=== PATIENT | male | born 1950 | race Caucasian/White ===

== ENCOUNTER → 2022-03-30 14:23 | Outpatient (CLI) | payer MEDICARE, SELFPAY ==
--- NOTE | ~2022-03-30 | US_ITS ---
EXAMINATION: US venous doppler LE RT DATE: 03/30/2022 14:47 INDICATION: Lower limb swelling TECHNIQUE: Grayscale ultrasound images without and with compression and Doppler ultrasound images of the right lower extremity veins were obtained. COMPARISON: None. FINDINGS: The visualized portions of right common femoral vein, profunda (deep) femoral vein, femoral vein, pop liteal vein, peroneal trunk, posterior tibial veins, peroneal veins, gastrocnemius vein and greater s aphenous vein outflow are patent. 2.9 x 0.8 x 2.5 cm Avery's cyst at the right popliteal fossa. IMPRESSION: 1. No deep venous thrombosis in the right lower limb. 2. Small right Avery's cyst. Reviewed, dictated and finalized at location A. [employer]
== END ==
PROVIDERS: PCP Internal Medicine; Visit Provider Podiatrist Foot & Ankle Surgery
DX: R60.0 Localized edema (principal); M79.671 Pain in right foot; M71.21 Synovial cyst of popliteal space [Baker], right knee
CPT/HCPCS: 93971

== ENCOUNTER 2023-01-05 09:32 | Outpatient (CLI) | payer MEDICARE, SELFPAY ==
[2023-01-05 11:38] LABS: Kit Draw Collected
== END 2023-01-05 09:33 | disposition home or self-care (01) ==
LOC: ANHGOSHLAB 09:35
PROVIDERS: PCP Nurse Practitioner Family; Visit Provider Podiatrist Foot & Ankle Surgery
DX: M10.071 Idiopathic gout, right ankle and foot (principal)
CPT/HCPCS: 36415

== ENCOUNTER 2024-01-09 14:21 | Outpatient (CLI) | payer MEDICARE, SELFPAY ==
[2024-01-09 14:53] LABS: Basophils Absolute Auto 0.2 K/mm3 (0.0-0.1); Basophils Percent Auto 1.2 % (0.2-1.2); Eosinophils Absolute Auto 0.3 K/mm3 (0-0.3); Eosinophils Percent Auto 2.1 % (0-4.4); Hematocrit 46.2 % (42.0-52.0); Hemoglobin 15.1 g/dL (14.0-18.0); Lymphocytes Absolute Auto 1.88 K/mm3 (0.9-3.2); Lymphocytes Percent Auto 12.8 % (18.3-44.2); Mean Corpuscular HGB Conc 32.7 g/dl (32-36); Mean Corpuscular Hemoglobin 29.4 pg (26-34); Mean Corpuscular Volume 90.1 fl (80-100); Monocytes Absolute Auto 1.4 K/mm3 (0.1-0.6); Monocytes Percent Auto 9.6 % (2.6-8.5); Neutrophils Absolute Auto 10.6 K/mm3 (1.3-6.7); Neutrophils Percent Auto 72.3 % (45.5-73.1); Red Blood Count 5.13 M/mm3 (4.6-6.20); Red Cell Distribution Width 16.8 % (11.5-14.5); White Blood Count 14.6 K/mm3 (4.5-10.0)
[2024-01-09 15:00] LABS: Platelet Count Result 1009 k/mm3 (150-375)
[2024-01-09 17:40] LABS: Alanine Aminotransferase 30 U/L (6-50); Albumin Level 4.1 g/dL (3.5-5.1); Alkaline Phosphatase 79 U/L (38-126); Anion Gap 6 mmol/L (4-12); Aspartate Amino Transferase 38 U/L (17-59); Blood Urea Nitrogen 17 mg/dL (9-20); CRP < 0.5 mg/dL (<1.0); Calcium 9.1 mg/dL (8.4-10.2); Carbon Dioxide 31 mmol/L (22-30); Chloride 102 mmol/L (98-107); Estimated Glomerular Filt Rate > 60; Glucose 108 mg/dL (65-110); Potassium 3.9 mmol/L (3.4-5.0); Sodium 139 mmol/L (137-145)
[2024-01-15 08:08] LABS: BCR/abl P190 NOT DETECTED; BCR/abl P210 NOT DETECTED; BCR/abl Source PERIPHERAL
[2024-01-15 11:39] LABS: Erythropoietin (EPO) 9.3 mIU/mL (2.6-18.5)
== END 2024-01-09 14:22 | disposition home or self-care (01) ==
LOC: ANHLAB 14:22
PROVIDERS: PCP Nurse Practitioner Family; Visit Provider Internal Medicine Hematology & Oncology
DX: D72.829 Elevated white blood cell count, unspecified (principal); D47.3 Essential (hemorrhagic) thrombocythemia; D64.9 Anemia, unspecified
CPT/HCPCS: 36415; 80053; 81270; 82668; 82728; 85025; 86140; 88184

== ENCOUNTER 2024-02-11 09:01 | Outpatient (CLI) | payer MEDICARE, SELFPAY ==
[2024-02-11 09:14] LABS: Basophils Absolute Auto 0.2 K/mm3 (0.0-0.1); Basophils Percent Auto 1.8 % (0.2-1.2); Eosinophils Absolute Auto 0.3 K/mm3 (0-0.3); Eosinophils Percent Auto 2.8 % (0-4.4); Hematocrit 46.4 % (42.0-52.0); Hemoglobin 15.3 g/dL (14.0-18.0); Immature Granulocyte Absolute 0.15 K/mm3 (0.00-0.031); Immature Granulocyte Percent A 1.5 % (0-0.5); Lymphocytes Absolute Auto 1.54 K/mm3 (0.9-3.2); Lymphocytes Percent Auto 15.2 % (18.3-44.2); Mean Corpuscular Hemoglobin 29.8 pg (26-34); Mean Corpuscular Volume 90.3 fl (80-100); Mean Platelet Volume 8.5 fl (7.4-10.4); Monocytes Absolute Auto 0.9 K/mm3 (0.1-0.6); Neutrophils Absolute Auto 7.1 K/mm3 (1.3-6.7); Neutrophils Percent Auto 69.7 % (45.5-73.1); Platelet Count Result 825 k/mm3 (150-375); Red Blood Count 5.14 M/mm3 (4.6-6.20); Red Cell Distribution Width 17.6 % (11.5-14.5); White Blood Count 10.1 K/mm3 (4.5-10.0)
[2024-02-11 09:17] LABS: Blood Urea Nitrogen 16 mg/dL (8-26); Carbon Dioxide 27 mmol/L (22-30); Chloride 102 mmol/L (98-109); Estimated Glomerular Filt Rate 35; Glucose 116 mg/dL (70-105); Ionized Calcium (POC) 1.15 mmol/L (1.11-1.31); Potassium 4.5 mmol/L (3.5-4.9); Sodium 140 mmol/L (138-146)
--- OUTSIDE RECORDS SUMMARY | 2024-02-17 23:03 | XMS_ITS | Clinical Summary ---
Author Organization [facility] [employer] Address [address] [place] [address] Care Team Providers Care Automation Application Engineer Name Role Phone Levi Yu DO Unavailable Christian Allan MD Primary Care Provider [phone] Markell Dominguez MD Unavailable Unavailable Source Comments [facility] [employer],non-owned Affiliates and Associated Physician Practices is amultiple site organization consisting of ambulatory clinics and hospital sitesin [place], [place], [place] and [place]. This disclosure is being madepursuant to the Care Everywhere program and may not contain all information available regarding this patient. Last updated 17.[facility] [employer] Allergies No known active allergies Medications * Be aware that medications may not be up to date on this document. Alwaysverify current medications with the patient. Medication Sig Dispensed Refills Start Date End Date Status enalapril (VASOTEC) 20 MG tablet Take 20 mg by mouth 2 times daily. Active amLODIPine (NORVASC) 5 MG tablet Take 5 mg by mouth once daily after dinner. Active niacin, Immediate Release, 250 MG tablet Take 250 mg by mouth at bedtime Active Multiple Vitamins-Minerals (OCUVITE PO) Take by mouth once daily Active Misc. Devices (ROLLATOR ULTRA-LIGHT) MISCIndications:Left hip pain,Primary osteoarthritis of left hip Use 1 Units continuous 1 Each 10/14/2018 Active Additional Information Patient not taking.Reported on 06/04/2020 HYDROcodone-acetamino phen (NORCO) 10-325 MG tablet Take 0.5-1 tablets by mouth every 6 hours as needed for Pain 28 tablet 12/23/2018 Active Additional Information Patient not taking.Reported on 06/04/2020 ASPIRIN LOW DOSE 81 MG tablet Take 81 mg by mouth once daily 03/26/2020 Active hydrOXYzine hcl (ATARAX) 25 MG tablet TAKE 1 TABLET BY MOUTH EVERY NIGHT AT BEDTIME NEEDED FOR ITCHING 04/30/2020 Active rosuvastatin (CRESTOR) 20 MG tablet 04/02/2020 Active Multiple Vitamins-Minerals (RA VISION-DYLAN PRESERVE PO) Active TURMERIC CURCUMIN PO Acti ve omega 3 (FISH OIL) 1200 MG capsule Take 1,200 mg by mouth once daily Active hydroCHLOROthiazide (HYDRODIURIL) 25 MG tablet Take 25 mg by mouth once daily Active metFORMIN ER 24hr (Glucophage XR) 500 MG tablet 11/01/2022 Active naproxen (Naprosyn) 500 MG tablet 11/01/2022 Active Active Problems Problem Noted Date Diagnosed Date Abnormal ECG 06/04/2020 HTN (hypertension), benign 06/04/2020 Left hip pain 11/12/2018 Spinal stenosis of lumbar region 06/07/2018 Tear of biceps tendon 10/05/2017 History of arthroscopy of right knee on 08-21-12 08/28/2012 Preoperative examination 08/20/2012 Knee pain 08/13/2012 Social History Tobacco Use Types Packs/Day Years Used Date Smoking Tobacco: Former Cigarettes Q uit: 02/26/1987 Smokeless Tobacco: Never Alcohol Use Standard Drinks/Week Comments Yes 2.5 (1 standard drink = 0.6 oz p ure alcohol) Sex and Gender Information Value Date Recorded Sex Assigned at Not on file Gender Identity Not on file Sexual Orientation Not on file Last Filed Vital Signs Vital Sign Reading Time Taken Comments Blood Pressure 156/75 06/04/2020 8:08 AM CDT Pulse 56 06/04/2020 8:08 AM CDT Temperature 36.9 ??C (98.5 ??F) 03/21/2020 3:25 PM CS T Respiratory Rate 18 03/21/2020 6:31 PM CONTRACT RUNNER Oxygen Saturation 95% 03/21/2020 8:01 PM CONTRACT RUNNER Inhaled Oxygen Concentration - - Weight 151.4 kg (333 lb 12.5 oz) 06/04/2020 8:08 AM CDT Height 188 cm (6' 2 ) 06/04/2020 8:08 AM CDT Body Mass Index 42.85 06/04/2020 8:08 AM CDT Plan of Treatment Health Maintenance Due Date Last Done Comments COLOGUARD (AGES 45-75) - COLON CA SCREENING 1952 COLON MONITORING 1952 COLONOSCOPY - COLON CA SCREENING 1952 CT COLONOGRAPHY - COLON CA SCREENING 1952 Colorectal Cancer Screening 1952 FIT - COLON CA SCREENING 1952 FLEX SIG - COLON CA SCREENING 1950 MEDICARE AWV ? 12 MONTHS 1952 HEPATITIS C SCREENING 07/28/1970 DTAP/TDAP/TD VACCINES (1 - Tdap) 08/02/1971 ZOSTER VACCINE (1 of 2) 2002 Respiratory Syncytial Virus (RSV) Vaccine Pt: or over 60 yrs (1 - Risk 60-74 years 1-dose series) 2012 AAA SCREENING 2017 PNEUMOCOCCAL VACCINE 65+ (1 of 1 - PCV) 2017 DEPRESSION SCREENING 02/26/2023 COVID-19 VACCINE ( season) 2023 12/29/2021, 10/10/2021, 12/14/2020, Additional history exists INFLUENZA VACCINE (#1) 2023 12/29/2021 HEPATITIS B VACCINE Aged Out No longe r eligible based on patient's age to complete this topic HIB VACCINE Aged Out No longer eligi ble based on patient's age to complete this topic HPV VACCINE Aged Out No longer eligi ble based on patient's age to complete this topic MENINGOCOCCAL VACCINE Aged Out No meir lilia eligible based on patient's age to complete this topic Medical Devices Implanted Type Area Para Operator Device Identifier Shelf Expiration Date Model / Serial / Lot Acetabular Liner +3 Max-Rom 40mm Head Size 25 Liner Size Implanted:Qty: 1 on 11/12/2018 by Frederick Solis IV, MD at [facility] Left: Hip [employer] 10/25/2020 [id number] / / [id number] Shell Actb 58mm Hip Lmt Hl Rnglc+ Implanted:Qty: 1 on 11/12/2018 by Frederick Solis IV, MD at [facility] Left: Hip [employer] 07/30/2028 [id number] / / [id number] Alloclassic Sl Stem Offset 5, Taper 12/14 Implanted:Qty: 1 on 11/12/2018 by Frederick Solis IV, MD at [facility] Left: Hip 06/26/2023 [id number] 0 / / [id number] Ceramic Femoral Head 40/+7 Xl Implanted:Qty: 1 on 11/12/2018 by Frederick Solis IV, MD at [facility] Left: Hip [employer] 03/28/2024 [id number] 0 -04 / / [id number] Explanted Type Area Para Operator Device Identifier Shelf Expiration Date Model / Serial / Lot Pin Fx 22.9cm 4mm Stnm Thrd Ss 1 End Explanted:Qty: 2 on 11/12/[address] [facility] Left: Hip [employer] [id number] / / Advance Directives * Full Code (Latest Code Status on File) Date Activated Date Inactivated Comments 11/12/2018 10:25 AM 11/16/2018 3:52 PM Care Teams Automation Application Engineer Relationship Specialty Start Date End Date Christian Allan MD [address] [place] [id number] PCP - General Internal Medicine 03/21/20 Levi Yu DO Orthopedic Surgery 08/13/12 Markell Dominguez MD [address] [place] [address] Compressor Operator Portable Cardiovascular Disease 06/04/20
--- OUTSIDE RECORDS SUMMARY | 2024-02-17 23:04 | XMS_ITS | Referral Summary ---
Author Organization [facility] [employer] Address [address] [place] [address] Care Team Providers Care Case Assistant Name Role Phone Levi Yu DO Unavailable Christian Allan MD Primary Care Provider [phone] Markell Dominguez MD Unavailable Unavailable Source Comments [facility] [employer],non-owned Affiliates and Associated Physician Practices is amultiple site organization consisting of ambulatory clinics and hospital sitesin [place], [place], [place] and [place]. This disclosure is being madepursuant to the Care Everywhere program and may not contain all information available regarding this patient. Last updated 17.[facility] [employer] Allergies No known active allergies Medications * [...] T Respiratory Rate 18 03/21/2020 6:31 PM FOOD AIDE Oxygen Saturation 95% 03/21/2020 8:01 PM FOOD AIDE Inhaled Oxygen Concentration - - Weight 151.4 kg (333 lb 12.5 oz) 06/04/2020 8:08 AM CDT Height 188 cm (6' 2 ) 06/04/2020 8:08 AM CDT Body Mass Index 42.85 06/04/2020 8:08 AM CDT Functional Status Functional Status Response Date of Assess ment Is person deaf or have serious hearing difficult y? No 11/16/2018 Is person blind or have serious difficulty seein g? No 11/16/2018 Does person have serious dif ficulty walking/climbing stairs? Yes 11/16/2018 Does person have difficulty dressing/bathing? Ye s 11/16/2018 Does person have difficulty doing errands alone? Yes 11/16/2018 Cognitive Status Response Date of Assessm ent Does person have difficulty concentrating/remembering/making decisions? No 11/16/2018 Plan of Treatment Not on file Medical Devices Implanted Type Area Training And Development Director Device Identifier Shelf Expiration Date Model / Serial / Lot Acetabular Liner +3 Max-Rom 40mm Head Size 25 Liner Size Implanted:Qty: 1 on 11/12/2018 by Frederick Solis IV, MD at [facility] Left: Hip [employer] 10/25/2020 [id number] / / [id number] Shell Actb 58mm Hip Lmt Hl Rnglc+ Implanted:Qty: 1 on 11/12/2018 by Frederick Solis IV, MD at [facility] Left: Hip [employer] 07/30/2028 [id number] / / [id number] Alloclassic Sl Stem Offset 5, Taper 12/14 Implanted:Qty: 1 on 11/12/2018 by Frederick Solis IV, MD at [facility] Left: Hip 06/26/2023 [id number] 0 / / [id number] Ceramic Femoral Head 40/+7 Xl Implanted:Qty: 1 on 11/12/2018 by Frederick Solis IV, MD at [facility] Left: Hip [employer] 03/28/2024 [id number] 0 -04 / / [id number] Explanted Type Area Training And Development Director Device Identifier Shelf Expiration Date Model / Serial / Lot Pin Fx 22.9cm 4mm Stnm Thrd Ss 1 End Explanted:Qty: 2 on 11/12/2018 at [facility] Left: Hip [employer] [id number] / / Advance Directives * Full Code (Latest Code Status on File) Date Activated Date Inactivated Comments 11/12/2018 10:25 AM 11/16/2018 3:52 PM Care Teams Case Assistant Relationship Specialty Start Date End Date Christian Allan MD [address] [place] [address] PCP - General Internal Medicine 03/21/20 Levi Yu DO Orthopedic Surgery 08/13/12 Markell Dominguez MD [address] [place] [address] Design Lead Cardiovascular Disease 06/04/20
--- OUTSIDE RECORDS SUMMARY | 2024-02-17 23:04 | XMS_ITS | Encounter Summary ---
Author Organization [facility] Address [address] [place] [address] Care Team Providers Care Carrier Washer Name Role Phone Levi Yu DO Unavailable Christian Allan MD Primary Care Provider [phone] Markell Dominguez MD Unavailable Unavailable Reason for Visit * Reason Comments Abnormal Ekg Dizziness Establish Care Encounter Details Date Type Department Care Team (Late st Contact Info) Description 06/04/2020 8:00 AM CDT Office Visit [facility] [address] [place] [address], [address] [address] Markell Dominguez MD Abnormal ECG (Primary Dx); HTN (hypertension), benign Social History Tobacco Use Types Packs/Day Years Used Date Smoking Tobacco: Former Cigarettes Q uit: 02/26/1987 Smokeless Tobacco: Never Alcohol Use Standard Drinks/Week Comments Yes 2.5 (1 standard drink = 0.6 oz p ure alcohol) Sex and Gender Information Value Date Recorded Sex Assigned at Not on file Gender Identity Not on file Sexual Orientation Not on file COVID-19 Exposure Response Date Recorded In the last month, have you been in contact with someone who was confirmed or suspected to have Coronavirus / COVID-19? No / Unsure 05/24/2020 10:56 AM CDT documented as of this encounter Last Filed Vital Signs Vital Sign Reading Time Taken Comments Blood Pressure 156/75 06/04/2020 8:08 AM CDT Pulse 56 06/04/2020 8:08 AM CDT Temperature - - Respiratory Rate - - Oxygen Saturation - - Inhaled Oxygen Concentration - - Weight 151.4 kg (333 lb 12.5 oz) 06/04/2020 8:08 AM CDT Height 188 cm (6' 2 ) 06/04/2020 8:08 AM CDT Body Mass Index 42.85 06/04/2020 8:08 AM CDT documented in this encounter Functional Status Functional Status Response Date of [...] person have difficulty concentrating/remembering/making decisions? No 11/16/2018 documented as of this encounter Patient Instructions * Patient Instructions* Soledad Glez MA - 06/04/2020 8:12 AM CDT Dear Dillon Mejia, So we can provide you an even better experience we are collecting feedback on how we performed at your visit today. In a couple of weeks you will receive a survey via e-mail or mail. We would greatlyappreciate insight as we continue to improve our patient experience. Thank you for you time! documented in this encounter Progress Notes * Markell Dominguez MD - 06/04/2020 8:26 AM CDT Cardiology Consultation Note Chief Complaint Patient presents with ??? Abnormal Ekg ??? Dizziness ??? Establish Care History of Present Illness: The patient is a very pleasant 69 year old male with a history including HTN, spinal stenosis, obesity. Came for evaluation of dizziness and HTN. In late February had two episodes of lightheadedness which lasted a second. No associated chest pain, dyspnea, palpitations, edema, syncope, dyspnea. Went to ER. No problems since. BPs 130's/80s at home Saw Dr. Browning in March, following tests done: Event recorder for 3 weeks: Ave HR 62, 1.86% PACs, 1.23% VPCs, 21 ventricular couplets. Patient was not called test results. Echocardiogram: Normal LV function, mild LAE Carotid Duplex <50% bilterally. Renal Duplex: negtive Nuclear regadenoson stress test: negative CXR negative ECG: SR 54, slow R wave progression Past Medical History: Past Medical History: Diagnosis Date ??? HTN (hypertension) ??? Macular degeneration (senile) of retina, unspecified Macular Degeneration Past Surgical History: Past Surgical History: Procedure Laterality Date ??? HC ARTHROSCOPY KNEE 08/21/12 RIGHT ??? HIP ARTHROPLASTY, TOTAL Left 11/12/2018 ANTERIOR APPROACH; DR. HELMS ??? HIP ARTHROPLASTY, TOTAL Left 11/12/2018 Left; LEFT TOTAL ANTERIOR HIP ARTHROPLASTY ??? KNEE ARTHROPLASTY 2005 ??? Knee Arthroscopy X2 ??? LUMBAR SPINE FUSION ??? Meniscectomy 08/21/2012 Right; ARTHROSCOPY KNEE MENISCECTOMY MEDIAL Current Medications: Current Outpatient Medications: ??? amLODIPine (NORVASC) 5 MG tablet, Take 5 mg by mouth once daily after dinner., Disp: , Rfl: ??? ASPIRIN LOW DOSE 81 MG tablet, Take 81 mg by mouth once daily, Disp: , Rfl: ??? enalapril (VASOTEC) 20 MG tablet, Take 20 mg by mouth 2 times daily., Disp: , Rfl: ??? hydroCHLOROthiazide (HYDRODIURIL) 25 MG tablet, Take 25 mg by mouth once daily, Disp: , Rfl: ??? HYDROcodone-acetaminophen (NORCO) 10-325 MG tablet, Take 0.5-1 tablets by mouth every 6 hours as needed for Pain (Patient not taking: Reported on 06/04/2020), Disp: 28 tablet, Rfl: 0 ??? hydrOXYzine hcl (ATARAX) 25 MG tablet, TAKE 1 TABLET BY MOUTH EVERY NIGHT AT BEDTIME NEEDED FOR ITCHING, Disp: , Rfl: ??? Misc. Devices (ROLLATOR ULTRA-LIGHT) MISC, Use 1 Units continuous (Patient not taking: Reportedon 06/04/2020), Disp: 1 Each, Rfl: 0 ??? Multiple Vitamins-Minerals (OCUVITE PO), Take by mouth once daily , Disp: , Rfl: ??? Multiple Vitamins-Minerals (RA VISION-DYLAN PRESERVE PO), , Disp: , Rfl: ??? niacin, Immediate Release, 250 MG tablet, Take 250 mg by mouth at bedtime, Disp: , Rfl: ??? omega 3 (FISH OIL) 1200 MG capsule, Take 1,200 mg by mouth once daily, Disp: , Rfl: ??? rosuvastatin (CRESTOR) 20 MG tablet, , Disp: , Rfl: ??? TURMERIC CURCUMIN PO, , Disp: , Rfl: Allergies: No Known Allergies Family History: Mother with PR at 64, PCI Social History: Social History Tobacco Use ??? Smoking status: Former Smoker Types: Cigarettes Quit date: 02/26/1987 Years since quittin.2 ??? Smokeless tobacco: Never Used Substance Use Topics ??? Alcohol use: Yes Alcohol/week: 2.5 standard drinks Types: 3 Alcoholic drink(s) per week ??? Drug use: No Review of Symptoms: Constitutional: Negative for fever, chills, malaise/fatigue, diaphoresis. Psychiatric: Negative for depression, anxiety. Skin: Negative for rash, itching. HENT: Negative for headaches, congestion. Negative for vertigo. Eyes: Negative for blurred vision, itching. Cardiovascular: As above. Respiratory: Negative for cough, sputum production. Negative for shortness of breath. Gastrointestinal: Negative for nausea, vomiting, abdominal pain, diarrhea. Genitourinary: No urgency, frequency, dysuria, hematuria. No incontinence. Musculoskeletal: Negative for muscle weakness, extremity redness, swelling. Neurological: Negative for dizziness, focal weakness, tremors, loss of consciousness. Physical Exam: BP 156/75 Pulse 56 Ht 1.88 m (6' 2 ) Wt 151.4 kg (333 lb 12.5 oz) BMI 42.85 kg/m2 General: Well developed, well nourished, in no acute distress. Skin: Warm and dry. No jaundice. Head: Normocephalic, oral mucosa normal Eyes: No xanthelasma. Pupils equal. Conjunctivae normal. Neck: No thyromegaly or bruits. Carotid pulses 2+ Lungs: Clear to auscultation and percussion. Respirations unlabored Cardiac: PMI and JVP normal, S1 and S2 normal, no murmur, no gallop, no rub Abd: Soft, nontender, obese, BS active, no hepatosplenomegaly or masses, no abdominal bruit or enlarged aortic pulsation Extremities: No clubbing, cyanosis. No edema. Femoral pulses 2+. Pedal pulses 2+ Musculoskeletal: Muscle strength normal. No scoliosis. Neurologic: Motor and sensory exam grossly normal. Extraocular muscles intact. Mood not depressed. Oriented to person, place, and time. My review of labs, imaging, notes and other tests is significant for Recent Labs Component Name 03/21/20 1409 11/14/18 0259 11/13/18 0332 WBC 11.5* - - HGB 16.0 11.5* 13.1 HCT 47.6 35.2 39.4 PLTCOUNT 281 - - Recent Labs Component Name 03/21/20 1409 08/21/12 0743 SODIUM 139 140 POTASSIUM 4.2 4.6 CHLORIDE 103 102 CO2 25 30 BUN 12 17 CREATININE 0.79 0.79 GLUCOSE 99 110* CALCIUM 9.3 9.1 Recent Labs Component Name 03/21/20 1409 BNP 15 Recent Labs Component Name 03/21/20 1409 TSH 1.920 Recent Labs Component Name 03/21/20 1409 ALBUMIN 4.2 ALKPHOS 94 ALT 31 AST 24 TBIL 0.8 TPROT 7.7 Diagnosis: Fleeting lightheadedness. No clear cause. VPCs and ventricular couplets. HTN Spinal stenosis Left hip replacement Obesity Plan: No further testing Discontinue aspirin Patient reassured. Return PRN Markell Dominguez MD, [facility], 06/04/2020 8:26 AM documented in this encounter Plan of Treatment Not on file documented as of this encounter Visit Diagnoses Diagnosis Abnormal ECG- Primary Nonspecific abnormal electrocardiogram (ECG) (EKG) HTN (hypertension), benign Essential hypertension, benign documented in this encounter Care Teams Carrier Washer Relationship Specialty Start Date End Date Christian Allan MD [address] [place] [address] PCP - General Internal Medicine 03/21/20 Levi Yu DO Orthopedic Surgery 08/13/12 Markell Dominguez MD [address] [place] [address] Promotions Intern Cardiovascular Disease 06/04/20 documented as of this encounter
--- OUTSIDE RECORDS SUMMARY | 2024-02-17 23:04 | XMS_ITS | Encounter Summary ---
Author Organization [facility] Address [address] [place] [address] Care Team Providers Care Metal Molder Name Role Phone Levi Yu DO Unavailable Reason for Visit * Reason Comments Follow-up left hip Encounter Details Date Type Department Care Team (Late st Contact Info) Description 12/15/2019 8:40 AM CDT Office Visit [facility] Orth[facility] [id number] [place] [phone] [place] [id number] [address] History of arthroplasty of left hip (Primary Dx); Left hip pain; Status post total hip replacement, left Social History Tobacco Use Types Packs/Day Years [...] have Coronavirus / COVID-19? No / Unsure 12/15/2019 9:26 AM CDT documented as of this encounter Functional Status Functional Status Response [...] No 11/16/2018 documented as of this encounter Progress Notes * Anila Noriega MA - 12/15/2019 8:46 AM CDT Patient is here for his left hip s/p rhianna 1 yr f/u documented in this encounter H&P Notes * Frederick Solis IV, MD - 12/16/2019 9:55 AM CDT DATE OF SERVICE: 12/15/2019 SUBJECTIVE: Dillon came in today for followup on his left hip. He is doing overall well, but having some lateral-sided hip pain with activity. OBJECTIVE: On examination today, marked trochanteric tenderness and low back tenderness. Range of motion of the hip is nontender. Minimal limp. Negative Trendelenburg. RADIOGRAPHS: X-rays show stable left total hip arthroplasty. IMPRESSION: Well-functioning stable left total hip arthroplasty with some persistent difficulty likely due to abductor dysfunction in the setting of lumbar spondylosis. PLAN: I have enrolled him in physical therapy. I would like to see him back in the office in 6 to 8 weeks to assess his progress with therapy. If he is not improved then he would probably benefit from more careful evaluation of the hip, possibly a MARS MRI and infection workup. Frederick Solis M.D. FT/Giancarlo #: [id number] documented in this encounter Procedure Notes * Christen Rock, RT(R) - 12/15/2019 8:52 AM CDTAssociated Order(s): XR HIP LEFT 2VW OR MORE See progress notes for results documented in this encounter Plan of Treatment Not on file documented as of this encounter Procedures Procedure Name Priority Date/Time Associated Diagnosis Comments XR HIP LEFT 2VW OR MORE Routine 12/15/2019 8:51 AM CDT Left hip pain documented in this encounter Results * XR HIP LEFT 2VW OR MORE (12/15/2019 8:51 AM CDT) Anatomical Region Laterality Modality Pelvis, Lower Extremity Computed Radiography Narrative 12/15/2019 8:52 AM CDT Christen Rock RT(R) ? 12/16/2019 ??8:39 AM See progress notes for results Frederick Solis IV, MD DIAGNOSTIC IMAGING O RDERABLES documented in this encounter Visit Diagnoses Diagnosis History of arthroplasty of left hip- Primary Left hip pain Pain in joint, pelvic region and thigh Status post total hip replacement, left Left hip pain Pain in joint, pelvic region and thigh documented in this encounter Care Teams Metal Molder Relationship Specialty Start Date End Date Levi Yu DO Orthopedic Surgery 08/13/12 documented as of this encounter
--- OUTSIDE RECORDS SUMMARY | 2024-02-17 23:04 | XMS_ITS | Encounter Summary ---
Author Organization [facility] Address [address] [place] [address] Care Team Providers Care Top Bottom Attaching Machine Operator Name Role Phone Levi Yu DO Unavailable Encounter Details Date Type Department Care Team (Late st Contact Info) Description 12/15/2019 8:50 AM CDT Ancillary Procedure [facility] Orthopedics - Radiology [address] [place] [phone] [place] [id number] [facility] [address] [place] [address] Left hip pain Social History Tobacco Use Types Packs/Day Years [...] No 11/16/2018 documented as of this encounter Plan of Treatment Not on [...] Radiography Narrative 12/15/2019 8:52 AM CDT Christen Rock, RT(R) ? 12/16/2019 ??8:39 AM See progress notes for results Frederick Solis IV, MD DIAGNOSTIC IMAGING O RDERABLES documented in this encounter Visit Diagnoses Diagnosis Left hip pain Pain in joint, pelvic region and thigh documented in this encounter Care Teams Top Bottom Attaching Machine Operator Relationship Specialty Start Date End Date Levi Yu DO Orthopedic Surgery 08/13/12 documented as of this encounter
--- OUTSIDE RECORDS SUMMARY | 2024-02-17 23:04 | XMS_ITS | Encounter Summary ---
Author Organization [facility] Address [address] [facility] [place] [address] Care Team Providers Care Industrial Education Teacher Name Role Phone Levi Yu DO Unavailable Reason for Visit * Reason Onset Date Comments MEDICATION REFILL 02/03/2019 Encounter Details Date Type Department Care Team (Late st Contact Info) Description 02/03/2019 Refill [facility] Orthopedics [address] [address] [place] [address] [address] MEDICATION REFILL Social History Tobacco Use Types Packs/Day Years Used Date Smoking Tobacco: Former Cigarettes Q uit: 02/26/1987 Smokeless Tobacco: Never Alcohol Use Standard Drinks/Week Comments Yes 2.5 (1 standard drink = 0.6 oz p ure alcohol) Sex and Gender Information Value Date Recorded Sex Assigned at Not on file Gender Identity Not on file Sexual Orientation Not on file documented as of this encounter Functional Status [...] documented as of this encounter Visit Diagnoses Not on filedocumented in this encounter Care Teams Industrial Education Teacher Relationship Specialty Start Date End Date Levi Yu DO Orthopedic Surgery 08/13/12 documented as of this encounter
--- OUTSIDE RECORDS SUMMARY | 2024-02-17 23:04 | XMS_ITS | Encounter Summary ---
Author Organization [facility] Address [address] [facility] [place] [address] Care Team Providers Care Triage Register Nurse Name Role Phone Levi Yu DO Unavailable Encounter Details Date Type Department Care Team (Latest Contact Info) Description 08/31/2019 Travel Social History Tobacco Use Types Packs/Day Years [...] have Coronavirus / COVID-19? No / Unsure 08/31/2019 1:46 PM CDT documented as of this encounter Functional [...] on filedocumented in this encounter Care Teams Triage Register Nurse Relationship Specialty Start Date End Date Levi Yu DO Orthopedic Surgery 08/13/12 documented as of this encounter
--- OUTSIDE RECORDS SUMMARY | 2024-02-17 23:04 | XMS_ITS | Encounter Summary ---
Author Organization [facility] Address [address] [facility] [place] [address] Care Team Providers Care Irrigation Flume Layer Name Role Phone Levi Yu DO Unavailable Christian Allan MD Primary Care Provider [phone] Markell Dominguez MD Unavailable Unavailable Reason for Referral * Radiology Services (Routine) - Closed Specialty Diagnoses / Procedures Referred By Contac t Referred To Contact MRI Diagnoses History of total left hip arthroplasty Procedures [place] [address] [address] [place] [id number] Referral ID Status Reason Start Date Expiration Date Visits Re quested Visits Authorized [id number] Closed 09/18/2022 09/18/2023 1 1 Reason for Visit * Radiology Services (Routine) - Closed Specialty Diagnoses / Procedures Referred By Contac t Referred To Contact MRI Diagnoses History of total left hip arthroplasty Procedures [place] [address] [address] [place] [address] Referral ID Status Reason Start Date Expiration Date Visits Re quested Visits Authorized [id number] Closed 09/18/2022 09/18/2023 1 1 Encounter Details Date Type Department Care Team (Latest Contact Info) Description 10/09/2022 9:07 AM CDT - 10/09/2022 11:59 PM CDT Hospital Encounter [facility] Health Imaging Services - [place] [address] [place] [address] [place] [address] [address] [place] [address] Discharge Disposition: Home or Self Care Social History Tobacco Use Types Packs/Day Years [...] No 11/16/2018 documented as of this encounter Medications at Time of Discharge Medication Sig Dispensed Refills Start Date End Date amLODIPine (NORVASC) 5 MG tablet Take 5 mg by mouth once daily after dinner. ASPIRIN LOW DOSE 81 MG tablet Take 81 mg by mouth once daily 03/26/2020 enalapril (VASOTEC) 20 MG tablet Take 20 mg by mouth 2 times daily. hydroCHLOROthiazide (HYDRODIURIL) 25 MG tablet Take 25 mg by mouth once daily HYDROcodone-acetaminophen (NORCO) 10-325 MG tablet Take 0.5-1 tablets by mouth every 6 hours as needed for Pain 28 tablet 12/23/2018 hydrOXYzine hcl (ATARAX) 25 MG tablet TAKE 1 TABLET BY MOUTH EVERY NIGHT AT BEDTIME NEEDED FOR ITCHING 04/30/2020 Misc. Devices (ROLLATOR ULTRA-LIGHT) MISCIndications:Left hip pain,Primary osteoarthritis of left hip Use 1 Units continuous 1 Each 10/14/2018 Multiple Vitamins-Minerals (OCUVITE PO) Take by mouth once daily Multiple Vitamins-Minerals (RA VISION-DYLAN PRESERVE PO) niacin, Immediate Release, 250 MG tablet Take 250 mg by mouth at bedtime omega 3 (FISH OIL) 1200 MG capsule Take 1,200 mg by mouth once daily rosuvastatin (CRESTOR) 20 MG tablet 04/02/2020 TURMERIC CURCUMIN PO documented as of this encounter Plan of Treatment Not on file documented as of this encounter Procedures Procedure Name Priority Date/Time Associated Diagnosis Comments MRI HIP LEFT WO CONTRAST Routine 10/09/2022 10:54 AM CDT History of total left hip arthroplasty documented in this encounter Results * MRI HIP LEFT WO CONTRAST (10/09/2022 10:54 AM CDT) Anatomical Region Laterality Modality Lower Extremity Magnetic Resonan ce 10/09/2022 12:5 0 PM CDT Narrative 10/09/2022 1:02 PM CDT PROCEDURE: ??MRI HIP LEFT WO CONTRAST DATE/TIME OF EXAM: ??10/09/2022 10:54 AM CLINICAL INFORMATION: None relevant/not provided if blank. Indication: Z96.642: Presence of left artificial hip joint Additional History: Left hip pain and reduced range of motion. COMPARISON: MRI examination October 08, 2018, plain film examination March 20, 2022. TECHNIQUE: MRI of the left hip was performed without contrast. Metal suppression technique was employed. FINDINGS: Left hip arthroplasty components are in grossly anatomic alignment. No bone marrow edema or bone marrow replacement process is identified to specifically suggest the presence of osteomyelitis. There is no pathologic joint effusion. No soft tissue abscess or fluid collection is appreciated. There is small-volume right hip joint effusion. There is left gluteal muscle atrophy. No free intrapelvic fluid. Margins of the sacroiliac joints are maintained. CONCLUSION: Left hip arthroplasty in place. No bone marrow edema or bone marrow replacement process identified to suggest the presence of osteomyelitis. No left hip joint effusion identified. No soft tissue fluid collection identified. > Interpreting Provider: Brennon Tafoya MD on 10/09/2022 1:02 PM Procedure Note Brennon Tafoya MD - 10/09/2022 PROCEDURE: MRI HIP LEFT WO CONTRAST DATE/TIME OF EXAM: 10/09/2022 10:54 AM CLINICAL INFORMATION: None relevant/not provided if blank. Indication: Z96.642: Presence of left artificial hip joint Additional History: Left hip pain and reduced range of motion. COMPARISON: MRI examination October 08, 2018, plain film examination February. TECHNIQUE: MRI of the left hip was performed without contrast. Metal suppression technique was employed. FINDINGS: Left hip arthroplasty components are in grossly anatomic alignment. Nobone marrow edema or bone marrow replacement process is identified to specifically suggest the presence of osteomyelitis. There is nopathologic joint effusion. No soft tissue abscess or fluid collection isappreciated. There is small-volume right hip joint effusion. There is left gluteal muscle atrophy. No free intrapelvic fluid. Margins of the sacroiliacjoints are maintained. CONCLUSION: Left hip arthroplasty in place. No bone marrow edema or bone marrow replacement process identified to suggest the presence of osteomyelitis. No left hip joint effusion identified. No soft tissue fluid collection identified. > Interpreting Provider: Brennon Tafoya MD on 10/09/2022 1:02 PM Frederick Solis IV, MD MR ORDERABLES documented in this encounter Visit Diagnoses Diagnosis History of total left hip arthroplasty documented in this encounter Care Teams Irrigation Flume Layer Relationship Specialty Start Date End Date Christian Allan MD [address] [place] [phone] PCP - General Internal Medicine 03/21/20 Levi Yu DO Orthopedic Surgery 08/13/12 Markell Dominguez MD [address] [place] [address] Nuclear Engineer Cardiovascular Disease 06/04/20 documented as of this encounter
--- OUTSIDE RECORDS SUMMARY | 2024-02-17 23:04 | XMS_ITS | Encounter Summary ---
Author Organization [facility] Address [address] [facility] [place] [address] Care Team Providers Care Electrical System Specialist Name Role Phone Levi Yu DO Unavailable Reason for Visit * Reason Onset Date Comments MEDICATION REFILL 04/03/2019 Encounter Details Date Type Department Care Team (Late st Contact Info) Description 02/03/2019 Refill [facility] Orthopedics [address] [address] [place] [address] [address] MEDICATION REFILL Social History Tobacco [...] on filedocumented in this encounter Care Teams Electrical System Specialist Relationship Specialty Start Date End Date Levi Yu DO Orthopedic Surgery 08/13/12 documented as of this encounter
--- OUTSIDE RECORDS SUMMARY | 2024-02-17 23:04 | XMS_ITS | Encounter Summary ---
Author Organization [facility] Address [address] [place] [address] Care Team Providers Care Biometrics Analyst Name Role Phone Levi Yu DO Unavailable Christian Allan MD Primary Care Provider [phone] Markell Dominguez MD Unavailable Unavailable Reason for Visit * Reason Onset Date Comments Results 10/12/2022 Encounter Details Date Type Department Care Team (Late st Contact Info) Description 10/12/2022 Telephone [facility] Orthopedics [address] [facility], [address] [address] Leanne Cervantes, PABrantC [address] [address] Results Social History Tobacco Use Types Packs/Day Years [...] No 11/16/2018 documented as of this encounter Miscellaneous Notes * Telephone Encounter - Leanne Cervantes PA-C - 10/12/2022 4:51 PM CDT Spoke with patient regarding his mars MRI results of his left hip and his lab work. Lab work was within normal limits for sed rate and CRP. [place] MRI of his left hip did not show any marrow edema or component complication. Patient does complain of thigh pain. Images 31-36 on the STIR, axial images demonstrate some soft tissue fluid uptake will see if Dr. Solis thinks that there is any clinical significance. documented in this encounter Plan of Treatment Not on file documented as of this encounter Visit Diagnoses Not on filedocumented in this encounter Care Teams Biometrics Analyst Relationship Specialty Start Date End Date Christian Allan MD [address] [place] [phone] PCP - General Internal Medicine 03/21/20 Levi Yu DO Orthopedic Surgery 08/13/12 Markell Dominguez MD [address] [place] [address] Container Coordinator Cardiovascular Disease 06/04/20 documented as of this encounter
--- OUTSIDE RECORDS SUMMARY | 2024-02-17 23:04 | XMS_ITS | Encounter Summary ---
Author Organization [facility] Address [address] [facility] [place] [address] Care Team Providers Care Deputy Sheriff Civil Division Name Role Phone Levi Yu DO Unavailable Christian Allan MD Primary Care Provider [phone] Encounter Details Date Type Department Care Team (Latest Contact Info) Description 05/24/2020 Travel Social History Tobacco Use Types Packs/Day [...] on filedocumented in this encounter Care Teams Deputy Sheriff Civil Division Relationship Specialty Start Date End Date Christian Allan MD [address] [place] [address] PCP - General Internal Medicine 03/21/20 Levi Yu DO Orthopedic Surgery 08/13/12 documented as of this encounter
--- OUTSIDE RECORDS SUMMARY | 2024-02-17 23:04 | XMS_ITS | Encounter Summary ---
Author Organization [facility] Address [address] [facility] [place] [address] Care Team Providers Care Dehydrogenation Operator Name Role Phone Levi Yu DO Unavailable Christian Allan MD Primary Care Provider [phone] Encounter Details Date Type Department Care Team (Late st Contact Info) Description 05/24/2020 Orders Only [facility] - COVID Vax [address] [place] [address] Jose Lovell MD [address] [address] Need for vaccination Social History Tobacco Use Types Packs/Day Years [...] as of this encounter Visit Diagnoses Diagnosis Need for vaccination Need for prophylactic vaccination and inoculation against unspecified single disease documented in this encounter Care Teams Dehydrogenation Operator Relationship Specialty Start Date End Date Christian Allan MD [address] [place] [phone] PCP - General Internal Medicine 03/21/20 Levi Yu DO Orthopedic Surgery 08/13/12 documented as of this encounter
--- OUTSIDE RECORDS SUMMARY | 2024-02-17 23:04 | XMS_ITS | Encounter Summary ---
Author Organization [facility] Address [address] [place] [address] Care Team Providers Care Continuous Miner Operator Helper Name Role Phone Levi Yu DO Unavailable Christian Allan MD Primary Care Provider [phone] Markell Dominguez MD Unavailable Unavailable Reason for Visit * Reason Comments Follow-up Left hip F/U Encounter Details Date Type Department Care Team (Late st Contact Info) Description 06/12/2022 10:10 AM CDT Office Visit [facility] Orthopedics [address] [place] [address] [place] [address] [address] History of total left hip arthroplasty (Primary Dx) Social History Tobacco Use Types Packs/Day Years [...] as of this encounter Progress Notes * Saumya Rosales - 06/12/2022 9:56 AM CDT Chief Complaint Patient presents with ??? Follow-up Left hip F/U documented in this encounter H&P Notes * Frederick Solis IV, MD - 06/13/2022 7:09 AM CDT DATE OF SERVICE: 06/12/2022 SUBJECTIVE: Dillon came in today for followup on his left hip. He thinks therapy is helping him quite a bit. OBJECTIVE: On examination today, he has a mildly positive Trendelenburg, mild abductor weakness, tenderness over the left trochanter. Previous radiographs show a stable total hip. IMPRESSION: Improving symptoms associated with some lateral hip pain status post left total hip arthroplasty. PLANS: Continue physical therapy. I encouraged him to do some water exercise. I would like to see him back in 2 months. If he is still having issues at that point, then had an MRI and possibly sed rate, CRP, would be indicated. Frederick Solis M.D. FT/MedQ #: [id number] documented in this encounter Plan of Treatment Not on file documented as of this encounter Visit Diagnoses Diagnosis History of total left hip arthroplasty- Primary documented in this encounter Care Teams Continuous Miner Operator Helper Relationship Specialty Start Date End Date Christian Allan MD [address] [place] [address] PCP - General Internal Medicine 03/21/20 Levi Yu DO Orthopedic Surgery 08/13/12 Markell Dominguez MD [address] [place] [address] Insurance Claims Assistant Cardiovascular Disease 06/04/20 documented as of this encounter
--- OUTSIDE RECORDS SUMMARY | 2024-02-17 23:04 | XMS_ITS | Encounter Summary ---
Author Organization [facility] Address [address] [facility] [place] [address] Care Team Providers Care Assembling Inspector Name Role Phone Levi Yu DO Unavailable Christian Allan MD Primary Care Provider [phone] Markell Dominguez MD Unavailable Unavailable Reason for Visit * Reason Onset Date Comments Question 03/31/2022 Physical Therapy 03/31/2022 Encounter Details Date Type Department Care Team (Late st Contact Info) Description 03/31/2022 Telephone [facility] Orthopedics [address] [place] [address] [place] [address] [address] Question; Physical Therapy Social History Tobacco Use Types Packs/Day Years [...] Telephone Encounter - Leanne Cervantes PA-C - 04/04/2022 9:30 AM GRAVITY PROSPECTING OPERATOR HELPER LMOR regarding referral for therapy for right leg. Would like to discuss with patient prior. Patient had history right knee arthroscopy back July,. Patient had moderate to advanced degenerative changes, at that time. I do not want to exacerbate his knee arthritis, while he is concurrently doing therapy for his left total hip arthroplasty Director Regulatory Affairs had recent Doppler of his lower extremity which revealed a Avery cyst. Patient is requesting a referral for physical therapy for his right lower extremity ITY PROSPECTING OPERATOR HELPER * Telephone Encounter - Harriett Plaza LPN - 03/31/2022 10:25 AM CST Pt called asking for a return call,he starts PT 04/04/22, he was seen by his gatekeeper and had a R leg doppler, it showed a Bakers cyst, he is asking if an order can be added for PT of the R leg? ITY PROSPECTING OPERATOR HELPER documented in this encounter Plan of Treatment Not on file documented as of this encounter Visit Diagnoses Not on filedocumented in this encounter Care Teams Assembling Inspector Relationship Specialty Start Date End Date Christian Allan MD [address] [place] [address] PCP - General Internal Medicine 03/21/20 Levi Yu DO Orthopedic Surgery 08/13/12 Markell Dominguez MD [address] [place] [address] Guest Relations Manager Cardiovascular Disease 06/04/20 documented as of this encounter
--- OUTSIDE RECORDS SUMMARY | 2024-02-17 23:04 | XMS_ITS | Encounter Summary ---
Author Organization [facility] Address [address] [place] [address] Care Team Providers Care Softball Player Name Role Phone Levi Yu DO Unavailable Reason for Visit * Reason Onset Date Comments MEDICATION REFILL 12/23/2018 Encounter Details Date Type Department Care Team (Late st Contact Info) Description 12/23/2018 Refill [facility] Orthopedics [address] [address] [place] [address] [address] MEDICATION REFILL Social History Tobacco [...] on filedocumented in this encounter Care Teams Softball Player Relationship Specialty Start Date End Date Levi Yu DO Orthopedic Surgery 08/13/12 documented as of this encounter
--- OUTSIDE RECORDS SUMMARY | 2024-02-17 23:04 | XMS_ITS | Encounter Summary ---
Author Organization [facility] Address [address] [facility] [place] [address] Care Team Providers Care Academic Tutor Name Role Phone Levi Yu DO Unavailable Christian Allan MD Primary Care Provider [phone] Markell Dominguez MD Unavailable Unavailable Reason for Visit * Reason Comments Follow-up Left hip pain left t baumann 11-12-18 Encounter Details Date Type Department Care Team (Late st Contact Info) Description 03/20/2022 1:00 PM COMMUNITY SUPPORT SPECIALIST Office Visit [facility] Orthopedics [address] [place] [address] [place] [address] [address] History of total left hip arthroplasty (Primary Dx); Hip pain Social History Tobacco Use Types Packs/Day [...] as of this encounter Progress Notes * Frederick Solis IV, MD - 03/20/2022 2:50 PM CST DATE OF SERVICE: 03/20/2022 SUBJECTIVE: The patient came in today for follow-up on his left hip. He has been having intermittent lateral sided hip discomfort over the last several months. Some days, he is pain free, and other days, he has episodes of severe pain. OBJECTIVE: On examination today, he has a level pelvis and a negative Trendelenburg. There is painless, passive range of motion of his hip. He walks without a limp. He has tenderness in his low back and over his left trochanter. Radiographs of the left hip show a stable total hip arthroplasty with evidence of osseointegration.The Zweym??ller stem does have some proximal bone implant lucency, but it does appear stable without a pedestal and with some reactive hypertrophy of the proximal femoral diaphysis. 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 PLAN: 1. I have enrolled him in physical therapy for his hip and his back. I would like to see him back in 2 months. If he is not improved at that point, I would check a sed rate, CRP, and a metal artifactreduction sequence MRI. ATTESTATION Directed by Frederick Solis IV, MD and produced by [employer]. Powered by [employer]. UNITY SUPPORT SPECIALIST * Kinjal Nicholson MA - 03/20/2022 1:15 PM CST Left hip pain left rhianna 11-12-18 UNITY SUPPORT SPECIALIST documented in this encounter Procedure Notes * Christen Rock, RT(R) - 03/20/2022 1:20 PM CSTAssociated Order(s): XR HIP LEFT 2VW OR MORE See progress notes for results UNITY SUPPORT SPECIALIST documented in this encounter Miscellaneous Notes * Addendum Note - Yadi Castro CPC - 04/04/2022 9:31 AM CSTAddended by: YADI CASTRO on: 04/04/2022 09:31 AM Modules accepted: Level of Service UNITY SUPPORT SPECIALIST documented in this encounter Plan of Treatment Not on file documented as of this encounter Procedures Procedure Name Priority Date/Time Associated Diagnosis Comments XR HIP LEFT 2VW OR MORE Routine 03/20/2022 1:20 PM COMMUNITY SUPPORT SPECIALIST Hip pain documented in this encounter Results * XR HIP LEFT 2VW OR MORE (03/20/2022 1:20 PM COMMUNITY SUPPORT SPECIALIST) Anatomical Region Laterality Modality Pelvis, Lower Extremity Computed Radiography Narrative 03/20/2022 1:20 PM COMMUNITY SUPPORT SPECIALIST Christen Rock RT(R) ? 04/03/2022 ??9:36 AM See progress notes for results Frederick Solis IV, MD DIAGNOSTIC IMAGING O RDERABLES documented in this encounter Visit Diagnoses Diagnosis History of total left hip arthroplasty- Primary Hip pain Pain in joint, pelvic region and thigh Hip pain Pain in joint, pelvic region and thigh documented in this encounter Care Teams Academic Tutor Relationship Specialty Start Date End Date Christian Allan MD [address] [place] [address] PCP - General Internal Medicine 03/21/20 Levi Yu DO Orthopedic Surgery 08/13/12 Markell Dominguez MD [address] [place] [address] Title Manager Cardiovascular Disease 06/04/20 documented as of this encounter
--- OUTSIDE RECORDS SUMMARY | 2024-02-17 23:04 | XMS_ITS | Encounter Summary ---
Author Organization [facility] Address [address] [facility] [place] [address] Care Team Providers Care Starch Treating Assistant Name Role Phone Levi Yu DO Unavailable Christian Allan MD Primary Care Provider [phone] Markell Dominguez MD Unavailable Unavailable Reason for Referral * Radiology Services (Routine) - Closed Specialty Diagnoses / Procedures Referred By Contac t Referred To Contact MRI Diagnoses History of total left hip arthroplasty Procedures [place] [address] [address] [address] Referral ID Status Reason Start Date Expiration Date Visits Re quested Visits Authorized [id number] Closed 09/18/2022 09/18/2023 1 1 Encounter Details Date Type Department Care Team (Late st Contact Info) Description 09/18/2022 Orders Only [facility] Orthopedics [id number] [place] [address], [address] [phone] [place] [address] [address] [address] History of total left hip arthroplasty Social History Tobacco Use Types Packs/Day Years [...] Procedure Name Priority Date/Time Associated Diagnosis Comments C-REACTIVE PROTEIN Routine 10/09/2022 11 :15 AM CDT History of total left hip arthroplasty ERYTHROCYTE SEDIMENTATION RATE Routine 10/09/2022 11:15 AM CDT History of total left hip arthroplasty documented in this encounter Results * ERYTHROCYTE SEDIMENTATION RATE (10/09/2022 11:15 AM CDT) Erythrocyte Sedimentation Rate Westergren 7 0 - 30 mm/hr [facility] [employer] INSURANCE BILL Blood BLOOD SPECIMEN / Unknown 10/09/2022 11:15 AM CDT 10/09/2022 Narrative Resulting Agency Comment [facility] at: [facility] [address] [facility] ??[facility] [id number] Frederick Solis IV, MD LAB - HEMATOLOGY ORD ERABLES [facility] [employer] INSURANCE BILL [address] [place] [address] * C-REACTIVE PROTEIN (10/09/2022 11:15 AM CDT) C-Reactive Protein 8 0 - 10 mg/L [facility] [employer] INSURANCE BILL Blood BLOOD SPECIMEN / Unknown 10/09/2022 11:15 AM CDT 10/09/2022 Narrative Resulting Agency Comment Lab Testing performed at: [facility] [address] ??[facility] [phone] Frederick Solis IV, MD LAB - CHEMISTRY [facility] [place] INSURANCE BILL [address] [place] [address] * MRI HIP LEFT WO CONTRAST (10/09/2022 [...] History of total left hip arthroplasty- Primary History of total left hip arthroplasty documented in this encounter Care Teams Starch Treating Assistant Relationship Specialty Start Date End Date Christian Allan MD [address] [place] [phone] PCP - General Internal Medicine 03/21/20 Levi Yu DO Orthopedic Surgery 08/13/12 Markell Dominguez MD [address] [place] [address] Aviation Project Engineer Cardiovascular Disease 06/04/20 documented as of this encounter
--- OUTSIDE RECORDS SUMMARY | 2024-02-17 23:04 | XMS_ITS | Encounter Summary ---
Author Organization [facility] Address [address] [facility] [place] [address] Care Team Providers Care Camp Maintenance Supervisor Name Role Phone Levi Yu DO Unavailable Encounter Details Date Type Department Care Team (Latest Contact Info) Description 02/03/2019 9:30 AM JUDO TEACHER Ancillary Procedure [facility] Orthopedics - Radiology [id number] [place] [id number] [place] [address] [facility] [address] [place] [address] Status post total hip replacement, left Social [...] XR HIP LEFT 2VW OR MORE Routine 02/03/2019 9:40 AM JUDO TEACHER Status post total hip replacement, left documented in this encounter Results * XR HIP LEFT 2VW OR MORE (02/03/2019 9:40 AM JUDO TEACHER) Anatomical Region Laterality Modality Pelvis, Lower Extremity Computed Radiography Narrative 02/03/2019 10:34 AM JUDO TEACHER Christen Rock, RT(R) ? 02/04/2019 ??8:08 AM See progress notes for results Frederick Solis IV, MD DIAGNOSTIC IMAGING O RDERABLES documented in this encounter Visit Diagnoses Diagnosis Status post total hip replacement, left documented in this encounter Care Teams Camp Maintenance Supervisor Relationship Specialty Start Date End Date Levi Yu DO Orthopedic Surgery 08/13/12 documented as of this encounter
--- OUTSIDE RECORDS SUMMARY | 2024-02-17 23:04 | XMS_ITS | Encounter Summary ---
Author Organization [facility] Address [address] [facility] [place] [address] Care Team Providers Care Automobile Insurance Claim Examiner Name Role Phone Levi Yu DO Unavailable Encounter Details Date Type Department Care Team (Latest Contact Info) Description 11/20/2019 Travel Social History Tobacco Use Types Packs/Day [...] have Coronavirus / COVID-19? No / Unsure 11/20/2019 8:21 AM CDT documented as of this encounter [...] on filedocumented in this encounter Care Teams Automobile Insurance Claim Examiner Relationship Specialty Start Date End Date Levi Yu DO Orthopedic Surgery 08/13/12 documented as of this encounter
--- OUTSIDE RECORDS SUMMARY | 2024-02-17 23:04 | XMS_ITS | Encounter Summary ---
Author Organization [facility] Address [address] [facility] [place] [address] Care Team Providers Care Blocker And Polisher Name Role Phone Levi Yu DO Unavailable Christian Allan MD Primary Care Provider [phone] Markell Dominguez MD Unavailable Unavailable Reason for Visit * Reason Onset Date Comments Returned Call 06/15/2022 Encounter Details Date Type Department Care Team (Late st Contact Info) Description 06/15/2022 Telephone [facility] Orthopedics [id number] [place] [phone] [place] [address] [address] Returned Call Social History Tobacco Use Types Packs/Day Years [...] encounter Miscellaneous Notes * Telephone Encounter - Jessie Valenzuela - 06/15/2022 3:11 PM CDT PT orders are in epic * Telephone Encounter - Josselin To LPN - 06/15/2022 2:33 PM CDT Pt called office stating Leanne HI called him either yesterday or today to call her back and that is what he is doing. Something about PT. documented in this encounter Plan of Treatment Not on file documented as of this encounter Visit Diagnoses Not on filedocumented in this encounter Care Teams Blocker And Polisher Relationship Specialty Start Date End Date Christian Allan MD [address] [place] [address] PCP - General Internal Medicine 03/21/20 Levi Yu DO Orthopedic Surgery 08/13/12 Markell Dominguez MD [address] [place] [address] [employer] Cardiovascular Disease 06/04/20 documented as of this encounter
--- OUTSIDE RECORDS SUMMARY | 2024-02-17 23:04 | XMS_ITS | Encounter Summary ---
Author Organization [facility] Address [address] [facility] [place] [address] Care Team Providers Care House Detective Name Role Phone Levi Yu DO Unavailable Christian Allan MD Primary Care Provider [phone] Reason for Visit * Reason Comments Dizziness Episodes of lighthea deness x 6 days with elevated blood pressure readings Pain Head Headache x six days Encounter Details Date Type Department Care Team (Late st Contact Info) Description 03/21/2020 12:58 PM CASH POSTING CLERK - 03/21/2020 9:27 PM CASH POSTING CLERK Emergency ER at [address] [address] Muriel Mehta MD [address] [place] [address] CARE [facility] [place] [id number] Dizziness (Primary Dx) Discharge Disposition: Home or Self Care Social [...] on file documented as of this encounter Last Filed Vital Signs Vital Sign Reading Time Taken Comments Blood Pressure 136/61 03/21/2020 8:01 PM CASH POSTING CLERK Pulse 54 03/21/2020 8:01 PM CASH POSTING CLERK Temperature 36.9 ??C (98.5 ??F) 03/21/2020 3:25 PM CS T Respiratory Rate 18 03/21/2020 6:31 PM CASH POSTING CLERK Oxygen Saturation 95% 03/21/2020 8:01 PM CASH POSTING CLERK Inhaled Oxygen Concentration - - Weight 151.5 kg (334 lb) 03/21/2020 12:54 PM CASH POSTING CLERK Height 188 cm (6' 2 ) 03/21/2020 12:54 PM CASH POSTING CLERK Body Mass Index 42.88 03/21/2020 12:54 PM CASH POSTING CLERK documented in this encounter Functional Status Functional [...] No 11/16/2018 documented as of this encounter Discharge Instructions * Discharge Instructions* Muriel Mehta MD - 03/21/2020 8:48 PM CASH POSTING CLERK Wear the shelter monitor as directed. Follow up with Dr. Browning for interpretation and return to the ER with any concerning symptoms. POSTING CLERK * Attachments The following attachments cannot be sent through Care Everywhere. * Dizziness (AfterCare(R) Instructions(ER/ED)) (Faroese) documented in this encounter Medications at Time of Discharge Medication Sig Dispensed Refills Start Date End Date amLODIPine (NORVASC) 5 MG tablet Take 5 mg by mouth once daily after dinner. enalapril (VASOTEC) 20 MG tablet Take 20 mg by mouth 2 times daily. HYDROcodone-acetaminoph en (NORCO) 10-325 MG tablet Take 0.5-1 tablets by mouth every 6 hours as needed for Pain 28 tablet 12/23/2018 Misc. Devices (ROLLATOR ULTRA-LIGHT) MISCIndications:Left hip pain,Primary osteoarthritis of left hip Use 1 Units continuous 1 Each 10/14/2018 Multiple Vitamins-Minerals (OCUVITE PO) Take by mouth once daily niacin, Immediate Release, 250 MG tablet Take 250 mg by mouth at bedtime amoxicillin (AMOXIL) 500 MG capsule Take 4 capsules by mouth 1 Hour prior to Dental Appointment 12 capsule 1 02/03/2019 06/04/2020 cyclobenzaprine (FLEXERIL) 10 MG tablet Take 1 tablet by mouth every 8 hours as needed 1 03/28/2018 06/04/2020 documented as of this encounter ED Notes * Donna Skelton RN - 03/21/2020 9:26 PM CST Pt left with steady ambulatory gait. POSTING CLERK * Donna Skelton RN - 03/21/2020 9:09 PM CST MD and CSN made aware that department is out of [facility]. MD went over discharge instructions with patient. This RN discussed D/C with patient and pt verbalizes understanding. POSTING CLERK * Donna Skelton RN - 03/21/2020 8:53 PM CST Patient updated on plan of care. Pt to receive D/C instructions on monitoring device. POSTING CLERK * Tamera Panchal RN - 03/21/2020 8:36 PM CST Spoke with patient about care. Apologized for wait times. Dr. Mehta notified patient requesting results and discharge. POSTING CLERK * Donna Skelton RN - 03/21/2020 7:33 PM CST Patient returned from ct, resting calmly. Denies needs at this time POSTING CLERK * Donna Skelton RN - 03/21/2020 7:25 PM CST Pt taken to CT by this RN POSTING CLERK * Leslie Grissom - 03/21/2020 6:41 PM CST No noted drop in blood pressure from sitting to standing position at this time. Pt denies dizzinesswhen standing as well. POSTING CLERK * Leslie Grissom - 03/21/2020 6:[address] states not available for scan at this time. POSTING CLERK * Muriel Mehta MD - 03/21/2020 4:20 PM CST ED Events Date/Time Event User Comments 03/21/20 1258 First Provider Evaluation MANUEL STOLL [id number] DEPCOUNTS INCLUDE 234 BEDS AT THE [facility] EM[facility]GENCY [facility]PART[facility] Chief Complaint Chief Complaint Patient presents with ??? Dizziness Episodes of lightheadeness x 6 days with elevated blood pressure readings ??? Pain Head Headache x six days History of Present Illness Patient is a 69 year old who identifies as male presenting with complaints of intermittent dizziness over the past 4 days. The 1st episode began when he was sitting at his kitchen table 1 morning. Henoted sudden onset of dizziness which lasted approximately 30 sec. He denied any concomitant palpitations, nausea, vomiting, weakness, numbness, chest pain, or shortness of breath. The symptoms resolved spontaneously and did not seem to be worsened during the episode by movements, he denies any symptoms of spinning and has no history of vertigo. The patient is felt well until earlier today when he had another episode while working in his yd [employer]. The symptoms today lasted several minutes before resolving spontaneously. He did not feel he needed to stop what he was doing, sit or lay downduring the episode and he did not fall or lose consciousness. The patient denies any additional symptoms during today's episode either. He had another episode here in the emergency department while often to the bathroom which began spontaneously resolved. The patient today checked his blood pressure after the onset of dizziness and noted to be elevated. He took an additional blood pressure medication. Thereafter, he began to notice a bifrontal headache which is mild in intensity. Patient has a history of HTN and doesn't check his BP regularly. He had been prescribed a diuretic in the past which he's not taking due to leg cramps - he does note a little edema in the legs which is unchanged. Medical History ALLERGIES: No Known Allergies MEDICATIONS: Current Outpatient Medications Medication Instructions ??? amLODIPine (NORVASC) 5 mg, DAILY AFTER DINNER ??? amoxicillin (AMOXIL) 2,000 mg, Oral, 1 HOUR PRIOR TO DENTAL APPOINTMENT ??? cyclobenzaprine (FLEXERIL) 10 MG tablet 1 tablet, Oral, EVERY 8 HOURS PRN ??? enalapril (VASOTEC) 20 mg, 2 TIMES DAILY ??? HYDROcodone-acetaminophen (NORCO) 10-325 MG tablet 0.5-1 tablets, Oral, EVERY 6 HOURS PRN ??? Misc. Devices (ROLLATOR ULTRA-LIGHT) MISC 1 Units, Does not apply, CONTINUOUS ??? Multiple Vitamins-Minerals (OCUVITE PO) Oral, DAILY ??? niacin (Immediate Release) 250 mg, Oral, AT BEDTIME PAST MEDICAL HISTORY: Past Medical History: Diagnosis Date ??? HTN (hypertension) ??? Macular degeneration (senile) of retina, unspecified Macular Degeneration PAST SURGICAL HISTORY: Past Surgical History: Procedure Laterality Date ??? HC ARTHROSCOPY KNEE 08/21/12 RIGHT ??? HIP ARTHROPLASTY, TOTAL Left 11/12/2018 ANTERIOR APPROACH; DR. HELMS ??? HIP ARTHROPLASTY, TOTAL Left 11/12/2018 Left; LEFT TOTAL ANTERIOR HIP ARTHROPLASTY ??? KNEE ARTHROPLASTY 2005 ??? Knee Arthroscopy X2 ??? LUMBAR SPINE FUSION ??? Meniscectomy 08/21/2012 Right; ARTHROSCOPY KNEE MENISCECTOMY MEDIAL FAMILY HISTORY: No family history on file. SOCIAL HISTORY: Social History Tobacco Use ??? Smoking status: Former Smoker Types: Cigarettes Quit date: 02/26/1987 Years since quittin.0 ??? Smokeless tobacco: Never Used Substance Use Topics ??? Alcohol use: Yes Alcohol/week: 2.5 standard drinks Types: 3 Alcoholic drink(s) per week ??? Drug use: No Review of Systems Review of Systems Constitutional: Negative for chills and fever. HENT: Negative for congestion. Eyes: Negative for double vision and discharge. Respiratory: Negative for shortness of breath. Cardiovascular: Positive for chest pain. Gastrointestinal: Negative for abdominal pain, nausea and vomiting. Genitourinary: Negative for dysuria. Musculoskeletal: Negative for neck pain. Skin: Negative for rash. Neurological: Positive for dizziness and headaches. Endo/Heme/Allergies: Does not bruise/bleed easily. All other systems reviewed and are negative. Physical Exam BP 136/61 Pulse 54 Temp 98.5 ??F (36.9 ??C) (Oral) Resp 18 Ht 1.88 m (6' 2 ) Wt 151.5 kg (334 lb) SpO2 95% BMI 42.88 kg/m2 Physical Exam Vitals signs and nursing note reviewed. Constitutional: General: He is not in acute distress. Appearance: He is obese. HENT: Head: Normocephalic. Eyes: Conjunctiva/sclera: Conjunctivae normal. Neck: Musculoskeletal: Normal range of motion. Cardiovascular: Rate and Rhythm: Normal rate and regular rhythm. Heart sounds: No murmur. Pulmonary: Effort: Pulmonary effort is normal. No respiratory distress. Breath sounds: Normal breath sounds. No decreased breath sounds. Chest: Chest wall: No tenderness. Abdominal: General: There is no distension. Palpations: Abdomen is soft. Abdomen is not rigid. Tenderness: There is no abdominal tenderness. There is no guarding or rebound. Musculoskeletal: Right lower leg: Edema (2+) present. Left lower leg: Edema (2+) present. Skin: General: Skin is warm and dry. Neurological: Mental Status: He is alert and oriented to person, place, and time. Psychiatric: Thought Content: Thought content does not include homicidal or suicidal ideation. Diagnostic Studies / Procedures RHYTHM STRIP INTERPRETATION: Pulse: 62 Rhythm: Normal sinus rhythm, No ventricular ectopy. PULSE OX INTERPRETATION: SpO2: 100 % Oxygen delivery: Room air Interpretation: No hypoxia EKG interpretation: Sinus bradycardia Rate 54. Normal axis. Normal intervals. Normal ST segments. Normal T-waves. No previous EKG available. Dr. Mehta has personally visualized and interpreted the EKG. LABORATORY STUDIES: Hospital Encounter on 03/21/20 CBC W AUTO DIFFERENTIAL Result Value Ref Range WBC 11.5 (H) 4.4 - 10.7 x10E9/L WBC Corrected RBC 4.99 3.80 - 5.40 x10E12/L Hemoglobin 16.0 12.0 - 17.6 gm/dL Hematocrit 47.6 35.2 - 51.7 % MCV 95.4 80.7 - 98.3 fl MCH 32.1 26.7 - 34.0 pg MCHC 33.6 30.8 - 35.9 gm/dL Platelet Count 281 153 - 416 x10E9/L RDW-CV 13.6 12.1 - 14.9 % MPV 9.4 9.4 - 12.9 fl Neutrophils % 70.9 44.0 - 73.0 % Lymphocytes % 15.1 (L) 20.0 - 43.0 % Monocytes % 11.2 5.0 - 13.0 % Eosinophils % 1.2 0.0 - 6.0 % Basophils % 0.5 0.0 - 2.0 % Immature Granulocytes 1.1 (H) 0 - 1 % Neutrophil Absolute 8.14 (H) 2.01 - 7.14 x10E9/L Lymphocytes Absolute 1.73 1.07 - 3.94 x10E9/L Monocytes Absolute 1.29 (H) 0.26 - 1.07 x10E9/L Eosinophils Absolute 0.14 0 - 0.47 x10E9/L Basophils Absolute 0.06 0 - 0.08 x10E9/L Immature Granulocytes Absolute 0.13 (H) 0.00 - 0.06 x10E9/L nRBC Auto 0 /100 WBC COMPREHENSIVE METABOLIC PANEL Result Value Ref Range Glucose 99 70 - 105 mg/dL Sodium 139 136 - 145 mmol/L Potassium 4.2 3.5 - 5.1 mmol/L Chloride 103 98 - 107 mmol/L CO2 25 23 - 31 mmol/L Calcium 9.3 8.4 - 10.4 mg/dL Anion Gap 11 8 - 18 mmol/L BUN 12 8.4 - 25.7 mg/dL Creatinine 0.79 0.72 - 1.25 mg/dL Alkaline Phosphatase 94 40 - 150 U/L ALT 31 0 - 61 U/L AST 24 5 - 34 U/L Protein Total 7.7 6.4 - 8.3 gm/dL Albumin 4.2 3.2 - 4.6 gm/dL Bilirubin Total 0.8 0.2 - 1.2 mg/dL eGFR by MDRD >60 >60 mL/min/1.73m2 eGFR by MDRD >60 >60 mL/min/1.73m2 TROPONIN I Result Value Ref Range Troponin I <0.010 <0.038 ng/mL TROPONIN I Result Value Ref Range Troponin I 0.011 <0.038 ng/mL TSH REFLEX FREE T4 Result Value Ref Range TSH 1.920 0.350 - 4.940 uIU/mL B-TYPE NATRIURETIC PEPTIDE Result Value Ref Range BNP 15 <=100 pg/mL IMAGING STUDIES CT HEAD WO CONTRAST Final Result CT Head Noncontrast Indication: Dizziness, TIA Technique: CT images of the brain were obtained at 5 mm intervals without contrast. Findings: There is no radiographic evidence of intracranial hemorrhage. There is no mass-effect or midline shift. Ventricles and sulci are of normal size. The visualized paranasal sinuses are clear. IMPRESSION Unremarkable unenhanced CT scan of the brain. *Reading Radiologist: Antionette Tolliver on 03/21/2020 at 7:45 PM XR CHEST 1VW PORTABLE Final Result Portable Chest AP History: Dizziness and giddiness. COMPARISON: None. FINDINGS: The lungs are clear and costophrenic angles are sharp. No pneumothorax seen. Cardiac silhouette unremarkable. IMPRESSION No acute disease. *Reading Radiologist: Brennon Garcias on 03/21/2020 at 3:[address] Mehta has personally visualized and interpreted all imaging studies. PROCEDURES Procedures ED Course / Medical Decision Making DDx: TIA, arrhythimia, ACS, vertigo, orthostatic hypotension, medication side effect, electrolyte abnormality Course: Patient presents for evaluation of episodic lightheadedness over the last few days. He was monitored here for several hours without any arrhythmias on the monitor. Labs imaging failed to show a convincing cause for his symptoms. His hypertension resolved without intervention knee has no complaints at this time. Attempted to place a Holter monitor on him but there were none available. I will referhim to follow up with Cardiology, Dr. Browning. He was advised to return to the emergency department with any concerning symptoms including syncope or significant dizziness or lightheadedness. The patient is stable at discharge. 1. Dizziness Medical Decision Making I have reviewed the: Nursing Notes, Vitals. I have interpreted the following results: Labs, 12 Lead EKG, Rhythm Strip, X- Ray, CT Scans. Orders Placed This Encounter ??? XR CHEST 1VW PORTABLE ??? CT HEAD WO CONTRAST ??? CBC W AUTO DIFFERENTIAL ??? COMPREHENSIVE METABOLIC PANEL ??? TROPONIN I ??? TSH REFLEX FREE T4 ??? B-TYPE NATRIURETIC PEPTIDE ??? EKG 12-LEAD ??? acetaminophen (TYLENOL) tablet 650 mg ??? hydrALAZINE (APRESOLINE) injection 10 mg Follow-Up: [facility] [address] [facility] [address] Schedule an appointment as soon as possible for a visit Muriel Mehta MD 03/21/2020 9:17 PM POSTING CLERK * Manuel Stoll PA-C - 03/21/2020 12:58 PM CST RAPID MEDICAL EXAM (RME) NOTE 03/21/2020 CC: Dizziness (Episodes of lightheadeness x 6 days with elevated blood pressure readings) and Pain Head (Headache x six days) Provider in Triage HPI: Dillon Mejia is a 69 year old male a past medical history of hypertension and macular degeneration who presents through triage with intermittent episodes of dizziness, elevated blood pressure and mild headache for 6 days. Patient denies chest pain or shortness of breath.He reports he has been compliant with his blood pressure medication. Review of Systems: Primary System Noted in HPI Constitutional: No fevers or chills CV: No chest pain or palpitations Pulm: No shortness of breath or cough Abd: No pain, nausea, vomiting, diarrhea, constipation MSK: No joint pain, neck pain, back pain Neuro: No numbness, tingling, LOC, +dizziness Limited Chart History: Past Medical History: Diagnosis Date ??? HTN (hypertension) ??? Macular degeneration (senile) of retina, unspecified Macular Degeneration Past Surgical History: Procedure Laterality Date ??? HC ARTHROSCOPY KNEE 08/21/12 RIGHT ??? HIP ARTHROPLASTY, TOTAL Left 11/12/2018 ANTERIOR APPROACH; DR. HELMS ??? HIP ARTHROPLASTY, TOTAL Left 11/12/2018 Left; LEFT TOTAL ANTERIOR HIP ARTHROPLASTY ??? KNEE ARTHROPLASTY 2006 ??? Knee Arthroscopy X2 ??? LUMBAR SPINE FUSION ??? Meniscectomy 08/21/2012 Right; ARTHROSCOPY KNEE MENISCECTOMY MEDIAL No current facility-administered medications for this encounter. Current Outpatient Medications Medication Sig Dispense Refill ??? amLODIPine (NORVASC) 5 MG tablet Take 5 mg by mouth once daily after dinner. ??? amoxicillin (AMOXIL) 500 MG capsule Take 4 capsules by mouth 1 Hour prior to Dental [id number] capsule 1 ??? cyclobenzaprine (FLEXERIL) 10 MG tablet Take 1 tablet by mouth every 8 hours as needed 1 ??? enalapril (VASOTEC) 20 MG tablet Take 20 mg by mouth 2 times daily. ??? HYDROcodone-acetaminophen (NORCO) 10-325 MG tablet Take 0.5-1 tablets by mouth every 6 hours asneeded for Pain 28 tablet 0 ??? Misc. Devices (ROLLATOR ULTRA-LIGHT) MISC Use 1 Units continuous 1 Each 0 ??? Multiple Vitamins-Minerals (OCUVITE PO) Take by mouth once daily ??? niacin, Immediate Release, 250 MG tablet Take 250 mg by mouth at bedtime No Known Allergies PCP: Tea Gaspar MD Vital Signs: BP 184/89 Pulse 62 Temp 98.5 ??F (36.9 ??C) (Oral) Resp 18 Ht 1.88 m (6' 2 ) Wt 151.5 kg (334 lb) SpO2 100% BMI 42.88 kg/m2 Pertinent Physical Exam Findings: Constitutional: vitals stable slightly hypertensive, well-developed, well- nourished, in no acute distress Head: Head normocephalic, atraumatic Eyes: Conjunctiva clear, PERRL, EOM intact, horizontal nystagmus appreciated. ENT: No rhinorrhea Neck: Neck supple Resp: Respirations even and unlabored, patient able to speak in full sentences CV: Acyanotic appearing MSK: No gross deformities noted. Skin: [place], warm, dry Neuro: A&O x 3 Psych: Normal affect MDM: I have reviewed all lab and imaging resulted ordered during this visit and available at the time ofthis note. Triage notes and available nursing notes reviewed. Previous medical record reviewed when available. Management options include but not limited to: physical exam, laboratory testing, discussion with other providers. Final diagnoses: Dizziness Initial Plan: Labs, EKG, chest x-ray The patient will require further assessment and management in the emergency department and will therefore be moved to an ER room from the waiting area to be seen by another provider. Manuel Stoll PA-C Emergency Medicine 03/21/2020 POSTING CLERK documented in this encounter Plan of Treatment Not on file documented as of this encounter Procedures Procedure Name Priority Date/Time Associated Diagnosis Comments CT HEAD WO CONTRAST STAT 03/21/2020 7 :39 PM CASH POSTING CLERK Dizziness TROPONIN I Timed 03/21/2020 5:05 PM CASH POSTING CLERK XR CHEST 1VW PORTABLE STAT 03/21/2020 2:40 PM CASH POSTING CLERK Dizziness TSH REFLEX FREE T4 STAT 03/21/2020 2: 09 PM CASH POSTING CLERK TROPONIN I STAT 03/21/2020 2:09 PM CASH POSTING CLERK CBC W AUTO DIFFERENTIAL STAT 03/21/2020 2:09 PM CASH POSTING CLERK B-TYPE NATRIURETIC PEPTIDE STAT 03/21/2020 2:09 PM CASH POSTING CLERK COMPREHENSIVE METABOLIC PANEL STAT 03/21/2020 2:09 PM CASH POSTING CLERK EKG 12-LEAD STAT 03/21/2020 2:01 PM CASH POSTING CLERK Dizziness documented in this encounter Results * CT HEAD WO CONTRAST (03/21/2020 7:39 PM CASH POSTING CLERK) Anatomical Region Laterality Modality Head Computed Tomogra phy 03/21/2020 7:44 PM CASH POSTING CLERK Impressions 03/21/2020 7:45 PM CASH POSTING CLERK Unremarkable unenhanced CT scan of the brain. *Reading Radiologist: Antionette Tolliver on 03/21/2020 at 7:45 PM Narrative 03/21/2020 7:45 PM CASH POSTING CLERK CT Head Noncontrast Indication: Dizziness, TIA Technique: CT images of the brain were obtained at 5 mm intervals without contrast. Findings: There is no radiographic evidence of intracranial hemorrhage. There is no mass-effect or midline shift. Ventricles and sulci are of normal size. The visualized paranasal sinuses are clear. Procedure Note Antionette Tolliver MD - 03/21/2020 CT Head Noncontrast Indication: Dizziness, TIA Technique: CT images of the brain were obtained at 5 mm intervals without contrast. Findings: There is no radiographic evidence of intracranial hemorrhage. There is no mass-effect or midline shift. Ventricles and sulci are of normal size. The visualized paranasal sinuses are clear. IMPRESSION Unremarkable unenhanced CT scan of the brain. *Reading Radiologist: Antionette Tolliver on 03/21/2020 at 7:45 PM Muriel Mehta MD CT ORDERABLES * TROPONIN I (03/21/2020 5:05 PM CASH POSTING CLERK) Troponin I 0.011 <0.038 ng/mL 03/21/2020 6:07 PM CASH POSTING CLERK [facility] Blood BLOOD SPECIMEN / Unknown Venipuncture / Unknown 03/21/2020 5:05 PM CASH POSTING CLERK 03/21/2020 5:41 PM CASH POSTING CLERK Manuel Stoll PA-C LAB - CHEMISTRY ORD ERABLES [facility] [address] [place] [address] * XR CHEST 1VW PORTABLE (03/21/2020 2:40 PM CASH POSTING CLERK) Anatomical Region Laterality Modality Chest Radiographic Elo ging 03/21/2020 3:25 PM CASH POSTING CLERK Impressions 03/21/2020 3:26 PM CASH POSTING CLERK No acute disease. *Reading Radiologist: Brennon Garcias on 03/21/2020 at 3:26 PM Narrative 03/21/2020 3:26 PM CASH POSTING CLERK Portable Chest AP History: Dizziness and giddiness. COMPARISON: None. FINDINGS: The lungs are clear and costophrenic angles are sharp. No pneumothorax seen. Cardiac silhouette unremarkable. Procedure Note Brennon Garcias MD - 03/21/2020 Portable Chest AP History: Dizziness and giddiness. COMPARISON: None. FINDINGS: The lungs are clear and costophrenic angles are sharp. No pneumothorax seen. Cardiac silhouette unremarkable. IMPRESSION No acute disease. *Reading Radiologist: Brennon Garcias on 03/21/2020 at 3:26 PM Manuel Stoll PA-C DIAGNOSTIC IMAGING ORDERABLES * B-TYPE NATRIURETIC PEPTIDE (03/21/2020 2:09 PM CASH POSTING CLERK) Pathologist [facility] BNP 15 <=100 pg/mL 03/21/2020 2:48 PM CASH POSTING CLERK [facility] Blood BLOOD SPECIMEN / Unknown Venipuncture / Unknown 03/21/2020 2:09 PM CASH POSTING CLERK 03/21/2020 2:20 PM CASH POSTING CLERK Manuel Stoll PA-C LAB - CHEMISTRY ORD ERABLES Performing Organization Address [facility] Co de Phone Number [facility] [address] [place] [address] * TSH REFLEX FREE T4 (03/21/2020 2:09 PM CASH POSTING CLERK) [facility] TSH 1.920 0.350 - 4.940 uIU/mL 03/21/2020 3:03 PM CASH POSTING CLERK [facility] Blood BLOOD SPECIMEN / Unknown Venipuncture / Unknown 03/21/2020 2:09 PM CASH POSTING CLERK 03/21/2020 2:20 PM CASH POSTING CLERK Manuel Stoll PA-C LAB - CHEMISTRY ORD ERABLES [facility] [address] [place], [place] [id number] * TROPONIN I (03/21/2020 2:09 PM CASH POSTING CLERK) [facility] Troponin I <0.010 <0.038 ng/mL 03/21/2020 2:48 PM CASH POSTING CLERK [facility] Blood BLOOD SPECIMEN / Unknown Venipuncture / Unknown 03/21/2020 2:09 PM CASH POSTING CLERK 03/21/2020 2:20 PM CASH POSTING CLERK Manuel Stoll PA-C LAB - CHEMISTRY ORD ERABLES [facility] [address] [place] [address] * COMPREHENSIVE METABOLIC PANEL (03/21/2020 2:09 PM CASH POSTING CLERK) Glucose 99 70 - 105 mg/dL 03/21/2020 2:41 PM CASH POSTING CLERK [facility] Sodium 139 136 - 145 mmol/L 03/21/2020 2:41 PM CASH POSTING CLERK [facility] Potassium 4.2 3.5 - 5.1 mmol/L 03/21/2020 2:[address] [facility] Chloride 103 98 - 107 mmol/L 03/21/2020 2:[address] [facility] CO2 25 23 - 31 mmol/L 03/21/2020 2:[address] [facility] Calcium 9.3 8.4 - 10.4 mg/dL 03/21/2020 2:[address] [facility] Anion Gap 11 8 - 18 mmol/L 03/21/2020 2:41 PM [facility] Comment:Attention clinician: ??Reference Range change. BUN 12 8.4 - 25.7 mg/dL 03/21/2020 2:41 PM CASH POSTING CLERK [facility] Creatinine 0.79 0.72 - 1.25 mg/dL 03/21/2020 2:41 PM CASH POSTING CLERK [facility] Alkaline Phosphatase 94 40 - 150 U/L 03/21/2020 2:41 PM CASH POSTING CLERK [facility] Comment:Attention clinician: ??Reference Range change. ALT 31 0 - 61 U/L 03/21/2020 2:41 PM CASH POSTING CLERK [facility] AST 24 5 - 34 U/L 03/21/2020 2:[address] [facility] Protein Total 7.7 6.4 - 8.3 gm/dL 03/21/2020 2:[address] [facility] Albumin 4.2 3.2 - 4.6 gm/dL 03/21/2020 2:[address] [facility] Bilirubin Total 0.8 0.2 - 1.2 mg/dL 03/21/2020 2:41 PM CASH POSTING CLERK [facility] Comment:Attention clinician: ??Reference Range change. eGFR by MDRD >60 >60 mL/min/1.7 3m2 03/21/2020 2:41 PM CASH POSTING CLERK [facility] eGFR by MDRD >60 >60 mL/min/1.7 3m2 03/21/2020 2:41 PM CASH POSTING CLERK [facility] Blood BLOOD SPECIMEN / Unknown Venipuncture / Unknown 03/21/2020 2:09 PM CASH POSTING CLERK 03/21/2020 2:20 PM CASH POSTING CLERK Manuel Stoll PA-C LAB - CHEMISTRY ORD ERABLES [facility] [address] [place] [address] * (ABNORMAL) CBC W AUTO DIFFERENTIAL (03/21/2020 2:09 PM CASH POSTING CLERK) WBC 11.5(H) 4.4 - 10.7 x10E9/L 03/21/2020 2:[address] [facility] WBC Corrected 03/21/2020 2:[address] [facility] RBC 4.99 3.80 - 5.40 x10E12/L 03/21/2020 2:[address] [facility] Hemoglobin 16.0 12.0 - 17.6 gm/dL 03/21/2020 2:[address] [facility] Hematocrit 47.6 35.2 - 51.7 % 03/21/2020 2:[address] [facility] MCV 95.4 80.7 - 98.3 fl 03/21/2020 2:[address] [facility] MCH 32.1 26.7 - 34.0 pg 03/21/2020 2:[address] [facility] MCHC 33.6 30.8 - 35.9 gm/dL 03/21/2020 2:[address] [facility] Platelet Count 281 153 - 416 x10E9/L 03/21/2020 2:[address] [facility] RDW-CV 13.6 12.1 - 14.9 % 03/21/2020 2:[address] [facility] MPV 9.4 9.4 - 12.9 fl 03/21/2020 2:27 PM CASH POSTING CLERK [facility] Neutrophils % 70.9 44.0 - 73.0 % 03/21/2020 2:27 PM CASH POSTING CLERK [facility] Lymphocytes % 15.1(L) 20.0 - 43.0 % 03/21/2020 2:27 PM CASH POSTING CLERK [facility] Monocytes % 11.2 5.0 - 13.0 % 03/21/2020 2:27 PM CASH POSTING CLERK [facility] Eosinophils % 1.2 0.0 - 6.0 % 03/21/2020 2:27 PM CASH POSTING CLERK [facility] Basophils % 0.5 0.0 - 2.0 % 03/21/2020 2:27 PM CASH POSTING CLERK [facility] Immature Granulocytes 1.1(H) 0 - 1 % 03/21/2020 2:[address] [facility] Neutrophil Absolute 8.14(H) 2.01 - 7.14 x10E9/L 03/21/2020 2:27 PM CASH POSTING CLERK [facility] Lymphocytes Absolute 1.73 1.07 - 3.94 x10E9/L 03/21/2020 2:27 PM CASH POSTING CLERK [facility] Monocytes Absolute 1.29(H) 0.26 - 1.07 x10E9/L 03/21/2020 2:27 PM CASH POSTING CLERK [facility] Eosinophils Absolute 0.14 0 - 0.47 x10E9/L 03/21/2020 2:[address] [facility] Basophils Absolute 0.06 0 - 0.08 x10E9/L 03/21/2020 2:[address] [facility] Immature Granulocytes Absolute 0.13(H) 0.00 - 0.06 x10E9/L 03/21/2020 2:27 PM CASH POSTING CLERK [facility] nRBC Auto 0 /100 WBC 03/21/2020 2:[address] [facility] Blood BLOOD SPECIMEN / Unknown Venipuncture / Unknown 03/21/2020 2:09 PM CASH POSTING CLERK 03/21/2020 2:20 PM CASH POSTING CLERK Manuel Stoll PA-C LAB - HEMATOLOGY OR DERABLES [facility] [address] [place] [address] * EKG 12-LEAD (03/21/2020 2:01 PM CASH POSTING CLERK) Ventricular Rate 54 BPM [facility] Atrial Rate 54 BPM [facility] P-R Interval 150 ms [facility] QRS Duration ms 74 ms [facility] Q-T Interval ms 382 ms [facility] QTC Calculation (Bezet) 362 ms [facility] Calculated P [place] 101 degrees [facility] Calculated R [place] 10 degrees [facility] Calculated T [place] 66 degrees [facility] Interpretation EKG Sinus bradycardia Anteroseptal infarct , age undetermined Abnormal ECG No previous ECGs available Confirmed by CHANTELLE ZHENG MD ([id number]) on 03/22/2020 8:04:34 PM [facility] 03/21/2020 2:01 PM CASH POSTING CLERK 03/22/2020 8:04 PM CASH POSTING CLERK Manuel Stoll PA-C ECG ORDERABLES [facility] documented in this encounter Visit Diagnoses Diagnosis Dizziness- Primary Dizziness and giddiness documented in this encounter Administered Medications Inactive Administered Medications - up to 3 most recent administrations Medication Order MAR Action Action Date Dose Rate Site acetaminophen (TYLENOL) tablet 650 mg 650 mg, Oral, NOW, 1 dose, On 03/21/20 at 1630 $ Given 03/21/2020 5:05 PM CASH POSTING CLERK 650 mg documented in this encounter Active and Recently Administered Medications Times are shown in CASH POSTING CLERK. Scheduled Medication Order 03/19/2020 03/20/2020 03/21/2020 acetaminophen (TYLENOL) tablet 650 mg (COMPLETED) 650 mg, Oral, NOW, 1 dose, On 03/21/20 at 1630 1705 ($ Given - Prov ider: [facility]) hydrALAZINE (APRESOLINE) injection 10 mg 10 mg, Intravenous, NOW, 1 dose, On 03/21/20 at 2014 2013 (Held - Provide r: Donna Skelton RN - Reason: Patient Condition - Comment: BP WDL) documented in this encounter Care Teams House Detective Relationship Specialty Start Date End Date Christian Allan MD [address] [place] [id number] PCP - General Internal Medicine 03/21/20 Levi Yu DO Orthopedic Surgery 08/13/12 documented as of this encounter
--- OUTSIDE RECORDS SUMMARY | 2024-02-17 23:04 | XMS_ITS | Encounter Summary ---
Author Organization [facility] Address [address] [place] [address] Care Team Providers Care Conciliation Court Judge Name Role Phone Levi Yu DO Unavailable Encounter Details Date Type Department Care Team (Latest Contact Info) Description 12/15/2019 Travel Social History Tobacco Use Types Packs/Day [...] on filedocumented in this encounter Care Teams Conciliation Court Judge Relationship Specialty Start Date End Date Levi Yu DO Orthopedic Surgery 08/13/12 documented as of this encounter
--- OUTSIDE RECORDS SUMMARY | 2024-02-17 23:04 | XMS_ITS | Patient Health Summary ---
Author Organization [facility] [employer] Address [address] [place] [address] Care Team Providers Care Fourth Officer Name Role Phone Levi Yu DO Unavailable Christian Allan MD Primary Care Provider [phone] Markell Dominguez MD Unavailable Unavailable Note from [facility],non-owned Affiliates and Associated Physician Practices is amultiple site organization consisting of ambulatory clinics and hospital sitesin [place], [place], [place] and [place]. This disclosure is being madepursuant to the Care Everywhere program and may not contain all information available regarding this patient. Last updated 17.[facility] Allergies No known active allergies Medications * Be aware that medications may not be up to date on this document. Alwaysverify current medications with the patient. * enalapril (VASOTEC) 20 MG tablet Take 20 mg by mouth 2 times daily. * amLODIPine (NORVASC) 5 MG tablet Take 5 mg by mouth once daily after dinner. * niacin, Immediate Release, 250 MG tablet Take 250 mg by mouth at bedtime * Multiple Vitamins-Minerals (OCUVITE PO) Take by mouth once daily * Misc. Devices (ROLLATOR ULTRA-LIGHT) MISC(Started 10/14/2018) Use 1 Units continuous * HYDROcodone-acetaminophen (NORCO) 10-325 MG tablet(Started 12/23/2018) Take 0.5-1 tablets by mouth every 6 hours as needed for Pain * ASPIRIN LOW DOSE 81 MG tablet(Started 03/26/2020) Take 81 mg by mouth once daily * hydrOXYzine hcl (ATARAX) 25 MG tablet(Started 04/30/2020) TAKE 1 TABLET BY MOUTH EVERY NIGHT AT BEDTIME NEEDED FOR ITCHING * rosuvastatin (CRESTOR) 20 MG tablet(Started 04/02/2020) * Multiple Vitamins-Minerals (RA VISION-DYLAN PRESERVE PO) * TURMERIC CURCUMIN PO * omega 3 (FISH OIL) 1200 MG capsule Take 1,200 mg by mouth once daily * hydroCHLOROthiazide (HYDRODIURIL) 25 MG tablet Take 25 mg by mouth once daily * metFORMIN ER 24hr (Glucophage XR) 500 MG tablet(Started 11/01/2022) * naproxen (Naprosyn) 500 MG tablet(Started 11/01/2022) Active Problems Problem Noted Date Diagnosed Date [...] T Respiratory Rate 18 03/21/2020 6:31 PM ROLL CLEANER Oxygen Saturation 95% 03/21/2020 8:01 PM ROLL CLEANER Inhaled Oxygen Concentration - - Weight 151.4 kg (333 lb 12.5 oz) 06/04/2020 8:08 AM CDT Height 188 cm (6' 2 ) 06/04/2020 8:08 AM CDT Body Mass Index 42.85 06/04/2020 8:08 AM CDT Medical Devices Implanted Type Area Roofing Layer Device Identifier Shelf Expiration Date Model / Serial / Lot Acetabular Liner +3 Max-Rom 40mm Head Size 25 Liner Size Implanted:Qty: 1 on 11/12/2018 by Frederick Solis IV, MD at [facility] Left: Hip [employer] 10/25/2020 [id number] / / [id number] Shell Actb 58mm Hip Lmt Hl Rnglc+ Implanted:Qty: 1 on 11/12/2018 by Frederick Solis IV, MD at [facility] Left: Hip [employer] 07/30/2028 [id number] / / [id number] Alloclassic Sl Stem Offset 5, Taper 02/08 Implanted:Qty: 1 on 11/12/2018 by Frederick Solis IV, MD at [facility] Left: Hip 06/26/2023 [id number] / / [id number] Ceramic Femoral Head 40/+7 Xl Implanted:Qty: 1 on 11/12/2018 by Frederick Solis IV, MD at [facility] Left: Hip [employer] 03/28/2024 [id number] 0 -04 / / [id number] Explanted Type Area Roofing Layer Device Identifier Shelf Expiration Date Model / Serial / Lot Pin Fx 22.9cm 4mm Stnm Thrd Ss 1 End Explanted:Qty: 2 on 11/12/2018 at [facility] Left: Hip [employer] [id number] / / Procedures * ERYTHROCYTE SEDIMENTATION RATE(Performed 10/09/2022) Performed for History of total left hip arthroplasty * C-REACTIVE PROTEIN(Performed 10/09/2022) Performed for History of total left hip arthroplasty * MRI HIP LEFT WO CONTRAST(Performed 10/09/2022) Performed for History of total left hip arthroplasty * XR HIP LEFT 2VW OR MORE(Performed 03/20/2022) Performed for Hip pain * CT HEAD WO CONTRAST(Performed 03/21/2020) Performed for Dizziness * TROPONIN I(Performed 03/21/2020) * XR CHEST 1VW PORTABLE(Performed 03/21/2020) Performed for Dizziness * B-TYPE NATRIURETIC PEPTIDE(Performed 03/21/2020) * TSH REFLEX FREE T4(Performed 03/21/2020) * TROPONIN I(Performed 03/21/2020) * COMPREHENSIVE METABOLIC PANEL(Performed 03/21/2020) * CBC W AUTO DIFFERENTIAL(Performed 03/21/2020) * EKG 12-LEAD(Performed 03/21/2020) Performed for Dizziness * XR HIP LEFT 2VW OR MORE(Performed 12/15/2019) Performed for Left hip pain * XR HIP LEFT 2VW OR MORE(Performed 02/03/2019) Performed for Status post total hip replacement, left * XR HIP LEFT 2VW OR MORE(Performed 12/23/2018) Performed for Status post total hip replacement, left * XR HIP LEFT 2VW OR MORE(Performed 12/02/2018) Performed for Status post total replacement of left hip * HGB HCT PANEL(Performed 11/14/2018) * HGB HCT PANEL(Performed 11/13/2018) * FL RALPH SURGERY(Performed 11/12/2018) Performed for Left hip pain * NEURAXIAL BLOCK(Performed 11/12/2018) * ID TOTAL HIP REPLACEMENT(Performed 11/12/2018) * CULTURE MSSA/MRSA(Performed 10/21/2018) Performed for Preop examination * EKG 12-LEAD(Performed 10/21/2018) Performed for Preop examination * XR PELVIS 1 OR 2VW(Performed 10/14/2018) Performed for Left hip pain * MRI HIP LEFT WO CONTRAST(Performed 10/08/2018) Performed for Primary osteoarthritis of left hip, Avascular necrosis of hip, left (HCC), Gait difficulty * PAIN MANAGEMENT PROCEDURE TIME(Performed 08/27/2018) Performed for Radiculopathy of lumbar region * PAIN MANAGEMENT PROCEDURE TIME(Performed 08/06/2018) Performed for Left hip pain * MRI LUMBAR SPINE WWO CONTRAST(Performed 06/21/2018) Performed for Spinal stenosis of lumbar region, unspecified whether neurogenic claudication present * XR LUMBAR SPINE 2 OR 3VW(Performed 06/05/2018) Performed for Left hip pain * XR HIP LEFT 2VW OR MORE(Performed 06/05/2018) Performed for Left hip pain * XR KNEE RIGHT 2VW OR LESS(Performed 12/03/2012) Performed for History of arthroscopy of right knee on 08-21-12 * ARTHROSCOPY KNEE MENISCECTOMY MEDIAL(Performed 08/21/2012) Performed for Tear of medial cartilage or meniscus of knee, current * BASIC METABOLIC PANEL (CALCIUM TOTAL)(Performed 08/21/2012) Performed for Preoperative examination * EKG 12-LEAD(Performed 08/21/2012) Performed for Preoperative examination * XR KNEE RIGHT 2VW OR LESS(Performed 08/13/2012) Performed for Knee pain * HLA TYPING B27(Performed 08/04/2010) * RHEUMATOID FACTOR BLOOD QUANTITATIVE(Performed 08/04/2010) * KAROLINE BLOOD SCREEN W/REFLEX TITER(Performed 08/04/2010) * ERYTHROCYTE SEDIMENTATION RATE(Performed 08/04/2010) Results * C-REACTIVE PROTEIN (10/09/2022 11:15 AM CDT) C-Reactive Protein 8 0 - 10 mg/L [facility] INSURANCE BILL Blood BLOOD SPECIMEN / Unknown 10/09/2022 11:15 AM CDT 10/09/2022 Narrative Resulting Agency Comment Lab Testing performed at: [address] ??[facility] [id number] Frederick Solis IV, MD LAB - CHEMISTRY ORDE BAKARI [facility] INSURANCE BILL [address] [place] [address] * ERYTHROCYTE SEDIMENTATION RATE (10/09/2022 11:15 AM CDT) Only the most recent of2 resultswithin the time period is included. Erythrocyte Sedimentation Rate Westergren 7 0 - 30 mm/hr [facility] INSURANCE BILL Blood BLOOD SPECIMEN / Unknown 10/09/2022 11:15 AM CDT 10/09/2022 Narrative Resulting Agency Comment Lab Testing performed at: [address] ??[facility] [id number] Frederick Solis IV, MD LAB - HEMATOLOGY ORD ERABLES [facility] INSURANCE BILL [address] [place] [address] * MRI HIP LEFT WO CONTRAST (10/09/2022 10:54 AM CDT) Only the most recent of2 resultswithin the time period is included. Anatomical Region Laterality Modality Lower Extremity Magnetic [...] PM Frederick Solis IV, MD MR ORDERABLES * XR HIP LEFT 2VW OR MORE (03/20/2022 1:20 PM ROLL CLEANER) Only the most recent of6 resultswithin the time period is included. Anatomical Region Laterality Modality Pelvis, Lower Extremity Computed Radiography Narrative 03/20/2022 1:20 PM ROLL CLEANER Christen Rock, RT(R) ? 04/03/2022 ??9:36 AM See progress notes for results Frederick Solis IV, MD DIAGNOSTIC IMAGING O RDERABLES * CT HEAD WO CONTRAST (03/21/2020 7:39 PM ROLL CLEANER) Anatomical Region Laterality Modality Head Computed Tomogra phy 03/21/2020 7:44 PM ROLL CLEANER Impressions 03/21/2020 7:45 PM ROLL CLEANER Unremarkable unenhanced CT scan of the brain. *Reading Radiologist: Antionette Tolliver on 03/21/2020 at 7:45 PM Narrative 03/21/2020 7:[address] Head Noncontrast Indication: Dizziness, TIA Technique: [...] ORDERABLES * TROPONIN I (03/21/2020 5:05 PM ROLL CLEANER) Only the most recent of2 resultswithin the time period is included. Troponin I 0.011 <0.038 ng/mL 03/21/2020 6:07 PM ROLL CLEANER [facility] Blood BLOOD SPECIMEN / Unknown Venipuncture / Unknown 03/21/2020 5:05 PM ROLL CLEANER 03/21/2020 5:41 PM ROLL CLEANER Prema Stoll PA-C LAB - CHEMISTRY ORD ERABLES [facility] [address] [place] [id number] * XR CHEST 1VW PORTABLE (03/21/2020 2:40 PM ROLL CLEANER) Anatomical Region Laterality Modality Chest Radiographic Elo ging 03/21/2020 3:25 PM ROLL CLEANER Impressions 03/21/2020 3:26 PM ROLL CLEANER No acute disease. *Reading Radiologist: Brennon Garcias on 03/21/2020 at 3:26 PM Narrative 03/21/2020 3:26 PM ROLL CLEANER Portable Chest AP History: Dizziness and giddiness. [...] Brennon Garcias on 03/21/2020 at 3:26 PM Prema Stoll PA-C DIAGNOSTIC IMAGING ORDERABLES * TSH REFLEX FREE T4 (03/21/2020 2:09 PM ROLL CLEANER) TSH 1.920 0.350 - 4.940 uIU/mL 03/21/2020 3:03 PM [facility] Blood BLOOD SPECIMEN / Unknown Venipuncture / Unknown 03/21/2020 2:09 PM ROLL CLEANER 03/21/2020 2:20 PM ROLL CLEANER Prema Stoll PA-C LAB - CHEMISTRY ORD ERABLES [facility] [address] [place] [address] * (ABNORMAL) CBC W AUTO DIFFERENTIAL (03/21/2020 2:09 PM ROLL CLEANER) WBC 11.5(H) 4.4 - 10.7 x10E9/L 03/21/2020 2:27 PM [facility] WBC Corrected 03/21/2020 2:27 PM [facility] RBC 4.99 3.80 - 5.40 x10E12/L 03/21/2020 2:27 PM [facility] Hemoglobin 16.0 12.0 - 17.6 gm/dL 03/21/2020 2:27 PM [facility] Hematocrit 47.6 35.2 - 51.7 % 03/21/2020 2:27 PM [facility] MCV 95.4 80.7 - 98.3 fl 03/21/2020 2:27 PM [facility] MCH 32.1 26.7 - 34.0 pg 03/21/2020 2:27 PM [facility] MCHC 33.6 30.8 - 35.9 gm/dL 03/21/2020 2:27 PM [facility] Platelet Count 281 153 - 416 x10E9/L 03/21/2020 2:27 PM [facility] RDW-CV 13.6 12.1 - 14.9 % 03/21/2020 2:27 PM [facility] MPV 9.4 9.4 - 12.9 fl 03/21/2020 2:27 PM [facility] Neutrophils % 70.9 44.0 - 73.0 % 03/21/2020 2:27 PM [facility] Lymphocytes % 15.1(L) 20.0 - 43.0 % 03/21/2020 2:27 PM ROLL CLEANER [facility] Monocytes % 11.2 5.0 - 13.0 % 03/21/2020 2:27 PM [facility] Eosinophils % 1.2 0.0 - 6.0 % 03/21/2020 2:27 PM [facility] Basophils % 0.5 0.0 - 2.0 % 03/21/2020 2:27 PM [facility] Immature Granulocytes 1.1(H) 0 - 1 % 03/21/2020 2:27 PM [facility] Neutrophil Absolute 8.14(H) 2.01 - 7.14 x10E9/L 03/21/2020 2:27 PM [facility] Lymphocytes Absolute 1.73 1.07 - 3.94 x10E9/L 03/21/2020 2:27 PM [facility] Monocytes Absolute 1.29(H) 0.26 - 1.07 x10E9/L 03/21/2020 2:27 PM [facility] Eosinophils Absolute 0.14 0 - 0.47 x10E9/L 03/21/2020 2:27 PM [facility] Basophils Absolute 0.06 0 - 0.08 x10E9/L 03/21/2020 2:27 PM [facility] Immature Granulocytes Absolute 0.13(H) 0.00 - 0.06 x10E9/L 03/21/2020 2:27 PM [facility] nRBC Auto 0 /100 WBC 03/21/2020 2:27 PM [facility] Blood BLOOD SPECIMEN / Unknown Venipuncture / Unknown 03/21/2020 2:09 PM ROLL CLEANER 03/21/2020 2:20 PM ROLL CLEANER Prema Stoll PA-C LAB - HEMATOLOGY OR DERABLES [facility] [address] [place] [address] * B-TYPE NATRIURETIC PEPTIDE (03/21/2020 2:09 PM ROLL CLEANER) BNP 15 <=100 pg/mL 03/21/2020 2:48 PM [facility] Blood BLOOD SPECIMEN / Unknown Venipuncture / Unknown 03/21/2020 2:09 PM ROLL CLEANER 03/21/2020 2:20 PM ROLL CLEANER Prema Stoll PA-C LAB - CHEMISTRY ORD ERABLES [facility] [address] [place] [address] * COMPREHENSIVE METABOLIC PANEL (03/21/2020 2:09 PM ROLL CLEANER) [facility] Glucose 99 70 - 105 mg/dL 03/21/2020 2:41 PM [facility] Sodium 139 136 - 145 mmol/L 03/21/2020 2:41 PM [facility] Potassium 4.2 3.5 - 5.1 mmol/L 03/21/2020 2:41 PM [facility] Chloride 103 98 - 107 mmol/L 03/21/2020 2:41 PM [facility] CO2 25 23 - 31 mmol/L 03/21/2020 2:41 PM [facility] Calcium 9.3 8.4 - 10.4 mg/dL 03/21/2020 2:41 PM [facility] Anion Gap 11 8 - 18 mmol/L 03/21/2020 2:41 PM [facility] Comment:Attention clinician: ??Reference Range change. BUN 12 8.4 - 25.7 mg/dL 03/21/2020 2:41 PM [facility] Creatinine 0.79 0.72 - 1.25 mg/dL 03/21/2020 2:41 PM [facility] Alkaline Phosphatase 94 40 - 150 U/L 03/21/2020 2:41 PM [facility] Comment:Attention clinician: ??Reference Range change. ALT 31 0 - 61 U/L 03/21/2020 2:41 PM [facility] AST 24 5 - 34 U/L 03/21/2020 2:41 PM [facility] Protein Total 7.7 6.4 - 8.3 gm/dL 03/21/2020 2:41 PM [facility] Albumin 4.2 3.2 - 4.6 gm/dL 03/21/2020 2:41 PM [facility] Bilirubin Total 0.8 0.2 - 1.2 mg/dL 03/21/2020 2:41 PM ROLL CLEANER [facility] Comment:Attention clinician: ??Reference Range change. eGFR by MDRD >60 >60 mL/min/1.7 3m2 03/21/2020 2:41 PM ROLL CLEANER [facility] eGFR by MDRD >60 >60 mL/min/1.7 3m2 03/21/2020 2:41 PM ROLL CLEANER [facility] Blood BLOOD SPECIMEN / Unknown Venipuncture / Unknown 03/21/2020 2:09 PM ROLL CLEANER 03/21/2020 2:20 PM ROLL CLEANER Prema Stoll PA-C LAB - CHEMISTRY ORD ERABLES Performing Organization Address City/[facility]/ZIP Co de Phone Number [facility] [address] [place] [address] * EKG 12-LEAD (03/21/2020 2:01 PM ROLL CLEANER) Only the most recent of3 resultswithin the time period is included. Ventricular Rate 54 BPM [facility] Atrial Rate 54 BPM [facility] P-R Interval 150 ms [facility] QRS Duration ms 74 ms [facility] Q-T Interval ms 382 ms [facility] QTC Calculation (Bezet) 362 ms [facility] Calculated P [place] 101 degrees [facility] Calculated R [place] 10 degrees [facility] Calculated T [place] 66 degrees [facility] Interpretation EKG Sinus bradycardia Anteroseptal infarct , age undetermined Abnormal ECG No previous ECGs available Confirmed by MARCE BADILLO, CHANTELLE ([id number]) on 03/22/2020 8:04:34 PM [facility] 03/21/2020 2:01 PM ROLL CLEANER 03/22/2020 8:04 PM ROLL CLEANER Prema Stoll PA-C ECG ORDERABLES Performing Organization Address [facility] Co de Phone Number [facility] * (ABNORMAL) HGB HCT PANEL (11/14/2018 2:59 AM CDT) Only the most recent of2 resultswithin the time period is included. Hemoglobin 11.5(L) 12.0 - 17.6 gm/dL 11/14/2018 3:15 AM CDT [facility] Hematocrit 35.2 35.2 - 51.7 % 11/14/2018 3:15 AM CDT [facility] Blood BLOOD SPECIMEN / Unknown Venipuncture / Unknown 11/14/2018 2:59 AM CDT 11/14/2018 3:10 AM CDT Frederick Solis IV, MD LAB - HEMATOLOGY ORD ERABLES [facility] [address] [place] [address] * FL RALPH SURGERY (11/12/2018 10:00 AM CDT) Anatomical Region Laterality Modality Radiographic Elo ging 11/12/2018 1:15 PM CDT Narrative 11/12/2018 1:05 PM CDT FLUOROSCOPY: Less than 1 hour ??of fluoroscopy was utilized during a arthroplasty. No radiologist was present. Please refer to surgical report for details. 29 seconds fluoroscopy were provided Reading Radiologist: Barbara Welch MD on 11/12/2018 at 1:15 PM Procedure Note Barbara Welch MD - 11/12/2018 FLUOROSCOPY: Less than 1 hour of fluoroscopy was utilized during a arthroplasty. No radiologist was present. Please refer to surgical report for details. 29 seconds fluoroscopy were provided Reading Radiologist: Barbara Welch MD on 11/12/2018 at 1:15 PM Frederick Solis IV, MD FLUOROSCOPY ORDERABL ES * Neuraxial Block (11/12/2018 9:12 AM CDT) Narrative Clarke Ash APRN-TEMPLATE MAKER - 11/12/2018 9:12 AM CDT Clarke Ash APRN-TEMPLATE MAKER ? 11/12/2018 ??9:13 AM Neuraxial Block Note ?? Pre-Procedure: ?? Procedure Name: ??Neuraxial Block Patient Location: ??OR Indications: ??surgical anesthesia Pre-Anesthetic Checklist: ??Patient identified, IV Checked, Risks and benefits discussed, Surgical consent verified, Monitors and equipment, Site examined, Pre-op evaluation done, Informed consent obtained, Questions answered/anesthesia questions answered and Allergies reviewed Anticoagulation/ Anti-thrombosis status confirmed? ??Yes Supplemental O2: ??room air Monitors: ??BP and continuous pluse ox Patient Condition: ??sedated, meaningful contact maintained throughout procedure Patient Sedated? ??Nursing sedation administration ? Sedation Type: ??mild ? Sedation Agents (manual): ??versed ?? fentanyl mL Procedure: ?? Block Type: ??Spinal Prep: ??Betadine Sterile Field: ??mask, cap/hat and sterile established Approach: ??midline Skin was localized? ??Nursing documentation on [facility] Skin localized with: ??Lidocaine 1% and 1 mL Spinal Block: ?? Needle Type: ??beveled Needle Gauge: ??22 Needle Length: ??90 mm Placement Site: ??L3-4 Number of Attempts: ??1 CSF: ??free flow, ?? aspiration before injection Local anesthetics used? ??Nursing documentation on the MAR Spinal Local Anesthetic: ? Bupivacaine: ??0.75% in dextrose 2 ??mL Degree of difficulty: ??none Procedure Tolerance: ??performed while the patient was sedated Sensory Level: ??T8 Motor Blockade: ??Yes Position post procedure: ??supine Vital Signs: ??Vital sings monitored and stable throughout. ??See anesthesia record for details. Staff: ?? Anesthesia Provider: ??Clarke Ash APRN-TEMPLATE MAKER ?? - ?? performed the procedure Doroteo Davison MD GENERAL ANESTHESIA O RDERABLES * CULTURE MSSA/MRSA (10/21/2018 4:16 PM CDT) Culture Negative for Staphylococcus aureus (MRSA/MSSA) SIRIA 10/23/2018 9:36 AM CDT [facility] MICROBIOLOGY Microbiology SPECIMEN FROM NASAL FOSSAE / Unknown Collection / Unknown 10/21/2018 4:16 PM CDT 10/21/2018 4:15 PM CDT Trini Pugh APRN-SCARRER LAB - MICR OBIOLOGY ORDERABLES [facility] MICROBIOLOGY [address] [place] [id number] [phone] * XR PELVIS 1 OR 2VW (10/14/2018 3:36 PM CDT) Anatomical Region Laterality Modality Pelvis Computed Radiogr aphy Narrative 10/14/2018 3:36 PM CDT Christen Rock, RT(R) ? 10/18/2018 ??2:42 PM See progress notes for results Frederick Solis IV, MD DIAGNOSTIC IMAGING O RDERABLES * PAIN MANAGEMENT PROCEDURE TIME (08/27/2018 9:29 AM CDT) Only the most recent of2 resultswithin the time period is included. Anatomical Region Laterality Modality X-Ray Angiograph y Narrative 08/27/2018 9:30 AM CDT Santos Coley MD ? 08/27/2018 ??9:30 AM Transforaminal Left L4 Selective Nerve Root Injection Dillon Mejia [id number] 08/27/2018 No Known Allergies Procedure: Transforaminal Left L4 Selective Nerve Root Steroid ?? Injection Under Fluoroscopy Indication for Procedure: Radicular pain in the lower extremity/Lumbar ??stenosis/Lumber HNP. ??M54.16 Informed Consent: After the patient, Dillon Mejia, was informed of the risks and benefits of the procedure and all questions were answered, the consent was signed. Prep:Patient identified, proper procedure and site verified, marked by Dr. Thorne. ??In the prone position, left L4 pedicle, and transverse process were ??identified under fluoroscopy and ?? marked on the patient's skin. The skin was prepped in a routine sterile fashion using chloroprep. Responsible lifter/driver not needed as the patient is not having sedation. Under fluoroscopy, a 25 gauge, 3 1/2 inch spinal needle was slowly inserted towards the left L4 ??foramen after 1 % lidocaine MPF was used to anesthetize the skin , subcutaneous tissue and the muscle overlying the area.Once the tip of the needle was in proper position, 0.5ml of Isovue-M 200 was slowly injected to outline the selective nerve root pattern. Symptoms were reproduced in the nerve root distribution. 1.0 ml of Dexamethasone 10 mg per ml ??and 3.0 ml of normal saline (preservative free) were injected in a slow, incremental fashion after aspiration revealed no blood or CSF return. The needle was removed, the skin was cleaned, and ensured no bleeding was noted. Total Lidocaine : 2ml Total Dexamethasone :10mg Total Isovue-M 200 : 0.5ml, 9.5 ml wasted The patient tolerated the procedure well without complications. The patient was taken to the recovery area and remained stable without complications. Vital signs stable. Injection site clean, dry, and intact. Post procedure instructions were given to the patient and follow up appointment was confirmed. The patient was discharged with information on how to reach the clinic at any time for questions or concerns. Patient ambulatory, denies complaints, DC to home. Patient survey given. Procedure codes: 74776 Santos Coley MD Santos Coley MD DIAGNOSTIC IMAGING O RDERABLES * MRI LUMBAR SPINE WWO CONTRAST (06/21/2018) Anatomical Region Laterality Modality Spine Magnetic Resonan ce Levi Yu DO MR ORDERABLES * XR LUMBAR SPINE 2 OR 3VW (06/05/2018 12:56 PM CDT) Anatomical Region Laterality Modality Spine Computed Radiogr aphy Narrative 06/07/2018 10:40 AM CDT Christen Rock, RT(R) ? 06/07/2018 10:40 AM See progress notes for results Levi Yu DO DIAGNOSTIC IMAGING O RDERABLES * XR KNEE 1 OR 2 VW RIGHT (12/03/2012 3:17 PM CDT) Only the most recent of2 resultswithin the time period is included. Anatomical Region Laterality Modality Lower Extremity Radiographic Elo ging Narrative 12/03/2012 3:18 PM CDT Maria C Florez ? 12/03/2012 ??3:18 PM Please see progress notes for result. Procedure Note Maria C Florez - 12/03/2012 3:18 PM CDT Please see progress notes for result. Levi Yu DO DIAGNOSTIC IMAGING O RDERABLES * (ABNORMAL) BASIC METABOLIC PANEL (CALCIUM TOTAL) (08/21/2012 7:43 AM CDT) Glucose 110(H) 74 - 106 mg/dL 08/21/2012 8:07 AM CDT [facility] Sodium 140 136 - 145 mmol/L 08/21/2012 8:07 AM CDT [facility] Potassium 4.6 3.5 - 5.1 mmol/L 08/21/2012 8:07 AM CDT [facility] Chloride 102 98 - 107 mmol/L 08/21/2012 8:07 AM CDT [facility] CO2 30 22 - 31 mmol/L 08/21/2012 8:07 AM CDT [facility] Calcium 9.1 8.5 - 10.1 mg/dL 08/21/2012 8:07 AM CDT [facility] Anion Gap 8 5 - 15 mmol/L 08/21/2012 8:07 AM CDT [facility] BUN 17 7 - 21 mg/dL 08/21/2012 8:07 AM CDT [facility] Creatinine 0.79 0.50 - 1.30 mg/dL 08/21/2012 8:07 AM CDT [facility] eGFR by MDRD >60 >60 ml/min/1.7 3m2 08/21/2012 8:07 AM CDT [facility] eGFR by MDRD >60 >60 ml/min/1.7 3m2 08/21/2012 8:07 AM CDT [facility] Blood specimen (specimen) BLOOD SPECIMEN / Unknown 08/21/2012 7:43 AM CDT 08/21/2012 7:53 AM CDT Doroteo Davison MD LAB - CHEMISTRY ANYA VILLEGAS [facility] [address] [place] [address] * RHEUMATOID FACTOR BLOOD QUANTITATIVE (08/04/2010 1:32 PM CDT) Rheumatoid Factor 5.5 <60.0 IU/ml [facility] BLOOD SPECIMEN / Unknown 08/04/2010 1:32 PM CDT 08/04/2010 1:32 PM CDT Narrative Resulting Agency Comment Performed By [facility] ? [address] ? [place] [address] Levi Yu DO LAB - CHEMISTRY ORDE BAKARI Performing Organization Address [facility] de Phone Number [facility] [address] [place] [address] * KAROLINE BLOOD SCREEN W/REFLEX TITER (08/04/2010 1:32 PM CDT) KAROLINE Negative Negative [facility] BLOOD SPECIMEN / Unknown 08/04/2010 1:32 PM CDT 08/04/2010 1:32 PM CDT Narrative Resulting Agency Comment Performed By [facility] ? [address] [facility] ? [place] [address] Levi Yu DO LAB - CHEMISTRY ORDMary VILLEGAS Performing Organization Address [facility] de Phone Number [facility] [address] [place] [address] * HLA-B27 ANTIGEN (08/04/2010 1:32 PM CDT) HLA-B27 Negative Negative [facility] Comment Ref Lab [facility] Comment: Comments and Normal Ranges for Component ??HLA B27 TEST INFORMATION/ HLA-B27 HLA-B27 is a serologically defined allele of the human HLA-B locus. The presence of the HLA-B27 antigen is strongly associated with ankylosing spondylitis and related disorders. The performance characteristics of this test were determined by [facility]. BLOOD SPECIMEN / Unknown 08/04/2010 1:32 PM CDT 08/04/2010 1:32 PM CDT Narrative Resulting Agency Comment Performed By [facility] ? [address] ? [place], [place] [address] Levi Yu DO LAB - CHEMISTRY ORDE BAKARI [facility] [address] [place] [address] Care Teams Fourth Officer Relationship Specialty Start Date End Date Christian Allan MD [address] [place] [phone] PCP - General Internal Medicine 03/21/20 Levi Yu DO Orthopedic Surgery 08/13/12 Markell Dominguez MD [address] [place] [address] Siebel Solution Architect Cardiovascular Disease 06/04/20
--- OUTSIDE RECORDS SUMMARY | 2024-02-17 23:04 | XMS_ITS | Encounter Summary ---
Author Organization [facility] Address [address] [facility] [place] [address] Care Team Providers Care Top Flavor Attendant Name Role Phone Levi Yu DO Unavailable Reason for Visit * Reason Onset Date Comments General 02/05/2020 Encounter Details Date Type Department Care Team (Late st Contact Info) Description 02/05/2020 Telephone [facility] Orthopedics [id number] [place] [phone] [place] [address] [address] General Social History Tobacco Use Types Packs/Day Years [...] * Telephone Encounter - Jessie Valenzuela - 02/05/2020 11:47 AM LICENSED EMBALMER SUPERVISOR was informed NSED EMBALMER SUPERVISOR * Telephone Encounter - Radha Contreras - 02/05/2020 11:44 AM CST Who is calling? Self IWhat is the reason for call? Pt cancelled his 02.15 appt, his has cancer and he said physicaltherapy helped him but he want's to stay in for the time being because he doesn't want to expose his to anything, he will call to reschedule but thinks more physical therapy would help him Expected Response from the Clinic? None NSED EMBALMER SUPERVISOR documented in this encounter Plan of Treatment Not on file documented as of this encounter Visit Diagnoses Diagnosis History of arthroplasty of left hip- Primary documented in this encounter Care Teams Top Flavor Attendant Relationship Specialty Start Date End Date Levi Yu DO Orthopedic Surgery 08/13/12 documented as of this encounter
--- OUTSIDE RECORDS SUMMARY | 2024-02-17 23:04 | XMS_ITS | Encounter Summary ---
Author Organization [facility] Address [address] [place] [address] Care Team Providers Care Appliance Installer Name Role Phone Levi Yu DO Unavailable Christian Allan MD Primary Care Provider [phone] Markell Dominguez MD Unavailable Unavailable Reason for Visit * Reason Comments Follow-up Lt hip MARS MRI resu lts Encounter Details Date Type Department Care Team (Late st Contact Info) Description 11/06/2022 12:00 PM CDT Office Visit [facility] Orthopedics [address] [place] [phone] [place] [phone] [address] Pain of left hip (Primary Dx) Social History Tobacco Use Types [...] as of this encounter Progress Notes * Gisele Tomlinson, Licensed President And Chief Executive Officer - 11/06/2022 12:01 PM CDT Lt hip MARS MRI results Electronically signed by Gisele Tomlinson Licensed President And Chief Executive Officer at 11/06/2022 1:12 PM CDT documented in this encounter H&P Notes * Frederick Solis IV, MD - 11/07/2022 3:29 AM CDT DATE OF SERVICE: 11/06/2022 SUBJECTIVE: Dillon came in today for followup on his MRI and lab. Sed rate and CRP were normal. Metal artifact reduction sequence MRI was unremarkable. OBJECTIVE: On examination today, he has some trochanteric tenderness. IMPRESSIONS: Trochanteric tenderness with a well-functioning stable left total hip arthroplasty. PLAN: We discussed his results and findings. He is going to continue his physical therapy and he is satisfied with his progress with therapy. We will see him back as needed. Frederick Solis M.D. FT/[facility] #: [id number] documented in this encounter Plan of Treatment Not on file documented as of this encounter Visit Diagnoses Diagnosis Pain of left hip- Primary documented in this encounter Care Teams Appliance Installer Relationship Specialty Start Date End Date Christian Allan MD [address] [place] [phone] PCP - General Internal Medicine 03/21/20 Levi Yu DO Orthopedic Surgery 08/13/12 Markell Dominguez MD [address] [place] [address] Hvac Tech Cardiovascular Disease 06/04/20 documented as of this encounter
--- OUTSIDE RECORDS SUMMARY | 2024-02-17 23:04 | XMS_ITS | Encounter Summary ---
Author Organization [facility] Address [address] [facility] [place] [place] [address] Care Team Providers Care Livestock Farm Workers Name Role Phone Levi Yu DO Unavailable Christian Allan MD Primary Care Provider [phone] Markell Dominguez MD Unavailable Unavailable Encounter Details Date Type Department Care Team (Late st Contact Info) Description 03/20/2022 1:20 PM PLASTERER STUCCO Ancillary Procedure [facility] Orthopedics - Radiology [id number] [place] [phone] [place] [address] [address] Hip pain Social History Tobacco Use Types [...] 2VW OR MORE Routine 03/20/2022 1:20 PM PLASTERER STUCCO Hip pain documented in this encounter Results * XR HIP LEFT 2VW OR MORE (03/20/2022 1:20 PM PLASTERER STUCCO) Anatomical Region Laterality Modality Pelvis, Lower Extremity Computed Radiography Narrative 03/20/2022 1:20 PM PLASTERER STUCCO Christen Rock, RT(R) ? 04/03/2022 ??9:36 AM See progress notes for results Frederick Solis IV, MD DIAGNOSTIC IMAGING O RDERABLES documented in this encounter Visit Diagnoses Diagnosis Hip pain Pain in joint, pelvic region and thigh documented in this encounter Care Teams Livestock Farm Workers Relationship Specialty Start Date End Date Christian Allan MD [address] [place] [address] PCP - General Internal Medicine 03/21/20 Levi Yu DO Orthopedic Surgery 08/13/12 Markell Dominguez MD [address] [place] [address] Editor Cardiovascular Disease 06/04/20 documented as of this encounter
--- OUTSIDE RECORDS SUMMARY | 2024-02-17 23:05 | XMS_ITS | Encounter Summary ---
Author Organization [facility] Address [address] [place] [address] Care Team Providers Care Shoe Stitcher Name Role Phone Levi Yu DO Unavailable Reason for Visit * Reason Comments Post-Op left hip FRANCESCO 3 weeks Encounter Details Date Type Department Care Team (Late st Contact Info) Description 12/02/2018 9:00 AM CDT Office Visit [facility] Orthopedics [id number] [place] [phone] [place] [address] [address] Status post total replacement of left hip (Primary Dx) Social History [...] as of this encounter Progress Notes * Trini Avilez - 12/02/2018 9:06 AM CDT Po left hip francesco 3 weeks . documented in this encounter H&P Notes * Frederick Solis IV, MD - 12/07/2018 3:33 AM CDT DATE OF SERVICE: 12/02/2018 HISTORY: Dillon came in today for followup on his total hip arthroplasty, overall doing well. PHYSICAL EXAMINATION: On examination today, healed incision, level pelvis. Walking with mild limp. RADIOGRAPHS: Radiographs show a stable total hip. IMPRESSION: Doing well after hip replacement. PLAN: I gave him advice on his activity level. See him back in 3 weeks. Frederick Solis M.D. FT/[facility] #: [id number] documented in this encounter Procedure Notes * Marya Gibbons - 12/02/2018 9:15 AM CDTAssociated Order(s): XR HIP LEFT 2VW OR MORE SEE PROGRESS NOTES FOR RESULTS documented in this encounter Plan of Treatment Not on file documented as of this encounter Procedures Procedure Name Priority Date/Time Associated Diagnosis Comments XR HIP LEFT 2VW OR MORE Routine 12/02/2018 9:14 AM CDT Status post total replacement of left hip documented in this encounter Results * XR HIP LEFT 2VW OR MORE (12/02/2018 9:14 AM CDT) Anatomical Region Laterality Modality Pelvis, Lower Extremity Computed Radiography Narrative 12/02/2018 9:15 AM CDT Marya Gibbons ? 12/06/2018 12:48 PM SEE PROGRESS NOTES FOR RESULTS Frederick Solis IV, MD DIAGNOSTIC IMAGING O DOMINGO documented in this encounter Visit Diagnoses Diagnosis Status post total replacement of left hip- Primary Status post total replacement of left hip documented in this encounter Care Teams Shoe Stitcher Relationship Specialty Start Date End Date Levi Yu DO Orthopedic Surgery 08/13/12 documented as of this encounter
--- OUTSIDE RECORDS SUMMARY | 2024-02-17 23:05 | XMS_ITS | Encounter Summary ---
Author Organization [facility] Address [address] [place] [address] Care Team Providers Care Campus Ambassador Name Role Phone Levi Yu DO Unavailable Encounter Details Date Type Department Care Team (Late st Contact Info) Description 12/04/2018 Orders Only [facility] HOME CARE ADMISSIONS [address] [place] [address] [place] [address] [address] [place] [address] Social History Tobacco Use Types Packs/Day Years [...] on filedocumented in this encounter Care Teams Campus Ambassador Relationship Specialty Start Date End Date Levi Yu DO Orthopedic Surgery 08/13/12 documented as of this encounter
--- OUTSIDE RECORDS SUMMARY | 2024-02-17 23:05 | XMS_ITS | Encounter Summary ---
Author Organization [facility] Address [address] [facility] [place] [address] Care Team Providers Care Auto Body Technician Name Role Phone Levi Yu DO Unavailable Encounter Details Date Type Department Care Team (Latest Contact Info) Description 12/02/2018 9:10 AM CDT Ancillary Procedure [facility] Orthopedics - Radiology [address] [place] [phone] [place] [address] [facility] [address] [place] [address] Status post total replacement of left hip Social History Tobacco Use Types Packs/Day Years [...] Computed Radiography Narrative 12/02/2018 9:15 AM CDT Day, Marya E ? 12/06/2018 12:48 PM SEE PROGRESS NOTES FOR RESULTS Frederick Solis IV, MD DIAGNOSTIC IMAGING O RDERABLES documented in this encounter Visit Diagnoses Diagnosis Status post total replacement of left hip documented in this encounter Care Teams Auto Body Technician Relationship Specialty Start Date End Date Levi Yu DO Orthopedic Surgery 08/13/12 documented as of this encounter
--- OUTSIDE RECORDS SUMMARY | 2024-02-17 23:05 | XMS_ITS | Encounter Summary ---
Author Organization [facility] Address [address] [facility] [place] [address] Care Team Providers Care Senior Health Consultant Name Role Phone Levi Yu DO Unavailable Reason for Visit * Reason Comments Post-Op left hip rhianna 3 week Encounter Details Date Type Department Care Team (Late st Contact Info) Description 12/23/2018 9:10 AM CDT Office Visit [facility] Orthopedics [address] [place] [phone] [place] [address] [address] Status post total hip replacement, left (Primary Dx) Social History Tobacco Use Types [...] Progress Notes * Anila Noriega MA - 12/24/2018 2:01 PM CDT Patient is here for a f/u left rhianna. T DESIGNER documented in this encounter H&P Notes * Frederick Solis IV, MD - 12/30/2018 8:41 AM CST DATE OF SERVICE: 12/23/2018 SUBJECTIVE: Dillon came in today for followup on his total hip, doing well. PHYSICAL EXAMINATION: On examination today, healed incision, level pelvis. Mild limp. IMAGING: Radiographs show stable total hip. IMPRESSION: Doing well after hip replacement. PLAN: I gave him advice on his activity level. See him back in 3 weeks. Frederick Solis M.D. FT/[facility] #: [id number] T DESIGNER documented in this encounter Procedure Notes * Margie Lawrence - 12/23/2018 9:57 AM CDTAssociated Order(s): XR HIP LEFT 2VW OR MORE Please see progress notes for xray results T DESIGNER documented in this encounter Plan of Treatment Not on file documented as of this encounter Procedures Procedure Name Priority Date/Time Associated Diagnosis Comments XR HIP LEFT 2VW OR MORE Routine 12/23/2018 9:52 AM CDT Status post total hip replacement, left documented in this encounter Results * XR HIP LEFT 2VW OR MORE (12/23/2018 9:52 AM CDT) Anatomical Region Laterality Modality Pelvis, Lower Extremity Computed Radiography Narrative 12/23/2018 9:57 AM CDT Margie Lawrence ? 12/30/2018 ??8:37 AM Please see progress notes for xray results Frederick Solis IV, MD DIAGNOSTIC IMAGING O LANDONERAABEL documented in this encounter Visit Diagnoses Diagnosis Status post total hip replacement, left- Primary Status post total hip replacement, left documented in this encounter Care Teams Senior Health Consultant Relationship Specialty Start Date End Date Levi Yu DO Orthopedic Surgery 08/13/12 documented as of this encounter
--- OUTSIDE RECORDS SUMMARY | 2024-02-17 23:05 | XMS_ITS | Encounter Summary ---
Author Organization [facility] Address [address] [facility] [place] [address] Care Team Providers Care Improvement Lead Name Role Phone Levi Yu DO Unavailable Encounter Details Date Type Department Care Team (Late st Contact Info) Description 11/26/2018 Orders Only [facility] HOME CARE ADMISSIONS [address] [place] [address] [place] [address] [address] [place] [address] Social History Tobacco Use Types [...] on filedocumented in this encounter Care Teams Improvement Lead Relationship Specialty Start Date End Date Levi Yu DO Orthopedic Surgery 08/13/12 documented as of this encounter
--- OUTSIDE RECORDS SUMMARY | 2024-02-17 23:06 | XMS_ITS | Encounter Summary ---
Author Organization [facility] Address [address] [place] [address] Care Team Providers Care Covering Machine Tender Name Role Phone Levi uY DO Unavailable Van Peter MD Primary Care Provider [phone] Reason for Visit * Reason Onset Date Comments Question 10/03/2018 Encounter Details Date Type Department Care Team (Late st Contact Info) Description 10/03/2018 Telephone [facility] Pain Care [id number] [place] [address]. [place] [phone] [place] [id number] [place] [address] Question Social History Tobacco Use Types Packs/Day Years Used Date Smoking Tobacco: Former Cigarettes Q uit: 02/26/1987 Smokeless Tobacco: Never Alcohol Use Standard Drinks/Week Comments Yes 2.5 (1 standard drink = 0.6 oz p ure alcohol) Sex and Gender Information Value Date Recorded Sex Assigned at Not on file Gender Identity Not on file Sexual Orientation Not on file documented as of this encounter Miscellaneous Notes * Telephone Encounter - Yris Mcintosh - 10/03/2018 3:[address] Thorne discussed options. He will order an MRI and order was faxed to [facility] at [phone]. documented in this encounter Plan of Treatment Not on file documented as of this encounter Visit Diagnoses Not on filedocumented in this encounter Care Teams Covering Machine Tender Relationship Specialty Start Date End Date Van Peter MD [address] [place] [address] PCP - General Family Medicine 07/23/18 11/11/18 Levi Yu DO Orthopedic Surgery 08/13/12 documented as of this encounter
--- OUTSIDE RECORDS SUMMARY | 2024-02-17 23:06 | XMS_ITS | Encounter Summary ---
Author Organization [facility] Address [address] [facility] [place] [address] Care Team Providers Care Plate Sensitizer Name Role Phone Levi Yu DO Unavailable Van Peter MD Primary Care Provider [phone] Reason for Referral * Radiology Services (Routine) - Closed Specialty Diagnoses / Procedures Referred By Contac t Referred To Contact MRI Diagnoses Primary osteoarthritis of left hip Avascular necrosis of hip, left (HCC) Gait difficulty Procedures MRI HIP [place] [address] [place] [address] Referral ID Status Reason Start Date Expiration Date Visits Re quested Visits Authorized [id number] Closed 10/04/2018 04/01/2019 1 1 Reason for Visit * Radiology Services (Routine) - Closed Specialty Diagnoses / Procedures Referred By Contac t Referred To Contact MRI Diagnoses Primary osteoarthritis of left hip Avascular necrosis of hip, left (HCC) Gait difficulty Procedures MRI HIP LEFT [place] [address] [place] [address] Referral ID Status Reason Start Date Expiration Date Visits Re quested Visits Authorized [id number] Closed 10/04/2018 04/01/2019 1 1 Encounter Details Date Type Department Care Team (Latest Contact Info) Description 10/08/2018 9:12 AM CDT - 10/08/2018 11:59 PM CDT Hospital Encounter [facility] Health Imaging Services - MRI [address] [place] [address] [place] [address] [address] [facility] [address] [place] [address] Discharge Disposition: Home or Self Care Social [...] on file documented as of this encounter Medications at Time of Discharge Medication Sig Dispensed Refills Start Date End Date amLODIPine (NORVASC) 5 MG tablet Take 5 mg by mouth once daily after dinner. enalapril (VASOTEC) 20 MG tablet Take 20 mg by mouth 2 times daily. Multiple Vitamins-Minerals (OCUVITE PO) Take by mouth once daily niacin, Immediate Release, 250 MG tablet Take 250 mg by mouth at bedtime cyclobenzaprine (FLEXERIL) 10 MG tablet Take 1 tablet by mouth every 8 hours as needed 1 03/28/2018 06/04/2020 HYDROcodone-acetaminoph en (NORCO) 10-325 MG tablet Take 1 tablet by mouth as needed 0 03/29/2018 11/04/2018 naproxen (NAPROSYN) 500 MG tablet TAKE 1 TABLET BY MOUTH TWICE DAILY 60 tablet 09/02/2018 11/16/2018 oxyCODONE-acetaminophen (PERCOCET) 5-325 MG tablet TK 1 T PO Q 4 H PRN P 0 06/05/2018 10/21/2018 documented as of this encounter Plan of Treatment Not on file documented as of this encounter Procedures Procedure Name Priority Date/Time Associated Diagnosis Comments MRI HIP LEFT WO CONTRAST Routine 10/08/2018 10:25 AM CDT Primary osteoarthritis of left hip Avascular necrosis of hip, left (HCC) Gait difficulty documented in this encounter Results * MRI HIP LEFT WO CONTRAST (10/08/2018 10:25 AM CDT) Anatomical Region Laterality Modality Lower Extremity Magnetic Resonan ce 10/08/2018 11:1 8 AM CDT Impressions 10/08/2018 11:55 AM CDT EARLY CHANGES OF AVASCULAR NECROSIS INVOLVING THE LEFT FEMORAL HEAD AND NECK. CHRONIC HIGH-GRADE CHONDROMALACIA SUPERIOR AND SUPEROLATERAL PORTION OF THE LEFT HIP JOINT WITH CHRONIC FLATTENING OF THE FEMORAL HEAD. DIFFUSE SYNOVIAL HYPERTROPHY THROUGHOUT THE LEFT HIP JOINT. Edited by Yelena Willams on 10/08/2018 11:45 AM [place] Radiologist: Wendie Connolly MD on 10/08/2018 at 11:55 AM Narrative 10/08/2018 11:55 AM CDT MRI LEFT HIP WITHOUT CONTRAST CLINICAL INDICATION: Severe progressive worsening left hip pain and limited range of motion. COMPARISON: Left hip x-ray series 06/05/2018. TECHNIQUE: Multiplanar multisequence MR imaging of the left hip was performed without contrast. The right hip joint is included for comparison on the axial and coronal sequences. FINDINGS: There is intense bone marrow edema within the left femoral head extending through the neck. There is patchy heterogeneous sclerosis and edema within the subchondral superior left femoral head. This pattern is concerning for avascular necrosis. There is chronic appearing flattening of the superior and superolateral portion of the left femoral head. There is a broad region of high-grade full-thickness chondromalacia noted throughout the superior and superolateral portion of the left hip joint. There is exuberant synovial hypertrophy throughout the left hip joint. There is a small left hip joint effusion. The iliofemoral ligament, ischiofemoral ligament, and ligamentum teres are intact. The acetabular labrum is intact. Signal and morphology of the tendons of the hamstring, gluteal, iliopsoas, rectus femora, and adductor muscles are within normal limits. Signal of the musculature is normal. The visualized portion of the sciatic nerve is within normal limits. Included images of the right hip joint are unremarkable. Procedure Note Wendie Connolly MD - 10/08/2018 MRI LEFT HIP WITHOUT CONTRAST CLINICAL INDICATION: Severe progressive worsening left hip pain and limited range of motion. COMPARISON: Left hip x-ray series 06/05/2018. TECHNIQUE: Multiplanar multisequence MR imaging of the left hip was performed without contrast. The right hip joint is included for comparison on the axial and coronal sequences. FINDINGS: There is intense bone marrow edema within the left femoral head extending through the neck. There is patchy heterogeneous sclerosis and edema within the subchondral superior left femoral head. This pattern is concerning for avascular necrosis. There is chronic appearing flattening of the superior and superolateral portion of the left femoral head. There is a broad region of high-grade full-thickness chondromalacia noted throughout the superior and superolateral portion of the left hip joint. There is exuberant synovial hypertrophy throughout the left hip joint. There is a small left hip joint effusion. The iliofemoral ligament, ischiofemoral ligament, and ligamentum teres are intact. The acetabular labrum is intact. Signal and morphology of the tendons of the hamstring, gluteal, iliopsoas, rectus femora, and adductor muscles are within normal limits. Signal of the musculature is normal. The visualized portion of the sciatic nerve is within normal limits. Included images of the right hip joint are unremarkable. IMPRESSION EARLY CHANGES OF AVASCULAR NECROSIS INVOLVING THE LEFT FEMORAL HEAD AND NECK. CHRONIC HIGH-GRADE CHONDROMALACIA SUPERIOR AND SUPEROLATERAL PORTION OF THE LEFT HIP JOINT WITH CHRONIC FLATTENING OF THE FEMORAL HEAD. DIFFUSE SYNOVIAL HYPERTROPHY THROUGHOUT THE LEFT HIP JOINT. Edited by Yelena Willams on 10/08/2018 11:45 AM [place] Radiologist: Wendie Connolly MD on 10/08/2018 at 11:55 AM Santos Coley MD MR ORDERABLES documented in this encounter Visit Diagnoses Diagnosis Primary osteoarthritis of left hip Primary localized osteoarthrosis, pelvic region and thigh Avascular necrosis of hip, left (HCC) Gait difficulty Abnormality of gait documented in this encounter Care Teams Plate Sensitizer Relationship Specialty Start Date End Date Van Peter MD [address] [place] [address] PCP - General Family Medicine 07/23/18 11/11/18 Levi Yu DO Orthopedic Surgery 08/13/12 documented as of this encounter
--- OUTSIDE RECORDS SUMMARY | 2024-02-17 23:06 | XMS_ITS | Encounter Summary ---
Author Organization [facility] Address [address] [place] [address] Care Team Providers Care Trimmer Tailer Name Role Phone Levi Yu DO Unavailable Van Peter MD Primary Care Provider [phone] Encounter Details Date Type Department Care Team (Latest Contact Info) Description 10/21/2018 3:00 PM CDT - 10/21/2018 11:59 PM CDT Hospital Encounter [facility] [address] [place] [address] [place] [address] [address] [place] [address] Discharge Disposition: Home or Self Care Social [...] Sign Reading Time Taken Comments Blood Pressure 138/73 10/21/2018 3:40 PM CDT Pulse 60 10/21/2018 3:40 PM CDT Temperature - - Respiratory Rate - - Oxygen Saturation 96% 10/21/2018 3:40 PM CDT Inhaled Oxygen Concentration - - Weight 156.5 kg (345 lb) 10/21/2018 3:31 PM CDT Height 186.2 cm (6' 1.3 ) 10/21/2018 3:31 PM CDT Body Mass Index 45.15 10/21/2018 3:31 PM CDT documented in this encounter Discharge Instructions * Patient Instructions* Trini Pugh, GOVERNMENT RELATIONS MANAGER-LOAN SERVICING REPRESENTATIVE - 10/21/2018 4:19 PM CDT Pre-Surgery Nasal Screening [facility] is dedicated to providing you with excellent care. Patient safety is our top priority and we are committed to delivering best practices to ensure your protection during the pre and post-surgical timeframe. Bacteria both inside and outside the hospital can cause infection. Two germs of particular concern are Multidrug-Resistant Staphylococcus Aureus (MRSA) and Methicillin-Sensitive Staphylococcus Aureus(MSSA). These germs can cause infection, but it also can live in or on the body without causing anysymptoms. MSSA also is very common, and is found on the skin or in the nose. To identify and properly manage MRSA or MSSA, we obtain a nasal swab for culture from all patients before surgery. The culture will identify if any MRSA or MSSA is present in your nose so that it can be treated before yoursurgery. If MRSA or MSSA is identified, you will be notified by our office. You will be called ONLY if the test is positive, and instructed to do the following treatment: 1. A topical antibiotic nasal ointment will be prescribed for you. This ointment is commonly referred to as Mupirocin or Bactroban. Apply this ointment to the inside of both your nares (nostrils) with a cotton swab (Q-tip) TWICE daily for 5 days. The office staff will go over the specific instructions with you. 2. You were provided a bottle of Chlorhexidine (Hibiclens) at the time of your preadmission testingvisit. To effectively treat the MRSA/MSSA you need to shower daily for 5 days using the Chlorhexidine from the neck down. The bottle provided will last 5 days, so you will want to pick one up from your local pharmacy. If you are allergic to, you may use liquid antibacterial soap such as Dial. These measures can reduce the potential for infection in your incision following your surgery. If you have any questions, you may call us or your surgeons office. Thank you for trusting [facility] with your care as we strive to achieve exceptional patient outcomes. [facility] Incentive Spirometer OVERIVEW The following provides an overview of how you will use the spirometer after your surgery. Our goal is for you to become familiar with usage prior to your surgery date, as this improves the ability touse properly. Please attempt to use 2-3 times daily in the week leading up to your surgery date. DO NOT bring this spirometer with you the day of surgery, as you will be provided a new one after your surgery. Using your incentive spirometer after surgery will help your lungs clear and will help keep your lungs active throughout the recovery process, as if you were performing your daily activities. How to use the incentive spirometer: 1. Sit on the edge of your bed if possible, or sit up as far as you can in bed. 2. Hold the incentive spirometer in an upright position. 3. Place the mouthpiece in your mouth and seal your lips tightly around it. 4. Breathe in slowly and as deeply as possible. Notice the yellow piston rising toward the top of the column. The yellow indicator should reach the blue outlined area. 5. Hold your breath as long as possible. Then exhale slowly and allow the piston to fall to fall tothe bottom of the column. 6. Rest for a few seconds and repeat steps one to 5 at least 10 times every hour. 7. Position the yellow indicatior on the left side of the spirometer to show your best effort. Use the indicator as a goal to work toward during each slow deep breath. 8. After each set of 10 deep breaths. Cough to be sure your lungs are clear. If you have an incision, support your incision when coughing by placing a pillow firmly against it. 9. Once you are able to get out of bed safely, take frequent walks and practice the cough. documented in this encounter Medications at Time of Discharge Medication Sig Dispensed Refills Start Date End Date amLODIPine (NORVASC) 5 MG tablet Take 5 mg by mouth once daily after dinner. enalapril (VASOTEC) 20 MG tablet Take 20 mg by mouth 2 times daily. Misc. Devices (ROLLATOR ULTRA-LIGHT) MISCIndications:Left hip pain,Primary osteoarthritis of left hip Use 1 Units continuous 1 Each 10/14/2018 Multiple Vitamins-Minerals (OCUVITE PO) Take by mouth once daily niacin, Immediate Release, 250 MG tablet Take 250 mg by mouth at bedtime aspirin (ASPIRIN) 81 MG chew tablet Take 1 tablet by mouth 2 times daily for 42 days Take for blood clot prevention. 11/16/2018 12/28/2018 cefadroxil (DURICEF) 500 MG capsule Take 1 capsule by mouth 2 times daily for 7 days 11/17/2018 11/24/2018 cyclobenzaprine (FLEXERIL) 10 MG tablet Take 1 tablet by mouth every 8 hours as needed 1 03/28/2018 06/04/2020 HYDROcodone-acetaminophe n (NORCO) 10-325 MG tablet Take 0.5-1 tablets by mouth every 6 hours as needed for Pain 28 tablet 11/16/2018 12/23/2018 HYDROcodone-acetaminophe n (NORCO) 10-325 MG tablet Take 0.5-1 tablets by mouth every 6 hours as needed for Pain 28 tablet 11/15/2018 11/16/2018 HYDROcodone-acetaminophe n (NORCO) 10-325 MG tablet Take 1 tablet by mouth as needed 0 03/29/2018 11/04/2018 naproxen (NAPROSYN) 500 MG tablet TAKE 1 TABLET BY MOUTH TWICE DAILY 60 tablet 09/02/2018 11/16/2018 documented as of this encounter Progress Notes * Trini Pugh, TELLO-LOAN SERVICING REPRESENTATIVE - 10/21/2018 4:07 PM CDT PRESURGICAL OPTIMIZATION EVALUATION Patient Name: Dillon Mejia : 1950 SUBJECTIVE: Dillon Mejia is a 68 year old y.o. male presenting [facility]. He is scheduled for a LEFT TOTAL ANTERIOR HIP ARTHROPLASTY with Dr. Solis on 11/12/2018. Denies any problems with anesthesia in the past. Denies any family history of anesthetic complications. HTN- compliant with taking amlodipine 5 mg tab once daily & enalapril 20 mg b.i.d.; managed by PCP; BP 138/73 here today. Patient denies history of asthma, COPD, PE, CECE, HLD, CAD, CHF, heart murmur, heart arrhythmia, cardiac devices, stroke, seizure, neuromuscular diseases, bleeding/clotting disorders, diabetes, thyroid disease, kidney disease, liver disease. PCP is Dr.Jean Peter -- PCP preoperative documented clearance note dated 10/15/18 is located inpaper chart. Review of Systems: Denies chest pain, palpitations, irregular heart beat, syncope, REY, orthopnea, PND, or swelling ofthe feet or ankles. No cough, wheezing or shortness of breath Denies rash, open or unhealed sores and lesions No recent URI's in past 4-6 weeks Denies reflux Functional Status Assessment: METS (Metabolic Equivalents of Task) Score: > or equal to 4 METs Ambulates with a walker due to left hip pain. Denies any exertional shortness of breath or chest pain/discomfort. PMH: Past Medical History: Diagnosis Date ??? HTN (hypertension) ??? Macular degeneration (senile) of retina, unspecified Macular Degeneration PSH: Past Surgical History: Procedure Laterality Date ??? HC ARTHROSCOPY KNEE 08/21/12 RIGHT ??? KNEE ARTHROPLASTY 2005 ??? Knee Arthroscopy X2 ??? LUMBAR SPINE FUSION ??? Meniscectomy 08/21/2012 Right; ARTHROSCOPY KNEE MENISCECTOMY MEDIAL Allergies: No Known Allergies Current Medications: Outpatient Medications Marked as Taking for the 10/21/18 encounter (Hospital Encounter) with [facility] Medication Sig ??? amLODIPine (NORVASC) 5 MG tablet Take 5 mg by mouth once daily after dinner. ??? enalapril (VASOTEC) 20 MG tablet Take 20 mg by mouth 2 times daily. ??? HYDROcodone-acetaminophen (NORCO) 10-325 MG tablet Take 1 tablet by mouth as needed ??? Misc. Devices (ROLLATOR ULTRA-LIGHT) MISC Use 1 Units continuous ??? Multiple Vitamins-Minerals (OCUVITE PO) ??? naproxen (NAPROSYN) 500 MG tablet TAKE 1 TABLET BY MOUTH TWICE DAILY ??? niacin, Immediate Release, 250 MG tablet Take 250 mg by mouth at bedtime OBJECTIVE: BP 138/73 Pulse 60 Ht 1.862 m (6' 1.3 ) Wt 156.5 kg (345 lb) SpO2 96% BMI 45.15 kg/m2 Physical Exam: Airway/Mallamapati Score: Grade 2: Soft palate, base of uvula, tonsillar pillars, and portion of posterior pharyngeal wall visible Mouth Opening Distance: 3 fingerwidths Neck ROM: normal range of motion and supple TM Distance: > 3 FB Teeth: normal General appearance - alert, well appearing, and in no distress and overweight Mental status - alert, oriented to person, place, and time Chest - clear to auscultation, no wheezes, rales or rhonchi, symmetric air entry Heart - normal rate, regular rhythm, normal S1, S2, no murmurs, rubs, clicks or gallops Pertinent Diagnostic Tests: Labs 09/23/18: (outside facility labs): Sodium 140 Potassium 4.5 Chloride 104 CO2 27 BUN 18 Creatinine 0.68 eGFR 100 Albumin 4.1 HA1c 6.2 Hemoglobin 15.2 Hematocrit 45.2 WBC 8.4 Platelets 275 A/P 1. Encounter for other pre-procedural examination Preoperative Domain Results Recommendations BMI BMI (Calculated): 45.14 Initiate anti-inflammatory ( Mediterranean ) style diet in the perioperative period, unless otherwise contraindicated. Nutrition Albumin 4.1 on 09/23/18 (outside facility labs) Anti-inflammatory ( Mediterranean ) style diet discussed/encouraged perioperatively. Educational resource provided. Diabetes HA1c 6.2 on 09/23/18 (outside facility lab) Pre-DM Continue following with established PCP for ongoing care/management of pre-diabetes Cardiac Records reviewed EKG obtained today 10/21/2018 per anesthesia team. Cardiology to complete final confirmatory read ofEKG. Will defer to both PCP and anesthesia team to determine if any additional cardiac testing/work-up is necessary prior to upcoming scheduled surgery. Pulmonary /CECE STOPBANG Score - Sleep Apnea Total: Total CECE Risk Score: 6 -- high risk STOPBANG screening tool results discussed with patient. Advised/recommended that patient f/u with PCP for Intermediate Risk & High Risk OSAscreening tool results, as may consider sleep study testing in future; will defer further recommendations and/or referral to PCP. Incentive Spirometer (IS) provided and patient was instructed regarding use. Encouraged daily use of IS prior to surgery. Smoking Social History Tobacco Use Smoking Status Former Smoker ??? Types: Cigarettes ??? Last attempt to quit: 02/26/1987 ??? Years since quittin.6 Smokeless Tobacco Never Used N/A Infection Prevention Nasal Culture MRSA/MSSA: Obtained and pending Final culture result expected inapproximately 72 hr. If positive, will initiate treatment per guidelines. Encouraged good hygiene and handwashing preoperatively. Chronic narcotic use Currently taking Prospect 10-325 mg tab p.r.n. -- pt endorses that he is typically only taking 1 tab daily and he is trying to limit his use of preoperative narcotics. Discussed with patient that if able to minimize narcotic use in the preoperative period, it will certainly aid/help with pain control/management postoperatively. VTE prophylaxis N/A Education provided re: Post-op VTE prevention. Follow specific recommendations from surgeon's office re: VTE prophylaxis. Preoperative testing CBC CMP results reviewed No further action needed. NPO instructions given to patient by RN per protocol. Preoperative/Day of Surgery medication instructions given to patient by RN per surgeon/anesthesia standing orders. AVS printed and given to patient. SINTIA Zambrano documented in this encounter Plan of Treatment Not on file documented as of this encounter Procedures Procedure Name Priority Date/Time Associated Diagnosis Comments CULTURE MSSA/MRSA Routine 10/21/2018 4:1 6 PM CDT Preop examination EKG 12-LEAD Routine 10/21/2018 3:49 PM CDT Preop examination documented in this encounter Results * CULTURE MSSA/MRSA (10/21/2018 4:16 PM CDT) Culture Negative for Staphylococcus aureus (MRSA/MSSA) SIRIA 10/23/2018 9:36 AM CDT [facility] Microbiology SPECIMEN FROM NASAL FOSSAE / Unknown Collection / Unknown 10/21/2018 4:16 PM CDT 10/21/2018 4:15 PM CDT Tr[facility] PATRIC[facility] - MICR OBIOLOGY ORDERABLES [facility] [address] [facility] [place] [address] [phone] * EKG 12-LEAD (10/21/2018 3:49 PM CDT) Ventricular Rate 58 BPM [facility] Atrial Rate 58 BPM [facility] P-R Interval 158 ms [facility] QRS Duration ms 78 ms [facility] Q-T Interval ms 410 ms [facility] QTC Calculation (Bezet) 402 ms [facility] Calculated P Brigantine 18 degrees [facility] Calculated R Brigantine 33 degrees [facility] Calculated T Brigantine 48 degrees [facility] Interpretation EKG Sinus bradycardia with Premature atrial complexes Low voltage QRS Borderline ECG When compared with ECG of 21-AUG-2012 07:31, Premature atrial complexes are now Present Confirmed by IMAN GONZALES MD ([id number]) on 10/22/2018 11:11:47 AM [facility] 10/21/2018 3:49 PM CDT 10/22/2018 11:11 AM CDT Chantel Bello DO ECG ORDERABLES [facility] documented in this encounter Visit Diagnoses Diagnosis Preop examination- Primary Preoperative examination, unspecified documented in this encounter Care Teams Trimmer Tailer Relationship Specialty Start Date End Date Van Peter MD [address] [place] [address] PCP - General Family Medicine 07/23/18 11/11/18 Levi Yu DO Orthopedic Surgery 08/13/12 documented as of this encounter
--- OUTSIDE RECORDS SUMMARY | 2024-02-17 23:06 | XMS_ITS | Encounter Summary ---
Author Organization [facility] Address [address] [address] Care Team Providers Care Director Product Development Name Role Phone Levi Yu DO Unavailable Van Peter MD Primary Care Provider [phone] Encounter Details Date Type Department Care Team (Latest Contact Info) Description 08/27/2018 9:10 AM CDT - 08/27/2018 11:59 PM CDT Hospital Encounter [facility] Health Pain Care [id number] [place] [address] [place] [id number] [address] Discharge Disposition: Home or Self Care [...] Sign Reading Time Taken Comments Blood Pressure 140/78 08/27/2018 9:35 AM CDT Pulse 60 08/27/2018 9:35 AM CDT Temperature - - Respiratory Rate 16 08/27/2018 9:35 AM CDT Oxygen Saturation 96% 08/27/2018 9:35 AM CDT Inhaled Oxygen Concentration - - Weight - - Height - - Body Mass Index - - documented in this encounter Discharge Instructions * Patient Instructions* Margoth Simmons RN - 08/27/2018 9:14 AM CDT [facility] Pain Discharge Instructions Selective Epidural Caudal Epidural Facet Joint Sacroiliac Joint Epidural Steroid Steroid Injection Steroid Injection Injection Injection Injection Special Instructions: No soaking in water for 48 hours. Use ice pack today, 15 minutes out of everyhour until bedtime as needed. In the morning use a heating pad on low or warm shower, as needed. Then use ice or heat whichever works best for you. Your pain may become worse the first 24 to 48 hours. The injection will not take effect for 1 to 7 days with the average of about 72 hours. If you have fever, chills, severe headache, or any other problems, please call [phone] or after hours callDr. Thorne at [phone] and tell them your physician's name. The exchange will alert the physician section repairer. If sedation is given: No sedation given. For Your Next Visit: No additional instructions. Other Instructions: May remove band-aid in 12 Hours. Return in 2 weeks or per _ documented in this encounter Medications at Time [...] TABLET BY MOUTH TWICE DAILY 60 tablet 07/31/2018 08/30/2018 oxyCODONE-acetaminophen (PERCOCET) 5-325 MG tablet TK 1 T PO Q 4 H PRN P 0 06/05/2018 10/21/2018 documented as of this encounter H&P Notes * Santos Coley MD - 08/27/2018 9:21 AM CDT Short Stay History and Physical Dillon Mejia 1950 Diagnosis/Impression LUMBAR RADICULITIS Indications for Surgical Procedure/Present Complaint Lumbar radicular pain Past Medical History: Diagnosis Date ??? HTN (hypertension) ??? Macular degeneration (senile) of retina, unspecified Macular Degeneration Past Surgical History: Procedure Laterality Date ??? HC ARTHROSCOPY KNEE 08/21/12 RIGHT ??? KNEE ARTHROPLASTY 2005 ??? LUMBAR SPINE FUSION ??? Meniscectomy 08/21/2012 Right; ARTHROSCOPY KNEE MENISCECTOMY MEDIAL Social History Social History ??? Marital status: Spouse name: N/A ??? Number of children: N/A ??? Years of education: N/A Occupational History ??? Not on file. Social History Main Topics ??? Smoking status: Former Smoker Types: Cigarettes Quit date: 02/26/1987 ??? Smokeless tobacco: Never Used ??? Alcohol use 1.5 oz/week 3 Alcoholic drink(s) per week ??? Drug use: No ??? Sexual activity: Not on file Other Topics Concern ??? Not on file Social History Narrative No family history on file. No Known Allergies (Not in a hospital admission) Review of Systems Negative except for: Back pain Exam of Affected Body Area As per note. documented in this encounter Procedure Notes * Santos Coley MD - 08/27/2018 9:30 AM CDTAssociated Order(s): PAIN MANAGEMENT PROCEDURE TIME Transforaminal Left L4 Selective Nerve Root Injection Dillon Mejia [id number] 08/27/2018 No Known Allergies Procedure: Transforaminal Left L4 Selective Nerve Root Steroid Injection Under Fluoroscopy Indication for Procedure: Radicular pain in the lower extremity/Lumbar stenosis/Lumber HNP. M54.16 Informed Consent: After the patient, Dillon Mejia, was informed of the risks and benefits of the procedure and all questions were answered, the consent was signed. Prep:Patient identified, proper procedure and site verified, marked by Dr. Thorne. In the prone position, left L4 pedicle, and transverse process were identified under fluoroscopy and marked on the patient's skin. The skin was prepped in a routine sterile fashion using chloroprep. Responsible fuel truck driver not needed as the patient is not having sedation. Under fluoroscopy, a 25 gauge, 3 1/2 inch spinal needle was slowly inserted towards the left L4 foramen after 1 % lidocaine MPF was used to anesthetize the skin , subcutaneous tissue and the muscle overlying the area.Once the tip of the needle was in proper position, 0.5ml of Isovue-M 200 was slowly injected to outline the selective nerve root pattern. Symptoms were reproduced in the nerve root distribution. 1.0 ml of Dexamethasone 10 mg per ml and 3.0 ml of normal saline (preservative free) [...] to home. Patient survey given. Procedure codes: 77233 Santos Coley MD documented in this encounter Plan of Treatment Not on file documented as of this encounter Procedures Procedure Name Priority Date/Time Associated Diagnosis Comments PAIN MANAGEMENT PROCEDURE TIME Routine 08/27/2018 9:29 AM CDT Radiculopathy of lumbar region documented in this encounter Results * PAIN MANAGEMENT PROCEDURE TIME (08/27/2018 9:29 AM CDT) Anatomical Region Laterality Modality X-Ray Angiograph y Narrative 08/27/2018 9:30 AM CDT Santos Coley MD ? 08/27/2018 ??9:30 AM Transforaminal Left L4 Selective Nerve Root Injection Dillon Mejia [id number] 08/27/2018 No Known Allergies Procedure: Transforaminal Left [...] a routine sterile fashion using chloroprep. Responsible fuel truck driver not needed as the patient is not [...] to home. Patient survey given. Procedure codes: 40270 Santos Coley MD Santos Coley MD DIAGNOSTIC IMAGING O RDERABLES documented in this encounter Visit Diagnoses Diagnosis Radiculopathy of lumbar region Thoracic or lumbosacral neuritis or radiculitis, unspecified documented in this encounter Administered Medications Inactive Administered Medications - up to 3 most recent administrations Medication Order MAR Action Action Date Dose Rate Site dexamethasone (DECADRON) injection 10 mg 10 mg, Intravenous, ONCE, 1 dose, On Sun08/27/18 at 0945 $ Admin. by Other Provider 08/27/2018 9:24 AM CDT 10 mg iopamidol (ISOVUE M 200) 41 % contrast Intraspinal, CONTRAST ONCE, Starting on Sun08/27/18 at 0918, Until Sun08/28/18 at 0124, Used for myelograms $ Given - Contrast 08/27/2018 9:24 AM CDT 1 mL lidocaine (XYLOCAINE MPF) 1 % injection Infiltration, INTRA-PROCEDURE ONCE, 1 dose, On Sun08/27/18 at 0930 $ Admin. by Other Provider 08/27/2018 9:24 AM CDT 50 mg documented in this encounter Care Teams Director Product Development Relationship Specialty Start Date End Date Van Peter MD [address] [place] [address] PCP - General Family Medicine 07/23/18 11/11/18 Levi Yu DO Orthopedic Surgery 08/13/12 documented as of this encounter
--- OUTSIDE RECORDS SUMMARY | 2024-02-17 23:06 | XMS_ITS | Encounter Summary ---
Author Organization [facility] Health Address [address] [place] [address] Care Team Providers Care Turbo Operator Name Role Phone Levi Yu DO Unavailable Van Peter MD Primary Care Provider [phone] Encounter Details Date Type Department Care Team (Latest Contact Info) Description 08/06/2018 9:00 AM CDT - 08/06/2018 9:12 AM CDT Hospital Encounter [facility] Pain Care [id number] [place] [address] [place] [id number] [address] Discharge Disposition: Home or Self [...] Sign Reading Time Taken Comments Blood Pressure 149/69 08/06/2018 9:12 AM CDT Pulse 57 08/06/2018 9:12 AM CDT Temperature - - Respiratory Rate 16 08/06/2018 9:12 AM CDT Oxygen Saturation 100% 08/06/2018 9:12 AM CDT Inhaled Oxygen Concentration - - Weight - - Height - - Body Mass Index - - documented in this encounter Medications at Time [...] 4 H PRN P 0 06/05/2018 10/21/2018 oxyCODONE-acetaminophen (PERCOCET) 5-325 MG tablet Take 1 tablet by mouth every 4 hours as needed for Pain 40 tablet 06/05/2018 08/27/2018 documented as of this encounter H&P Notes * Santos Coley MD - 08/06/2018 9:08 AM CDT Short Stay History and Physical Dillon Mejia 1950 Diagnosis/Impression Left hip DJD Indications for Surgical Procedure/Present Complaint Left hip pain Past Medical History: Diagnosis Date ??? [...] admission) Review of Systems Negative except for: Gait difficulty Exam of Affected Body Area As per note. documented in this encounter Plan of Treatment Not on file documented as of this encounter Visit Diagnoses Not on filedocumented in this encounter Care Teams Turbo Operator Relationship Specialty Start Date End Date Van Peter MD [address] [place] [address] PCP - General Family Medicine 07/23/18 11/11/18 Levi Yu DO Orthopedic Surgery 08/13/12 documented as of this encounter
--- OUTSIDE RECORDS SUMMARY | 2024-02-17 23:06 | XMS_ITS | Encounter Summary ---
Author Organization [facility] Address [address] [place] [address] Care Team Providers Care Pl Sql Developer Name Role Phone Levi Yu DO Unavailable Van Peter MD Primary Care Provider [phone] Reason for Visit * Reason Onset Date Comments Medical Clearance 10/18/2018 Encounter Details Date Type Department Care Team (Late st Contact Info) Description 10/18/2018 Telephone [facility] Orthopedics [id number] [place] [phone] [place] [id number] [address] Medical Clearance Social History Tobacco Use Types Packs/Day Years [...] encounter Miscellaneous Notes * Telephone Encounter - Trini Avilez - 10/18/2018 1:20 PM CDT Spoke to the nurse * Telephone Encounter - Margie Mcgraw - 10/18/2018 12:08 PM CDT Who is calling? Dr. Edgar Barboza's office What is the reason for call? Tamra called to state that she would like to know if the pts medicalclearance form was received on 10/15/18 via fax. She will send again today Expected Response from the Clinic? Please call Tamra back at: [phone] documented in this encounter Plan of Treatment Not on file documented as of this encounter Visit Diagnoses Not on filedocumented in this encounter Care Teams Pl Sql Developer Relationship Specialty Start Date End Date Van Peter MD [address] [place] [address] PCP - General Family Medicine 07/23/18 11/11/18 Levi Yu DO Orthopedic Surgery 08/13/12 documented as of this encounter
--- OUTSIDE RECORDS SUMMARY | 2024-02-17 23:06 | XMS_ITS | Encounter Summary ---
Author Organization [facility] Address [address] [place] [address] Care Team Providers Care Commercial Energy Rater Name Role Phone Levi Yu DO Unavailable Van Peter MD Primary Care Provider [phone] Reason for Visit * Reason Onset Date Comments Medical Clearance 10/18/2018 Encounter Details Date Type Department Care Team (Late st Contact Info) Description 10/18/2018 Telephone [facility] Orthoped[facility] [id number] [place] [phone] [place] [phone] [address] Medical Clearance Social History Tobacco [...] * Telephone Encounter - Trini Avilez - 10/21/2018 9:02 AM CDT Call the patient no answer . We dont have the clearance * Telephone Encounter - Miriam Davila - 10/18/2018 3:46 PM CDT .Who is calling? {self What is the reason for call? Pt is looking for his medical clearance from his PCP Expected Response from the Clinic? ( ex. Call back pt [phone] documented in this encounter Plan of Treatment Not on file documented as of this encounter Visit Diagnoses Not on filedocumented in this encounter Care Teams Commercial Energy Rater Relationship Specialty Start Date End Date Van Peter MD [address] [place] [address] PCP - General Family Medicine 07/23/18 11/11/18 Levi Yu DO Orthopedic Surgery 08/13/12 documented as of this encounter
--- OUTSIDE RECORDS SUMMARY | 2024-02-17 23:06 | XMS_ITS | Encounter Summary ---
Author Organization [facility] Address [address] [place] [address] Care Team Providers Care Siding Applicator Name Role Phone Levi Yu DO Unavailable Reason for Visit * Auth/Cert (Routine) Specialty Diagnoses / Procedures Referred By Contac t Referred To Contact Diagnoses Unilateral primary osteoarthritis, right hip Procedures PA TOTAL HIP REPLACEMENT Referral ID Status Reason Start Date Expiration Date Visits Re quested Visits Authorized [id number] 11/06/2018 05/05/2019 1 1 Encounter Details Date Type Department Care Team (Latest Contact Info) Description 11/12/2018 6:22 AM CDT - 11/16/2018 2:46 PM CDT Hospital Encounter [facility] [address] [address] [place] [id number] [place] [id number] [facility] [address] [place] [address] Surgery Orthopedics Discharge Disposition: Home or Self Care Social [...] Sign Reading Time Taken Comments Blood Pressure 177/74 11/16/2018 1:35 PM CDT Pulse 67 11/16/2018 1:35 PM CDT Temperature 36.9 ??C (98.4 ??F) 11/16/2018 8:28 AM CD T Respiratory Rate 18 11/16/2018 8:28 AM CDT Oxygen Saturation 97% 11/16/2018 1:35 PM CDT Inhaled Oxygen Concentration - - Weight 155.1 kg (342 lb) 11/12/2018 7:10 AM CDT Height 186.7 cm (6' 1.5 ) 11/12/2018 7:10 AM CDT Body Mass Index 44.51 11/12/2018 7:10 AM CDT documented in this encounter Functional [...] 11/16/2018 documented as of this encounter Discharge Summaries * Frederick Helms IV, MD - 11/16/2018 2:46 PM CDT Physician Discharge Summary Patient Name: Dillon Downey Date of : 1950 Admit date: 11/12/2018 Discharge date:11/16/2018 Admitting Physician: Frederick Helms IV, MD Attending Physician: Frederick Helms IV, MD Discharge Physician: Frederick Helms IV, MD Admission Diagnosis: hip djd Past Medical History Past Medical History: Diagnosis Date ??? HTN (hypertension) ??? Macular degeneration (senile) of retina, unspecified Macular Degeneration Discharge Diagnoses Active Problems: Left hip pain Resolved Problems: * No resolved hospital problems. * Diagnostic Studies See hospital course Treatments See hospital course Procedures See hospital course Consults Hospital Course francesco Condition at discharge: good Disposition: Home Code Status At Discharge Full Code Patient Instructions Discharge Procedure Orders Follow up instructions The next time you are scheduled to see your doctor, please discuss that you might be having difficulty with breathing while you sleep. Your doctor can then advise if more evaluation is needed. Why you were hospitalized Order Specific Question Answer Comments Your discharge diagnosis is: DJD (degenerative joint disease) [189691] No special diet needed Resume your normal home diet as tolerated. Assistive device(s) Please use a walker. Weight bearing as tolerated Slowly increase the amount of weight you put on your left leg as tolerated. Light activity Avoid any heavy activity until your follow up visit. Do not drive Until your follow up visit. Activity per Physical Therapy Continue to follow the activity instructions given to you by the Physical Therapist. Dressing changes There is a clear plastic dressing applied to the hip over the glue-like substance. You may shower if there is no drainage but do not soak the wound. Dressing will start to come off as you shower. It is not necessary to apply another dressing when dressing comes off. The hip is closed with a substance called dermabond which is a sterile glue-like substance. This sterile skin glue holds wound edges together. The glue will dissolve on its own. Do not scratch or rubat the glued area. This can loosen the film from the skin before the wound is healed. Also avoid putting tape, topical antibiotics or other ointments/creams directly on the wound, unless instructed too. Showering and bathing -- You may shower. -- No tub baths until cleared by Dr. Helms. When to call your provider Call Dr. Helms if you have questions or concerns, or for any of the following issues: -- temperature higher than 101.5 F -- pain that gets worse or does not get better after taking your pain medication(s) as directed -- bleeding from your incision -- if your incision or IV site looks infected (red, swollen, warm to the touch, or non-clear, foul-smelling drainage) Stool softeners Take over the counter stool softener for relief of difficult bowel movements. For relief of constipation Take over the counter laxative for relief of constipation. Follow up with provider Order Specific Question Answer Comments Follow Up Instructions: follow up in office in 3 weeks Follow up with provider Contact Information for Follow-Up Providers Follow up instructions The next time you are scheduled to see your doctor, please discuss that you might be having difficulty with breathing while you sleep. Your doctor can then advise if more evaluation is needed. Frederick Helms IV, MD Specialty: Orthopedic Surgery [id number] [address] [address] follow up in office in 3 weeks Follow Up Instructions: follow up in office in 3 weeks [facility] Specialty: Home Health Services [address] [place] [phone] Discharge time: less than 30 minutes. Current Discharge Medication List START taking these medications Instructions Authorizing Provider aspirin 81 MG chew tablet Commonly known as: ASPIRIN Take 1 tablet by mouth 2 times daily for 42 days Take for blood clot prevention. Frederick Helms IV, MD cefadroxil 500 MG capsule Commonly known as: DURICEF Take 1 capsule by mouth 2 times daily for 7 days Frederick Helms IV, MD CONTINUE taking these medications which have CHANGED Instructions Authorizing Provider HYDROcodone-acetaminophen 10-325 MG tablet What changed: ?? how much to take ?? when to take this ?? reasons to take this Commonly known as: NORCO Quantity Dispensed: 28 tablet Take 0.5-1 tablets by mouth every 6 hours as needed for Pain Eliu De Jesus MD CONTINUE taking these medications which have NOT CHANGED Instructions Authorizing Provider amLODIPine 5 MG tablet Commonly known as: NORVASC Take 5 mg by mouth once daily after dinner. cyclobenzaprine 10 MG tablet Commonly known as: FLEXERIL Take 1 tablet by mouth every 8 hours as needed enalapril 20 MG tablet Commonly known as: VASOTEC Take 20 mg by mouth 2 times daily. niacin (Immediate Release) 250 MG tablet Take 250 mg by mouth at bedtime OCUVITE PO Take by mouth once daily ROLLATOR ULTRA-LIGHT Misc Quantity Dispensed: 1 Each Use 1 Units continuous Frederick Helms IV, MD STOP taking these medications naproxen 500 MG tablet Commonly known as: NAPROSYN CC: Tea Gaspar MD documented in this encounter Medications at Time [...] needed for Pain 28 tablet 11/16/2018 12/23/2018 documented as of this encounter Progress Notes * Trevor Madrid RN - 11/16/2018 2:43 PM CDT A&Ox4, makes needs known, incision to L hip remains intact, transparent dressing CDI, educated on discharge instructions, verbalized understanding, IV removed, wheeled to car with family, no concerns noted * Therese Jung, OT - 11/16/2018 2:14 PM CDT Occupational Therapy Treatment Summary Chart reviewed for diagnosis and medical systems review. Nursing consented for OT. Explained purpose of OT and patient consented to participate in therapy. Precautions: Ant FRANCESCO precautions Patient participated in education/review of precautions/restrictions this session. SUBJECTIVE: This feels like a awad job therapist asked pt to elaborate and that we want him to feel comfortable with his d/c. Pt unable to express specifics of concern just reporting that he doesn't feel / all there . BP 177/74 and VSS. Discussed possible side effects of pain medications and pt reports pain is 0/10- recommended attempting to decrease use of pain medications as tolerated and seeif side effects decrease. OT asked patient what he felt unsure about and ensured him that he has the tools and knowledge to succeed at home and will have home health therapy as well. Pt seemed slightly as ease but still anxious. Psychosocial: Patient Behaviors: Cooperative;Anxious OBJECTIVE: Cognition: Orientation Level: Oriented X4 Cognition: Attention/concentration-normal for age;Follows Commands-Consistent;Processing-Appropriate Pain Assessment: Pain Rating Score #: 0 Functional Mobility: Transfers: Sit to Stand: Modified [place] Stand to Sit: Modified [place] ADL Tasks: Lower Body Dressing: (verbally discussed process d/t AE taken home) Activity Tolerance/Vital Signs: SpO2: 97 % Pulse: 67 BP: 177/74 ASSESSMENT: Pt able to verbalize understanding of ADL techniques and demonstrated stable standing balance for simulation of LB dressing. Pt reports feeling impulsive- therapist educated pt on slow/thought out movements and tasks to ensure safety with tasks. Recommended awaiting challenging tasks until after HH therapist sees pt and makes recommendations. Call light and phone in reach. All lines, monitors, IV's, equipment in place and intact pre and post visit. RN notified of patient's performance/location end of session. Please refer to the Filed Flowsheet OT Treatment for further details. Refer to care plan for goals. RECOMMENDATIONS/PLAN: AM-PAC Basic Activity score for this patient is CMS 0-100% Score (Calculated): 32.79 % degree of impairment with higher scores indicating patient may benefit from further inpatient services. Patient will benefit from HOME WITH HOME HEALTH at discharge to maximize independence with self care and functional mobility. If this is the last Occupational Therapy visit, this serves as the discharge summary. Therese Jung OT x [phone] * Trevor Madrid RN - 11/16/2018 1:06 PM CDT Problem: Moderate Fall Risk (Score 11-14) Goal: Patient will remain safe from falls and injury. 11/16/2018 1306 by Trevor Madrid RN Outcome: Goal Met 11/16/2018 1301 by Trevor Madrid RN Note: Patient remains safe from falls or injuries, uses call light for staff assistance with transfers Problem: Mobility Score Greater than/Equal to 2 Goal: Will safely mobilize. 11/16/2018 1306 by Trevor Madrid RN Outcome: Goal Met 11/16/2018 1301 by Trevor Madrid RN Note: Patient mobilizes safely with staff assistance and walker Problem: Medication Assessment Greater than/Equal 2 Goal: Patient will dangle prior to getting out of bed. 11/16/2018 1306 by Trevor Madrid RN Outcome: Goal Met 11/16/2018 1301 by Trevor Madrid RN Note: Patient compliant with dangling prior to getting out of bed to transfer Problem: Toileting Score Greater than/Equal to 2 Goal: Patient/family will demonstrate proper use of assistive devices. 11/16/2018 1306 by Trevor Madrid RN Outcome: Goal Met 11/16/2018 1301 by Trevor Madrid RN Note: Patient continues to demonstrates proper use of assistive devices and walker this shift Problem: Volume/Electrolyte Status Score Greater than/Equal to 2 Goal: Patient will maintain adequate po intake when possible. 11/16/2018 1306 by Trevor Madrid RN Outcome: Goal Met 11/16/2018 1301 by Trevor Madrid RN Note: Patient continues to independently consume adequate fluids from water pitcher throughout shift Problem: Incision Care Goal: Incision remains intact with edges well approximated 11/16/2018 1306 by Trevro Madrid RN Outcome: Goal Met 11/16/2018 1301 by Trevor Madrid RN Note: Incision to L hip remains well approximated Goal: Incision is free of infection. 11/16/2018 1306 by Trevor Madrid RN Outcome: Goal Met 11/16/2018 1301 by Trevor Madrid RN Note: Incision to L hip remains CDI, appears to be free of infection at this time Problem: Pain/Discomfort Goal: Patient uses pharmacological and non-pharmacological pain management strategies. 11/16/2018 1306 by Trevor Madrid RN Outcome: Goal Met 11/16/2018 1301 by Trevor Madrid RN Note: Patient continues to alternate using prn pain meds with cold therapy to manage pain throughout shift * Yamel Holly PT - 11/16/2018 11:46 AM CDT Physical Therapy Treatment Summary Chart review completed. Nursing consented for PT. Explained purpose of PT and patient consented to participate in therapy. SUBJECTIVE: Pt voiced numerous concerns about home scenario (sleeping on recliner, getting in/out of car, standing without B armrests, managing WW in bathroom.) Lengthy discussion/education session addressing above concerns. HHPT will be able to further address. Patient's Goal for the Day: Work with PT Pain Assessment: Pain Rating Score #: (unrated) Pain Location : Hip;Incisional Pain Orientation: Left Pain Quality: Aching OBJECTIVE: Orientation Level: Oriented X4 Precautions: anterior hip L Bed Mobility: Supine to Sit: Minimal Assistance;Requires Verbal Cues for Safety(tends to get too close to EOB) Transfers: Sit to Stand: Modified [place] Stand to Sit: Modified [place] Mobility: Distance Ambulated: 220 FEET Ambulation: Assistive Device: Gait Belt;Walker-2 Wheeled Ambulation: Level of Assistance: Modified [place] Ambulation: Gait Deviations: Doris - Decreased;Step Length - Decreased Weight Bearing Status-LLE: Weight Bearing as Tolerated Curb: Assistive Device: Gait Belt;Walker-2 Wheeled Curb: Level of Assistance: Modified [place];Stand By Assist Balance: Standing - Static: Fair +;Good -;With Both Upper Extremity's Support Standing - Dynamic: Fair +;With Both Upper Extremity's Support Exercise: GS, QS, AP, HS Activity Tolerance: Activity Tolerance: Requires rest breaks SpO2: 98 % Pulse: 73 BP: (!) 185/74(RN aware) ASSESSMENT: Pt appears anxious about discharge home. Pt educated on various home safety issues including fiona surfaces and use of AD, chair safety at home and manuevering congested areas. Reviewed anterior precautions. Ice therapy applied after treatment. Call light and phone in reach with walker in reach. OK to be up in room if bed mobility not needed;needs assist with in/out of bed. RN notified of patient's performance/location end of session. Pt educated in PT plan of care, fall precautions, and benefits of OOB activity Please refer to the Filed Flowsheet PT Treatment for further details. RECOMMENDATIONS/PLAN: Anticipate discharge home today with HHPT. Yamel Holly, PT x [phone] * Naa Pacheco RN - 11/16/2018 11:27 AM CDT Ortho Progress Note POD#4 11/16/2018 Awake and alert Afebrile Dressing knee c/d/i Pain controlled. Good progress with PT Discharge home F/U in office 3 weeks * Ras Obrien MD - 11/16/2018 9:23 AM CDT HOSPITALIST PROGRESS NOTE Admit Date: 11/12/2018 6:22 AM Hospital Day: 4 11/16/2018 Tea Gaspar MD Dillon Downey is a 68 year old male admitted for elective left hip arthroplasty SUBJECTIVE: Anxious to go home Pain controlled Doing well with PT Data Vitals: 11/15/18 1600 11/15/18 1922 11/16/18 0341 11/16/18 0828 BP: 134/93 166/59 140/64 151/65 Pulse: 66 65 62 72 Resp: 17 18 18 18 Temp: 98.1 ??F (36.7 ??C) 98.1 ??F (36.7 ??C) 97.5 ??F (36.4 ??C) 98.4 ??F (36.9 ??C) SpO2: 97% 92% 96% 94% Weight: Height: Temp (30hrs) Max:98.4 ??F (36.9 ??C) Recent Labs Component Name 11/14/18 0259 11/13/18 0332 HGB 11.5* 13.1 HCT 35.2 39.4 No results for input(s): TROPONIN in the last 48878 hours. Recent Labs Component Name 08/21/12 0743 SODIUM 140 POTASSIUM 4.6 CHLORIDE 102 CO2 30 BUN 17 CREATININE 0.79 GLUCOSE 110* CALCIUM 9.1 No results for input(s): ALBUMIN, ALKPHOS, ALT, AST, TBIL, DBIL, TPROT in the last 11186 hours. No results for input(s): BNP in the last 26980 hours. No data found. MEDICATIONS FOR CURRENT ENCOUNTER: ?? SCHEDULED MEDICATIONS: ?? 0.9% NaCl injection 3 mL, Intracatheter, q8h ?? amLODIPine (NORVASC) tablet 5 mg, Oral, QDAY AFTER DINNER ?? aspirin chew tablet 81 mg, Oral, BID ?? celecoxib (CeleBREX) capsule 400 mg, Oral, QDAY ?? lisinopril (PRINIVIL; ZESTRIL) tablet 10 mg, Oral, QDAY ?? senna-docusate (SENOKOT-S) tablet 1 tablet, Oral, BID ?? CONTINUOUS MEDICATIONS: ?? lactated ringers infusion, Intravenous, Continuous ?? PRN MEDICATIONS: ?? Or ?? Or ?? Or ?? Or ?? acetaminophen (TYLENOL) tablet 650 mg, Oral, q4h PRN ?? bisacodyl (DULCOLAX) suppository 10 mg, Rectal, QDAY PRN ?? bisacodyl EC (DULCOLAX) tablet 5 mg, Oral, QDAY PRN ?? diphenhydrAMINE (BENADRYL) capsule 25 mg, Oral, q8h PRN ?? diphenhydrAMINE (BENADRYL) capsule 50 mg, Oral, q8h PRN ?? famotidine (PEPCID) tablet 20 mg, Oral, BID PRN ?? HYDROcodone-acetaminophen (NORCO) 10-325 MG tablet 1 tablet, Oral, q4h PRN ?? HYDROmorphone (DILAUDID) injection 0.5 mg, Subcutaneous, q3h PRN ?? HYDROmorphone (DILAUDID) injection 1 mg, Subcutaneous, q3h PRN ?? magnesium hydroxide (MILK OF MAGNESIA) suspension 30 mL, Oral, PRN ?? ondansetron (ZOFRAN) injection 4 mg, Intravenous, q6h PRN ?? oxyCODONE-acetaminophen (PERCOCET) 10-325 MG tablet 1 tablet, Oral, q4h PRN ?? oxyCODONE-acetaminophen (PERCOCET) 10-325 MG tablet 2 tablet, Oral, q6h PRN ?? sodium phosphate rectal (FLEET SALINE) enema 133 mL, Rectal, PRN ?? zolpidem (AMBIEN) tablet 5 mg, Oral, AT BEDTIME PRN ?? Exam General appearance: alert, cooperative, no distress EYES: PERRLA ENT/NECK : NAD Breasts/lymph nodes NAD Lungs: breath sounds normal and symmetric; no rales or wheezes, no rhonchi Heart: regular rhythm, normal S1 and S2, without murmurs, gallops or rubs Abdomen: soft without mass, non-tender, with normal bowel sounds, no organ enlargement Extremities: no clubbing, cyanosis or edema, no calf tenderness, peripheral pulses palpable Musculoskeletal : no joint swelling or LOM, no redness of joints, no warmth, left hip incision looks okay Skin: no rashes or other abnormalities are noted Neurologic: mental status normal; alert and oriented X 3; cranial nerves II - XII are grossly intact,no focal neurological deficits. Psychologic: calm and cooperative Labs,meds and notes personally reviewed. Assessment and Plan --Hypertension continue lisinopril and Norvasc advised monitoring at home and follow up with PCP -- morbid obesity Needs lifestyle modifications plans to increase activity after recovery from surgery diet control -- degenerative joint disease S/p left total??hip??arthroplasty - physical therapy - pain management. ?? -Dvt proph per orthopedic surgery recommendations. ?? -Encourage incentive spirometry.?? Possible Home today if ok with ortho. f/u with PMD and orthopedics. Discharge meds reviewed and reconciled. ?? This note was transcribed using a voice recognition system without human thread machine operator. This report has not been adjusted for typographical, grammatical, and syntax mistakes by a trained medical leader. * Martina Holly RN - 11/16/2018 2:59 AM CDT Shift Highlight: Patient up SBA per physical therapy. Voiding without difficulty per urinal. Encouraged patient to use Incentive Spirometer. Patient denied chest pain, SOB, and nausea. [place] given for pain control. Ambien given for sleep. - Luis Armando CARDENAS * Martina Holly RN - 11/15/2018 8:13 PM CDT Problem: Moderate Fall Risk (Score 11-14) Goal: Patient will remain safe from falls and injury. Outcome: Ongoing Note: Mr. Downey will remain safe from falls and injury. Problem: Mobility Score Greater than/Equal to 2 Goal: Will safely mobilize. Outcome: Ongoing Note: Mr. Downey will safely mobilize. Problem: Medication Assessment Greater than/Equal 2 Goal: Patient will dangle prior to getting out of bed. Outcome: Ongoing Note: Mr. Downey will dangle prior to getting out of bed. Problem: Toileting Score Greater than/Equal to 2 Goal: Patient/family will demonstrate proper use of assistive devices. Outcome: Ongoing Note: Mr. Downey will demonstrate proper use of assistive devices. Problem: Volume/Electrolyte Status Score Greater than/Equal to 2 Goal: Patient will maintain adequate po intake when possible. Outcome: Ongoing Note: Mr. Downey will maintain adequate PO intake. Problem: Incision Care Goal: Incision remains intact with edges well approximated Outcome: Ongoing Note: Mr. Samuel incision is covered with a dressing. Goal: Incision is free of infection. Outcome: Ongoing Note: Monitored Mr. Downey for s/s of infection. Problem: Pain/Discomfort Goal: Patient uses pharmacological and non-pharmacological pain management strategies. Outcome: Ongoing Note: Mr. Downey uses pain medication an ice for pain management strategies. * Rossy Lancaster RN - 11/15/2018 7:52 PM CDT Patient remains free of falls. Continues to use precautions when getting up with walker. Taking PO fluid well without difficulty. Incision remains free of infection without redness. * Ashley Lanza RN - 11/15/2018 5:15 PM CDT A Chart Review has been conducted by Case Management. Based on current condition, will patient be able to return to prior living situation? No Anticipated Discharge Date: 11/16/18 Anticipated discharge needs: [facility] Barriers to discharge / additional discharge needs: None Additional comments: Plan for DC home tomorrow with [facility]. Family to transport home. Per Nursing assessment: Transportation at discharge: Family Transportation (who): Environmental Inspector/Support: Environmental Inspector/Support Person - Relationship:: Zeynep Environmental Inspector person: Environmental Inspector/Support Person Contact #: [phone] Home/Functional Status: Functional and Cognitive Status Is person deaf or have serious hearing difficulty?: No Is person blind or have serious difficulty seeing?: No Does person have serious difficulty walking/climbing stairs?: Yes Does person have difficulty dressing/bathing?: No Does person have difficulty doing errands alone?: Yes Does person have difficulty concentrating/remembering/making decisions?: Yes Equipment with patient: None Assistive Devices: None ?. Will continue to follow. For any questions or needs please contact: Obiee Obia Solution Architect Name/Phone number: Ashley Lanza RN * Naa Pacheco RN - 11/15/2018 3:07 PM CDT Ortho Progress Note POD#3 11/15/2018 Awake and alert Afebrile Transparent dressing hip c/d/i Pain controlled. Progressing with PT Anticipate home in am * Chante Georges OT - 11/15/2018 1:59 PM CDT Occupational Therapy Treatment Summary Chart reviewed for diagnosis and medical systems review. Nursing consented for OT. . Explained purpose of OT and patient consented to participate in therapy. Precautions: Fall Weight Bearing Status-LLE: Weight Bearing as Tolerated Ant. FRANCESCO precautions Patient participated in education/review of precautions/restrictions this session. SUBJECTIVE: Pt states that he is able to use all ae issued to him well and has no question. Patient Arthroplasty Liaison (PAL): / Sister in law. Psychosocial: Patient Behaviors: Calm;Cooperative Family Behaviors: Supportive Patient's goal for the day: to go to the bathroom. OBJECTIVE: Cognition: Cognition: Follows Commands-Consistent;Processing-Appropriate Pain Assessment: 06/05 pain in left hip Transfers: cg assist to and from commode using grab bars SBA to and from ortho chair. ADL Tasks: Feeding: Set-up Oral Facial Hygiene: Set-up Upper Body Dressing: Set-up Lower Body Dressing: Contact Guard Assist Toileting: Contact Guard Assist for transfer and clothing management. Activity Tolerance/Vital Signs: 140/74 ASSESSMENT: Pt appears to be limited with adls by imbalance and pain. AM-PAC Basic Activity score for this patient is CMS 0-100% Score (Calculated): 32.79 % degree of impairment with higher scores indicating patient may benefit from further inpatient services. Patient will benefit from HOME WITH HOME HEALTH, at discharge to maximize independence with self care and functional mobility. Call light and phone in reach All lines, monitors, IV's, equipment in place and intact pre and post visit. RN, notified of patient's performance/location end of session. Educated patient/family in role of OT and use of lang handled sponge and gait belt. Please refer to the Filed Flowsheet OT Treatment for further details. Refer to care plan for goals. RECOMMENDATIONS/PLAN: Continue OT per poc while in hospital. Patient will benefit from HOME WITH HOME HEALTH, at discharge to maximize independence with self care and functional mobility. If this is the last Occupational Therapy visit, this serves as the discharge summary. Chante Georges OT x [phone] * Brain Nicolas DO - 11/15/2018 1:44 PM CDT Hospitalist Progress Note 11/15/2018 Clinical Course Admitted with left francesco Doing better today but reports some dizziness ROS denies chest pain, shortness of breath, cough, nausea, vomiting, dysuria. Exam Vitals: 11/15/18 0830 11/15/18 0837 11/15/18 0849 11/15/18 1013 BP: 151/70 151/70 145/54 140/74 Pulse: 96 104 79 Resp: 17 Temp: 98.4 ??F (36.9 ??C) SpO2: 99% 99% 91% Weight: Height: General appearance: alert, cooperative, no distress, oriented to person, place, and time Lungs: breath sounds normal and symmetric; no rales or wheezes Heart: regular rhythm, normal S1 and S2, without murmurs, gallops or rubs Abdomen: soft without mass, non-tender, with normal bowel sounds Extremities: no clubbing, cyanosis or edema Skin: dressing intact MEDICATIONS FOR CURRENT ENCOUNTER: SCHEDULED MEDICATIONS: 0.9% NaCl injection 3 mL, Intracatheter, q8h amLODIPine (NORVASC) tablet 5 mg, Oral, QDAY AFTER DINNER aspirin chew tablet 81 mg, Oral, BID celecoxib (CeleBREX) capsule 400 mg, Oral, QDAY senna-docusate (SENOKOT-S) tablet 1 tablet, Oral, BID ?? [START ON 11/16/2018] lisinopril (PRINIVIL; ZESTRIL) tablet 10 mg, Oral, QDAY CONTINUOUS MEDICATIONS: ?? lactated ringers infusion, Intravenous, Continuous PRN MEDICATIONS: Or Or Or Or acetaminophen (TYLENOL) tablet 650 mg, Oral, q4h PRN bisacodyl (DULCOLAX) suppository 10 mg, Rectal, QDAY PRN bisacodyl EC (DULCOLAX) tablet 5 mg, Oral, QDAY PRN diphenhydrAMINE (BENADRYL) capsule 25 mg, Oral, q8h PRN diphenhydrAMINE (BENADRYL) capsule 50 mg, Oral, q8h PRN famotidine (PEPCID) tablet 20 mg, Oral, BID PRN HYDROcodone-acetaminophen (NORCO) 10-325 MG tablet 1 tablet, Oral, q4h PRN HYDROmorphone (DILAUDID) injection 0.5 mg, Subcutaneous, q3h PRN HYDROmorphone (DILAUDID) injection 1 mg, Subcutaneous, q3h PRN magnesium hydroxide (MILK OF MAGNESIA) suspension 30 mL, Oral, PRN ondansetron (ZOFRAN) injection 4 mg, Intravenous, q6h PRN oxyCODONE-acetaminophen (PERCOCET) 10-325 MG tablet 1 tablet, Oral, q4h PRN oxyCODONE-acetaminophen (PERCOCET) 10-325 MG tablet 2 tablet, Oral, q6h PRN sodium phosphate rectal (FLEET SALINE) enema 133 mL, Rectal, PRN ?? zolpidem (AMBIEN) tablet 5 mg, Oral, AT BEDTIME PRN Data My review of labs, imaging, notes and other tests is significant for : Recent Labs Component Name 08/21/12 0743 SODIUM 140 POTASSIUM 4.6 CHLORIDE 102 CO2 30 BUN 17 CREATININE 0.79 GLUCOSE 110* CALCIUM 9.1 Recent Labs Component Name 11/14/18 0259 11/13/18 0332 HGB 11.5* 13.1 HCT 35.2 39.4 No data found. Assessment and Plan S/p left total hip arthroplasty - physical therapy - pain management. -Monitor h/h. -Dvt proph per orthopedic surgery recommendations. -Encourage incentive spirometry. ?? Hypertension -reduce lisinopril ?? Brain Nicolas DO * Martina Lyle, PT - 11/15/2018 1:21 PM CDT Physical Therapy Treatment Summary Patient was seen BID this date for physical therapy. Pt consented to treatment. Subjective: Minimal left hip pain. Patient reports he may order a hospital bed for the first week or two after discharge (to avoid the 16 steps to his second floor bedroom). Objective: Transfers: Supine to sit with modified independence (with leg meteorological engineer to assist left LE out of bed) Sit to/from stand with SBA of 1 Ambulation: Patient ambulated 150 feet with bariatric wh walker and SBA of 1 Steps/Curb: Instructed patient to ascend/descend 16 steps with rails with SBA of 1 (8 steps with bilat hand railing, 8 steps with one hand railing) Instructed patient to ascend/descend curb with bariatric wh walker and SBA of 1 Patient educated in ant FRANCESCO precaution, home safety tips and fall precautions. Patient remained in reach of call light. Applied ice pack post-treatment. Family training session with patient's [id number]-dad performed. Assessment/Plan: BID PT while hospitalized. Home PT after discharge. Martina Lyle, PT 11/15/2018 * Chante Georges OT - 11/15/2018 10:31 AM CDT OT attempted to see pt for f/u after chart. Pt states that he just got back in bed from PT and is too tired for tx at this time. OT to follow. Pt inquired regarding durable medical equipment for home stating that he is anxious about falling and doesn't know if he can manage the flight of stairs to his bedroom even though he has been workingwith PT on this. OT recommended using a hospital bed temporarily on the first floor until he was able to safely mange stairs. Pt clear on [employer] and is going to inquire with his rep. OT to follow. Chante Georges OTR/L [phone] * Martina Lyle, PT - 11/15/2018 8:39 AM CDT Physical Therapy Treatment Summary Chart review completed. Nursing consented for PT. Explained purpose of PT and patient consented to participate in therapy. SUBJECTIVE: My pain is tolerable. It's not as bad as yesterday. Patient's Goal for the Day: to practice getting in/out of the bed Pain Assessment: Pain Rating Score #: (minimal left hip pain; better than yesterday ) OBJECTIVE: Orientation Level: Oriented X4 Precautions: Total Hip Precautions: Yes(left anterior FRANCESCO precaution, per Dr. Helms) Bed Mobility: Supine to Sit: Modified [place](with use of leg meteorological engineer and bed railing) Transfers: Sit to Stand: Stand By Assist Stand to Sit: Stand By Assist Mobility: Distance Ambulated: 100 FEET Ambulation: Assistive Device: Gait Belt;Walker-2 Wheeled(bariatric) Ambulation: Level of Assistance: Stand By Assist;Requires Verbal Cues for Safety;Requires Verbal Cues for Technique Ambulation: Gait Deviations: Antalgic;Doris - Decreased;Heel Strike - Decreased;Push Off - Decreased Weight Bearing Status-LLE: Weight Bearing as Tolerated Stairs: Number: 8 Stairs: Assistive Device: Gait Belt Stairs: Use of Rails: Both Stairs: Level of Assistance: Stand-By Assist;Requires Verbal Cues for Safety;Requires Verbal Cues for Technique Balance: Sitting - good Standing with bilat UE support - good- Exercise: 15 reps therapeutic exercises, per ant FRANCESCO protocol Reviewed home safety tips, fall precautions, HEP and anterior FRANCESCO precaution. Activity Tolerance: SpO2: 99 % (room air) Pulse: 104 BP: 151/70 ASSESSMENT: Tolerated treatment well. Slight dizziness during ambulation; BP 151/70. Ice therapy applied after treatment. Call light and phone in reach. Pt educated in PT plan of care, fall precautions, and benefits of OOB activity. Please refer to the Filed Flowsheet PT Treatment for further details. RECOMMENDATIONS/PLAN: BID PT while hospitalized. Home PT after discharge. (Per rehab note, [facility] rehab is unable to accept the patient.) Martina Lyle, PT x [phone] * Annie Pang RN - 11/15/2018 5:26 AM CDT Shift Summary:Alert and oriented x4. Dressing to left hip CDI. x1-2 assist walker with gait belt. Voiding. norco given for pain.VSS. Call light in reach. * Annie Pang RN - 11/14/2018 11:35 PM CDT Problem: Moderate Fall Risk (Score 11-14) Goal: Patient will remain safe from falls and injury. Note: On this shift Dillon will be safe with no falls or injury. . . Problem: Mobility Score Greater than/Equal to 2 Goal: Will safely mobilize. Note: On this shift Dillon will be able to remember the techniques on how to safely move around. Problem: Incision Care Goal: Incision remains intact with edges well approximated Note: On this shift Dillon' incision will remain CDI and with no signs of infections. Problem: Pain/Discomfort Goal: Patient uses pharmacological and non-pharmacological pain management strategies. Note: On this shift Dillon will be able to rest with no pain or discomfort. * Estefania Noe RN - 11/14/2018 8:00 PM CDT Shift summary A&O x4 Up with CGA and walker Tegaderm/dermabond dressing is c/d/i [place] for pain control Voiding VSS Will continue to monitor * Naa Pacheco RN - 11/14/2018 3:53 PM CDT Ortho progress note 11/14/2018 POD #2 Awake and alert Afebrile Dressing hip c/d/i Painful today Recent Labs Component Name 11/14/18 0259 11/13/18 0332 HGB 11.5* 13.1 HCT 35.2 39.4 Progressing with therapy Anticipate home on Sunday/Sat * Loreta Kirk RN - 11/14/2018 3:25 PM CDT [facility] acute rehab cannot accept patient at this time based on therapy notes. He is too functional based on medicare guidelines, and only requires one intensive therpay, but needs 2/3 to meet. Spoke with CM. Will sign off at this time. Thank you for the consideration of rehab in the process of this patients care. Please call with any questions or concerns. Loreta Kirk RN, BSN Clinical Liaison * Brain Nicolas DO - 11/14/2018 12:58 PM CDT Hospitalist Progress Note 11/14/2018 Clinical Course Admitted with left francesco He is worried about going home. ROS denies chest pain, shortness of breath, cough, nausea, vomiting, dysuria, or dizziness. Exam Vitals: 11/13/18200311/13/18200911/14/18 0256 11/14/18 0834 BP: 131/51 131/51 120/48 153/65 Pulse: 67 64 80 Resp: Temp: 98.1 ??F (36.7 ??C) 98.2 ??F (36.8 ??C) 99 ??F (37.2 ??C) SpO2: 92% 94% 95% Weight: Height: General appearance: alert, cooperative, no distress, oriented to person, place, and time Lungs: breath sounds normal and symmetric; no rales or wheezes Heart: regular rhythm, normal S1 and S2, without murmurs, gallops or rubs Abdomen: soft without mass, non-tender, with normal bowel sounds Extremities: no clubbing, cyanosis or edema Skin: dressing intact MEDICATIONS FOR CURRENT ENCOUNTER: SCHEDULED MEDICATIONS: 0.9% NaCl injection 3 mL, Intracatheter, q8h amLODIPine (NORVASC) tablet 5 mg, Oral, QDAY AFTER DINNER aspirin chew tablet 81 mg, Oral, BID celecoxib (CeleBREX) capsule 400 mg, Oral, QDAY lisinopril (PRINIVIL; ZESTRIL) tablet 10 mg, Oral, BID ?? senna-docusate (SENOKOT-S) tablet 1 tablet, Oral, BID CONTINUOUS MEDICATIONS: ?? lactated ringers infusion, Intravenous, Continuous PRN MEDICATIONS: Or Or Or Or acetaminophen (TYLENOL) tablet 650 mg, Oral, q4h PRN bisacodyl (DULCOLAX) suppository 10 mg, Rectal, QDAY PRN bisacodyl EC (DULCOLAX) tablet 5 mg, Oral, QDAY PRN diphenhydrAMINE (BENADRYL) capsule 25 mg, Oral, q8h PRN diphenhydrAMINE (BENADRYL) capsule 50 mg, Oral, q8h PRN famotidine (PEPCID) tablet 20 mg, Oral, BID PRN HYDROcodone-acetaminophen (NORCO) 10-325 MG tablet 1 tablet, Oral, q4h PRN HYDROmorphone (DILAUDID) injection 0.5 mg, Subcutaneous, q3h PRN HYDROmorphone (DILAUDID) injection 1 mg, Subcutaneous, q3h PRN magnesium hydroxide (MILK OF MAGNESIA) suspension 30 mL, Oral, PRN ondansetron (ZOFRAN) injection 4 mg, Intravenous, q6h PRN oxyCODONE-acetaminophen (PERCOCET) 10-325 MG tablet 1 tablet, Oral, q4h PRN oxyCODONE-acetaminophen (PERCOCET) 10-325 MG tablet 2 tablet, Oral, q6h PRN sodium phosphate rectal (FLEET SALINE) enema 133 mL, Rectal, PRN ?? zolpidem (AMBIEN) tablet 5 mg, Oral, AT BEDTIME PRN Data My review of labs, imaging, notes and other tests is significant for : Recent Labs Component Name 08/21/12 0743 SODIUM 140 POTASSIUM 4.6 CHLORIDE 102 CO2 30 BUN 17 CREATININE 0.79 GLUCOSE 110* CALCIUM 9.1 Recent Labs Component Name 11/14/18 0259 11/13/18 0332 HGB 11.5* 13.1 HCT 35.2 39.4 No data found. Assessment and Plan S/p left total hip arthroplasty - physical therapy - pain management. -Monitor h/h. -Dvt proph per orthopedic surgery recommendations. -Encourage incentive spirometry. ?? Hypertension - continue lisinopril in place of vasotec -hold for low bp ?? Brain Nicolas DO * Martina Lyle, PT - 11/14/2018 12:11 PM CDT Physical Therapy Treatment Summary Patient was seen BID this date for physical therapy. Pt consented to treatment. Subjective: Moderate left hip pain. Objective: Transfers: Supine to/from sit with modified independence (with use of leg meteorological engineer to assist left LE in/out of bed) Sit to/from stand with SBA of 1 Ambulation: Patient ambulated 100 feet with wh walker and SBA of 1 Steps/Curb: Instructed patient to ascend/descend 12 steps with rails with SBA of 1; verbal cues for technique Patient educated in home safety tips, fall precautions, ant FRANCESCO precaution and the importance of using the wh walker at all times. Patient remained in reach of call light. Applied ice pack post-treatment. Assessment/Plan: Tolerated treatment well. Good progress with PT. BID PT while hospitalized. Home PT after discharge. Martina Lyle, PT 11/14/2018 * Colby Dover, OT - 11/14/2018 9:08 AM CDT Occupational Therapy Treatment Summary Chart reviewed for diagnosis and medical systems review. Nursing consented for OT. . Explained purpose of OT and patient consented to participate in therapy. Precautions: Weight Bearing Status-LLE: Weight Bearing as Tolerated Ant. FRANCESCO precautions Patient participated in education/review of precautions/restrictions this session. SUBJECTIVE: Pt. Stated You guys are really working me hard -pt. Verbalizing he feels deconditionedfrom being so inactive lately and reports fatigue from working with PT/OT Patient Arthroplasty Liaison (PAL): Psychosocial: Patient Behaviors: Calm;Cooperative Patient's goal for the day Get washed up OBJECTIVE: Cognition: Orientation Level: Oriented X4 Cognition: Follows Commands-Consistent;Attention/concentration-normal for age;Processing-Appropriate;Judgement-appropriate;Safety awareness-appropriate Pain Assessment: Pain Rating Score #: (min c/o pain with activity) Pain Location : Hip Pain Orientation: Left Functional Mobility: Bed Mobility: Supine to Sit: Activity Does Not Occur(in chair at start/end) Transfers: Sit to Stand: Stand By Assist;Requires Verbal Cues for Technique(from elevated seat) Stand to Sit: Stand By Assist;Requires Verbal Cues for Technique Toilet Transfers: Minimal Assistance;Requires Verbal Cues for Technique;Requires Verbal Cues for Safety ADL Tasks: Feeding: Complete [place] Oral Facial Hygiene: Stand By Assist(at sink) Bathing: Moderate Assistance Upper Body Dressing: Set-up(seated) Lower Body Dressing: Minimal Assistance(with AE) Toileting: Minimal Assistance;Requires Verbal Cues for Technique;Requires Verbal Cues for Safety RUE Assessment: AROM - Right Upper Extremity: Within Functional Limits Strength - Right Upper Extremity: Within Functional Limits LUE Assessment: AROM - Left Upper Extremity: Within Functional Limits Strength - Left Upper Extremity: Within Functional Limits Activity Tolerance/Vital Signs: Activity Tolerance: Requires rest breaks SpO2: 100 % Pulse: 68 BP: 154/66 ASSESSMENT: Pt. Educated on FWW use, transfer techniques and safety strategies. Pt. Srikanth's good progress towards therapy goals, however continues to require increased physical assist from reported PLOF. Pt. Requires min-mod VC's for safety/technique with FWW, transfers, ADLs, AE use and slowing pace. Pt. Joyceo's proper use of AE, with min VC's, able to don B shoes this date. Pt. Educated on need for DME upon return home-pt. Interested in bariatric BSC and tub transfer bench. Call light and phone in reach. All lines, monitors, IV's, equipment in place and intact pre and post visit. RN, notified of patient's performance/location end of session. Please refer to the Filed Flowsheet OT Treatment for further details. Refer to care plan for goals. RECOMMENDATIONS/PLAN: AM-PAC Basic Activity score for this patient is CMS 0-100% Score (Calculated): 46.65 % degree of impairment with higher scores indicating patient may benefit from further inpatient services. Patient will benefit from ACUTE REHAB Vs. HOME WITH HOME HEALTH WITH 18/09 ASSIST AND SUPERVISION at discharge to maximize independence with self care and functional mobility. Pt. Will benefit from continued OT services in the acute care setting. If this is the last Occupational Therapy visit, this serves as the discharge summary. Colby Dover OT x [phone] * Martina Lyle, PT - 11/14/2018 7:53 AM CDT Physical Therapy Treatment Summary Chart review completed. Nursing consented for PT. Explained purpose of PT and patient consented to participate in therapy. SUBJECTIVE: Tolerable left hip pain. to assist at home after discharge. Patient's Goal for the Day: to do all of my therapy today Pain Assessment: Pain Rating Score #: 4(left hip pain) OBJECTIVE: Orientation Level: Oriented X4 Precautions: Total Hip Precautions: Yes(left anterior FRANCESCO precaution, per Dr. Helms) Fall precautions Bed Mobility: Supine to Sit: Modified [place](with use of leg meteorological engineer to assist left LE) Sit to Supine: Modified [place](with use of leg meteorological engineer to assist left LE) Transfers: Sit to Stand: (SBA from heightened seat; min assist from low seat height) Stand to Sit: Stand By Assist Car Transfer: Modified [place];Requires Verbal Cues for Technique(with use of leg meteorological engineer to assist left LE in/out of car) Mobility: Distance Ambulated: 110 FEET Ambulation: Assistive Device: Gait Belt;Walker-2 Wheeled(bariatric) Ambulation: Level of Assistance: Stand By Assist;Requires Verbal Cues for Safety;Requires Verbal Cues for Technique Ambulation: Gait Deviations: Antalgic;Doris - Decreased(decreased heel/toe gait pattern) Weight Bearing Status-LLE: Weight Bearing as Tolerated Stairs: Number: 4 Stairs: Assistive Device: Gait Belt Stairs: Use of Rails: Both Stairs: Level of Assistance: Stand-By Assist;Requires Verbal Cues for Safety;Requires Verbal Cues for Technique Balance: Sitting - good Standing with bilat UE support - good- Exercise: 12 reps therapeutic exercises, per ant FRANCESCO protocol Reviewed ant FRANCESCO precaution, HEP, home safety tips and fall precautions. ASSESSMENT: Tolerated treatment well. Patient continues to make steady progress with PT. Ice therapy applied after treatment. Call light and phone in reach. Pt educated in PT plan of care, fall precautions, and benefits of OOB activity. Please refer to the Filed Flowsheet PT Treatment for further details. RECOMMENDATIONS/PLAN: BID PT. Home PT after discharge. Continue to work on going up/down steps (16 steps to 2nd floor bedroom/bathroom). Martina Lyle, PT x [phone] * Lona Burnett RN - 11/14/2018 6:07 AM CDT Rested comfortably during night with narco 10mg controlling left hip pain. Dermabond/tegaderm dressing intact and dry. Voiding adequately. One assist with gait belt used when transferring oob . Vitals stable. Very pleasant. Possible discharge for home today. * Maria C Licea RN - 11/13/2018 8:36 PM CDT Shift report pt stable. Left anterior incision healing wnl's. Pain controlled with norco 10. Gait sba x 1. Planning for home on Sunday. Thanks maria crn * Maria C Licea RN - 11/13/2018 8:35 PM CDT Problem: Mobility Goal: STG - Patient will ambulate Description 150 feet with wh walker and SBA of 1 Outcome: Ongoing Goal: STG - Patient will ascend and descend four to six stairs Description With bilat hand railing and SBA of 1 Up/down curb with wh walker and SBA of 1 Outcome: Ongoing Goal: STG - Patient is independent with home exercise program. Description Per ant FRANCESCO protocol Outcome: Ongoing Problem: Transfers Goal: STG - Patient to transfer to and from sit to supine Description Modified independence Outcome: Ongoing Goal: STG - Patient will transfer sit to and from stand Description independent Outcome: Ongoing Problem: Moderate Fall Risk (Score 11-14) Goal: Patient will remain safe from falls and injury. Outcome: Ongoing Problem: Mobility Score Greater than/Equal to 2 Goal: Will safely mobilize. Outcome: Ongoing Problem: Medication Assessment Greater than/Equal 2 Goal: Patient will dangle prior to getting out of bed. Outcome: Ongoing Problem: Toileting Score Greater than/Equal to 2 Goal: Patient/family will demonstrate proper use of assistive devices. Outcome: Ongoing Problem: Volume/Electrolyte Status Score Greater than/Equal to 2 Goal: Patient will maintain adequate po intake when possible. Outcome: Ongoing Problem: Incision Care Goal: Incision remains intact with edges well approximated Outcome: Ongoing Goal: Incision is free of infection. Outcome: Ongoing Problem: Pain/Discomfort Goal: Patient uses pharmacological and non-pharmacological pain management strategies. Outcome: Ongoing Problem: Activity Tolerance Goal: STG - Pt will demonstrate increased functional activity tolerance as demonstrated by the ability to complete self care routine Description With FWW, AE prn and SBA. Outcome: Ongoing Problem: Dressing lower extremities Goal: STG - Patient will complete lower body dressing Description With FWW, AE prn and SBA. Outcome: Ongoing Problem: Safety Goal: LTG - Patient will demonstrate safety requirements appropriate to situation/environment Description Without need for VC's. Outcome: Ongoing Problem: Toileting Goal: LTG - Patient will complete daily toileting tasks Description With FWW, AE prn and SBA. Outcome: Ongoing * Martina Lyle, PT - 11/13/2018 1:34 PM CDT Physical Therapy Treatment Summary Patient was seen BID this date for physical therapy. Pt consented to treatment. Subjective: Minimal left hip pain. Eager to work with PT. Objective: Transfers: Supine to/from sit with modified independence (verbal cues for technique) Sit to/from stand with SBA of 1 Ambulation: Patient ambulated 200 feet with bariatric wh walker and SBA of 1; decreased doris; antalgic gait pattern Steps/Curb: Instructed patient to ascend/descend 4 steps with rails with min assistance. Instructed patient to ascend/descend curb with bariatric wh walker and min assistance. (verbal cues for safety and technique on steps and curb) Exercise: Patient performed 10 reps of ant FRANCESCO HEP. Patient educated in home safety tips and fall precautions. Patient remained in reach of call light. Applied ice pack post-treatment. Assessment/Plan: Tolerated treatment well. Good progress with PT. BID PT while hospitalized. Patient will need a bariatric wh walker for home use. Martina Lyle, PT 11/13/2018 * Ashley Lanza RN - 11/13/2018 12:52 PM CDT Case Management Initial Assessment Case Management screen completed & Welcome Letter given. Anticipated level of care at discharge: Home Health Care, Acute Rehab Facility Discharge Plans: home Basic Needs Assessment (BNA) Score: 5 Complex Needs Assessment (INFECTIOUS DISEASE PHYSICIAN) Score: 4 Social Support Domain Score: 0 Medical Status and Health Trajectory Domain Score: 4 Medical Home and Access to Services Domain Score: 0 Recommended Interventions for Patient:: Home Health Comment: Met with patient Lives with: Spouse Family Support (name and phone): Extended Emergency Contact Information Primary Emergency Contact: JESÚS DOWNEY Address: [address] [place] [address] Relation: Spouse Secondary Emergency Contact: [facility] Relation: Other Anticipated Discharge Date: 11/15/18 Prior Level of Functioning: Independent Anticipated level of care at discharge: Home Health Care, Acute Rehab Facility Transportation at Discharge: Family Transportation to MD appointments:Family Equipment at Home: Equipment At Home: None Additional equipment needed at home but does not have: If no PCP, action taken: Pharmacy benefit: Yes Police Magistrate Referral: No If patient requires HHC at discharge, he/she requests: S/P Left total hip arthroplasty. Plan is to discharge home/ss acute rehab. Patient lives with spouse in a 2 story home with 2 steps to enter and 16 steps to the 2nd floor. Spouse will provide transportation at discharge. Pt needs a 2WW for home use. Agreeable to [facility]. Will continue to follow. For any questions or needs please contact: [employer] Name/Phone number: Ashley Lanza RN [phone] * Brain Nicolas, DO - 11/13/2018 12:30 PM CDT Hospitalist Progress Note 11/13/2018 Clinical Course Admitted with left francesco Pain is managed ROS denies chest pain, shortness of breath, cough, nausea, vomiting, dysuria, or dizziness. Exam Vitals: 11/13/18 0755 11/13/18 0808 11/13/18 0825 11/13/18 0913 BP: (!) 187/73 154/66 154/66 130/64 Pulse: 61 68 68 71 Resp: 18 Temp: SpO2: 97% 100% 100% 96% Weight: Height: General appearance: alert, cooperative, no distress, oriented to person, place, and time Lungs: breath sounds normal and symmetric; no rales or wheezes Heart: regular rhythm, normal S1 and S2, without murmurs, gallops or rubs Abdomen: soft without mass, non-tender, with normal bowel sounds Extremities: no clubbing, cyanosis or edema Skin: dressing intact MEDICATIONS FOR CURRENT ENCOUNTER: ?? SCHEDULED MEDICATIONS: ?? 0.9% NaCl injection 3 mL, Intracatheter, q8h ?? amLODIPine (NORVASC) tablet 5 mg, Oral, QDAY AFTER DINNER ?? aspirin chew tablet 81 mg, Oral, BID ?? celecoxib (CeleBREX) capsule 400 mg, Oral, QDAY ?? lisinopril (PRINIVIL; ZESTRIL) tablet 10 mg, Oral, BID ?? senna-docusate (SENOKOT-S) tablet 1 tablet, Oral, BID ?? [COMPLETED] ceFAZolin (ANCEF) 3,000 mg in 115 mL IVPB, Intravenous, q8h ?? [] ondansetron (ZOFRAN) injection 4 mg, Intravenous, q6h ?? [] oxyCODONE CR 12hr (OxyCONTIN) tablet 10 mg, Oral, q12h ?? CONTINUOUS MEDICATIONS: ?? lactated ringers infusion, Intravenous, Continuous ?? PRN MEDICATIONS: ?? Or ?? Or ?? Or ?? Or ?? acetaminophen (TYLENOL) tablet 650 mg, Oral, q4h PRN ?? bisacodyl (DULCOLAX) suppository 10 mg, Rectal, QDAY PRN ?? bisacodyl EC (DULCOLAX) tablet 5 mg, Oral, QDAY PRN ?? diphenhydrAMINE (BENADRYL) capsule 25 mg, Oral, q8h PRN ?? diphenhydrAMINE (BENADRYL) capsule 50 mg, Oral, q8h PRN ?? famotidine (PEPCID) tablet 20 mg, Oral, BID PRN ?? HYDROcodone-acetaminophen (NORCO) 10-325 MG tablet 1 tablet, Oral, q4h PRN ?? HYDROmorphone (DILAUDID) injection 0.5 mg, Subcutaneous, q3h PRN ?? HYDROmorphone (DILAUDID) injection 1 mg, Subcutaneous, q3h PRN ?? magnesium hydroxide (MILK OF MAGNESIA) suspension 30 mL, Oral, PRN ?? ondansetron (ZOFRAN) injection 4 mg, Intravenous, q6h PRN ?? oxyCODONE-acetaminophen (PERCOCET) 10-325 MG tablet 1 tablet, Oral, q4h PRN ?? oxyCODONE-acetaminophen (PERCOCET) 10-325 MG tablet 2 tablet, Oral, q6h PRN ?? sodium phosphate rectal (FLEET SALINE) enema 133 mL, Rectal, PRN ?? zolpidem (AMBIEN) tablet 5 mg, Oral, AT BEDTIME PRN Data My review of labs, imaging, notes and other tests is significant for : Recent Labs Component Name 08/21/12 0743 SODIUM 140 POTASSIUM 4.6 CHLORIDE 102 CO2 30 BUN 17 CREATININE 0.79 GLUCOSE 110* CALCIUM 9.1 Recent Labs Component Name 11/13/18 0332 HGB 13.1 HCT 39.4 No data found. Assessment and Plan S/p left total hip arthroplasty - physical therapy - pain management. -Monitor h/h. -Dvt proph per orthopedic surgery recommendations. -Encourage incentive spirometry. ?? Hypertension - continue lisinopril in place of vasotec -hold for low bp ?? Brain Nicolas DO * Margie Thomas RN - 11/13/2018 11:08 AM CDT Ortho POD # 1 Awake, Alert Up in chair Afebrile Hgb: 13.1 VTE Prophylaxis: aspirin 81mg BID Nausea/ Vomiting: none Incisional Area- tegaderm dressing intact No calf pain, wiggles toes Pain controlled Con't PT- WBAT * Colby Dover OT - 11/13/2018 9:18 AM CDT Occupational Therapy Initial Evaluation Orders received. Chart reviewed for diagnosis and medical systems review. Nursing consented for OT. Explained purpose of OT and patient consented to participate in therapy. Precautions: Weight Bearing Status-LLE: Weight Bearing as Tolerated Ant. FRANCESCO precautions SUBJECTIVE: Pt. Stated I am not sure I can go home, I would be okay going to rehab . Patient Arthroplasty Liaison (PAL): -not present, but pt. Reports she will assist as needed at d/c. Psychosocial: Patient Behaviors: Cooperative;Anxious Family Behaviors: Not Present Pt's goal for therapy: Get out of bed Occupational Profile/PLOF: Type of Residence: Private Residence Lives with:: Spouse Home Structure: Two Story;Basement(5 to landing, 11 to 2nd floor) Steps to Enter: 2 Handrails: Outdoor;Indoor(garage only, R inside first set, L second set) Primary Bedroom: Second Floor Primary Bathroom: Second Floor(no shower on first floor) Bathroom : Walk in Shower Equipment At Home: Walker-2 Wheeled;Walker-4 Wheeled with Seat Mobility: Ambulate-In Community;Ambulate-In Home ;Independent;Driving Fallen Within 6 Mos: No Have Help at Home?: Yes, there is help at home now(prn ) How often is assistance provided?: prn Level of Help Sufficient?: Yes Oxygen at Home: No Activity at Home: Active;Driving Who manages medications?: self Vision: Corrected with glasses Hearing Exceptions: Hearing concerns Cognition: Orientation Level: Oriented X4 Level of Consciousness-Adult: Alert Cognition: Follows Commands-Consistent;Attention/concentration-decreased;Processing-Appropriate;[place] gement-decreased;Safety awareness-decreased;Impulsive Pain Assessment: Pain Rating Score #: (mod c/o pain with activity) Pain Location : Hip Pain Orientation: Left RUE Assessment: AROM - Right Upper Extremity: Within Functional Limits Strength - Right Upper Extremity: Within Functional Limits LUE Assessment: AROM - Left Upper Extremity: Within Functional Limits Strength - Left Upper Extremity: Within Functional Limits Basic ADL's: Feeding: Complete [place] Oral Facial Hygiene: Set-up(seated) Bathing: Maximal Assistance(Anticipate) Upper Body Dressing: Set-up(anticipated) Lower Body Dressing: Moderate Assistance Toileting: Maximal Assistance Functional Mobility: Bed Mobility: Supine to Sit: Moderate Assistance;Requires Verbal Cues for Safety;Requires Verbal Cues for Technique(HOB raised, use of rail) Transfers: Sit to Stand: Moderate Assistance;Requires Verbal Cues for Safety;Requires Verbal Cues for Technique(raised bed) Stand to Sit: Moderate Assistance;Requires Verbal Cues for Safety;Requires Verbal Cues for Technique Toilet Transfers: Moderate Assistance;Requires Verbal Cues for Safety;Requires Verbal Cues for Technique Vitals: Activity Tolerance: Requires rest breaks SpO2: 100 % Pulse: 68 BP: 154/66 ASSESSMENT: Pt. Educated on FWW use, transfer techniques and safety strategies. Pt. Educated on Ant. FRANCESCO precautions with adherence throughout session. Pt. requires increased physical assist from reported PLOF. Pt. Moving quickly, requiring mod-max VC's for technique/safety with FWW, transfers, ADLcompletion and pace of activity. Pt. Demo's proper use of AE with mod VC's. Pt. Minimally impulsiveat times, requiring mod VC's for safety and slowing down. Pt. reports minimal light headedness following functional mobility, resolving with short rest break. Call light and phone in reach. All lines, monitors, IV's, equipment in place and intact pre and post visit. RN, notified of patient's performance/location end of session. Problem list: Decreased strength, decreased ROM, decreased endurance, decreased balance, impaired functional mobility, impaired safety awareness, impaired cardiopulmonary function, decreased knowledge of condition, decreased pain tolerance, need for family/caregiver training Functional limitation: Decreased independence with transfers; decreased ability to perform ADLs, decreased UE strength, decreased safety with functional mobility. Rationale for therapy: Patient will benefit from OT to address the above issues. Patient will be seen for: ADL retraining, functional transfers, balance, endurance, exercise. Refer to Plan of Care for OT goals. Refer to filed flow sheet for further details. RECOMMENDATIONS/PLAN: AM-PAC Basic Activity score for this patient is CMS 0-100% Score (Calculated): 53.32 % degree of impairment with higher scores indicating patient may benefit from further inpatient services. Patient will benefit from ACUTE REHAB at discharge to maximize independence with self care and functional mobility. Pt. Will benefit from continued OT services in the acute care setting. Pt. And OT with discussion regarding DME and discharge needs-pt. Reporting he is open to considering going to rehab. If this is the last Occupational Therapy visit, this serves as the discharge summary. Colby Dover OT x [phone] * Martina Lyle, PT - 11/13/2018 9:16 AM CDT Physical Therapy Treatment Summary Chart review completed. Nursing consented for PT. Explained purpose of PT and patient consented to participate in therapy. SUBJECTIVE: Tolerable left hip pain. Reports not feeling totally confident with his right knee (history of 2 arthroscopic knee surgeries). Denies numbness/tingling bilat LE. Patient's Goal for the Day: to practice walking Pain Assessment: Pain Rating Score #: 4(left anterior hip discomfort; tolerable ) OBJECTIVE: Orientation Level: Oriented X4 Precautions: Total Hip Precautions: Yes(left anterior FRANCESCO precaution, per Dr. Helms) Bed Mobility: Patient sitting in chair pre and post PT session. Transfers: Sit to Stand: Stand By Assist(from an elevated seat height) Stand to Sit: Stand By Assist(from an elevated seat height) Mobility: Distance Ambulated: 100 FEET Ambulation: Assistive Device: Gait Belt(bariatric wh walker) Ambulation: Level of Assistance: Minimum Assistance;Requires Verbal Cues for Safety;Requires VerbalCues for Technique Ambulation: Gait Deviations: Antalgic;Doris - Decreased;Heel Strike - Decreased;Step Length - Decreased Weight Bearing Status-LLE: Weight Bearing as Tolerated Balance: Sitting - good Standing with bilat UE support - fair+/good- Exercise: 15 reps bilat ankle pumps; 10 reps left LE LAQ Reviewed left anterior FRANCESCO precaution (avoid hip hyperextension, per Dr. Helms) Activity Tolerance: SpO2: 96 % (room air) Pulse: 71 BP: 130/64 ASSESSMENT: Tolerated treatment well. Good progress with PT. Ice therapy applied after treatment. Call light and phone in reach. Pt educated in PT plan of care, fall precautions, and benefits of OOB activity. Please refer to the Filed Flowsheet PT Treatment for further details. RECOMMENDATIONS/PLAN: BID PT while hospitalized. Patient has multiple steps to enter his bedroom/bathroom (2nd floor); will practice during his second PT session today. Will make discharge recommendations after practicing the steps. Martina Lyle, PT x [phone] * Lona Burnett RN - 11/13/2018 8:05 AM CDT Comfortable night. Dermabond dressing intact and dry L Ant. Hip. Narco 10mg keeping pain controlled.Voiding and ambulating with one assist and gait belt, steady gait. * Trevor Madrid RN - 11/12/2018 7:00 PM CDT A&O x4, makes needs known, CGA, up to recliner x1, tolerated well, pain managed with prn norco and cold therapy, dressing to L hip CDI, incision remains intact, no drainage noted, meals toleratedwell, fluids encouraged, voiding with no concerns, call light kept in reach * Martina Lyle, PT - 11/12/2018 2:57 PM CDT Physical Therapy Evaluation PT orders received. Chart reviewed for diagnosis and medical systems review. Nursing consented for PT. Explained purpose of PT and patient consented to participate in therapy. Left anterior FRANCESCO; WBAT. Spinal anesthesia. SUBJECTIVE: Eager to work with PT. Prior to admission, he ambulated with a borrowed wh walker (for the past month) due to pain. to assist at home after discharge. Tolerable pain. Denies numbness/tingling to bilat LE. Patient Arthroplasty Liaison (PAL): present. Home Situation: Type of Residence: Private Residence Lives with:: Spouse Home Structure: (2 story home with 2nd floor bedroom/bathroom) Equipment At Home: None Prior Level of Functioning: Mobility: Ambulate-In Community;Ambulate-In Home ;Independent;With Assistive Device;Driving(using aborrowed wh walker) Fallen Within 6 Mos: No Have Help at Home?: ( to assist at home after discharge) Activity at Home: Active;Driving(retired; attended the ortho [facility] pre-op class) Pain Assessment: Pain Rating Score #: 4(left hip pain) Patient stated goal: to do what I need to do to get better OBJECTIVE: Precautions: Total Hip Precautions: Yes(left anterior FRANCESCO precaution, per Dr. Helms) Cognition: Orientation Level: Oriented X4 Level of Consciousness-Adult: Alert Participation: Active Participation ROM and Strength: AROM - Right Lower Extremity: Within Functional Limits(reports 2 arthroscopic knee surgeries in thepast) AROM - Left Lower Extremity: (s/p left ant FRANCESCO) *Patient performed 10 reps bilat ankle pumps and quad/glut sets Sensation: Sensation - Right Lower Extremity: (denies numbness/tingling bilat LE) Sensation - Left Lower Extremity: (denies numbness/tingling bilat LE) Balance: Sitting - good Standing with bilat UE support - fair+/good- Bed Mobility: Supine to Sit: Moderate Assistance Transfers: Sit to Stand: Minimal Assistance;X 2 Stand to Sit: Minimal Assistance;X 2 Mobility: Distance Ambulated: (bed to chair) Ambulation: Assistive Device: Gait Belt;Walker-2 Wheeled(bariatric) Ambulation: Level of Assistance: Minimum Assistance;X 2;Requires Verbal Cues for Safety;Requires Verbal Cues for Technique Ambulation: Gait Deviations: Doris - Decreased;Step Length - Decreased(limited assessment due to limited distance) Weight Bearing Status-LLE: Weight Bearing as Tolerated Educated patient and spouse in Dr. Helms's ant FRANCESCO precaution - avoid hip hyperextension (written and verbal instructions provided). Activity Tolerance: SpO2: 98 % (2L O2) Pulse: 79 BP: 126/91 ASSESSMENT: Tolerated treatment well. Patient remained sitting in the chair following treatment with call light and phone in reach; present. All lines, monitors, IV's, equipment in place and intact pre and post visit. RNTrevor, notified of patient's performance/location end of session. Pt educated in PT plan of care, fall precautions, and benefits of OOB activity. Problem list: s/p left anterior FRANCESCO Functional limitations: Decreased independence with ambulation/transfers, decreased safety with functional mobility. Rationale for therapy: Patient will benefit from PT to address the above issues. Please refer to Filed Flowsheet PT Evaluation for further details. Refer to Plan of Care for PT goals. RECOMMENDATIONS/PLAN: BID PT while hospitalized. Home PT after discharge. Martina Lyle, PT x [phone] documented in this encounter H&P Notes * Frederick Helms IV, MD - 11/10/2018 3:17 PM CDT Patients Name:Dillon Downey Today's date: 11/10/2018 Date of Service: Subjective: Patient is a 68 year old male presented with a history of stage III ON of the left hipThe patient currently experiences severe pain on a daily basis and is markedly limited in basic adls. The patientreports difficulty with basic ambulation and marked decrease in standing endurance interfering withall basic ambulatory adls. Maximal medical treatment including activity modification and pain meds have not helped improve their function. Secondary to the advanced nature of the patients degenerative joint disease and the severity of their symptoms, further attempts at nonsurgical treatment are contraindicated as they have no realistic chance at providing symptomatic or functional improvement. Patient Active Problem List Diagnosis Date Noted ??? Spinal stenosis of lumbar region 06/07/2018 Priority: Not Prioritized ??? Tear of biceps tendon 10/05/2017 Priority: Not Prioritized ??? History of arthroscopy of right knee on 08-21-12 08/28/2012 ??? Preoperative examination 08/20/2012 ??? Knee pain 08/13/2012 Past Medical History: Diagnosis Date ??? HTN (hypertension) ??? Macular degeneration (senile) of retina, unspecified Macular Degeneration Past Surgical History: Procedure Laterality Date ??? HC ARTHROSCOPY KNEE 08/21/12 RIGHT ??? KNEE ARTHROPLASTY 2006 ??? Knee Arthroscopy X2 ??? LUMBAR SPINE FUSION ??? Meniscectomy 08/21/2012 Right; ARTHROSCOPY KNEE MENISCECTOMY MEDIAL No medications prior to admission. No Known Allergies Social History Tobacco Use ??? Smoking status: Former Smoker Types: Cigarettes Last attempt to quit: 02/26/1987 Years since quittin.7 ??? Smokeless tobacco: Never Used Substance Use Topics ??? Alcohol use: Yes Alcohol/week: 2.5 standard drinks Types: 3 Alcoholic drink(s) per week No family history on file. Review of Systems Pertinent items are noted in HPI Objective: No data found. General appearance: alert, cooperative, no distress Heart: regular rhythm, normal S1 and S2, without murmurs, rubs or gallops Lungs: breath sounds normal and symmetric; no rales or wheezes Abdomen: soft without mass, non-tender, with normal bowel sounds Extremities: no clubbing, cyanosis or edema Left hip Pain crepitation Limited rom Swelling limp Imaging Review Stage III ON left hip Assessment: Active Problems: * No active hospital problems. * Plan: The various methods of treatment have been discussed with the patient and family. After consideration of risks, benefits and other options for treatment, the patient has consented to surgical interventions (LTHA). Questions were answered and Pre-op teaching was done by Irma. documented in this encounter Consult Notes * Libby Chery LPN - 11/16/2018 2:46 PM CDTAssociated Order(s): IP CONSULT TO HOME HEALTH CARE Consult noted, spoke with patient services explained, [facility] Home Care ok to follow at discharge per patients choice. Provided patient with [facility] [place] office number and letter. Thank you for the referral. Libby Chery LPN [facility] [place] [facility] Telephone Advice Nurse [phone] FAX [phone] After 4:30 or over the weekend call [phone] option 1 * Loreta Kirk RN - 11/13/2018 3:28 PM CDTAssociated Order(s): IP CONSULT TO PHYSICAL MED AND REHAB Please see previous note. Thank you. Loreta Kirk RN, BSN Clinical Liaison * Loreta Kirk RN - 11/13/2018 2:42 PM CDT [facility] acute rehab received referral on patient s/p FRANCESCO. Will meet and speak with patient and family about admission to rehab and approve through physician. Patient will need bowel movement prior to admision sp surgical intervention. Loreta Kirk RN, BSN Clinical Liaison * Brain Nicolas DO - 11/12/2018 2:37 PM CDTAssociated Order(s): IP CONSULT TO HOSPITALIST Initial Hospitalist Consult Note Date of Consult: 11/12/2018 Patient's Primary Care Physician: Tea Gaspar MD Physician Requesting Consult: Frederick Helms IV, MD Reason for Consultation: Evaluation of patient's medical problems, which include hypertension Name: Dillon Downey Age: [age] year old Race: Sex: male Chief Complaint/History of Present Illness This is a 68 year old male admitted to the hosptial to undergo left francesco. The procedure was done under Spinal w/MAC anesthetic and there was 250 mls of blood loss noted. The patient tolerated the procedure well and is seen on the floor for further evaluation. Patient denies complaints of: Headache ,Chest Pain, Cough, Dyspnea, Abdominal Pain, nausea, Vomiting, Diarrhea, Constipation, Dysuria, or dizziness. left Hip is symptomatic for over several years, aggravated with activity. Radiographs show severe DJD of the left Hip. Patient is failing conservative management. Past Medical History: Diagnosis Date ??? HTN (hypertension) ??? Macular degeneration (senile) of retina, unspecified Macular Degeneration Past Surgical History: Procedure Laterality Date ??? HC ARTHROSCOPY KNEE 08/21/12 RIGHT ??? HIP ARTHROPLASTY, TOTAL Left 11/12/2018 ANTERIOR APPROACH; DR. HELMS ??? KNEE ARTHROPLASTY 2005 ??? Knee Arthroscopy X2 ??? LUMBAR SPINE FUSION ??? Meniscectomy 08/21/2012 Right; ARTHROSCOPY KNEE MENISCECTOMY MEDIAL Medications Prior to Admission Medication Sig Dispense Refill ??? amLODIPine (NORVASC) 5 MG tablet Take 5 mg by mouth once daily after dinner. ??? cyclobenzaprine (FLEXERIL) 10 MG tablet Take 1 tablet by mouth every 8 hours as needed 1 ??? enalapril (VASOTEC) 20 MG tablet Take 20 mg by mouth 2 times daily. ??? HYDROcodone-acetaminophen (NORCO) 10-325 MG tablet Take 1 tablet by mouth every 8 hours as needed 40 tablet 0 ??? Misc. Devices (ROLLATOR ULTRA-LIGHT) MISC Use 1 Units continuous 1 Each 0 ??? Multiple Vitamins-Minerals (OCUVITE PO) Take by mouth once daily ??? naproxen (NAPROSYN) 500 MG tablet TAKE 1 TABLET BY MOUTH TWICE DAILY 60 tablet 0 ??? niacin, Immediate Release, 250 MG tablet Take 250 mg by mouth at bedtime No Known Allergies Social History Socioeconomic History ??? Marital status: Spouse name: Not on file ??? Number of children: Not on file ??? Years of education: Not on file ??? Highest education level: Not on file Occupational History ??? Not on file Social Needs ??? Financial resource strain: Not on file ??? Food insecurity: Worry: Not on file Inability: Not on file ??? Transportation needs: Medical: Not on file Non-medical: Not on file Tobacco Use ??? Smoking status: Former Smoker Types: Cigarettes Last attempt to quit: 02/26/1987 Years since quittin.7 ??? Smokeless tobacco: Never Used Substance and Sexual Activity ??? Alcohol use: Yes Alcohol/week: 2.5 standard drinks Types: 3 Alcoholic drink(s) per week ??? Drug use: No ??? Sexual activity: Not on file Lifestyle ??? Physical activity: Days per week: Not on file Minutes per session: Not on file ??? Stress: Not on file Relationships ??? Social connections: Talks on phone: Not on file Gets together: Not on file Attends alevism service: Not on file Active member of club or organization: Not on file Attends meetings of clubs or organizations: Not on file Relationship status: Not on file ??? Intimate partner violence: Fear of current or ex partner: Not on file Emotionally abused: Not on file Physically abused: Not on file Forced sexual activity: Not on file Other Topics Concern ??? Not on file Social History Narrative ??? Not on file No family history on file. Review of Systems Constitutional: No unexplained fever, sweats. Eyes: Vision stable, no discomfort. Ears, nose, mouth, and throat: No mouth dryness, sores, hearing stable , no nasal discharge. Respiratory: No cough, dyspnea, wheezing, pleuritic pain. Cardiovascular: No exertional chest pain, palpitations, edema, claudication. Gastrointestinal: No bleeding, frequent reflux, dysphagia, change in bowels, pain. Genitourinary: No dysuria,frequency, bleeding. Skin: No recent rashes, or pruritus Hematologic/lymphatic: No history of anemia. No abnormal bleeding or bruising. Musculoskeletal: Hip pain Neurological: Stable gait, no numbness, tingling, syncope, dizziness. Behavioral/Psych: No sleep disturbance, memory changes, depression. Endocrine: No fatigue or weight change. Exam Vitals: 11/12/18 1200 11/12/18 1215 11/12/18 1240 11/12/18 1310 BP: 100/52 111/77 143/75 125/55 Pulse: 62 64 63 62 Resp: Temp: 97.4 ??F (36.3 ??C) 98.2 ??F (36.8 ??C) SpO2: 100% 100% 100% 99% Weight: Height: General appearance: alert, cooperative, no distress Head: Normocephalic, without trauma Eyes: sclera and conjunctiva clear, EOMI and PERRLA, lids normal Throat: no mucous membrane abnormalities Neck: range of motion is intact, no masses, thyroid not enlarged, no adenopathy. No bruit. Lungs: breath sounds normal and symmetric; no rales or wheezes Heart: regular rhythm, normal S1 and S2, without murmurs, gallops or rubs Abdomen: soft without mass, non-tender, with normal bowel sounds Extremities: no clubbing, cyanosis or edema. hip bandaged Skin: no rashes or other abnormalities are noted Neurologic: mental status normal; alert and oriented X 3; cranial nerves II - XII are grossly intact Data No results for input(s): WBC, HGB, HCT, PLTCOUNT in the last 34915 hours. Recent Labs Component Name 08/21/12 0743 SODIUM 140 POTASSIUM 4.6 CHLORIDE 102 CO2 30 BUN 17 CREATININE 0.79 GLUCOSE 110* CALCIUM 9.1 EGFR >60 No results for input(s): TROPONIN in the last 54876 hours. No results for input(s): TSH in the last 01951 hours. Assessment and Plan S/p left total hip arthroplasty - physical therapy - pain management. -Monitor h/h. -Dvt proph per orthopedic surgery recommendations. -Encourage incentive spirometry. Hypertension - continue home regimen and adjust as needed. -hold for low bp CC: Frederick Helms IV, MD , Tea Gaspar MD documented in this encounter OR Notes * Operative - Frederick Helms IV, MD - 11/12/2018 11:54 AM CDT [facility] OPERATIVE REPORT PATIENT: : DILLON DOWNEY MR#: [id number] ADMIT DATE: 11/12/2018 CSN: [id number] DATE OF SURGERY: 11/12/2018 : 1950 PHYSICIAN: Frederick Helms MD ROOM: [facility] PREOPERATIVE DIAGNOSIS: Left hip degenerative joint disease. POSTOPERATIVE DIAGNOSIS: Left hip degenerative joint disease. PROCEDURE PERFORMED: Left total hip arthroplasty. DIESEL MAINTENANCE ELECTRICIAN: KOLTON Morgan. The skilled assistance of the CHRISTIAN/RN was necessary for the effective and successful completion of this case. The physician business office assistant was essential for the proper positioning, manipulation of instruments, proper exposure, manipulation tissue and wound closure. IMPLANT USED: [employer] RingLoc acetabular component size 58 with 40 mm inner diameter offset liner and a size 5 Alloclassic stem high offset +7, 40 mm ceramic head. ANESTHESIA: Spinal. ESTIMATED BLOOD LOSS: 250. COMPLICATIONS: None. SPECIMEN: Discarded. FINDINGS: End-stage arthrosis of the left hip. INDICATION FOR PROCEDURE: A 68-year-old gentleman with debilitating pain with advanced DJD of the left hip, presented for an elective total hip arthroplasty after appropriate counseling regarding risks, benefits, complications, and alternatives of the procedure. PROCEDURE: After obtaining a spinal anesthetic and administering the antibiotic, the patient was placed in supine position, and the left hip was prepped and draped in usual manner. Time-out procedure was performed. An anterior approach to left hip was made through the fascia of the TFL. The abductors were retracted laterally, flexors medially. Circumflex vessels were identified and cauterized. Medial, lateral and superior retractors were placed. Capsulotomy was performed. Fluoroscopically-guided segmental neck cut was performed. Neck and head were removed with Steinmann pins. Acetabular exposure was obtained with anterior, posterior, and superior retractors. Labrum and soft tissue were excised. Reamed to the cotyloid notch under fluoroscopic guidance with a 57 mm reamer, 58 mm shell was impacted into place at 40 degrees of abduction, 20 degrees of anteversion. Excellent press-fit, fully seated, fully covered. Liner was impacted in place with engagement of the locking mechanism noted by direct inspection. Femur was exposed with [id number] position. Posterior, medial, and superior retractors were placed. Box chisel and curved rasp were used to access the canal. Initially broached to a size 3, trialed a high offset +10, 5. We had lack of adequate soft tissue tension, and the leg was short. Trialed a size 4 stem, and we trialed from +7 to +10, 5 heads with +10, 5 head. The leg did have some anterior subluxation with extension and external rotation and again length was not fully recreated probably had an 8th of an inch short. In broaching to the 5, it initially was 1 cm higher than the 4 stem. We broached more aggressively with a 4, seated the 5, and then trialed a +3, 5. At this length, we had equal leg lengths, but again not quite adequate soft tissue tension. With a +7, excellent soft tissue tension, probably an 8th of an inch or so of lengthening of the 8th to a quarter of an inch of lengthening of the left leg with excellent stability and good images on the fluoroscope. Final stem and head were impacted in place. Hip was reduced. After reduction, it was noted that there was some discrepancy between the trial neck length and the actual stem neck length and leg length discrepancy was closer to a 3/8th of an inch. There was no undue soft tissue tension. Radiographs showed excellent component positioning and the stability was excellent. Therefore, elected not to attempt to change the neck length. I irrigated with IrriSept. Vancomycin powder and tranexamic acid were applied. Closed with Vicryl, Quill, Stratafix, Vicryl, Monocryl, and Dermabond. Sterile dressing applied. The patient returned to the recovery room awake, stable, and extubated. Frederick Helms MD FT/MODL #: [id number] * Brief Op Note - Frederick Helms IV, MD - 11/12/2018 9:14 AM CDT Brief Op Note Procedure: LEFT TOTAL ANTERIOR HIP ARTHROPLASTY Patient Name: Dillon Downey Date of Service: 11/12/2018 Post-Operative Note 11/12/2018 Dillon Downey Date of Surgery: 11/12/2018 Surgeon: Frederick Helms IV, MD Pipe Insulator: Cristian Preoperative Diagnosis: left hip djd Postoperative Diagnosis: same Type of anesthesia: Spinal Procedure: LTHA Findings: As expected Disposition: PACU Status: Stable Drains: none Pack: none Complications: none EBL: 250 cc Tissue removed/specimens: Discarded Operative note dictated: yes Frederick Helms IV, MD documented in this encounter Plan of Treatment Not on file documented as of this encounter Procedures Procedure Name Priority Date/Time Associated Diagnosis Comments HGB HCT PANEL AM Draw 11/14/2018 2:59 AM CDT HGB HCT PANEL AM Draw 11/13/2018 3:32 AM CDT FL [facility] SURGERY Routine 11/12/2018 10:00 AM CDT Left hip pain PA TOTAL HIP REPLACEMENT 11/12/2018 8:17 AM CDT Special Needs BIOMET (DEANDRE) NOTIFIED-NB documented in this encounter Results * (ABNORMAL) HGB HCT PANEL (11/14/2018 2:59 AM CDT) Hemoglobin 11.5(L) 12.0 - 17.6 gm/dL 11/14/2018 3:15 AM CDT [facility] Hematocrit 35.2 35.2 - 51.7 % 11/14/2018 3:15 AM CDT [facility] Blood BLOOD SPECIMEN / Unknown Venipuncture / Unknown 11/14/2018 2:59 AM CDT 11/14/2018 3:10 AM CDT Frederick Helms IV, MD LAB - HEMATOLOGY ORD ERABLES [facility] [address] [place] [address] * HGB HCT PANEL (11/13/2018 3:32 AM CDT) Hemoglobin 13.1 12.0 - 17.6 gm/dL 11/13/2018 4:18 AM CDT [facility] Hematocrit 39.4 35.2 - 51.7 % 11/13/2018 4:18 AM CDT [facility] Blood BLOOD SPECIMEN / Unknown Venipuncture / Unknown 11/13/2018 3:32 AM CDT 11/13/2018 4:13 AM CDT Frederick Helms IV, MD LAB - HEMATOLOGY ORD ERABLES [facility] [id number] [place] [address] * FL RALPH SURGERY (11/12/2018 10:00 AM [...] MD on 11/12/2018 at 1:15 PM Frederick Helms IV, MD FLUOROSCOPY ORDERABL ES documented in this encounter Visit Diagnoses Diagnosis Left hip pain Pain in joint, pelvic region and thigh Left hip pain Pain in joint, pelvic region and thigh documented in this encounter Administered Medications Inactive Administered Medications - up to 3 most recent administrations Medication Order MAR Action Action Date Dose Rate Site 0.9% NaCl injection 3 mL 3 mL, Intracatheter, EVERY 8 HOURS, First dose on Sun11/13/18 at 0600, Until Discontinued, Post-op $ Given 11/16/2018 5:57 AM CDT 3 mL $ Given 11/15/2018 9:22 PM CDT 3 mL $ Given 11/15/2018 3:56 PM CDT 3 mL acetaminophen (TYLENOL) tablet 1,000 mg 1,000 mg, Oral, PRE-OP ONCE, 1 dose, On Sun11/12/18 at 0730, For patients >50 Kg. Not for bariatric or cardiac patients., Pre-op $ Given 11/12/2018 7:30 AM CDT 1,000 mg acetaminophen (TYLENOL) tablet 650 mg 650 mg, Oral, EVERY 4 HOURS PRN, Fever, Mild Pain, Starting on Sun11/12/18 at 1025, Until 11/16/18 at 1547, For temperature greater [id number] [id number] F or for mild pain., Post-op amLODIPine (NORVASC) tablet 5 mg 5 mg, Oral, DAILY AFTER DINNER, First dose on Sun11/12/18 at 1900, Until Discontinued $ Given 11/16/2018 11:49 AM CDT 5 mg $ Given 11/15/2018 6:36 PM CDT 5 mg $ Given 11/14/2018 6:59 PM CDT 5 mg aspirin chew tablet 81 mg 81 mg, Oral, 2 TIMES DAILY, First dose on Sun11/13/18 at 0900, Until Discontinued $ Given 11/16/2018 8:06 AM CDT 81 m g $ Given 11/15/2018 9:22 PM CDT 81 mg $ Given 11/15/2018 8:39 AM CDT 81 mg bisacodyl (DULCOLAX) suppository 10 mg 10 mg, Rectal, DAILY PRN, Constipation, Starting on Sun11/12/18 at 1025, Until 11/16/18 at 1547, Not to be given night of surgery. Use MOM first. If MOM ineffective then use bisacodyl. If bisacodyl ineffective use Fleets enema. Use rectal if oral is ineffective, or patient is unable to take oral medications., Post-op bisacodyl EC (DULCOLAX) tablet 5 mg 5 mg, Oral, DAILY PRN, Constipation, Starting on Sun11/12/18 at 1025, Until Sun11/16/18 at 1547, Not to be given night of surgery. Use MOM first. If MOM ineffective then use bisacodyl. If bisacodyl ineffective use Fleets enema., Post-op $ Given 11/15/2018 6:36 PM CDT 5 mg ceFAZolin (ANCEF) 3,000 mg in 115 mL IVPB 3,000 mg (3 g), at 230 mL/hr, Intravenous, EVERY 8 HOURS, 2 doses, First dose on Sun11/12/18 at 1030, Last dose on Sun11/12/18 at 1830, Give first dose 6 hours after last dose in surgery. Last dose to be completed within 24 hours of close of incision. Refrigerate, Indication for anti-infective therapy: Surgical prophylaxis, Post-op $ New Bag/Syringe 11/13/2018 1:44 AM CDT 3,000 mg 230 mL/hr $ New Bag/Syringe 11/12/2018 7:21 PM CDT 3,000 mg 230 mL /hr celecoxib (CeleBREX) capsule 400 mg 400 mg, Oral, PRE-OP ONCE, 1 dose, On Sun11/12/18 at 0730, Pre-op $ Given 11/12/2018 7:30 AM CDT 400 mg celecoxib (CeleBREX) capsule 400 mg 400 mg, Oral, DAILY, First dose on Sun11/13/18 at 0900, Until Discontinued, Post-op $ Given 11/16/2018 8:06 AM CDT 400 mg $ Given 11/15/2018 8:39 AM CDT 400 mg $ Given 11/14/2018 9:12 AM CDT 400 mg diphenhydrAMINE (BENADRYL) capsule 25 mg 25 mg, Oral, EVERY 8 HOURS PRN, Itching, Starting on Sun11/12/18 at 1025, Until 11/16/18 at 1547, Post-op diphenhydrAMINE (BENADRYL) capsule 50 mg 50 mg, Oral, EVERY 8 HOURS PRN, Itching, Starting on Sun11/12/18 at 1025, Until 11/16/18 at 1547, May give 50 mg if 25 mg is ineffective., Post-op famotidine (PEPCID) injection 20 mg 20 mg, Intravenous, PRE-OP ONCE, 1 dose, On Sun11/12/18 at 0730, Dilute 2 mL of injection with 0.9% NaCl or D5W solution to a volume of 5 to 10 ml. Push over a period of at least 2 minutes. Dilute 2 mL of injection with 0.9% NaCl or D5W solution to a volume of 5 to 10 ml. Push over a period of at least 2 minutes., Pre-op $ Given 11/12/2018 7:30 AM CDT 20 mg famotidine (PEPCID) tablet 20 mg 20 mg, Oral, 2 TIMES DAILY PRN, Heartburn, Starting on Sun11/12/18 at 1025, Until 11/16/18 at 1547, Post-op fentaNYL (PF) (SUBLIMAZE) injection 50 mcg 50 mcg, Intravenous, ONCE, 1 dose, On Sun11/12/18 at 0745, Pre-op $ Given 11/12/2018 7:38 AM CDT 50 mcg fentaNYL (PF) (SUBLIMAZE) injection 50 mcg 50 mcg, Intravenous, ONCE, 1 dose, On Sun11/12/18 at 0830, Pre-op $ Given 11/12/2018 8:17 AM CDT 50 mcg HYDROcodone-acetaminophen (NORCO) 10-325 MG tablet 1 tablet 1 tablet, Oral, EVERY 4 HOURS PRN, Severe Pain, Starting on Sun11/12/18 at 1025, Until 11/16/18 at 1547, Post-op $ Given 11/16/2018 2:31 PM CDT 1 tablet $ Given 11/16/2018 10:16 AM CDT 1 tablet $ Given 11/16/2018 5:57 AM CDT 1 tablet HYDROmorphone (DILAUDID) injection 0.5 mg 0.5 mg, Subcutaneous, EVERY 3 HOURS PRN, Moderate Pain, Starting on Sun11/12/18 at 1025, Until 11/16/18 at 1547 HYDROmorphone (DILAUDID) injection 1 mg 1 mg, Subcutaneous, EVERY 3 HOURS PRN, Severe Pain, Starting on Sun11/12/18 at 1025, Until 11/16/18 at 1547 ketorolac (TORADOL) injection 15 mg 15 mg, Intravenous, EVERY 6 HOURS PRN, Moderate Pain, Starting on Sun11/12/18 at 1025, Until Sun11/13/18 at 1024, Post-op $ Given 11/13/2018 8:10 AM CDT 15 mg lactated ringers infusion at 20 mL/hr, Intravenous, PRE-OP CONTINUOUS, Starting on Sun11/12/18 at 0730, Until Sun11/12/18 at 1250, Pre-op $ New Bag/Syringe 11/12/2018 10:36 AM CDT $ New Bag/Syringe 11/12/2018 9:18 AM CDT $ New Bag/Syringe 11/12/2018 7:30 AM CDT 20 mL/ hr lactated ringers infusion at 100 mL/hr, Intravenous, CONTINUOUS, Starting on Sun11/12/18 at 1030, Until Sun11/16/18 at 1547, Post-op $ New Bag/Syringe 11/12/2018 10:12 PM CDT 100 mL/hr $ New Bag/Syringe 11/12/2018 1:18 PM CDT 100 mL /hr lidocaine buffered 1 % injection 0.5 mL 0.5 mL, Infiltration, PRE-OP ONCE, 1 dose, On Sun11/12/18 at 0730, May be used (0.5 ml locally to anesthetize prior to insertion). For patients not allergic to local anesthetics., Pre-op $ Given 11/12/2018 7:30 AM CDT 0.5 mL lisinopril (PRINIVIL; ZESTRIL) tablet 10 mg 10 mg, Oral, DAILY, First dose (after last modification) on Sun11/13/18 at 0900, Until Discontinued $ Given 11/13/2018 8:09 AM CDT 10 mg lisinopril (PRINIVIL; ZESTRIL) tablet 10 mg 10 mg, Oral, 2 TIMES DAILY, First dose (after last modification) on Sun11/13/18 at 2100, Until Discontinued $ Given 11/15/2018 8:39 AM CDT 10 mg $ Given 11/14/2018 8:07 PM CDT 10 mg $ Given 11/14/2018 9:12 AM CDT 10 mg lisinopril (PRINIVIL; ZESTRIL) tablet 10 mg 10 mg, Oral, DAILY, First dose (after last modification) on Sun11/16/18 at 0900, Until Discontinued $ Given 11/16/2018 8:06 AM CDT 10 mg magnesium hydroxide (MILK OF MAGNESIA) suspension 30 mL 30 mL, Oral, PRN, Constipation, Starting on Sun11/12/18 at 1025, Until Sun11/16/18 at 1547, Use MOM first. If MOM ineffective then use bisacodyl. If bisacodyl ineffective use Fleets enema. Shake well before using., Post-op $ Given 11/16/2018 8:06 AM CDT 30 mL $ Given 11/15/2018 10:08 AM CDT 30 mL ondansetron (ZOFRAN) injection 4 mg 4 mg, Intravenous, EVERY 6 HOURS PRN, Nausea/Vomiting, Starting on Sun11/13/18 at 0600, Until 11/16/18 at 1547, May repeat x1 if no relief for total of 8 mg., Post-op oxyCODONE CR 12hr (OxyCONTIN) tablet 10 mg 10 mg, Oral, EVERY 12 HOURS, 2 doses, First dose on Sun11/12/18 at 1030, Last dose on Sun11/12/18 at 2100, Administer 10 hours post-op and morning of POD# Do not crush, chew, or cut in half., Post-op $ Given 11/12/2018 10:12 PM CDT 10 mg oxyCODONE CR 12hr (OxyCONTIN) tablet 20 mg 20 mg, Oral, PRE-OP ONCE, 1 dose, On Sun11/12/18 at 0730, Do not crush, chew, or cut in half., Pre-op $ Given 11/12/2018 7:30 AM CDT 20 mg oxyCODONE-acetaminophen (PERCOCET) 10-325 MG tablet 1 tablet 1 tablet, Oral, EVERY 4 HOURS PRN, Moderate Pain, Starting on Sun11/12/18 at 1025, Until 11/16/18 at 1547 oxyCODONE-acetaminophen (PERCOCET) 10-325 MG tablet 2 tablet 2 tablet, Oral, EVERY 6 HOURS PRN, Severe Pain, Starting on Sun11/12/18 at 1025, Until 11/16/18 at 1547 scopolamine (TRANSDERM-SCOP) 1 patch 1 patch, Administer over 72 Hours, PRE-OP ONCE, 1 dose, On Sun11/12/18 at 0730, Apply patch behind the ear, do not cut patch, only 1 patch should be worn at a time and remove old patch before applying new patch.This patch may contain metal and is not compatible with MRI. Notify radiology of patch location upon arrival to MRI. Each patch contains 1.5 mg scopolamine base and is formulated to deliver 1 mg of scopolamine over 72 hours. $ Applied 11/12/2018 7:30 AM CDT 1 patch Behind Right Ear senna-docusate (SENOKOT-S) tablet 1 tablet 1 tablet, Oral, 2 TIMES DAILY, First dose on Sun11/12/18 at 2100, Until Discontinued, Post-op $ Given 11/16/2018 8:06 AM CDT 1 tablet $ Given 11/15/2018 9:22 PM CDT 1 tablet $ Given 11/15/2018 8:39 AM CDT 1 tablet sodium phosphate rectal (FLEET SALINE) enema 133 mL 133 mL (1 enema), Rectal, PRN, Constipation, Starting on Sun11/12/18 at 1025, Until 11/16/18 at 1547, Use MOM first. If MOM ineffective then use bisacodyl. If bisacodyl ineffective use Fleets enema., Post-op zolpidem (AMBIEN) tablet 5 mg 5 mg, Oral, AT BEDTIME PRN, Insomnia, Starting on Sun11/13/18 at 0000, Until 11/16/18 at 1547, Not to be given the night of surgery, Post-op $ Given 11/16/2018 1:35 AM CDT 5 mg $ Given 11/15/2018 12:06 AM CDT 5 mg $ Given 11/14/2018 12:16 AM CDT 5 mg documented in this encounter Active and Recently Administered Medications Times are shown in CDT. Scheduled Medication Order 11/14/2018 11/15/2018 11/16/2018 0.9% NaCl injection 3 mL 3 mL, Intracatheter, EVERY 8 HOURS, First dose on Sun11/13/18 at 0600, Until Discontinued, Post-op 0651 ($ Given - Provider: Lona Burnett RN)1458 ($ Given - Provider: Estefania Noe, THERESA)2006 ($ Given - Provider: Annie Pang RN) 0358 ($ Given - Provider: Martina Holly RN)0401 (Canceled Entry - Provider: Martina Holyl RN)1556 ($ Given - Provider: Rossy Lancaster, THERESA)2122 ($ Given - Provider: Martina Holly RN) 0557 ($ Given - Provider: Martina Holly RN)1446 (Not Administered - Provider: Trevor Madrid RN - Reason: Loss of Access) amLODIPine (NORVASC) tablet 5 mg 5 mg, Oral, DAILY AFTER DINNER, First dose on Sun11/12/18 at 1900, Until Discontinued 1859 ($ Given - Provider: Estefania Noe RN) 1836 ($ Given - Provider: Rossy Lancaster RN) 1149 ($ Given - Provider: Trevor Madrid RN) aspirin chew tablet 81 mg 81 mg, Oral, 2 TIMES DAILY, First dose on Sun11/13/18 at 0900, Until Discontinued 912 ($ Given - Provider: Estefania Noe RN)2005 ($ Given - Provider: Annie Pang RN) 0839 ($ Given - Provider: Rossy Lancaster RN)2121 ($ Given - Provider: Martina Holly RN) 08 ($ Given - Provider: Trevor Madrid RN) celecoxib (CeleBREX) capsule 400 mg 400 mg, Oral, DAILY, First dose on Sun11/13/18 at 0900, Until Discontinued, Post-op 09 ($ Given - Provider: Estefania Noe RN) 838 ($ Given - Provider: Rossy Lancaster RN) 805 ($ Given - Provider: Trevor Madrid RN) lisinopril (PRINIVIL; ZESTRIL) tablet 10 mg (CANCELED) 10 mg, Oral, 2 TIMES DAILY, First dose (after last modification) on Sun11/13/18 at 2100, Until Discontinued 911 ($ Given - Provider: Estefania Noe RN)2006 ($ Given - Provider: Annie Pang RN) 0839 ($ Given - Provider: Rossy Lancaster RN) lisinopril (PRINIVIL; ZESTRIL) tablet 10 mg 10 mg, Oral, DAILY, First dose (after last modification) on Sun11/16/18 at 0900, Until Discontinued 805 ($ Given - Provider: Trevor Madrid RN) senna-docusate (SENOKOT-S) tablet 1 tablet 1 tablet, Oral, 2 TIMES DAILY, First dose on Sun11/12/18 at 2100, Until Discontinued, Post-op 09 ($ Given - Provider: Estefania Noe RN)2005 ($ Given - Provider: Annie Pang RN) 0839 ($ Given - Provider: Rossy Lancaster RN)2122 ($ Given - Provider: Martina Holly RN) 0806 ($ Given - Provider: Trevor Madrid, THERESA) Continuous Medication Order 11/14/2018 11/15/2018 11/16/2018 lactated ringers infusion at 100 mL/hr, Intravenous, CONTINUOUS, Starting on 11/12/18 at 1030, Until 11/16/18 at 1547, Post-op PRN Medication Order 11/14/2018 11/15/2018 11/16/2018 acetaminophen (TYLENOL) tablet 650 mg 650 mg, Oral, EVERY 4 HOURS PRN, Fever, Mild Pain, Starting on 11/12/18 at 1025, Until 11/16/18 at 1547, For temperature greater [id number] degress F or for mild pain., Post-op bisacodyl (DULCOLAX) suppository 10 mg(Linked Group 1) 10 mg, Rectal, DAILY PRN, Constipation, Starting on 11/12/18 at 1025, Until 11/16/18 at 1547, Not to be given night of surgery. Use MOM first. If MOM ineffective then use bisacodyl. If bisacodyl ineffective use Fleets enema. Use rectal if oral is ineffective, or patient is unable to take oral medications., Post-op 1008 (See Alternative - Provider: Rossy Lancaster RN)1836 (See Alternative - Provider: Rossy Lancaster RN) 0806 (See Alternative - Provider: Trevor Madrid, THERESA) bisacodyl EC (DULCOLAX) tablet 5 mg(Linked Group 1) 5 mg, Oral, DAILY PRN, Constipation, Starting on 11/12/18 at 1025, Until 11/16/18 at 1547, Not to be given night of surgery. Use MOM first. If MOM ineffective then use bisacodyl. If bisacodyl ineffective use Fleets enema., Post-op 1008 (See Alternative - Provider: Rossy Lancaster RN)1836 ($ Given - Provider: Rossy Lancaster RN) 0806 (See Alternative - Provider: Trevor Madrid RN) diphenhydrAMINE (BENADRYL) capsule 25 mg(Linked Group 2) 25 mg, Oral, EVERY 8 HOURS PRN, Itching, Starting on Sun11/12/18 at 1025, Until 11/16/18 at 1547, Post-op diphenhydrAMINE (BENADRYL) capsule 50 mg(Linked Group 2) 50 mg, Oral, EVERY 8 HOURS PRN, Itching, Starting on Sun11/12/18 at 1025, Until 11/16/18 at 1547, May give 50 mg if 25 mg is ineffective., Post-op famotidine (PEPCID) tablet 20 mg 20 mg, Oral, 2 TIMES DAILY PRN, Heartburn, Starting on Sun11/12/18 at 1025, Until 11/16/18 at 1547, Post-op HYDROcodone-acetaminop hen (NORCO) 10-325 MG tablet 1 tablet 1 tablet, Oral, EVERY 4 HOURS PRN, Severe Pain, Starting on Sun11/12/18 at 1025, Until 11/16/18 at 1547, Post-op 0016 ($ Given - Provider: Lona Burnett RN)0651 ($ Given - Provider: Lona Burnett RN)1115 ($ Given - Provider: Estefania Noe RN)1534 ($ Given - Provider: Estefania Noe RN)2005 ($ Given - Provider: Annie Pang RN) 0005 ($ Given - Provider: Annie Pang RN)0358 ($ Given - Provider: aMrtina Holly RN)0839 ($ Given - Provider: Rossy Lancaster, THERESA)1247 ($ Given - Provider: Rossy Lancaster, RN)1657 ($ Given - Provider: Rossy Lancaster, RN)2123 ($ Given - Provider: Martina Holly RN) 0133 ($ Given - Provider: Martina Holly RN)0557 ($ Given - Provider: Martina Holly RN)1016 ($ Given - Provider: Trevor Madrid RN)1431 ($ Given - Provider: Trevor Madrid, THERESA) HYDROmorphone (DILAUDID) injection 0.5 mg 0.5 mg, Subcutaneous, EVERY 3 HOURS PRN, Moderate Pain, Starting on Sun11/12/18 at 1025, Until 11/16/18 at 1547 HYDROmorphone (DILAUDID) injection 1 mg 1 mg, Subcutaneous, EVERY 3 HOURS PRN, Severe Pain, Starting on Sun11/12/18 at 1025, Until 11/16/18 at 1547 magnesium hydroxide (MILK OF MAGNESIA) suspension 30 mL(Linked Group 1) 30 mL, Oral, PRN, Constipation, Starting on Sun11/12/18 at 1025, Until 11/16/18 at 1547, Use MOM first. If MOM ineffective then use bisacodyl. If bisacodyl ineffective use Fleets enema. Shake well before using., Post-op 1008 ($ Given - Provider: Rossy Lancaster, RN)1836 (See Alternative - Provider: Rossy Lancaster, THERESA) 0806 ($ Given - Provider: Trevor Madrid RN) ondansetron (ZOFRAN) injection 4 mg(Linked Group 3) 4 mg, Intravenous, EVERY 6 HOURS PRN, Nausea/Vomiting, Starting on Sun11/13/18 at 0600, Until 11/16/18 at 1547, May repeat x1 if no relief for total of 8 mg., Post-op oxyCODONE-acetaminophe n (PERCOCET) 10-325 MG tablet 1 tablet 1 tablet, Oral, EVERY 4 HOURS PRN, Moderate Pain, Starting on Sun11/12/18 at 1025, Until 11/16/18 at 1547 oxyCODONE-acetaminophe n (PERCOCET) 10-325 MG tablet 2 tablet 2 tablet, Oral, EVERY 6 HOURS PRN, Severe Pain, Starting on Sun11/12/18 at 1025, Until 11/16/18 at 1547 sodium phosphate rectal (FLEET SALINE) enema 133 mL(Linked Group 1) 133 mL (1 enema), Rectal, PRN, Constipation, Starting on Sun11/12/18 at 1025, Until 11/16/18 at 1547, Use MOM first. If MOM ineffective then use bisacodyl. If bisacodyl ineffective use Fleets enema., Post-op 1008 (See Alternative - Provider: Rossy Lancaster, RN)1836 (See Alternative - Provider: Rossy Lancaster, RN) 0806 (See Alternative - Provider: Trevor Madrdi, THERESA) zolpidem (AMBIEN) tablet 5 mg 5 mg, Oral, AT BEDTIME PRN, Insomnia, Starting on 11/13/18 at 0000, Until 11/16/18 at 1547, Not to be given the night of surgery, Post-op 0016 ($ Given - Provider: Lona Burnett RN) 0006 ($ Given - Provider: Annie Pang RN) 0135 ($ Given - Provider: Martina Holly, THERESA) Linked Groups Order Group 1: magnesium hydroxide (MILK OF MAGNESIA) suspension 30 mLJump to med 30 mL, Oral, PRN, Constipation, Starting on Sun11/12/18 at 1025, Until 11/16/18 at 1547, Use MOM first. If MOM ineffective then use bisacodyl. If bisacodyl ineffective use Fleets enema. Shake well before using., Post-op Or bisacodyl EC (DULCOLAX) tablet 5 mgJump to med 5 mg, Oral, DAILY PRN, Constipation, Starting on Sun11/12/18 at 1025, Until 11/16/18 at 1547, Not to be given night of surgery. Use MOM first. If MOM ineffective then use bisacodyl. If bisacodyl ineffective use Fleets enema., Post-op Or bisacodyl (DULCOLAX) suppository 10 mgJump to med 10 mg, Rectal, DAILY PRN, Constipation, Starting on Sun11/12/18 at 1025, Until 11/16/18 at 1547, Not to be given night of surgery. Use MOM first. If MOM ineffective then use bisacodyl. If bisacodyl ineffective use Fleets enema. Use rectal if oral is ineffective, or patient is unable to take oral medications., Post-op Or sodium phosphate rectal (FLEET SALINE) enema 133 mLJump to med 133 mL (1 enema), Rectal, PRN, Constipation, Starting on Sun11/12/18 at 1025, Until 11/16/18 at 1547, Use MOM first. If MOM ineffective then use bisacodyl. If bisacodyl ineffective use Fleets enema., Post-op Group 2: diphenhydrAMINE (BENADRYL) capsule 25 mgJump to med 25 mg, Oral, EVERY 8 HOURS PRN, Itching, Starting on Sun11/12/18 at 1025, Until 11/16/18 at 1547, Post-op Or diphenhydrAMINE (BENADRYL) capsule 50 mgJump to med 50 mg, Oral, EVERY 8 HOURS PRN, Itching, Starting on Sun11/12/18 at 1025, Until 11/16/18 at 1547, May give 50 mg if 25 mg is ineffective., Post-op Group 3: ondansetron (ZOFRAN) injection 4 mg () 4 mg, Intravenous, EVERY 6 HOURS, 3 doses, First dose on Sun11/12/18 at 1500, Last dose on Sun11/13/18 at 0000, Administer over 2 to 5 minutes., Post-op Followed by ondansetron (ZOFRAN) injection 4 mgJump to med 4 mg, Intravenous, EVERY 6 HOURS PRN, Nausea/Vomiting, Starting on Sun11/13/18 at 0600, Until 11/16/18 at 1547, May repeat x1 if no relief for total of 8 mg., Post-op documented in this encounter Care Teams Siding Applicator Relationship Specialty Start Date End Date Levi Yu DO Orthopedic Surgery 08/13/12 documented as of this encounter
--- OUTSIDE RECORDS SUMMARY | 2024-02-17 23:06 | XMS_ITS | Encounter Summary ---
Author Organization [facility] Address [address] [place] [address] Care Team Providers Care Teaching Associate Name Role Phone Levi Yu DO Unavailable Van Peter MD Primary Care Provider [phone] Reason for Visit * Reason Onset Date Comments MEDICATION REFILL 11/05/2018 Encounter Details Date Type Department Care Team (Late st Contact Info) Description 11/05/[address] [facility] [id number] [place] [address] [place] [address] [address] MEDICATION REFILL Social History Tobacco [...] on file documented as of this encounter Plan of Treatment Not on file documented as of this encounter Visit Diagnoses Diagnosis Primary osteoarthritis of left hip Primary localized osteoarthrosis, pelvic region and thigh documented in this encounter Care Teams Teaching Associate Relationship Specialty Start Date End Date Van Peter MD [address] [place] [address] PCP - General Family Medicine 07/23/18 11/11/18 Levi Yu DO Orthopedic Surgery 08/13/12 documented as of this encounter
--- OUTSIDE RECORDS SUMMARY | 2024-02-17 23:06 | XMS_ITS | Encounter Summary ---
Author Organization [facility] Address [address] [place] [address] Care Team Providers Care Recreation Manager Name Role Phone Levi Yu DO Unavailable Van Peter MD Primary Care Provider [phone] Reason for Visit * Reason Comments Follow-up left hip Encounter Details Date Type Department Care Team (Latest Contact Info) Description 10/14/2018 1:50 PM CDT Office Visit [facility] Orthopedics [id number] [place] [address] [place], [place] [id number] [place] [address] Left hip pain (Primary Dx); Primary osteoarthritis of left hip Social History Tobacco Use [...] on file documented as of this encounter Progress Notes * Trnii Avilez - 10/14/2018 2:15 PM CDT opni left hip documented in this encounter H&P Notes * Kary Foster PA - 10/24/2018 5:54 AM CDT DATE OF SERVICE: 10/14/2018 HISTORY: Dillon is here today for evaluation of his left hip pain. He has been having pain in the left hip. He recently had an MRI. He is here today to discuss intervention. He denies any mechanism of injury. REVIEW OF SYSTEMS: Per patient intake form. PAST MEDICAL HISTORY: Reviewed. PAST SURGICAL HISTORY: Reviewed. MEDICATIONS: Reviewed. ALLERGIES: Reviewed. SOCIAL HISTORY: The patient is a community ambulator. Lives at home with family. Denies the use of tobacco or alcohol products. PHYSICAL EXAMINATION: On exam today, he is a healthy-appearing gentleman. He is able to ambulate with the use of assistive devices and has a visible limp on the left side. He has a negative Trendelenburg, positive resisted straight leg raise, positive log roll, pain with flexion and internal rotation with limited range of motion. Tender to palpation of greater trochanter. Right hip has a painless passive range of motion. Knees have painless passive range of motion. Lower extremity edema to mid tibia. Dorsalis pedis pulses are palpable. RADIOGRAPHS: Reviewed with the patient and MRI and demonstrated some AVN. IMPRESSION: Left hip avascular necrosis. PLAN: At this point in time, we discussed total hip arthroplasty. He will plan on calling the office schedule. CHRISTIAN Bhatti M.D. CG/Giancarlo #: [id number] documented in this encounter Procedure Notes * Christen Rock RT(R) - 10/14/2018 3:36 PM CDTAssociated Order(s): XR PELVIS 1 OR 2VW See progress notes for results documented in this encounter Plan of Treatment Not on file documented as of this encounter Procedures Procedure Name Priority Date/Time Associated Diagnosis Comments XR PELVIS 1 OR 2VW Routine 10/14/2018 3: 36 PM CDT Left hip pain documented in this encounter Results * XR PELVIS 1 OR 2VW (10/14/2018 3:36 PM CDT) Anatomical Region Laterality Modality Pelvis Computed Radiogr aphy Narrative 10/14/2018 3:36 PM CDT Christen Rock, RT(R) ? 10/18/2018 ??2:42 PM See progress notes for results Frederick Solis IV, MD DIAGNOSTIC IMAGING O RDERABLES documented in this encounter Visit Diagnoses Diagnosis Left hip pain- Primary Pain in joint, pelvic region and thigh Primary osteoarthritis of left hip Primary localized osteoarthrosis, pelvic region and thigh Left hip pain Pain in joint, pelvic region and thigh documented in this encounter Care Teams Recreation Manager Relationship Specialty Start Date End Date Van Peter MD [address] [place] [address] PCP - General Family Medicine 07/23/18 11/11/18 Levi Yu DO Orthopedic Surgery 08/13/12 documented as of this encounter
--- OUTSIDE RECORDS SUMMARY | 2024-02-17 23:06 | XMS_ITS | Encounter Summary ---
Author Organization [facility] Address [address] [place] [address] Care Team Providers Care Film Rental Clerk Name Role Phone Levi Yu DO Unavailable Van Peter MD Primary Care Provider [phone] Reason for Visit * Reason Onset Date Comments Follow-up 2 wk lt hip inje ct f/up Encounter Opened In Error 08/14/2018 Encounter Details Date Type Department Care Team (Late st Contact Info) Description 08/06/2018 9:10 AM CDT Office Visit [facility] [address] [place] [address]. [place] [address] [place] [id number] [place] [address] ERRONEOUS ENCOUNTER--DISREGARD (Primary Dx) Social History Tobacco Use Types [...] as of this encounter Progress Notes * Jhoana Flores - 08/14/2018 7:29 AM CDT Dillon Mejia encounter was opened in error. Please disregard any activity associated with this encounter. documented in this encounter Plan of Treatment Not on file documented as of this encounter Visit Diagnoses Diagnosis ERRONEOUS ENCOUNTER--DISREGARD- Primary documented in this encounter Care Teams Film Rental Clerk Relationship Specialty Start Date End Date Van Peter MD [address] [place] [address] PCP - General Family Medicine 07/23/18 11/11/18 Levi Yu DO Orthopedic Surgery 08/13/12 documented as of this encounter
--- OUTSIDE RECORDS SUMMARY | 2024-02-17 23:06 | XMS_ITS | Encounter Summary ---
Author Organization [facility] Address [address] [place] [address] Care Team Providers Care Workers Compensation Claims Assistant Name Role Phone Levi Yu DO Unavailable Van Peter MD Primary Care Provider [phone] Reason for Visit * Reason Comments Pain Back Pain Hip left Encounter Details Date Type Department Care Team (Latest Contact Info) Description 08/27/2018 8:50 AM CDT Office Visit [facility] Pain Care [id number] [place] [address]. [place] [address] [place] [id number] [place] [address] Spinal stenosis of lumbar region, unspecified whether neurogenic claudication present (Primary Dx); Lumbar radiculitis; Primary osteoarthritis of left hip Social History [...] Sign Reading Time Taken Comments Blood Pressure - - Pulse - - Temperature - - Respiratory Rate - - Oxygen Saturation - - Inhaled Oxygen Concentration - - Weight 158.8 kg (350 lb) 08/27/2018 8:58 AM CDT Height 188 cm (6' 2 ) 08/27/2018 8:58 AM CDT Body Mass Index 44.94 08/27/2018 8:58 AM CDT documented in this encounter Patient Instructions * Patient Instructions* Santos Coley MD - 08/27/2018 9:06 AM CDT Follow given instructions. F/U 2 weeks. Call for any issues. documented in this encounter Progress Notes * Santos Coley MD - 08/27/2018 9:06 AM CDT Please see dictated clinic note. documented in this encounter H&P Notes * Santos Coley MD - 08/28/2018 5:31 AM CDT DATE OF SERVICE: 08/27/2018 Mr. Mejia is seen in our office today for complaints of pain in the lower lumbar region, pain on the left inferolateral gluteal region and upper lateral thigh region. He rates it as 8/10. He had noticed some relief following the previous left hip joint injection, however, continues to have pain, especially with walking. PHYSICAL EXAMINATION: He is in no acute distress. EXAMINATION OF GAIT: Stride length is improved on the left. EXAMINATION OF LUMBOSACRAL SPINE: No paravertebral muscle spasm is noted. No midline tenderness is noted. Range of motion is decreased in extension and lateral flexion towards the left with pain. Radicular signs are mildly positive on the left on straight leg raise and sit/slump tests. Range of motion is decreased in left hip with minimal discomfort at the end range of internal rotation. Trochanteric regions and piriformis are nontender. Hamstring tightness is improved bilaterally. BILATERAL SACROILIAC JOINT EXAM: Bilateral sacroiliac joints are nontender to palpation. David's test was negative for SI joint pain bilaterally. No asymmetry in movement pattern was noted. NEUROLOGICAL EXAM: No change is noted. IMPRESSION: 1. Lumbar stenosis. 2. Lumbar radiculitis. 3. Left hip degenerative joint disease. PLAN: I discussed the clinical findings with the patient. He currently rates his pain as 8/10. In view of his pain, further treatment options including continued exercise program, use of an analgesic on an as-needed basis, and cortisone injections were discussed. He elects to proceed with a cortisone injection. A left L4 transforaminal cortisone injection has been planned and discussed in detail. e would follow up in 2 weeks following the injection. Jasmyn, medical esthetician, was present during the examination and discussion. Santos Thorne M.D. SAK/MedKathy #: [id number] documented in this encounter Plan of Treatment Not on file documented as of this encounter Visit Diagnoses Diagnosis Spinal stenosis of lumbar region, unspecified whether neurogenic claudication present- Primary Lumbar radiculitis Thoracic or lumbosacral neuritis or radiculitis, unspecified Primary osteoarthritis of left hip Primary localized osteoarthrosis, pelvic region and thigh documented in this encounter Care Teams Workers Compensation Claims Assistant Relationship Specialty Start Date End Date Van Peter MD [address] [place] [address] PCP - General Family Medicine 07/23/18 11/11/18 Levi Yu DO Orthopedic Surgery 08/13/12 documented as of this encounter
--- OUTSIDE RECORDS SUMMARY | 2024-02-17 23:06 | XMS_ITS | Encounter Summary ---
Author Organization [facility] Address [address] [facility] [place] [address] Care Team Providers Care Maintenance Craftsman Name Role Phone Levi Yu DO Unavailable Van Peter MD Primary Care Provider [phone] Encounter Details Date Type Department Care Team (Latest Contact Info) Description 08/27/2018 9:00 AM CDT - 08/27/2018 9:09 AM CDT Hospital Encounter [facility] [address] [place] [address] [place] [address] [address] Discharge Disposition: Home or Self [...] on filedocumented in this encounter Care Teams Maintenance Craftsman Relationship Specialty Start Date End Date Van Peter MD [address] [place] [address] PCP - General Family Medicine 07/23/18 11/11/18 Levi Yu DO Orthopedic Surgery 08/13/12 documented as of this encounter
--- OUTSIDE RECORDS SUMMARY | 2024-02-17 23:06 | XMS_ITS | Encounter Summary ---
Author Organization [facility] Address [address] [facility] [place] [address] Care Team Providers Care Rouge Miller Name Role Phone Levi Yu DO Unavailable Van Peter MD Primary Care Provider [phone] Reason for Referral * Radiology Services (Routine) - Closed Specialty Diagnoses / Procedures Referred By Antelmo paulino Referred To Contact MRI Diagnoses Primary osteoarthritis of left hip Avascular necrosis of hip, left (HCC) Gait difficulty Procedures [place] [address] [place] [address] Referral ID Status Reason Start Date Expiration Date Visits Re quested Visits Authorized [id number] Closed 10/04/2018 04/01/2019 1 1 Reason for Visit * Reason Onset Date Comments Patient Requested Call 10/03/2018 Encounter Details Date Type Department Care Team (Late st Contact Info) Description 10/03/[address] [facility] Orthopedics [address] [place] [address], [address] [place] [address] [place] [address] [place] [address] Patient Requested Call Social History Tobacco Use Types Packs/Day [...] encounter Miscellaneous Notes * Telephone Encounter - Santos Coley MD - 10/03/2018 3:48 PM CDT Discussed symptoms.Would proceed with MRI left hip as he is pain and difficulty in walking. * Telephone Encounter - Miriam Davila - 10/03/2018 9:19 AM CDT .Who is calling? Self What is the reason for call? Pt is requesting a call from the dr in regards to hip, he has heard a popping noise and wants to speak with him on some things. Expected Response from the Clinic? ( ex. Call back [phone] documented in this encounter Plan of Treatment Not on file documented as of this encounter Results * MRI HIP LEFT [...] Visit Diagnoses Diagnosis Primary osteoarthritis of left hip- Primary Primary localized osteoarthrosis, pelvic region and thigh Avascular necrosis of hip, left (HCC) Gait difficulty Abnormality of gait Primary osteoarthritis of left hip Primary localized osteoarthrosis, pelvic region and thigh Avascular necrosis of hip, left (HCC) Gait difficulty Abnormality of gait documented in this encounter Care Teams Rouge Miller Relationship Specialty Start Date End Date Van Peter MD [address] [place] [address] PCP - General Family Medicine 07/23/18 11/11/18 Levi Yu DO Orthopedic Surgery 08/13/12 documented as of this encounter
--- OUTSIDE RECORDS SUMMARY | 2024-02-17 23:06 | XMS_ITS | Encounter Summary ---
Author Organization [facility] Address [address] [facility] [place] [address] Care Team Providers Care Electrophysiology Scientist Name Role Phone Levi Yu DO Unavailable Van Peter MD Primary Care Provider [phone] Encounter Details Date Type Department Care Team (Late st Contact Info) Description 10/14/2018 3:25 PM CDT Ancillary Procedure [facility] Orthopedics - Radiology [id number] [place] [address] [place], [place] [id number] [place] [address] Left hip pain Social History Tobacco [...] thigh documented in this encounter Care Teams Electrophysiology Scientist Relationship Specialty Start Date End Date Van Peter MD [address] [place] [address] PCP - General Family Medicine 07/23/18 11/11/18 Levi Yu DO Orthopedic Surgery 08/13/12 documented as of this encounter
--- OUTSIDE RECORDS SUMMARY | 2024-02-17 23:06 | XMS_ITS | Encounter Summary ---
Author Organization [facility] Address [address] [facility] [place] [address] Care Team Providers Care Freight Adjuster Name Role Phone Levi Yu DO Unavailable Van Peter MD Primary Care Provider [phone] Reason for Visit * Reason Onset Date Comments Question 10/21/2018 Encounter Details Date Type Department Care Team (Late st Contact Info) Description 10/21/2018 Telephone [facility] [address] [place] [address] [place] [address] [address] Question Social History Tobacco Use Types [...] encounter Miscellaneous Notes * Telephone Encounter - Anila Noriega MA - 10/21/2018 10:16 AM CDT Called patient in regard to his questions about medical clearance and pre-op testing. * Telephone Encounter - Kary Wooten I - 10/21/2018 9:04 AM CDT Who is calling? Self What is the reason for call? Pt would like a call back to see if all of his pre surg. Clearance hasbeen approved for surg. Date 11/12/18. Please call back to further discuss. Expected Response from the Clinic? Call Back Dillon @ [phone] documented in this encounter Plan of Treatment Not on file documented as of this encounter Visit Diagnoses Not on filedocumented in this encounter Care Teams Freight Adjuster Relationship Specialty Start Date End Date Van Peter MD [address] [place] [address] PCP - General Family Medicine 07/23/18 11/11/18 Levi Yu DO Orthopedic Surgery 08/13/12 documented as of this encounter
--- OUTSIDE RECORDS SUMMARY | 2024-02-17 23:06 | XMS_ITS | Encounter Summary ---
Author Organization [facility] Address [address] [facility] [place] [address] Care Team Providers Care Tilt Tray Driver Name Role Phone Levi Yu DO Unavailable Van Peter MD Primary Care Provider [phone] Reason for Visit * Reason Onset Date Comments Order 10/04/2018 Encounter Details Date Type Department Care Team (Late st Contact Info) Description 10/04/2018 Telephone [facility] Pain Care [address] [place] [address]. [place] [address] [place] Coley [place] [id number] [place] [address] Order Social History Tobacco Use Types Packs/Day Years [...] * Telephone Encounter - Yris Mcintosh - 10/04/2018 8:22 AM CDT MRI was scheduled at for 8:20, arrival at 8:00. Directions were given. He will call [facility] and cancel. He does not have to contact ins co as he has MCR/[employer]. We will see him in our office at his appt on Sunday. He was very appreciative. * Telephone Encounter - Chantel Mcintosh - 10/04/2018 8:04 AM CDT Who is calling? self What is the reason for call? Patient called and has an MRI of the left hip scheduled in [place], [place] on 10-12-2018 and wanted to know if and order could be put in to have MRI done at [facility] earlier. Expected Response from the Clinic? ( ex. Call back, etc..) please call when order put into system at [phone] can leave a message. documented in this encounter Plan of Treatment Not on file documented as of this encounter Visit Diagnoses Not on filedocumented in this encounter Care Teams Tilt Tray Driver Relationship Specialty Start Date End Date Van Peter MD [address] [place] [address] PCP - General Family Medicine 07/23/18 11/11/18 Levi uY DO Orthopedic Surgery 08/13/12 documented as of this encounter
--- OUTSIDE RECORDS SUMMARY | 2024-02-17 23:06 | XMS_ITS | Encounter Summary ---
Author Organization [facility] Address [address] [facility] [place] [address] Care Team Providers Care Dye Tank Tender Name Role Phone Levi Yu DO Unavailable Van Peter MD Primary Care Provider [phone] Reason for Visit * Reason Comments Pain Hip Left MRI RESULTS Encounter Details Date Type Department Care Team (Latest Contact Info) Description 10/09/2018 1:50 PM CDT Office Visit [facility] Pain Care [address] [place] [address]. [place] [address] [place] [address] [address] Avascular necrosis of bone of left hip (HCC) (Primary Dx); Primary osteoarthritis of left hip; Gait difficulty; Lumbar radiculitis Social History Tobacco Use Types Packs/Day Years [...] - - Weight 158.8 kg (350 lb) 10/09/2018 1:50 PM CDT Height 188 cm (6' 2 ) 10/09/2018 1:50 PM CDT Body Mass Index 44.94 10/09/2018 1:50 PM CDT documented in this encounter Patient Instructions * Patient Instructions* Santos Coley MD - 10/09/2018 4:11 PM CDT Ortho consult. documented in this encounter Progress Notes * Santos Coley MD - 10/09/2018 4:10 PM CDT Please see dictated clinic note. documented in this encounter H&P Notes * Santos Coley MD - 10/10/2018 5:58 AM CDT DATE OF SERVICE: 10/09/2018 Mr. Mejia is seen in our office today with complaints of left hip pain. He rates his pain to be 10/10. He has also noticed a clicking sensation in the left hip. Symptoms are worse in the left hip especially in the groin and lateral thigh region. PHYSICAL EXAM: He is in no acute distress. EXAMINATION OF GAIT: Stride length is decreased in the left. He uses a cane to assist with ambulation. EXAMINATION OF LUMBAR SPINE: No paravertebral muscle spasm is noted. Range of motion is decreased in extension and lateral flexion in either direction with minimal discomfort. Radicular signs are negative. BILATERAL HIP EXAM: Range of motion is decreased in left with pain in the groin and lateral thigh. Trochanteric regions and piriformis are nontender. Hamstring tightness is noted bilaterally. NEUROLOGICAL EXAM: No change is noted. RADIOGRAPHS: MRI of the left hip done on 10/08/2018 revealed evidence of early changes of avascular necrosis involving the left femoral head and neck, chronic high-grade chondromalacia in superior and superolateral portion of the left hip joint with chronic flattening of the femoral head was noted, diffuse synovial hypertrophy throughout the left hip joint is noted. IMPRESSION: 1. Left hip degenerative joint disease .. 2. Left hip avascular necrosis. 3. Gait difficulty. 4. Possible lumbar radiculitis. PLAN: I discussed the clinical findings with the patient. I also went over the MRI findings with the patient. Further treatment options including left hip replacement, low-impact exercises, weight loss, using a walker to offload the left hip and the use of analgesics on an as-needed basis discussed. He would like to proceed with orthopedic consultation. He currently rates his pain to be 10/10. His was present during the examination and discussion. Jasmyn, medical illustrator, was also present during the examination and discussion. Santos Thorne M.D. SAK/MedQ #: [id number] documented in this encounter Plan of Treatment Not on file documented as of this encounter Visit Diagnoses Diagnosis Avascular necrosis of bone of left hip (HCC)- Primary Primary osteoarthritis of left hip Primary localized osteoarthrosis, pelvic region and thigh Gait difficulty Abnormality of gait Lumbar radiculitis Thoracic or lumbosacral neuritis or radiculitis, unspecified documented in this encounter Care Teams Dye Tank Tender Relationship Specialty Start Date End Date Van Peter MD [address] [place] [address] PCP - General Family Medicine 07/23/18 11/11/18 Levi Yu DO Orthopedic Surgery 08/13/12 documented as of this encounter
--- OUTSIDE RECORDS SUMMARY | 2024-02-17 23:06 | XMS_ITS | Encounter Summary ---
Author Organization [facility] Address [address] [facility] [place] [address] Care Team Providers Care Instructional Systems Design Consultant Name Role Phone Levi Yu DO Unavailable Van Peter MD Primary Care Provider [phone] Reason for Visit * Reason Comments Follow-up LBP - Injection Encounter Details Date Type Department Care Team (Latest Contact Info) Description 09/10/2018 10:40 AM CDT Office Visit [facility] [id number] [place] [address]. [place] [address] [place] [address] [address] Hamstring tendinitis at origin (Primary Dx); Lumbar facet arthropathy; Lumbosacral radiculitis; Primary osteoarthritis of left hip Social [...] on file documented as of this encounter Patient Instructions * Patient Instructions* Santos Coley MD - 09/10/2018 1:00 PM CDT HEP documented in this encounter Progress Notes * Santos Coley MD - 09/10/2018 1:00 PM CDT Please see dictated clinic note. documented in this encounter H&P Notes * Santos Coley MD - 09/11/2018 3:27 AM CDT DATE OF SERVICE: 09/10/2018 Mr. Mejia is seen in our office today for complaints of his low back, left lower extremity pain. He has noticed improvement, but however, feels symptoms improved more with a left hip joint injection. On today's visit, he complains of pain in the left gluteal region. Symptoms are worse with increased activity. He denies any fever, chills. He denies any new onset of bowel or bladder dysfunction. He rates his pain to be 0/10 as he had taken oxycodone this morning. PHYSICAL EXAM: He is in no acute distress. EXAMINATION OF GAIT: Stride length is equal. EXAMINATION OF LUMBOSACRAL SPINE: No paravertebral muscle spam or tenderness is noted. Range of motion is decreased in extension and lateral flexion with minimal discomfort. Radicular signs are negative. EXAMINATION OF HIPS: Resisted left hamstring contraction causes pain. Minimal tenderness is elicited in the left ischial tuberosity region. No erythema or warmth is noted. Range of motion is decreased in the left hip with minimal discomfort in the left groin at the end range of internal and external rotation. Trochanteric region and piriformis are nontender. Hamstring tightness is improved bilaterally. NEUROLOGICAL EXAM: No new focal deficit is noted. IMPRESSION: 1. Left hamstring tendinitis at the origin. 2. Left hip degenerative joint disease. 3. Lumbar facet arthropathy. 4. Lumbar radiculitis. PLAN: I had discussed the clinical findings with the patient. I have suggested that he do a regular exercise program. He has been shown exercises. He would follow up with me in 4 weeks. If his symptoms persist, we may proceed with a cortisone injection. Shaun, director of medical review, was present during the examination and discussion. The patient's was also present during the examination and discussion. Santos Thorne M.D. TERI/Giancarlo #: [id number] documented in this encounter Plan of Treatment Not on file documented as of this encounter Visit Diagnoses Diagnosis Hamstring tendinitis at origin- Primary Lumbar facet arthropathy Lumbosacral spondylosis without myelopathy Lumbosacral radiculitis Thoracic or lumbosacral neuritis or radiculitis, unspecified Primary osteoarthritis of left hip Primary localized osteoarthrosis, pelvic region and thigh documented in this encounter Care Teams Instructional Systems Design Consultant Relationship Specialty Start Date End Date Van Peter MD [address] [place] [address] PCP - General Family Medicine 07/23/18 11/11/18 Levi Yu DO Orthopedic Surgery 08/13/12 documented as of this encounter
--- OUTSIDE RECORDS SUMMARY | 2024-02-17 23:06 | XMS_ITS | Encounter Summary ---
Author Organization [facility] Address [address] [facility] [place] [address] Care Team Providers Care Ballroom Dance Instructor Name Role Phone Levi Yu DO Unavailable Reason for Visit * Auth/Cert (Routine) Specialty Diagnoses / Procedures Referred By Contac t Referred To Contact Diagnoses Unilateral primary osteoarthritis, right hip Procedures AL TOTAL HIP REPLACEMENT Referral ID Status Reason Start Date Expiration Date Visits Re quested Visits Authorized [id number] 11/06/2018 05/05/2019 1 1 Encounter Details Date Type Department Care Team (Late st Contact Info) Description 11/12/2018 8:32 AM CDT Anesthesia Event [facility]ly [facility] - Perioperative Surgery [address] [place] [address] [place] [address] [place], [place] [id number] Nikia Ramirez MD [facility] [address] [address] Anesthesia Record Procedure Summary Procedure Name Responsible Anesthesiologist Anesthesia Start Time Anesthesia Stop Time LEFT TOTAL ANTERIOR HIP ARTHROPLASTY (Left: Hip) Doroteo Davison MD 11/12/18 0832 11/12/18 1056 Events Date Time Event Comment 11/12/2018 0728 0832 An Start 0832 An Start Data 0842 Spinal In 0903 PT Reassessment 0903 Electnc Sig 0913 Timeout Anesthesia part icipated in timeout at the time documented in the record by nursing. 1049 an stop data 1049 ANPTO2 1056 An Stop Meds Name Total midazolam 2 mg/2mL injection 6 mg fentaNYL 100 mcg/2mL injection 100 mcg dexamethasone 4 mg/mL injection 4 mg ondansetron 4 mg/2mL injection 4 mg bupivacaine in dextrose 0.75-8.25 % (spi nal tray NO CHARGE) 2 mL lidocaine 1% (epidural/spinal tray NO CH ARGE) 1 mL tranexamic acid 1000 mg/10mL injection 2 ,000 mg ceFAZolin (ANCEF) 3,000 mg in 115 mL IVP B 3 g lactated ringers infusion 2,000 mL * Agents Name Exp. N2O O2 * Blood No blood administrations on file. Lines, Drains, and Airways Type Details Placement Removal Procedural Site (Incision) 11/12/18; Left; Hip; 11/16/18; 204611/12/18 0000 by Naa Newell RN 11/16/182046 by Generic, Auto Release Peripheral IV Date: 11/12/18; Time: 755; Orientation: Right; Placed By: charles gomes rn; Length (in): 1 1/4in; Tolerance: Well 11/12/18 0756 by Natasha Gomes RN 11/16/18 1434 by Trevor Madrid RN documented in this encounter Social History Tobacco Use Types Packs/Day Years [...] or have serious hearing difficult y? No 11/12/2018 Is person blind or have serious difficulty seein g? No 11/12/2018 Does person have serious dif ficulty walking/climbing stairs? Yes 11/12/2018 Does person have difficulty dressing/bathing? No 11/12/2018 Does person have difficulty doing errands alone? Yes 11/12/2018 Cognitive Status Response Date of Assessm ent Does person have difficulty concentrating/remembering/making decisions? Yes 11/12/2018 documented as of this encounter Progress Notes * Clarke Ash, BARREL RACER-SECRETARIAL STENOGRAPHER - 11/12/2018 10:56 AM CDT ANESTHESIA POSTOP EVALUATION NOTE Procedure: LEFT TOTAL ANTERIOR HIP ARTHROPLASTY (Left Hip) Dillon Mejia is a 68 year old male Patient Vitals for the past 6 hrs: BP Temp Pulse Resp SpO2 Pain Rating Score #1 11/12/18 0710 142/70 98 ??F (36.7 ??C) 69 20 97 % 8 11/12/18 0820 -- -- -- -- 95 % 10 11/12/18 0828 -- -- -- -- 97 % -- Anesthesia Type: spinal * No Diagnosis Codes entered * Mental Status: awake, sufficiently recovered from acute administration of anesthesia to participatein the evaluation, neurologic status has returned to preoperative level and neurologic status has returned to expected level of consciousness Neuro Status: No numbness, tingling or visual disturbances Respiratory Function: natural and requires O2 Cardiac Function: stable Postop Pain: acceptable to the patient Postop Hydration: adequate Postop Nausea: none Assessment: no apparent anesthetic complications, patient tolerated procedure well and no evidence of recall Patient Disposition: Release from Anesthesia Care Non Reportable Improvement Section (otherwise blank): * Nikia Ramirez MD - 11/12/2018 7:26 AM CDT ANESTHESIA PREOPERATIVE EVALUATION NOTE Procedure: LEFT TOTAL ANTERIOR HIP ARTHROPLASTY (Hip) Vitals: No data found. ANESTHESIA PRE-EVALUATION NOTE Physical Exam: Orientation X3 Airway/Mallampati Score: II Mouth Opening Distance: 3 fingerwidths Neck ROM: full TM Distance: > 3 FB Teeth: normal Heart: regular rate rhythm Lungs: normal Abdomen Exam: obese Review of Systems: History of anesthetic complications: No Malignant Hyperthermia: No GERD: No Poor Exercise Tolerance: No Recent Chest Pain: No Shortness of Breath: No AICD/Pacemaker: No Renal Disease: No Other Findings: Reviewed lumbar spine x-ray, he has an anterior lumbar spinal fusion L5-S1. Should not interfere with spinal. ANESTHESIA PLAN ASA Score: 3 NPO Status: No solids since midnight Anesthesia Plan: spinal Planned Induction: intravenous Planned Postop Destination: PACU Anesthetic plan was discussed with: patient Anesthetic Plan discussion was: Consented BMI, Height, Weight Tobacco History Estimated body mass index is 45.15 kg/m?? as calculated from the following: Height as of 10/21/18: 1.862 m (6' 1.3 ). Weight as of 10/21/18: 156.5 kg (345 lb). Social History Tobacco Use Smoking Status Former Smoker ??? Types: Cigarettes ??? Last attempt to quit: 02/26/1987 ??? Years since quittin.7 Smokeless Tobacco Never Used Alcohol History Drug History Social History Substance and Sexual Activity Alcohol Use Yes ??? Alcohol/week: 2.5 standard drinks ??? Types: 3 Alcoholic drink(s) per week Social History Substance and Sexual Activity Drug Use No Outpatient Medications: Inpatient Medications: No outpatient medications have been marked as taking for the 11/12/18 encounter (Hospital Encounter). Current Facility-Administered Medications Medication Dose Last Dose ??? acetaminophen 1,000 mg ??? ceFAZolin 3 g ??? celecoxib 400 mg ??? lactated ringers ??? lidocaine 0.5 mL ??? oxyCODONE CR 12hr 20 mg ??? scopolamine 1 patch And ??? scopolamine patch placement confirmation Allergies: No Known Allergies Relevant Problems No relevant active problems Problem List: Patient Active Problem List Diagnosis Date Noted ??? Spinal stenosis of lumbar region 06/07/2018 Priority: Not Prioritized ??? Tear of biceps tendon 10/05/2017 Priority: Not Prioritized ??? History of arthroscopy of right knee on 08-21-12 08/28/2012 ??? Preoperative examination 08/20/2012 ??? Knee pain 08/13/2012 Medical History: Past Medical History: Diagnosis Date ??? HTN (hypertension) ??? Macular degeneration (senile) of retina, unspecified Macular Degeneration Surgical History: Past Surgical History: Procedure Laterality Date ??? HC ARTHROSCOPY KNEE 08/21/12 RIGHT ??? KNEE ARTHROPLASTY 2005 ??? Knee Arthroscopy X2 ??? LUMBAR SPINE FUSION ??? Meniscectomy 08/21/2012 Right; ARTHROSCOPY KNEE MENISCECTOMY MEDIAL Lab Results: documented in this encounter Procedure Notes * Ash, Clarke D, BARREL RACER-SECRETARIAL STENOGRAPHER - 11/12/2018 9:12 AM CDTAssociated Order(s): Neuraxial Block Neuraxial Block Note Pre-Procedure: Procedure Name: Neuraxial Block Patient Location: OR Indications: surgical anesthesia Pre-Anesthetic Checklist: Patient identified, IV Checked, Risks and benefits discussed, Surgical consent verified, Monitors and equipment, Site examined, Pre-op evaluation done, Informed consent obtained, Questions answered/anesthesia questions answered and Allergies reviewed Anticoagulation/ Anti-thrombosis status confirmed? Yes Supplemental O2: room air Monitors: BP and continuous pluse ox Patient Condition: sedated, meaningful contact maintained throughout procedure Patient Sedated? Nursing sedation administration Sedation Type: mild Sedation Agents (manual): versed fentanyl mL Procedure: Block Type: Spinal Prep: Betadine Sterile Field: mask, cap/hat and sterile established Approach: midline Skin was localized? Nursing documentation on MAR Skin localized with: Lidocaine 1% and 1 mL Spinal Block: Needle Type: beveled Needle Gauge: 22 Needle Length: 90 mm Placement Site: L3-4 Number of Attempts: 1 CSF: free flow, aspiration before injection Local anesthetics used? Nursing documentation on the MAR Spinal Local Anesthetic: Bupivacaine: 0.75% in dextrose 2 mL Degree of difficulty: none Procedure Tolerance: performed while the patient was sedated Sensory Level: T8 Motor Blockade: Yes Position post procedure: supine Vital Signs: Vital sings monitored and stable throughout. See anesthesia record for details. Staff: Anesthesia Provider: Clarke Ash APRN-CRNA - performed the procedure documented in this encounter Miscellaneous Notes * Anesthesia Transfer of Care - Clarke Ash APRN-CRNA - 11/12/2018 10:56 AM CDT ANESTHESIA TRANSFER OF CARE NOTE Today's Date: 11/12/2018 Date of : 1950 Patient: Dillon Mejia Procedure(s): LEFT TOTAL ANTERIOR HIP ARTHROPLASTY Surgeon(s): Primary: Frederick Solis IV, MD Preop Diagnosis: * No Diagnosis Codes entered * Pre-op Meds (From admission, onward) Start Stop Status Route Frequency Ordered 11/13/18 0600 0.9% NaCl injection 3 mL -- Sent IK EVERY 8 HOURS 11/12/18 1025 11/12/18 0730 acetaminophen (TYLENOL) tablet 1,000 mg 11/12 729 Completed PO PRE-OP ONCE 11/12/18 0718 11/12/18 1025 acetaminophen (TYLENOL) tablet 650 mg -- Sent PO EVERY 4 HOURS PRN 11/12/18 1025 11/13/18 0900 aspirin chew tablet 81 mg -- Sent PO 2 TIMES DAILY 11/12/18 1025 11/12/18 1025 bisacodyl (DULCOLAX) suppository 10 mg -- Sent RE DAILY PRN 11/12/18 1025 11/12/18 1025 bisacodyl EC (DULCOLAX) tablet 5 mg -- Sent PO DAILY PRN 11/12/18 1025 11/12/18 1030 ceFAZolin (ANCEF) 2,000 mg in 50 ml IVPB 11/13 022 Sent IV EVERY 8 HOURS 11/12/18 1025 11/12/18 0719 ceFAZolin (ANCEF) 3,000 mg in 115 mL IVPB -- Verified IV PRE-OP MULTIPLE 11/12/18 0719 11/12/18 0730 celecoxib (CeleBREX) capsule 400 mg 11/12 729 Completed PO PRE-OP ONCE 11/12/18 0719 11/13/18 0900 celecoxib (CeleBREX) capsule 400 mg -- Sent PO DAILY 11/12/18 1025 11/12/18 1025 diphenhydrAMINE (BENADRYL) capsule 25 mg -- Sent PO EVERY 8 HOURS PRN 11/12/18 1025 11/12/18 1025 diphenhydrAMINE (BENADRYL) capsule 50 mg -- Sent PO EVERY 8 HOURS PRN 11/12/18 1025 11/12/18 0730 famotidine (PEPCID) injection 20 mg 11/12 729 Completed IV PRE-OP ONCE 11/12/18 0729 11/12/18 1025 famotidine (PEPCID) tablet 20 mg -- Sent PO 2 TIMES DAILY PRN 11/12/18 1025 11/12/18 0745 fentaNYL (PF) (SUBLIMAZE) injection 50 mcg 11/12 07 Completed IV ONCE 11/12/18 0738 11/12/18 0830 fentaNYL (PF) (SUBLIMAZE) injection 50 mcg 11/12 0817 Completed IV ONCE 11/12/18 0817 11/12/18 1025 HYDROcodone-acetaminophen (NORCO) 10-325 MG tablet 1 tablet -- Sent PO EVERY 4 HOURS PRN 11/12/18 1025 11/12/18 1025 HYDROmorphone (DILAUDID) injection 1 mg -- Sent IM EVERY 3 HOURS PRN 11/12/18 1025 11/12/18 1025 HYDROmorphone (DILAUDID) injection 2 mg -- Sent IM EVERY 3 HOURS PRN 11/12/18 1025 11/12/18 1025 ketorolac (TORADOL) injection 15 mg 11/13 1024 Sent IV EVERY 6 HOURS PRN 11/12/18 1025 11/12/18 0730 lactated ringers infusion 11/11 0729 Dispensed IV PRE-OP CONTINUOUS 11/12/18 0718 11/12/18 1030 lactated ringers infusion -- Sent IV CONTINUOUS 11/12/18 1025 11/12/18 0730 lidocaine buffered 1 % injection 0.5 mL 11/12 0730 Completed INFILTRATION PRE-OP ONCE 11/12/18 0718 11/12/18 1025 magnesium hydroxide (MILK OF MAGNESIA) suspension 30 mL -- Sent PO PRN 11/12/18 1025 11/12/18 1500 ondansetron (ZOFRAN) injection 4 mg 11/13 0559 Sent IV EVERY 6 HOURS 11/12/18 1025 11/13/18 0600 ondansetron (ZOFRAN) injection 4 mg -- Sent IV EVERY 6 HOURS PRN 11/12/18 1025 11/12/18 1030 oxyCODONE CR 12hr (OxyCONTIN) tablet 10 mg 11/13 0859 Sent PO EVERY 12 HOURS 11/12/18 1025 11/12/18 0730 oxyCODONE CR 12hr (OxyCONTIN) tablet 20 mg 11/12 0730 Completed PO PRE-OP ONCE 11/12/18 0719 11/12/18 1025 oxyCODONE-acetaminophen (PERCOCET) 10-325 MG tablet 1 tablet -- Sent PO EVERY 4 HOURS PRN 11/12/18 1025 11/12/18 1025 oxyCODONE-acetaminophen (PERCOCET) 10-325 MG tablet 2 tablet -- Sent PO EVERY 6 HOURS PRN 11/12/18 1025 11/12/18 0730 scopolamine (TRANSDERM-SCOP) 1 patch 11/15 0730 Verified TD PRE-OP ONCE 11/12/18 0719 11/12/18 0900 scopolamine patch placement confirmation -- Dispensed TD 2 TIMES DAILY 11/12/18 0719 11/12/18 1030 senna-docusate (SENOKOT-S) tablet 1 tablet -- Sent PO 2 TIMES DAILY 11/12/18 1025 11/12/18 1025 sodium phosphate rectal (FLEET SALINE) enema 133 mL -- Sent RE PRN 11/12/18 1025 11/13/18 0000 zolpidem (AMBIEN) tablet 5 mg -- Sent PO AT BEDTIME PRN 11/12/18 1025 * No Diagnosis Codes entered * . No Known Allergies Vitals: Patient Vitals for the past 3 hrs: SpO2 Pain Rating Score #1 11/12/18 0828 97 % -- 11/12/18 0820 95 % 10 Lines, Drains, and Airways Type Details Placement Removal Peripheral IV Date: 11/12/18; Time: 0756; Orientation: Right; Location: Hand; Placed by: charles gomes rn; Cath Length: 1 1/4in; Cath Gauge: 18 Gauge; Brand: le; Local: Trans Dermal; Tolerance: Well 11/12/18 0756 by Natasha Gomes RN Intraprocedure I/O Totals Anesthesia Other Output Estimated Blood Loss 700 mL lactated ringers infusion Volume infused 2000 ml Patient Transfer Location: PACU Transport Airway: spontaneous respirations and supplemental O2 Complications: None Handoff Given? Yes Checklist or Protocol - The mabry handoff elements that must be included in the transfer of care checklist include: 1. Identification of patient. 2. Identification of responsible practitioner (PACU nurse or advanced practitioner). 3. Discussion of pertinent medical history. 4. Discussion of the surgical/procedure course (procedure, reason for surgery, procedure performed). 5. Intraoperative anesthetic management and issue/concerns. 6. Expectations/Plans for the early post-procedure period. 7. Opportunity for questions and acknowledgement of understanding of report from the receiving PACUteam. Clarke Ash APRN-SECRETARIAL STENOGRAPHER documented in this encounter Plan of Treatment Not on file documented as of this encounter Procedures Procedure Name Priority Date/Time Associated Diagnosis Comments NEURAXIAL BLOCK Routine 11/12/2018 9:12 AM CDT documented in this encounter Results * Neuraxial Block (11/12/2018 9:12 AM CDT) Narrative Clarke Ash APRN-CRNA - 11/12/2018 9:12 AM CDT Clarke Ash APRN-CRNA ? 11/12/2018 ??9:13 AM Neuraxial Block Note [...] ??midline Skin was localized? ??Nursing documentation on [facility] Skin localized with: ??Lidocaine 1% and 1 [...] for details. Staff: ?? Anesthesia Provider: ??Clarke Ash, TELLO-SECRETARIAL STENOGRAPHER ?? - ?? performed the procedure Doroteo Davison MD GENERAL ANESTHESIA O LANDONERAABEL documented in this encounter Visit Diagnoses Not on filedocumented in this encounter Administered Medications Inactive Administered Medications - up to 3 most recent administrations Medication Order MAR Action Action Date Dose Rate Site bupivacaine in dextrose (spinal) (SENSORCAINE) injection PRN, Starting on Sun11/12/18 at 0842, Until Sun11/12/18 at 1056, Anesthesia Intra-op $ Given 11/12/2018 8:42 AM CDT 2 mL ceFAZolin (ANCEF) 3,000 mg in 115 mL IVPB 3,000 mg (3 g), at 230 mL/hr, Intravenous, PRE-OP MULTIPLE, Starting on Sun11/12/18 at 0719, Until Sun11/12/18 at 1250, Administer 30 minutes prior to surgical incision. Refrigerate, Indication for anti-infective therapy: Surgical prophylaxis, Pre-op $ Given 11/12/2018 8:32 AM CDT 3 g dexamethasone (DECADRON) injection PRN, Starting on Sun11/12/18 at 0849, Until Sun11/12/18 at 1056, Anesthesia Intra-op $ Given 11/12/2018 8:49 AM CDT 4 mg fentaNYL (PF) (SUBLIMAZE) injection PRN, Starting on Sun11/12/18 at 0849, Until Sun11/12/18 at 1056, Anesthesia Intra-op $ Given 11/12/2018 9:36 AM CDT 25 mcg $ Given 11/12/2018 9:25 AM CDT 25 mcg $ Given 11/12/2018 8:49 AM CDT 50 mcg lactated ringers infusion at 20 mL/hr, Intravenous, PRE-OP CONTINUOUS, Starting on Sun11/12/18 at 0730, Until Sun11/12/18 at 1250, Pre-op $ New Bag/Syringe 11/12/2018 10:36 AM CDT $ New Bag/Syringe 11/12/2018 9:18 AM CDT $ New Bag/Syringe 11/12/2018 7:30 AM CDT 20 mL/ hr lidocaine (XYLOCAINE MPF) 1 % injection PRN, Starting on Sun11/12/18 at 0841, Until Sun11/12/18 at 1056, Anesthesia Intra-op $ Given 11/12/2018 8:41 AM CDT 1 m L midazolam (VERSED) injection PRN, Starting on Sun11/12/18 at 0832, Until Sun11/12/18 at 1056, Anesthesia Intra-op $ Given 11/12/2018 9:26 AM CDT 1 m g $ Given 11/12/2018 8:49 AM CDT 1 mg $ Given 11/12/2018 8:33 AM CDT 2 mg Ondansetron HCl (ZOFRAN) injection PRN, Starting on Sun11/12/18 at 0849, Until Sun11/12/18 at 1056, Anesthesia Intra-op $ Given 11/12/2018 8:49 AM CDT 4 mg tranexamic acid (CYKLOKAPRON) injection PRN, Starting on Sun11/12/18 at 0902, Until Sun11/12/18 at 1056, Anesthesia Intra-op $ Given 11/12/2018 10:23 AM CDT 1,000 mg $ Given 11/12/2018 9:02 AM CDT 1,000 mg documented in this encounter Care Teams Ballroom Dance Instructor Relationship Specialty Start Date End Date Levi Yu DO Orthopedic Surgery 08/13/12 documented as of this encounter
--- OUTSIDE RECORDS SUMMARY | 2024-02-17 23:06 | XMS_ITS | Encounter Summary ---
Author Organization [facility] Address [address] [facility] [place] [address] Care Team Providers Care Cipher Expert Name Role Phone Levi Yu DO Unavailable Van Peter MD Primary Care Provider [phone] Reason for Visit * Reason Onset Date Comments Med Question 11/06/2018 Encounter Details Date Type Department Care Team (Late st Contact Info) Description 11/06/2018 Telephone [facility] Orthopedics - Radiology [address] [place] [address] [place], [place] [id number] [place] [address] [address] Med Question Social History Tobacco Use Types Packs/Day [...] * Telephone Encounter - Trini Avilez - 11/06/2018 12:45 PM CDT Called pharm * Telephone Encounter - Chante Paez - 11/06/2018 11:16 AM CDT .Who is calling? Chemo Bennett (Reaayderafi) What is the reason for call? Chemo called wanting to confirm with norco the pt should be taking, received two prescription recently. Expected Response from the Clinic? Please call back maritza [phone] documented in this encounter Plan of Treatment Not on file documented as of this encounter Visit Diagnoses Not on filedocumented in this encounter Care Teams Cipher Expert Relationship Specialty Start Date End Date Vna Peter MD [address] [place] [address] PCP - General Family Medicine 07/23/18 11/11/18 Levi Yu DO Orthopedic Surgery 08/13/12 documented as of this encounter
--- OUTSIDE RECORDS SUMMARY | 2024-02-17 23:06 | XMS_ITS | Encounter Summary ---
Author Organization [facility] Address [address] [facility] [place] [address] Care Team Providers Care Decal Applier Name Role Phone Levi Yu DO Unavailable Van Peter MD Primary Care Provider [phone] Reason for Visit * Reason Onset Date Comments Med Question 11/04/2018 Encounter Details Date Type Department Care Team (Late st Contact Info) Description 11/04/2018 Telephone [facility] Orthopedics [id number] [place] [id number] [place] [address] [address] Med Question Social History Tobacco [...] Telephone Encounter - Anila Noriega MA - 11/04/2018 4:56 PM CDT Sent a refill for hydrocodone for to sign. * Telephone Encounter - Chante Paez - 11/04/2018 8:22 AM CDT Pt called back in regards to taking pain meds before surgery. Spoke with Abby who said he could not however the pt would like to speak to someone. Pt said he is in to much pain Who is calling? Self What is the reason for call? Pt would like to know if he could take pain rx before surgery . Expected Response from the Clinic? Please call back pt [phone] documented in this encounter Plan of Treatment Not on file documented as of this encounter Visit Diagnoses Not on filedocumented in this encounter Care Teams Decal Applier Relationship Specialty Start Date End Date Van Peter MD [address] [place] [address] PCP - General Family Medicine 07/23/18 11/11/18 Levi Yu DO Orthopedic Surgery 08/13/12 documented as of this encounter
--- OUTSIDE RECORDS SUMMARY | 2024-02-17 23:06 | XMS_ITS | Encounter Summary ---
Author Organization [facility] Address [address] [place] [address] Care Team Providers Care Test Rack Operator Name Role Phone Levi Yu DO Unavailable Van Peter MD Primary Care Provider [phone] Reason for Visit * Reason Onset Date Comments MEDICATION REFILL 11/04/2018 Encounter Details Date Type Department Care Team (Late st Contact Info) Description 11/04/2018 Refill [facility] Orthopedics [id number] [place] [phone] [place] [address] [address] MEDICATION REFILL Social History Tobacco [...] thigh documented in this encounter Care Teams Test Rack Operator Relationship Specialty Start Date End Date Van Peter MD [address] [place] [address] PCP - General Family Medicine 07/23/18 11/11/18 Levi Yu DO Orthopedic Surgery 08/13/12 documented as of this encounter
--- OUTSIDE RECORDS SUMMARY | 2024-02-17 23:06 | XMS_ITS | Encounter Summary ---
Author Organization [facility] [address] [address] Care Team Providers Care Bilingual Call Center Representative Name Role Phone Levi Yu DO Unavailable Van Peter MD Primary Care Provider [phone] Encounter Details Date Type Department Care Team (Latest Contact Info) Description 08/06/2018 9:13 AM CDT - 08/06/2018 11:59 PM CDT Hospital Encounter [facility] Pain Care [id number] [place] [id number] [place] [id number] [address] Discharge Disposition: Home or Self [...] Sign Reading Time Taken Comments Blood Pressure 156/81 08/06/2018 9:36 AM CDT Pulse 62 08/06/2018 9:36 AM CDT Temperature - - Respiratory Rate 16 08/06/2018 9:36 AM CDT Oxygen Saturation 94% 08/06/2018 9:36 AM CDT Inhaled Oxygen Concentration - - Weight - - Height - - Body Mass Index - - documented in this encounter Discharge Instructions * Patient Instructions* Margoth Simmons RN - 08/06/2018 9:14 AM CDT [facility] Pain Discharge Instructions Selective Epidural [...] headache, or any other problems, please call [phone] or after hours callDr. Thorne at [phone] and tell them your physician's name. The exchange will alert the physician station agent. If sedation is given: No sedation given. For Your Next Visit: No additional instructions. Other Instructions: May remove band-aid in 12 Hours. Return in 2 weeks or per . 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 Informed Consent: After the patient, Dillon Mejia, was informed of the risks and benefits of the procedure and all questions were answered, the consent was signed. Prep:Patient identified, proper procedure and site verified, marked by Dr. Thorne. In the supine position, left hip joint was identified under fluoroscopy and marked on the patient's skin. The skin was prepped in a routine sterile fashion using chloroprep. Responsible truck driver instructor not needed as the patient is not having sedation. The left hip joint was approached using a 22 gauge, 6 inch spinal needle after the skin and muscle overlying the hip joint was anesthetized using 1% lidocaine MPF muscle overlying the area. Once the needle was in proper position, 0.5ml of Isovue-M 200 was slowly injected to outline the left hip joint. The syringe was then changed and 2.0 ml of Kenalog 40 mg per ml and 3.0 ml of 1 % lidocaine was injected in a slow, incremental fashion The needle was removed, the skin was cleaned, and ensured nobleeding was noted. Total Lidocaine : 5ml Total Kenalog : 80mg Total Isovue-M 200 : 0.5ml, 9.5 ml wasted The patient tolerated the procedure well without complications. Vital signs stable. Injection site clean, dry, and intact. Post procedure instructions were given to the patient and follow up appointment was confirmed. The patient was discharged with information on how to reach the clinic at any time for questions or concerns. Patient ambulatory, denies complaints, DC to home. Procedure codes:18014 Santos Coley MD documented in this encounter Plan of Treatment Not on file documented as of this encounter Procedures Procedure Name Priority Date/Time Associated Diagnosis Comments PAIN MANAGEMENT PROCEDURE TIME Routine 08/06/2018 9:30 AM CDT Left hip pain documented in this encounter Results * PAIN MANAGEMENT PROCEDURE TIME (08/06/2018 9:30 AM CDT) Anatomical Region Laterality Modality X-Ray Angiograph y Narrative 08/06/2018 9:31 AM CDT Santos Coley MD ? 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 Informed Consent: After the patient, Dillon Mejia, was informed of the risks and benefits of the procedure and all questions were answered, the consent was signed. Prep:Patient identified, proper procedure and site verified, marked by Dr. Thorne. ??In the supine position, left ??hip joint was ??identified under fluoroscopy and ??marked on the patient's skin. The skin was prepped in a routine sterile fashion using chloroprep. Responsible truck driver instructor not needed as the patient is not having sedation. The left hip joint was approached using a 22 gauge, 6 inch spinal needle after the skin and muscle overlying the hip joint was anesthetized using ??1% lidocaine MPF ??muscle overlying the area. Once the needle was in proper position, 0.5ml of Isovue-M 200 was slowly injected to outline the left hip joint. The syringe was then changed and 2.0 ml of Kenalog 40 mg per ml ??and 3.0 ml of 1 % lidocaine was injected in a slow, incremental fashion ??The needle was removed, the skin was cleaned, and ensured no bleeding was noted. Total Lidocaine : 5ml Total Kenalog : 80mg Total Isovue-M 200 : 0.5ml, 9.5 ml wasted The patient tolerated the procedure well without complications. ?? Vital signs stable. Injection site clean, dry, and intact. Post procedure instructions were given to the patient and follow up appointment was confirmed. The patient was discharged with information on how to reach the clinic at any time for questions or concerns. Patient ambulatory, denies complaints, DC to home. Procedure codes:21858 Santos Coley MD ?? Santos Coley MD DIAGNOSTIC IMAGING O RDERABLES documented in this encounter Visit Diagnoses Diagnosis Left hip pain Pain in joint, pelvic region and thigh documented in this encounter Administered Medications Inactive Administered Medications - up to 3 most recent administrations Medication Order MAR Action Action Date Dose Rate Site iopamidol (ISOVUE M 200) 41 % contrast Intraspinal, CONTRAST ONCE, Starting on Sun08/06/18 at 0917, Until Sun08/07/18 at 0124, Used for myelograms $ Given - Contrast 08/06/2018 9:23 AM CDT 1 mL lidocaine (XYLOCAINE MPF) 1 % injection Infiltration, INTRA-PROCEDURE ONCE, 1 dose, On Sun08/06/18 at 0930 $ Admin. by Other Provider 08/06/2018 9:23 AM CDT 50 mg triamcinolone acetonide (KENALOG-40) injection 40 mg 40 mg, Intra-articular, ONCE, 1 dose, On Sun08/06/18 at 0945, Shake well before using. $ Admin. by Other Provider 08/06/2018 9:23 AM CDT 80 mg Left Hip documented in this encounter Care Teams Bilingual Call Center Representative Relationship Specialty Start Date End Date Van Peter MD [address] [place] [address] PCP - General Family Medicine 07/23/18 11/11/18 Levi Yu DO Orthopedic Surgery 08/13/12 documented as of this encounter
--- OUTSIDE RECORDS SUMMARY | 2024-02-17 23:06 | XMS_ITS | Encounter Summary ---
Author Organization [facility] Address [address] [facility] [place] [address] Care Team Providers Care Coil Cutter Name Role Phone Levi Yu DO Unavailable Van Peter MD Primary Care Provider [phone] Reason for Visit * Reason Comments Refill Request Encounter Details Date Type Department Care Team (Late st Contact Info) Description 08/30/2018 Refill [facility] Orthopedics [id number] [place] [phone] Levi Yu DO [address] [place] [id number] Refill Request Social History Tobacco Use Types Packs/Day Years [...] on filedocumented in this encounter Care Teams Coil Cutter Relationship Specialty Start Date End Date Van Peter MD [address] [place], [place] [id number] PCP - General Family Medicine 07/23/18 11/11/18 Levi Yu DO Orthopedic Surgery 08/13/12 documented as of this encounter
--- OUTSIDE RECORDS SUMMARY | 2024-02-17 23:06 | XMS_ITS | Encounter Summary ---
Author Organization [facility] Address [address] [facility] [place] [address] Care Team Providers Care Allergy Specialist Name Role Phone Levi Yu DO Unavailable Reason for Visit * Auth/Cert (Routine) Specialty Diagnoses / Procedures Referred By Pamelaac t Referred To Contact Diagnoses Unilateral primary osteoarthritis, right hip Procedures VT TOTAL HIP REPLACEMENT Referral ID Status Reason Start Date Expiration Date Visits Re quested Visits Authorized [id number] 11/06/2018 05/05/2019 1 1 Encounter Details Date Type Department Care Team (Late st Contact Info) Description 11/12/2018 8:30 AM CDT - 11/12/2018 11:00 AM CDT Surgery [facility] - Perioperative Surgery [address] [place] [address] [place] [id number] [facility] [address] [place] [address] LEFT TOTAL ANTERIOR HIP ARTHROPLASTY Surgery Details Date/Time Status Location OR Service Patient Class Case Class Case Type Trauma Case? 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 Admit Surgical Elective > 5 days Panel 1 Procedure LRB Anes Op Region Wound Class Comments LEFT TOTAL ANTERIOR HIP ARTHROPLASTY Left Spinal w/MAC Hip Clean Surgeon Surgeon Role Service Panel Frederick Helms IV, MD Primary Orthopedics 1 Special Needs BIOMET (DEANDRE) NOTIFIED-NB documented in this encounter Social History Tobacco [...] Sign Reading Time Taken Comments Blood Pressure 124/52 11/12/2018 11:00 AM CDT Pulse 62 11/12/2018 11:00 AM CDT Temperature 37.1 ??C (98.7 ??F) 11/12/2018 10:52 AM C DT Respiratory Rate 15 11/12/2018 11:00 AM CDT Oxygen Saturation 100% 11/12/2018 11:00 AM CDT Inhaled Oxygen Concentration - - [...] PM CDT Physician Discharge Summary Patient Name: iDllon Downey Date of : 1950 Admit date: [...] discharge diagnosis is: DJD (degenerative joint disease) [[id number]] No special diet needed Resume your normal [...] Frederick Helms IV, MD Specialty: Orthopedic Surgery [id number] [facility] [address] [facility] [address] follow up in office in 3 weeks Follow Up Instructions: follow up in office in 3 weeks [facility] Specialty: Home Health Services [address] [facility] [address] Discharge time: less than 30 minutes. Current [...] Functional Mobility: Transfers: Sit to Stand: Modified [place] Stand to Sit: Modified [place] ADL Tasks: Lower Body Dressing: (verbally discussed [...] intake when possible. 11/16/2018 1306 by Trevor Mardid RN Outcome: Goal Met 11/16/2018 1301 by Trevor Madrid RN Note: Patient continues to independently consume adequate fluids from water pitcher throughout shift Problem: Incision Care Goal: Incision remains intact with edges well approximated 11/16/2018 1306 by Trevor Madrid RN Outcome: [...] to manage pain throughout shift * Yamel Holly, PT - 11/16/2018 11:46 AM CDT Physical [...] to EOB) Transfers: Sit to Stand: Modified [place] Stand to Sit: Modified [place] Mobility: Distance Ambulated: 220 FEET Ambulation: Assistive Device: Gait Belt;Walker-2 Wheeled Ambulation: Level of Assistance: Modified [place] Ambulation: Gait Deviations: Doris - Decreased;Step Length - Decreased Weight Bearing Status-LLE: Weight Bearing as Tolerated Curb: Assistive Device: Gait Belt;Walker-2 Wheeled Curb: Level of Assistance: Modified [place];Stand By Assist Balance: Standing - Static: Fair [...] 151/65 Pulse: 66 65 62 72 Resp: Temp: 98.1 ??F (36.7 ??C) 98.1 ??F (36.7 ??C) 97.5 ??F (36.4 ??C) 98.4 ??F (36.9 ??C) SpO2: 97% 92% 96% 94% Weight: Height: Temp (30hrs) Max:98.4 ??F (36.9 ??C) Recent Labs Component Name 11/14/18 0259 11/13/18 0332 HGB 11.5* 13.1 HCT 35.2 39.4 No results for input(s): TROPONIN in the last 13038 hours. Recent Labs Component Name 08/21/12 0743 SODIUM 140 POTASSIUM 4.6 CHLORIDE 102 CO2 30 BUN 17 CREATININE 0.79 GLUCOSE 110* CALCIUM 9.1 No results for input(s): ALBUMIN, ALKPHOS, ALT, AST, TBIL, DBIL, TPROT in the last 74005 hours. No results for input(s): BNP in the last 02135 hours. No data found. MEDICATIONS FOR CURRENT [...] using a voice recognition system without human die holder. This report has not been adjusted for typographical, grammatical, and syntax mistakes by a trained biomedical scientist. * Martina Holly RN - 11/16/2018 2:59 AM CDT Shift Highlight: Patient up SBA per physical therapy. Voiding without difficulty per urinal. Encouraged patient to use Incentive Spirometer. Patient denied chest pain, SOB, and nausea. Cuero given for pain control. Ambien given for sleep. Brant Durán RN * Martina Holly RN - 11/15/2018 8:13 [...] Anticipated Discharge Date: 11/16/18 Anticipated discharge needs: HHC Barriers to discharge / additional discharge needs: None Additional comments: Plan for DC home tomorrow with c. Family to transport home. Per Nursing assessment: Transportation at discharge: Family Transportation (who): Rehabilitation Manager/Support: Rehabilitation Manager/Support Person - Relationship:: Zeynep Rehabilitation Manager person: Rehabilitation Manager/Support Person Contact #: [phone] Home/Functional Status: Functional and Cognitive Status Is [...] For any questions or needs please contact: Construction Project Manager Name/Phone number: Ashley Lanza RN * Naa [...] OBJECTIVE: Cognition: Cognition: Follows Commands-Consistent;Processing-Appropriate Pain Assessment: /10 pain in left hip Transfers: cg assist [...] to sit with modified independence (with leg bale stacker to assist left LE out of bed) [...] pack post-treatment. Family training session with patient's [id number] performed. Assessment/Plan: BID PT while hospitalized. Home PT after discharge. Martina Lyle, PT 11/15/2018 * Chante Georges, OT - 11/15/2018 10:31 AM CDT OT [...] to safely mange stairs. Pt clear on [employer] companies and is going to inquire with [...] Helms) Bed Mobility: Supine to Sit: Modified [place](with use of leg bale stacker and bed railing) Transfers: Sit to Stand: [...] Home PT after discharge. (Per rehab note, [facility] rehab is unable to accept the [...] CGA and walker Tegaderm/dermabond dressing is c/d/i Cuero for pain control Voiding VSS Will continue to monitor * Naa Pacheco RN - 11/14/2018 3:53 PM CDT Ortho progress note 11/14/2018 POD #2 Awake and alert Afebrile Dressing hip c/d/i Painful today Recent Labs Component Name 11/14/18 0259 11/13/18 0332 HGB 11.5* 13.1 HCT 35.2 39.4 Progressing with therapy Anticipate home on Sunday/Sat * Loreta Kirk RN - 11/14/2018 3:25 PM CDT M acute rehab cannot accept patient at this [...] Kirk RN, BSN Clinical Liaison * Brain Nicolas, DO - 11/14/2018 12:58 PM CDT Hospitalist [...] with modified independence (with use of leg bale stacker to assist left LE in/out of bed) [...] Cues for Safety ADL Tasks: Feeding: Complete [place] Oral Facial Hygiene: Stand By Assist(at sink) [...] ADLs, AE use and slowing pace. Pt. Srikanth's proper use of AE, with min VC's, [...] REHAB Vs. HOME WITH HOME HEALTH WITH / ASSIST AND SUPERVISION at discharge to maximize [...] precautions Bed Mobility: Supine to Sit: Modified [place](with use of leg bale stacker to assist left LE) Sit to Supine: Modified [place](with use of leg bale stacker to assist left LE) Transfers: Sit to Stand: (SBA from heightened seat; min assist from low seat height) Stand to Sit: Stand By Assist Car Transfer: Modified [place];Requires Verbal Cues for Technique(with use of leg bale stacker to assist left LE in/out of car) [...] 2nd floor bedroom/bathroom). Martina Lyle, PT x [phone] * Lona Burnett RN - 11/14/2018 6:07 [...] 1. Planning for home on Sunday. Thanks theresa nair * Maria C Licea RN - 11/13/2018 [...] home use. Martina Lyle, PT 11/13/2018 * Ashlye Lanza RN - 11/13/2018 12:52 PM CDT Case Management Initial Assessment Case Management screen completed & Welcome Letter given. Anticipated level of care at discharge: Home Health Care, Acute Rehab Facility Discharge Plans: home Basic Needs Assessment (BNA) Score: 5 Complex Needs Assessment (DEAN OF FACULTY) Score: 4 Social Support Domain Score: 0 Medical Status and Health Trajectory Domain Score: 4 Medical Home and Access to Services Domain Score: 0 Recommended Interventions for Patient:: Home Health Comment: Met with patient Lives with: Spouse Family Support (name and phone): Extended Emergency Contact Information Primary Emergency Contact: JESÚS DOWNEY [address]: [address] [place] [address] Relation: Spouse Secondary Emergency Contact: Home[facility]toin[facility] Relation: Other Anticipated Discharge Date: 11/15/18 Prior Level of Functioning: Independent Anticipated level of care at discharge: Home Health Care, Acute Rehab Facility Transportation at Discharge: Family Transportation to MD appointments:Family Equipment at Home: Equipment At Home: None Additional equipment needed at home but does not have: If no PCP, action taken: Pharmacy benefit: Yes Data Analytics Architect Referral: No If patient requires HHC at discharge, he/she requests: S/P Left total hip arthroplasty. Plan is to discharge home/[facility] acute rehab. Patient lives with spouse in a 2 story home with 2 steps to enter and 16 steps to the 2nd floor. Spouse will provide transportation at discharge. Pt needs a 2WW for home use. Agreeable to [facility]. Will continue to follow. For any questions or needs please contact: Construction Project Manager Name/Phone number: Ashley Lanza RN [phone] * Brain Nicolas, - 11/13/2018 12:30 PM CDT Hospitalist Progress [...] X4 Level of Consciousness-Adult: Alert Cognition: Follows Commands-Consistent;Attention/concentration-decreased;Processing-Appropriate;Yoli gement-decreased;Safety awareness-decreased;Impulsive Pain Assessment: Pain Rating Score #: (mod c/o pain with activity) Pain Location : Hip Pain Orientation: Left RUE Assessment: AROM - Right Upper Extremity: Within Functional Limits Strength - Right Upper Extremity: Within Functional Limits LUE Assessment: AROM - Left Upper Extremity: Within Functional Limits Strength - Left Upper Extremity: Within Functional Limits Basic ADL's: Feeding: Complete [place] Oral Facial Hygiene: Set-up(seated) Bathing: Maximal Assistance(Anticipate) [...] Activity at Home: Active;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 Provided patient with [facility] office number and letter. Thank you for the referral. Libby Chery LPN [facility] Home Health [employer] [phone] FAX [phone] After 4:30 or over the weekend call [phone] option 1 * Loreta Kirk RN - 11/13/2018 3:28 PM CDTAssociated Order(s): IP CONSULT TO PHYSICAL MED AND REHAB Please see previous note. Thank you. Loreta Kirk RN, BSN Clinical Liaison * Loreta Kirk RN - 11/13/2018 2:42 PM CDT [facility] acute rehab received referral on patient s/p FRANCESCO. Will meet and speak with patient and family about admission to rehab and approve through physician. Patient will need bowel movement prior to admision sp surgical intervention. Loreta Kirk RN, BSN Clinical Liaison * Matthew Nicolasellyalis Smith, - 11/12/2018 2:37 PM CDTAssociated Order(s): IP [...] file Gets together: Not on file Attends yazdanism service: Not on file Active member of [...] WBC, HGB, HCT, PLTCOUNT in the last 89917 hours. Recent Labs Component Name 08/21/12 0743 SODIUM 140 POTASSIUM 4.6 CHLORIDE 102 CO2 30 BUN 17 CREATININE 0.79 GLUCOSE 110* CALCIUM 9.1 EGFR >60 No results for input(s): TROPONIN in the last 25260 hours. No results for input(s): TSH in the last 25762 hours. Assessment and Plan S/p left total [...] IV, MD - 11/12/2018 11:54 AM CDT [facility] OPERATIVE REPORT PATIENT: : DILLON DOWNEY MR#: [id number] ADMIT DATE: 11/12/2018 CSN: [id number] DATE OF SURGERY: 11/12/2018 : 1950 PHYSICIAN: Frederick Helms MD ROOM: [facility] PREOPERATIVE DIAGNOSIS: Left hip degenerative joint disease. POSTOPERATIVE DIAGNOSIS: Left hip degenerative joint disease. PROCEDURE PERFORMED: Left total hip arthroplasty. BUSINESS DEVELOPMENT ANALYST: KOLTON Morgan. The skilled assistance of the CHRISTIAN/RN was necessary for the effective and successful completion of this case. The physician business support assistant was essential for the proper positioning, [...] by direct inspection. Femur was exposed with [id number] position. Posterior, medial, and superior retractors were [...] and extubated. Frederick Helms MD FT/MODL #: [id number] * Brief Op Note - Frederick Helms IV, MD - 11/12/2018 9:14 AM CDT Brief Op Note Procedure: LEFT TOTAL ANTERIOR HIP ARTHROPLASTY Patient Name: Dillon Downey Date of Service: 11/12/2018 Post-Operative Note 11/12/2018 Dillon Downey Date of Surgery: 11/12/2018 Surgeon: Frederick Helms IV, MD Pipe Fitter Maintenance: Cristian Preoperative Diagnosis: left hip djd Postoperative [...] AM Draw 11/13/2018 3:32 AM CDT [facility] Routine 11/12/2018 10:00 AM CDT Left hip pain VT TOTAL HIP REPLACEMENT 11/12/2018 8:17 AM CDT Special Needs BIOMET (DEANDRE) NOTIFIED-NB documented in this encounter Results * (ABNORMAL) HGB HCT PANEL (11/14/2018 2:59 AM CDT) Hemoglobin 11.5(L) 12.0 - 17.6 gm/dL 11/14/2018 3:15 AM CDT [facility] Hematocrit 35.2 35.2 - 51.7 % 11/14/2018 3:15 AM CDT [facility] Blood BLOOD SPECIMEN / Unknown Venipuncture / Unknown 11/14/2018 2:59 AM CDT 11/14/2018 3:10 AM CDT Frederick Helms IV, MD LAB - HEMATOLOGY ORD ERABLES [facility] [address] [place] [address] * HGB HCT PANEL (11/13/2018 3:32 AM CDT) Hemoglobin 13.1 12.0 - 17.6 gm/dL 11/13/2018 4:18 AM CDT [facility] Hematocrit 39.4 35.2 - 51.7 % 11/13/2018 4:18 AM CDT [facility] Blood BLOOD SPECIMEN / Unknown Venipuncture / Unknown 11/13/2018 3:32 AM CDT 11/13/2018 4:13 AM CDT Frederick Helms IV, MD LAB - HEMATOLOGY ORD ERABLES [facility] [address] [place] [address] * [facility] SURGERY (11/12/2018 10:00 AM [...] ES documented in this encounter Visit Diagnoses Not [...] PM CDT 3 mL acetaminophen (TYLENOL) tablet 650 mg 650 mg, Oral, EVERY 4 HOURS PRN, Fever, Mild Pain, Starting on Sun11/12/18 at 1025, Until 11/16/18 at 1547, For temperature greater [id number] degress F or for mild pain., Post-op amLODIPine (NORVASC) tablet 5 mg 5 mg, Oral, DAILY AFTER DINNER, First dose on Sun11/12/18 at 1900, Until Discontinued $ Given 11/16/2018 11:49 AM C DT 5 mg $ Given 11/15/2018 6:36 PM [...] Given 11/15/2018 6:36 PM CDT 5 mg bupivacaine 0.5% - EPINEPHrine 1:200,000 (PF) injection PRN, Starting on Sun11/12/18 at 0914, Until Sun11/12/18 at 1051, Intra-op $ Given 11/12/2018 9:14 AM CDT 60 mL Left Hip celecoxib (CeleBREX) capsule 400 mg 400 mg, Oral, DAILY, First dose on Sun11/13/18 at 0900, Until Discontinued, Post-op $ Given 11/16/2018 8:06 AM CDT 400 mg $ Given 11/15/2018 8:39 AM CDT 400 mg $ Given 11/14/2018 9:12 AM CDT 400 mg chlorhexidine gluconate (IRRISEPT) 0.05 % solution PRN, Starting on Sun11/12/18 at 0914, Until Sun11/12/18 at 1051, Intra-op $ Given 11/12/2018 9:14 AM CDT 450 mL Left Hip diphenhydrAMINE (BENADRYL) capsule 25 mg 25 mg, [...] at 1025, Until 11/16/18 at 1547, Post-op HYDROcodone-acetaminophen (NORCO) 10-325 MG tablet 1 tablet [...] Until 11/16/18 at 1547 ketorolac (TORADOL) injection PRN, Starting on Sun11/12/18 at 0914, Until Sun11/12/18 at 1051, Intra-op $ Given 11/12/2018 9:14 AM CDT 30 mg Left Hip lactated ringers infusion at 100 mL/hr, Intravenous, CONTINUOUS, Starting on Sun11/12/18 at 1030, Until Sun11/16/18 at 1547, Post-op $ New Bag/Syringe 11/12/2018 10:12 PM CDT 100 mL/hr $ New Bag/Syringe 11/12/2018 1:18 PM CDT 100 mL /hr lisinopril (PRINIVIL; ZESTRIL) tablet 10 mg 10 [...] Given 11/15/2018 10:08 AM CDT 30 mL morphine (PF) injection PRN, Starting on Sun11/12/18 at 0914, Until Sun11/12/18 at 1051, Intra-op $ Given 11/12/2018 9:14 AM CDT 10 mg Left Hip ondansetron (ZOFRAN) injection 4 mg 4 mg, Intravenous, EVERY 6 HOURS PRN, Nausea/Vomiting, Starting on Sun11/13/18 at 0600, Until 11/16/18 at 1547, May repeat x1 if no relief for total of 8 mg., Post-op oxyCODONE-acetaminophen (PERCOCET) 10-325 MG tablet 1 tablet 1 tablet, Oral, EVERY 4 HOURS PRN, Moderate Pain, Starting on Sun11/12/18 at 1025, Until 11/16/18 at 1547 oxyCODONE-acetaminophen (PERCOCET) 10-325 MG tablet 2 tablet 2 tablet, Oral, EVERY 6 HOURS PRN, Severe Pain, Starting on Sun11/12/18 at 1025, Until 11/16/18 at 1547 senna-docusate (SENOKOT-S) tablet 1 tablet 1 tablet, [...] If bisacodyl ineffective use Fleets enema., Post-op tranexamic acid (CYKLOKAPRON) injection PRN, Starting on Sun11/12/18 at 0914, Until Sun11/12/18 at 1051, Intra-op $ Given 11/12/2018 9:14 AM CDT 1,000 mg Left Hip vancomycin (VANCOCIN) injection PRN, Starting on Sun11/12/18 at 0914, Until Sun11/12/18 at 1051, Intra-op $ Given 11/12/2018 9:14 AM CDT 1,000 mg Left Hip zolpidem (AMBIEN) tablet 5 mg 5 mg, [...] Burnett RN)1458 ($ Given - Provider: Estefania Noe RN)2005 ($ Given - Provider: Annie Pang RN) 0358 ($ Given - Provider: Martina Holly RN)0401 (Canceled Entry - Provider: Martina Holly RN)1556 ($ Given - Provider: Rossy Lancaster RN)2122 ($ Given - Provider: Martina Holly RN) 0557 ($ Given - Provider: Martina Holly RN)1446 (Not Administered - Provider: Trevor Madrid RN - Reason: Loss of Access) amLODIPine (NORVASC) tablet 5 mg 5 mg, Oral, DAILY AFTER DINNER, First dose on Sun11/12/18 at 1900, Until Discontinued 185 ($ Given - Provider: Estefania Noe RN) 1836 ($ Given - Provider: Rossy Lancaster RN) 1149 ($ Given - Provider: Trevor Madrid RN) aspirin chew tablet 81 mg 81 mg, Oral, 2 TIMES DAILY, First dose on Sun11/13/18 at 0900, Until Discontinued 09 ($ Given - Provider: Estefania Noe RN)2005 ($ Given - Provider: Annie Pang RN) 0839 ($ Given - Provider: Rossy Lancaster RN)2121 ($ Given - Provider: Martina Holly RN) 0806 ($ Given - Provider: Trevor Madrid RN) celecoxib (CeleBREX) capsule 400 mg 400 mg, Oral, DAILY, First dose on Sun11/13/18 at 0900, Until Discontinued, Post-op 09 ($ Given - Provider: Estefania Noe RN) 0839 ($ Given - Provider: Rossy Lancaster RN) 0806 ($ Given - Provider: Trevor Madrid RN) lisinopril (PRINIVIL; ZESTRIL) tablet 10 mg (CANCELED) 10 mg, Oral, 2 TIMES DAILY, First dose (after last modification) on Sun11/13/18 at 2100, Until Discontinued 911 ($ Given - Provider: Estefania Noe RN)2006 ($ Given - Provider: Annie Pang RN) 0839 ($ Given - Provider: Rossy Lancaster, THERESA) lisinopril (PRINIVIL; ZESTRIL) tablet 10 mg 10 mg, Oral, DAILY, First dose (after last modification) on 11/16/18 at 0900, Until Discontinued 805 ($ Given - Provider: Trevor Madrid RN) senna-docusate (SENOKOT-S) tablet 1 tablet 1 tablet, Oral, 2 TIMES DAILY, First dose on Sun11/12/18 at 2100, Until Discontinued, Post-op 09 ($ Given - Provider: Estefania Noe RN)2005 ($ Given - Provider: Annie Pang RN) 838 ($ Given - Provider: Rossy Lancaster, THERESA)2121 ($ Given - Provider: Martina Holly RN) 805 ($ Given - Provider: Trevor Madrid RN) Continuous Medication Order 11/14/2018 11/15/2018 11/16/2018 lactated ringers infusion at 100 mL/hr, Intravenous, CONTINUOUS, Starting on Sun11/12/18 at 1030, Until 11/16/18 at 1547, Post-op PRN Medication Order 11/14/2018 11/15/2018 11/16/2018 acetaminophen (TYLENOL) tablet 650 mg 650 mg, Oral, EVERY 4 HOURS PRN, Fever, Mild Pain, Starting on Sun11/12/18 at 1025, Until 11/16/18 at 1547, For temperature greater [id number] degress F or for mild pain., Post-op [...] EVERY 8 HOURS PRN, Itching, Starting on 11/12/18 at 1025, Until 11/16/18 at 1547, Post-op diphenhydrAMINE (BENADRYL) capsule 50 mg(Linked Group 2) 50 mg, Oral, EVERY 8 HOURS PRN, Itching, Starting on 11/12/18 at 1025, Until 11/16/18 at 1547, May give 50 mg if 25 mg is ineffective., Post-op famotidine (PEPCID) tablet 20 mg 20 mg, Oral, 2 TIMES DAILY PRN, Heartburn, Starting on 11/12/18 at 1025, Until 11/16/18 at 1547, Post-op HYDROcodone-acetaminop hen (NORCO) 10-325 MG tablet 1 tablet 1 tablet, Oral, EVERY 4 HOURS PRN, Severe Pain, Starting on 11/12/18 at 1025, Until 11/16/18 at 1547, Post-op 0016 ($ Given - Provider: Lona Burnett RN)0651 ($ Given - Provider: Lona Burnett RN)1115 ($ Given - Provider: Estefania Noe RN)1534 ($ Given - Provider: Estefania Noe RN)2005 ($ Given - Provider: Annie Pang RN) 0005 ($ Given - Provider: Annie Pang RN)0358 ($ Given - Provider: Martina Holly RN)0839 ($ Given - Provider: Rossy Lancaster RN)1247 ($ Given - Provider: Rossy Lancaster RN)1657 ($ Given - Provider: Rossy Lancaster RN)2123 ($ Given - Provider: Martina Holly RN) 0133 ($ Given - Provider: Martina Holly RN)0557 ($ Given - Provider: Martina Holly RN)1016 ($ Given - Provider: Trevor Madrid RN)1431 ($ Given - Provider: Trevor Madrid RN) HYDROmorphone (DILAUDID) injection 0.5 mg 0.5 mg, [...] Post-op 1008 ($ Given - Provider: Rossy Lancaster RN)1836 (See Alternative - Provider: Rossy Lancaster RN) 0806 ($ Given - Provider: Trevor Madrid [...] Alternative - Provider: Rossy Lancaster, THERESA) 0806 (See Alternative - Provider: Trevor Madrid RN) zolpidem (AMBIEN) tablet 5 mg 5 mg, [...] Post-op documented in this encounter Care Teams Allergy Specialist Relationship Specialty Start Date End Date Levi Yu DO Orthopedic Surgery 08/13/12 documented as of this encounter
--- OUTSIDE RECORDS SUMMARY | 2024-02-17 23:07 | XMS_ITS | Encounter Summary ---
Author Organization [facility] Address [address] [facility] [place] [address] Care Team Providers Care Ship Harbor Pilot Name Role Phone Levi Yu DO Unavailable Van Peter MD Primary Care Provider [phone] Reason for Visit * Reason Comments Pain Hip left Pain Back Encounter Details Date Type Department Care Team (Latest Contact Info) Description 07/23/2018 9:00 AM CDT Office Visit [facility] Care [id number] [place] [address]. [place] [address] [place] [id number] [place] [address] Myofascial pain (Primary Dx); Piriformis muscle pain; Primary osteoarthritis of left hip; Spinal stenosis of lumbar region, unspecified whether neurogenic claudication present; Lumbar radiculitis Social History Tobacco Use Types [...] Sign Reading Time Taken Comments Blood Pressure 161/82 07/23/2018 8:39 AM CDT Pulse 67 07/23/2018 8:39 AM CDT Temperature - - Respiratory Rate - - Oxygen Saturation - - Inhaled Oxygen Concentration - - Weight 158.8 kg (350 lb) 07/23/2018 8:39 AM CDT Height 188 cm (6' 2 ) 07/23/2018 8:39 AM CDT Body Mass Index 44.94 07/23/2018 8:39 AM CDT documented in this encounter Patient Instructions * Patient Instructions* Santos Coley MD - 07/23/2018 9:01 AM CDT Follow given instructions. F/U 2 weeks. Call for any issues. documented in this encounter Progress Notes * Santos Coley MD - 07/23/2018 9:01 AM CDT Please see dictated clinic note. documented in this encounter H&P Notes * Santos Coley MD - 07/23/2018 9:13 PM CDT DATE OF SERVICE: 07/23/2018 REFERRING PHYSICIAN: Levi Yu D.O. HISTORY: Mr. Mejia is seen in our office today for complaints of pain around the left inferolateral gluteal region and upper left lateral thigh region since February 2018. Symptoms were spontaneous in onset . Symptoms are worse with walking and also on movement of the left hip. He has some relief on using NSAIDs. He denies any fever or chills. He denies any new onset of bowel or bladder dysfunction. PAST MEDICAL/SURGICAL HISTORY: Reviewed and includes high blood pressure, osteoarthritis, right knee arthroscopic surgery and lumbar spine surgery including fusion. FAMILY HISTORY: High blood pressure and heart disease. MEDICATIONS: Current medications are reviewed. ALLERGIES: No known drug allergies. REVIEW OF SYSTEMS: Patient denies any fever, chills, chest pains, calf cramps with walking, diarrhea, dysuria, hot or cold spells, nausea or vomiting, nosebleeds, hoarseness, loss of hearing, ear pain, change of vision, stomach pain or ulcers, bowel or bladder dysfunction, shortness of breath, loss of appetite, difficulty swallowing, abnormal heartbeat, swollen ankles, cough, headaches, blackouts, seizures, rash, recent weight change or nervous exhaustion. SOCIAL HISTORY: He is retired and lives with his . He denies the use of tobacco, alcohol, or drugs. He limits his alcohol intake to less than 4 drinks a week. PHYSICAL EXAM: Mr. Mejia is a 67-year-old male who is 6 feet 2 inches in height and weighs 350 pounds. Blood pressure 161/82, pulse rate is 67. He rates his pain at times to be 10/10. No calf tenderness is noted bilaterally. EXAMINATION OF GAIT: He is able to ambulate with decreased stride length on the left. CERVICAL SPINE EXAM: No paravertebral muscle spasm or tenderness is noted. Range of motion is decreased in extension and lateral flexion and lateral rotation without pain. Spurling's test is negative. LUMBOSACRAL SPINE EXAM: No paravertebral muscle spasm is noted. No tenderness is noted. Range of motion is decreased in all planes without pain. Radicular signs are negative. BILATERAL HIP EXAM: Tenderness is elicited in the left piriformis musculature. Two trigger points are identified. Stretching of the piriformis causes some pain and reproduces some of his symptoms. Range of motion is limited in the left hip on internal and external rotation with pain. Pain is predominantly in the inferolateral gluteal region and upper left lateral thigh region. Trochanteric regions are nontender. Hamstring tightness is noted bilaterally. BILATERAL SACROILIAC JOINT EXAM: Bilateral sacroiliac joints are nontender to palpation. David's test was negative for SI joint pain bilaterally. No asymmetry in movement pattern was noted. NEUROLOGIC EXAM: Motor, bulk and tone are normal in both lower extremities. Motor strength testing reveals 5/5 in all muscle groups in both lower extremities. Deep tendon reflexes are 1+ throughout except in the right ankle which are absent. Plantar response was flexor bilaterally. No focal sensory deficit was noted. RADIOGRAPHS: Plain x-rays of the left hip revealed evidence of left hip DJD. MRI of the lumbar spine done on 06/21/2018 revealed evidence of multilevel lumbar DJD. Fusion at the L5-S1 level was noted. Facet arthropathy is noted at multiple levels. Diffuse disk bulge is noted at multiple levels. Bilateral foraminal narrowing is noted at multiple levels. Central canal stenosis is noted at multiple levels and appears moderate at the L4-5 level, mild to moderate at the L3-4, moderate at the L2-3 level and L1-2 level. IMPRESSION: 1. Left piriformis myofascial pain. 2. Left hip degenerative joint disease. 3. Lumbar stenosis. 4. Possible lumbar radiculitis. 5. Left hip pain. PLAN: I discussed the clinical and radiological findings with the patient. Further treatment options including an exercise program, use of analgesics, and NSAIDs on as-needed basis and cortisone injections were discussed. He would like to proceed with the cortisone injection. Under aseptic precautions, the left piriformis trigger points were injected with 1 cc of Kenalog 40 mg/cc and 5 cc of 1% lidocaine distributed equally in the 2 sites. No immediate complications were noted. He was also provided with a home exercise program. He would follow up with me in 2 weeks. If his symptoms persist, he may consider a left hip joint injection. The left hip joint injection will be both diagnostic and therapeutic. Yris, medical clinic manager, was present during the examination, discussion, and injection. Santos Thorne M.D. TERI/Giancarlo #: [id number] documented in this encounter Plan of Treatment Not on file documented as of this encounter Visit Diagnoses Diagnosis Myofascial pain- Primary Mylagia and myositis, unspecified Piriformis muscle pain Mylagia and myositis, unspecified Primary osteoarthritis of left hip Primary localized osteoarthrosis, pelvic region and thigh Spinal stenosis of lumbar region, unspecified whether neurogenic claudication present Lumbar radiculitis Thoracic or lumbosacral neuritis or radiculitis, unspecified documented in this encounter Administered Medications Inactive Administered Medications - up to 3 most recent administrations Medication Order MAR Action Action Date Dose Rate Site lidocaine (XYLOCAINE MPF) 1 % injection Intramuscular, ONCE, 1 dose, On Sun07/23/18 at 0915 $ Given 07/23/2018 9:27 AM CDT 5 mL Buzz mendez triamcinolone acetonide (KENALOG-40) injection 40 mg 40 mg, Intramuscular, ONCE, 1 dose, On Sun07/23/18 at 0915, Shake well before using. $ Given 07/23/2018 9:28 AM CDT 40 mg See Rashid mendez documented in this encounter Care Teams Ship Harbor Pilot Relationship Specialty Start Date End Date Van Peter MD [address] [place] [address] PCP - General Family Medicine 07/23/18 11/11/18 Levi Yu DO Orthopedic Surgery 08/13/12 documented as of this encounter
--- OUTSIDE RECORDS SUMMARY | 2024-02-17 23:07 | XMS_ITS | Encounter Summary ---
Author Organization [facility] Address [address] [facility] [place] [address] Care Team Providers Care Avionic Technician Name Role Phone Levi Yu DO Unavailable Van Peter MD Primary Care Provider [phone] Reason for Visit * Reason Comments Refill Request Encounter Details Date Type Department Care Team (Late st Contact Info) Description 07/31/2018 Refill [facility] Orthopedics [id number] [place] [phone] Levi Yu, [address] [place] [address] Refill Request Social History Tobacco Use [...] encounter Miscellaneous Notes * Telephone Encounter - Demi Hughes RN - 07/31/2018 9:27 AM CDT Medication refill request sent to Dr. Yu for approval. documented in this encounter Plan of Treatment Not on file documented as of this encounter Visit Diagnoses Not on filedocumented in this encounter Care Teams Avionic Technician Relationship Specialty Start Date End Date Van Peter MD [address] [place] [address] PCP - General Family Medicine 07/23/18 11/11/18 Levi Yu DO Orthopedic Surgery 08/13/12 documented as of this encounter
--- OUTSIDE RECORDS SUMMARY | 2024-02-17 23:08 | XMS_ITS | Encounter Summary ---
Author Organization [facility] Address [address] [place] [address] Care Team Providers Care Shipsmith Name Role Phone Chantel Nassar MD Primary Care Provider [phone] Levi Yu DO Unavailable Reason for Referral * Radiology Services (Routine) - Closed Specialty Diagnoses / Procedures Referred By Antelmo paulino Referred To Contact MRI Diagnoses Spinal stenosis of lumbar region, unspecified whether neurogenic claudication present Procedures [place] [address] [address] [place] [id number] Referral ID Status Reason Start Date Expiration Date Visits Re quested Visits Authorized [id number] Closed 06/12/2018 12/09/2018 1 1 Reason for Visit * Reason Comments Follow-up spinal stenosis lumb ar Encounter Details Date Type Department Care Team (Late st Contact Info) Description 06/12/2018 2:40 PM CDT Office Visit [facility] Orthopedics [id number] [place] [address], [address] [place] [address] [place] [address] [address] [place] [address] Spinal stenosis of lumbar region, unspecified whether neurogenic claudication present (Primary Dx) Social History Tobacco Use Types [...] this encounter Patient Instructions * Patient Instructions* Demi Hughes RN - 06/12/2018 2:31 PM CDT Please call the office with any further concerns or problems. documented in this encounter Progress Notes * Demi Hughes RN - 06/12/2018 2:30 PM CDT spinal stenosis lumbar documented in this encounter H&P Notes * Levi Yu DO - 06/13/2018 4:14 AM CDT DATE OF SERVICE: 06/12/2018 EXAMINATION: Patient has no neurologic or tendon deficit. Continues to have sciatic tenderness on the right, radiating down. TREATMENT: Patient will have an MRI of the lumbar spine with followup care as indicated. Colleen Sandoval/Giancarlo #: [id number] documented in this encounter Plan of Treatment Not on file documented as of this encounter Results * MRI LUMBAR SPINE WWO CONTRAST (06/21/2018) Anatomical Region Laterality Modality Spine Magnetic Resonan ce Levi Yu DO MR ORDERABLES documented in this encounter Visit Diagnoses Diagnosis Spinal stenosis of lumbar region, unspecified whether neurogenic claudication present- Primary documented in this encounter Care Teams Shipsmith Relationship Specialty Start Date End Date Chantel Nassar MD PCP - General Family Medicine 08/13/12 07/22/18 Levi Yu DO Orthopedic Surgery 08/13/12 documented as of this encounter
--- OUTSIDE RECORDS SUMMARY | 2024-02-17 23:08 | XMS_ITS | Encounter Summary ---
Author Organization [facility] Address [address] [place] [address] Care Team Providers Care Application Integration Specialist Name Role Phone Chantel Nassar MD Primary Care Provider [phone] Levi Yu DO Unavailable Reason for Visit * Reason Onset Date Comments Medication Issue 07/03/2018 Encounter Details Date Type Department Care Team (Late st Contact Info) Description 07/03/2018 Telephone [facility] Orthopedics [id number] [place] [phone] Levi Yu, [id number] [place] [address] Medication Issue Social History Tobacco Use Types Packs/Day Years [...] encounter Miscellaneous Notes * Telephone Encounter - Tammy Tenorio - 07/03/2018 3:59 PM CDT Returned call. Patient said he received a phone call saying his insurance was denying the Relafen and gave him how to appeal the decision if he wanted. He said he would just like to have the Naprosynordered. * Telephone Encounter - Filomena Rowan - 07/03/2018 2:29 PM CDT Who is calling? self What is the reason for call? The patient states that he is returning the MA's call. Expected Response from the Clinic? He can be reached at [phone]. * Telephone Encounter - Tammy Tenorio - 07/03/2018 10:49 AM CDT Returned call. Patient says his Part D is thru [facility]. ID # is [id number]. Their phone # is [phone]. I will try to get Relafen authorization. If we can't, then Dr. Yu will change to Naprosyn 500 mg. * Telephone Encounter - Margie Mcgraw - 07/03/2018 10:39 AM CDT Who is calling? self What is the reason for call? Pt called to state that he was told by the pharmacy that his Rx for Relafen was not approved by his insurance. Pt would like to know if there is a substitute that he can have instead Expected Response from the Clinic? Please call pt back at: [phone], ok to leave detailed message documented in this encounter Plan of Treatment Not on file documented as of this encounter Visit Diagnoses Not on filedocumented in this encounter Care Teams Application Integration Specialist Relationship Specialty Start Date End Date Chantel Nassar MD PCP - General Family Medicine 08/13/12 07/22/18 Levi Yu DO Orthopedic Surgery 08/13/12 documented as of this encounter
--- OUTSIDE RECORDS SUMMARY | 2024-02-17 23:08 | XMS_ITS | Encounter Summary ---
Author Organization [facility] Address [address] [place] [address] Care Team Providers Care Education Department Registrar Name Role Phone Chantel Nassar MD Primary Care Provider [phone] Levi Yu DO Unavailable Reason for Visit * Reason Onset Date Comments Results 06/28/2018 Encounter Details Date Type Department Care Team (Late st Contact Info) Description 06/28/2018 Telephone [facility] Orthopedics [id number] [place] [phone] Levi Yu, [address] [place] [address] Results Social History Tobacco Use Types Packs/Day [...] encounter Miscellaneous Notes * Telephone Encounter - Luisa Millan - 06/28/2018 12:20 PM CDT Called patient and is aware Dr. Yu is out of the office until Sunday. Test results will be addressed at the time * Telephone Encounter - Margie Mcgraw - 06/28/2018 10:43 AM CDT Who is calling? Self What is the reason for call? Pt called to state that he would like to have a call back to discuss his MRI results from 06/21 Expected Response from the Clinic? Please call pt back at: [phone] documented in this encounter Plan of Treatment Not on file documented as of this encounter Visit Diagnoses Not on filedocumented in this encounter Care Teams Education Department Registrar Relationship Specialty Start Date End Date Chantel Nassar MD PCP - General Family Medicine 08/13/12 07/22/18 Levi Yu DO Orthopedic Surgery 08/13/12 documented as of this encounter
--- OUTSIDE RECORDS SUMMARY | 2024-02-17 23:08 | XMS_ITS | Encounter Summary ---
Author Organization [facility] Address [address] [facility] [place] [address] Care Team Providers Care Plant Breeder Scientist Name Role Phone Chantel Nassar MD Primary Care Provider [phone] Levi Yu DO Unavailable Reason for Visit * Reason Onset Date Comments MEDICATION REFILL 07/03/2018 Encounter Details Date Type Department Care Team (Late st Contact Info) Description 07/03/2018 Refill [facility] Orthopedics [address] [place] [phone] [place] [id number] [place] [address] MEDICATION REFILL Social History Tobacco Use [...] on filedocumented in this encounter Care Teams Plant Breeder Scientist Relationship Specialty Start Date End Date Chantel Nassar MD PCP - General Family Medicine 08/13/12 07/22/18 Levi Yu DO Orthopedic Surgery 08/13/12 documented as of this encounter
--- OUTSIDE RECORDS SUMMARY | 2024-02-17 23:08 | XMS_ITS | Encounter Summary ---
Author Organization [facility] Address [address] [facility] [place] [address] Care Team Providers Care Engraver Jewelry Name Role Phone Chantel Nassar MD Primary Care Provider [phone] Levi Yu DO Unavailable Reason for Visit * Reason Comments Refill Request Encounter Details Date Type Department Care Team (Late st Contact Info) Description 11/02/2017 Refill [facility] Orthopedics [address] [place] [address] [place] [id number] [place] [address] Refill Request Social History Tobacco Use [...] * Telephone Encounter - Jessie Valenzuela - 11/02/2017 2:37 PM CDT Called patient and informed his that doctor out the office and will be reviewed on Sunday. documented in this encounter Plan of Treatment Not on file documented as of this encounter Visit Diagnoses Not on filedocumented in this encounter Care Teams Engraver Jewelry Relationship Specialty Start Date End Date Chantel Nassar MD PCP - General Family Medicine 08/13/12 07/22/18 Levi Yu DO Orthopedic Surgery 08/13/12 documented as of this encounter
--- OUTSIDE RECORDS SUMMARY | 2024-02-17 23:08 | XMS_ITS | Encounter Summary ---
Author Organization [facility] Address [address] [facility] [place] [address] Care Team Providers Care Assembler Gold Frame Name Role Phone Chantel Nassar MD Primary Care Provider [phone] Levi Yu DO Unavailable Encounter Details Date Type Department Care Team (Late st Contact Info) Description 07/02/2018 Orders Only [facility] Orthopedics [address] [address] [place] [address] [address] Spinal stenosis of lumbar region, unspecified whether neurogenic claudication present Social History Tobacco Use Types Packs/Day Years [...] Name Priority Date/Time Associated Diagnosis Comments MRI LUMBAR SPINE WWO CONTRAST Routine 06/21/2018 Spinal stenosis of lumbar region, unspecified whether neurogenic claudication present documented in this encounter Results * MRI LUMBAR SPINE WWO CONTRAST (06/21/2018) Anatomical Region Laterality Modality Spine Magnetic Resonan ce Levi Yu DO MR ORDERABLES documented in this encounter Visit Diagnoses Diagnosis Spinal stenosis of lumbar region, unspecified whether neurogenic claudication present documented in this encounter Care Teams Assembler Gold Frame Relationship Specialty Start Date End Date Chantel Nassar MD PCP - General Family Medicine 08/13/12 07/22/18 Levi Yu DO Orthopedic Surgery 08/13/12 documented as of this encounter
--- OUTSIDE RECORDS SUMMARY | 2024-02-17 23:08 | XMS_ITS | Encounter Summary ---
Author Organization [facility] Address [address] [facility] [place] [address] Care Team Providers Care Blood Bank Laboratory Technician Name Role Phone Chantel Nassar MD Primary Care Provider [phone] Levi Yu DO Unavailable Reason for Visit * Reason Onset Date Comments Results 07/02/2018 Encounter Details Date Type Department Care Team (Late st Contact Info) Description 07/02/[address] [facility] Orthopedics [address] [place] [phone] Levi Yu, [address] [place] [address] Results Social History Tobacco Use Types [...] * Telephone Encounter - Tammy Tenorio - 07/02/2018 1:[address] Yu called patient and left message with lumbar spine MRI results. He is ordering Relafen 750 mg for him and wants to see him back in the office in two weeks. documented in this encounter Plan of Treatment Not on file documented as of this encounter Visit Diagnoses Not on filedocumented in this encounter Care Teams Blood Bank Laboratory Technician Relationship Specialty Start Date End Date Chantel Nassar MD PCP - General Family Medicine 08/13/12 07/22/18 Levi Yu DO Orthopedic Surgery 08/13/12 documented as of this encounter
--- OUTSIDE RECORDS SUMMARY | 2024-02-17 23:08 | XMS_ITS | Encounter Summary ---
Author Organization [facility] Address [address] [facility] [place] [address] Care Team Providers Care Fabrication Lead Name Role Phone Chantel Nassar MD Primary Care Provider [phone] Levi Yu DO Unavailable Reason for Visit * Reason Comments Follow-up right shoulder pain Encounter Details Date Type Department Care Team (Late st Contact Info) Description 11/14/2017 1:40 PM CDT Office Visit [facility] Orthopedics [address] [place] [phone] Levi Yu, [id number] [place] [address] Tear of biceps tendon (Primary Dx) Social History Tobacco Use Types [...] this encounter Patient Instructions * Patient Instructions* Tammy Tenorio - 11/16/2017 10:21 AM CDT Please call the office with any questions or concerns. documented in this encounter Progress Notes * Jessie Valenzuela - 11/14/2017 1:32 PM CDT right shoulder pain documented in this encounter H&P Notes * Levi Yu DO - 11/15/2017 3:27 AM CDT DATE OF SERVICE: 11/14/2017 EAMINATION: The patient has good position and healing of tenosynovitis. No neurologic or tendon deficit. He is ambulating quite well, full weightbearing of his elbow with no swelling, erythema, or drainage. Excellent range of motion of shoulder and elbow. Excellent strength. TREATMENT: He is to return to the office with problems. Released for unlimited activity. Colleen SandovalW/Giancarlo #: [id number] documented in this encounter Plan of Treatment Not on file documented as of this encounter Visit Diagnoses Diagnosis Tear of biceps tendon- Primary documented in this encounter Care Teams Fabrication Lead Relationship Specialty Start Date End Date Chantel Nassar MD PCP - General Family Medicine 08/13/12 07/22/18 Levi Yu DO Orthopedic Surgery 08/13/12 documented as of this encounter
--- OUTSIDE RECORDS SUMMARY | 2024-02-17 23:08 | XMS_ITS | Encounter Summary ---
Author Organization [facility] Address [address] [facility] [place] [address] Care Team Providers Care Dean Of Admissions Name Role Phone Chantel Nassar MD Primary Care Provider [phone] Levi Yu DO Unavailable Reason for Visit * Reason Comments Lower Extremity Problem NDX left lateral hip pain for last 3 months/no xr/has meloxicam at home Encounter Details Date Type Department Care Team (Late st Contact Info) Description 06/05/2018 12:45 PM CDT Office Visit [facility] Orthopedics [address] [place] [id number] Levi Yu, [id number] [place] [id number] Spinal stenosis of lumbar region, unspecified whether neurogenic claudication present (Primary Dx); Left hip pain Social History Tobacco Use [...] - - Weight 158.8 kg (350 lb) 06/05/2018 12:43 PM CDT Height 188 cm (6' 2 ) 06/05/2018 12:43 PM CDT Body Mass Index 44.94 06/05/2018 12:43 PM CDT documented in this encounter Patient Instructions * Patient Instructions* Demi Hughes RN - 06/05/2018 12:43 PM CDT Please call the office with any further concerns or problems. documented in this encounter Progress Notes * Demi Hughes RN - 06/05/2018 12:39 PM CDT NDX left lateral hip pain for last 3 months/has meloxicam at home documented in this encounter H&P Notes * Levi Yu DO - 06/06/2018 1:05 PM CDT DATE OF SERVICE: 06/05/2018 HISTORY: Patient has a dull ache to sharp pain in his left hip sciatic area radiating down to his leg. He has no neurologic or tendon deficit. He has increased amount of pain with activity. He did take some Mobic and had some mild relief from the symptoms. EXAMINATION: He has straight leg raising to 90 degrees and negative David test on the left. His Achilles reflex on the left is absent, the right is 2+/4+. He has good toe extensor strength. He has lower lumbar muscle spasm and tenderness to palpation. X-RAYS: He was x-rayed and fusion L5-S1 is in place. He has no subluxation or dislocation. 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 X-rays of the hip revealed a good bone density. There is no evidence of acute or chronic osseous trauma. His joint space is well maintained. There is no tumor or infection. IMPRESSION: He has spinal stenosis. TREATMENT: Given a Medrol Dosepak, Percocet for discomfort, and to return to the office in 2 weeks. Levi Yu D.O. HARJINDER/ElvinQ #: [id number] documented in this encounter Procedure Notes * Christen Rock RT(R) - 06/05/2018 12:57 PM CDTAssociated Order(s): XR HIP LEFT 2VW OR MORE; XR LUMBAR SPINE 2 OR 3VW See progress notes for results documented in this encounter Plan of Treatment Not on file documented as of this encounter Procedures Procedure Name Priority Date/Time Associated Diagnosis Comments XR HIP LEFT 2VW OR MORE Routine 06/05/2018 12:56 PM CDT Left hip pain documented in this encounter Results * XR LUMBAR SPINE 2 OR 3VW (06/05/2018 12:56 PM CDT) Anatomical Region Laterality Modality Spine Computed Radiogr aphy Narrative 06/07/2018 10:40 AM CDT Christen Rock RT(R) ? 06/07/2018 10:40 AM See progress notes for results Levi Yu DO DIAGNOSTIC IMAGING O RDERABLES * XR HIP LEFT 2VW OR MORE (06/05/2018 12:56 PM CDT) Anatomical Region Laterality Modality Pelvis, Lower Extremity Computed Radiography Narrative 06/07/2018 10:40 AM CDT Christen Rock RT(R) ? 06/07/2018 10:40 AM See progress notes for results Levi Yu DO DIAGNOSTIC IMAGING O RDERABLES documented in this encounter Visit Diagnoses Diagnosis Spinal stenosis of lumbar region, unspecified whether neurogenic claudication present- Primary Left hip pain Pain in joint, pelvic region and thigh documented in this encounter Care Teams Dean Of Admissions Relationship Specialty Start Date End Date Chantel Nassar MD PCP - General Family Medicine 08/13/12 07/22/18 Levi Yu DO Orthopedic Surgery 08/13/12 documented as of this encounter
--- OUTSIDE RECORDS SUMMARY | 2024-02-17 23:09 | XMS_ITS | Encounter Summary ---
Author Organization [facility] Address [address] [facility] [place] [address] Care Team Providers Care Print Journalist Name Role Phone Chantel Nassar MD Primary Care Provider [phone] Levi Yu DO Unavailable Reason for Visit * Reason Comments Post-Op Post op right knee s cope 08-18-12 Encounter Details Date Type Department Care Team (Late st Contact Info) Description 08/28/2012 1:20 PM CDT Office Visit [facility] Orthoped[facility] [address] [address] Levi Yu, [id number] [address] History of arthroscopy of right knee on 08-21-12 (Primary Dx) Social History Tobacco Use Types [...] as of this encounter Progress Notes * Demi Hughes RN - 08/28/2012 1:27 PM CDT Post op right knee scope 08-18-12 documented in this encounter H&P Notes * Levi Yu DO - 08/29/2012 5:58 AM CDT DATE OF SERVICE: 08/28/2012 LOCATION: [facility] [address] EXAMINATION: Has excellent relief from his symptoms, full nonrestrictive range of motion of the knee. His portals are well healed. TREATMENT: He is released from limited activity and to return to the office in one month. Levi Yu D.O. Electronically Signed 09/03/2012 13:40:05 TJW/MedQ #: [id number] documented in this encounter Plan of Treatment Not on file documented as of this encounter Visit Diagnoses Diagnosis History of arthroscopy of right knee on 08-21-12- Primary Other postprocedural status documented in this encounter Care Teams Print Journalist Relationship Specialty Start Date End Date Chantel Nassar MD PCP - General Family Medicine 08/13/12 07/22/18 Levi Yu DO Orthopedic Surgery 08/13/12 documented as of this encounter
--- OUTSIDE RECORDS SUMMARY | 2024-02-17 23:09 | XMS_ITS | Encounter Summary ---
Author Organization [facility] Address [address] [facility] [place] [address] Care Team Providers Care Director Design Name Role Phone Unavailable Primary Care Provider Unavailabl e Encounter Details Date Type Department Care Team (Latest Contact Info) Description 08/04/2010 1:17 PM CDT - 08/04/2010 11:59 PM CDT Hospital Encounter [facility] General Lab [address] [place] [address] [place] [id number] [address] Laboratory Discharge Disposition: Home or Self Care Social History Tobacco Use Types Packs/Day Years Used Date Smoking Tobacco: Never Assessed Sex and Gender Information Value Date Recorded Sex Assigned at Not on file Gender Identity Not on file Sexual Orientation Not on file documented as of this encounter Miscellaneous Notes * Miscellaneous Scans - Document, Scanned - 08/05/2010 5:58 PM CDT * Miscellaneous Scans - Document, Scanned - 08/05/2010 8:01 AM CDT documented in this encounter Plan of Treatment Not on file documented as of this encounter Procedures Procedure Name Priority Date/Time Associated Diagnosis Comments RHEUMATOID FACTOR BLOOD QUANTITATIVE Routine 08/04/2010 1:32 PM CDT KAROLINE BLOOD SCREEN W/REFLEX TITER Routine 08/04/2010 1:32 PM CDT HLA TYPING B27 Routine 08/04/2010 1:32 PM CDT ERYTHROCYTE SEDIMENTATION RATE Routine 08/04/2010 1:32 PM CDT documented in this encounter Results * RHEUMATOID FACTOR BLOOD QUANTITATIVE (08/04/2010 1:32 PM CDT) Rheumatoid Factor 5.5 <60.0 IU/ml [facility] BLOOD SPECIMEN / Unknown 08/04/2010 1:32 PM CDT 08/04/2010 1:32 PM CDT Narrative Resulting Agency Comment Performed By [facility] ? [address] [place] [address] ? [place] [address] Levi Yu DO LAB - CHEMISTRY ANYA VILLEGAS Performing Organization Address [facility] de Phone Number [facility] [address] [place] [address] * KAROLINE BLOOD SCREEN W/REFLEX TITER (08/04/2010 1:32 PM CDT) Pathologist [facility] KAROLINE Negative Negative [facility] BLOOD SPECIMEN / Unknown 08/04/2010 1:32 PM CDT 08/04/2010 1:32 PM CDT Narrative Resulting Agency Comment Performed By [facility] ? [address] [place] [address] ? [place] [address] Levi Yu DO LAB - CHEMISTRY ORDE Accruit Performing Organization Address [facility] Co de Phone Number [facility] [address] [place] [address] * HLA-B27 ANTIGEN (08/04/2010 1:32 PM CDT) [...] characteristics of this test were determined by [facility] [employer] BLOOD SPECIMEN / Unknown 08/04/2010 1:32 PM CDT 08/04/2010 1:32 PM CDT Narrative Resulting Agency Comment Performed By [facility] ? [address] ? [place], [place] [address] Levi Yu DO LAB - CHEMISTRY ORDE RABLES Performing Organization Address [facility] de Phone Number [facility] [address] [place] [address] * SED RATE WESTERGREN AUTO (08/04/2010 1:32 PM CDT) Erythrocyte Sedimentation Rate Westergren 17 0 - 20 mm/Hr [facility] BLOOD SPECIMEN / Unknown 08/04/2010 1:32 PM CDT 08/04/2010 1:32 PM CDT Levi Yu DO LAB - HEMATOLOGY ORD ERABLES Performing Organization Address [facility] de Phone Number [facility] [address] [place] [address] documented in this encounter Visit Diagnoses Diagnosis Pain in joint, forearm documented in this encounter
--- OUTSIDE RECORDS SUMMARY | 2024-02-17 23:09 | XMS_ITS | Encounter Summary ---
Author Organization [facility] Address [address] [place] [address] Care Team Providers Care Informatics Consultant Name Role Phone Chantel Nassar MD Primary Care Provider [phone] Levi Yu DO Unavailable Reason for Visit * Auth/Cert (Routine) - Closed Specialty Diagnoses / Procedures Referred By Antelmo paulino Referred To Contact Diagnoses Tear of medial cartilage or meniscus of knee, current Procedures [place] KNEE SCOPE,MED/[place] [address] [address] [place] [address] [facility] [id number] [place] [id number] Referral ID Status Reason Start Date Expiration Date Visits Re quested Visits Authorized [id number] Closed 08/21/2012 02/17/2013 1 1 Encounter Details Date Type Department Care Team (Latest Contact Info) Description 08/21/2012 6:51 AM CDT - 08/21/2012 11:00 AM CDT Hospital Encounter [facility] [address] [place] [address] [place] [address] [address] [place] [address] Surgery General Discharge Disposition: Home or Self Care Social [...] Sign Reading Time Taken Comments Blood Pressure 141/70 08/21/2012 10:29 AM CDT Pulse 59 08/21/2012 10:29 AM CDT Temperature 35.9 ??C (96.7 ??F) 08/21/2012 10:29 AM C DT Respiratory Rate 18 08/21/2012 10:29 AM CDT Oxygen Saturation 96% 08/21/2012 10:29 AM CDT Inhaled Oxygen Concentration - - Weight 161 kg (355 lb) 08/21/2012 7:28 AM CDT Height 188 cm (6' 2 ) 08/21/2012 7:28 AM CDT Body Mass Index 45.58 08/21/2012 7:28 AM CDT documented in this encounter Discharge Instructions * Discharge Instructions* Bette Reyes RN - 08/21/2012 10:24 AM CDT If you have any questions regarding your home medications/prescriptions, please contact your primary physician or surgeon. Discharge Procedure Orders REGULAR DIET AT HOME NO ALCOHOLIC BEVERAGES For next 24 hours or while taking pain medications. NO STRENUOUS ACTIVITY MAY SHOWER Order Specific Question Answer Comments after... One day KEEP DRESSING DRY APPLY ICE PACK TO SURGICAL SITE On / Off for next 24 Hours. WEIGHT BEARING TOLERATED AT HOME CALL PHYSICIAN Notify physician if: 1. Fever over 101.5 2. Excessive bleeding or redness at surgical site. 3. Increasing pain or tenderness. For chest pain or shortness of breath, call 911. A FOLLOW UP APPOINTMENT HAS ALREADY BEEN ARRANGED A follow up appointment has already been arranged for this patient. MEDICATION INSTRUCTIONS Take prescribed pain medications as needed. Exercise caution when walking, driving, or climbing stairs. Please avoid smoking and second hand smoke. The following belongings have been returned to you: Clothing: Yes, With Patient: Shirt;Pants;Footwear;Undergarments, Secured: Shirt;Pants;Footwear;Undergarments Jewelry: None Electronic Items: None Dentures/Retainers: None Visual Aids: None Hearing Aids: None Equipment with Patient: None, Equipment At Home: None Home Medications: None Miscellaneous Items: None Monetary Items: None WEIGHT MONITORING - If you have heart failure, weigh yourself every morning. Contact your physician if your weight increases by 3 pounds in 1 day OR 5 pounds in 1 week. WHAT TO DO IF SYMPTOMS WORSEN - Contact your physician if you have shortness of breath/difficulty breathing, or any swelling of your legs, ankles or feet. IF YOU EXPERIENCE NEW STROKE SYMPTOMS, CALL 911 IMMEDIATELY - Symptoms of stroke include any of the following: Trouble talking/slurred speech, arm/leg/hand/facial weakness on one side, loss of balance or coordination or sudden loss of vision. - Modifiable risk factors for stroke include, but are not limited to: overweight/obesity, sedentarylifestyle/inactivity, alcohol consumption, illicit drug use, smoking, hypertension, high cholesterol, diabetes and atrial fibrillation. The discharge and medication instructions have been reviewed with me and my questions have been answered. I have received a copy of the discharge instructions. 08/21/2012 * Discharge Instructions* Document, Scanned - 08/23/2012 8:15 AM CDT documented in this encounter Medications at Time of Discharge Medication Sig Dispensed Refills Start Date End Date amLODIPine (NORVASC) 5 MG tablet Take 5 mg by mouth once daily after dinner. enalapril (VASOTEC) 20 MG tablet Take 20 mg by mouth 2 times daily. hydrocodone-acetaminophen (NORCO) 10-325 MG tablet Take 1 Tab by mouth every 4 hours as needed. 10/17/2017 meloxicam (MOBIC) 15 MG tablet Take 1 Tab by mouth once daily. 90 Tab 4 02/06/2011 10/03/2017 oxycodone-acetaminophen (PERCOCET) 5-325 MG tablet Take 1 Tab by mouth every 4 hours as needed for Pain. 30 Tab 0 08/21/2012 10/02/2012 documented as of this encounter Progress Notes * Levi Yu DO - 08/21/2012 9:33 AM CDT Pt. To OR for right knee arthroscopy Tolerated well with no complications Minimal blood loss To RR in stable PO condition orders documented in this encounter H&P Notes * Document, Scanned - 08/23/2012 8:16 AM CDT * Levi Yu DO - 08/15/2012 9:41 AM CDT [facility] PRE-OPERATIVE HISTORY AND PHYSICAL PATIENT: : DILLON MEJIA MR#: [id number] ADMIT DATE: 08/21/2012 CSN: [id number] SURGERY DATE: 08/21/2012 ROOM: PHYSICIAN: Levi Yu DO : 1950 The patient was complaining of pain in the right knee. The patient has had locking, catching, giving way, and pain in his right knee since July of 2012 with increase of his symptoms. He has had arthroscopic surgery in the past. It has recently started catching. He has progressive effusion. He has had no response to rest, nonsteroidal anti-inflammatories or medications. He denies other joint pain, paresthesias, anesthesia, loss range of motion of joints, muscle cramps or tenderness. ALLERGIES: HE HAS NO KNOWN ALLERGIES. MEDICATIONS: amlodipine, hydrocodone, meloxicam. SOCIAL HISTORY: He is a nonsmoker, nondrinker. PAST HISTORY: He has been hospitalized in past for a right knee arthroscopy, lumbar fusion. He denies other hospitalizations for accidents, illnesses, or operations. REVIEW OF SYSTEMS: CARDIOVASCULAR: He denies chest pain, palpitations, peripheral vascular disease. RESPIRATORY: He denies chronic cough, productive sputum, asthma or emphysema. GASTROINTESTINAL: He denies pyrosis, nausea, vomiting, chronic constipation or diarrhea. GENITOURINARY: He denies frequency, urgency, dysuria, or renal problems. PHYSICAL EXAMINATION: GENERAL: Cooperative, well-oriented x3, well- nourished, well-hydrated male in no acute distress. HEENT: Pupils are equal and react to light. Ear canals are patent. Nares are patent. There are no oral lesions. Thyroid is not palpable. There is no cervical lymphadenopathy. HEART: Regular rhythm, without murmur. LUNGS: Clear to auscultation. ABDOMEN: Soft. No mass, rigidity, or guarding. EXTREMITIES: Examination of the right knee revealed no gross atrophies or deformities. There is a mild knee effusion. Crepitation beneath the patella with flexion and extension of the knee joint. Hazel and drawer signs are negative. There is positive Salvador's and Apley's test medially. Hazel and drawer signs are negative. IMPRESSIONS: Torn right medial meniscus. Procedure and risks of right knee arthroscopy were explained to the patient. This will be performed at [facility] on 08/21/2012. Levi Yu DO TJW/MODL #: [id number] documented in this encounter Procedure Notes * Document, Scanned - 08/21/2012 1:34 PM CDTAssociated Order(s): EKG 12-LEAD * Document, Scanned - 08/21/2012 1:27 PM CDTAssociated Order(s): EKG 12-LEAD documented in this encounter OR Notes * Operative - Levi Yu DO - 08/21/2012 1:11 PM CDT [facility] OPERATIVE REPORT PATIENT: : DILLON MEJIA MR#: [id number] ADMIT DATE: 08/21/2012 CSN: [id number] DATE OF SURGERY: 08/21/2012 : 1950 PHYSICIAN: Levi Yu DO ROOM: [facility] PREOPERATIVE DIAGNOSIS: Torn right medial meniscus. POSTOPERATIVE DIAGNOSIS: Torn lateral meniscus, osteochondritis dissecans lateral femoral condyle. PROCEDURES PERFORMED: Diagnostic arthroscopy, partial lateral meniscectomy, chondroplasty of the lateral femoral condyle with microfracture. SURGEON: Levi Yu DO EMBALMER ASSISTANT: Mago Nolan P.A.-C. INDICATIONS FOR PROCEDURE: INFORMED CONSENT: PROCEDURE: This patient was brought to the operative suite, placed supine on the operating table. A general inhalation type anesthetic was administered by Department of Anesthesiology. A 10-minute DuraPrep was carried about the right knee. Dry sterile drapes applied. Superolateral portal was made and inflow cannula was inserted into the knee joint. 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 Inspecting the medial compartment was found be free of pathology except for a grade 3 chondromalacia of the midportion, lateral portion of the medial femoral condyle. The anterior and posterior cruciate ligaments found to be intact. There were several loose bodies within the intercondylar notch. With the meniscus grant through the inferomedial portal, removal of these loose bodies performed, was found to have a pedicle tear of the anterior 1/3rd of the lateral meniscus and with the meniscus grant, a partial lateral meniscectomy was then performed. This revealed a large area of osteochondritis dissecans in the lateral femoral condyle. With the meniscus grant, chondroplasty of this area was then performed and then with the chondral picks, microfracture was performed on this area. Knee joint copiously irrigated with lactated Ringer's, instilled with 10 mL of 0.25% Marcaine with epinephrine. Portals closed with simple suture of 3-0 Ethibond. The wound was treated with Betadine solution. Dry sterile dressings applied. The patient was taken from the operative suite in stable postop condition. GROSS PATHOLOGY: There is osteochondritis dissecans of the lateral femoral condyle, pedicle tear of the anterior 1/3rd of the lateral meniscus, grade 3 chondromalacia of the patella and medial femoral condyle. The skilled assistance of the CHRISTIAN, Nicki Nolan, was necessary for the effective and successful completion of this case. The physician buyer assistant was essential for the proper positioning, manipulation of instruments, proper exposure, manipulation of tissue and wound closure. ESTIMATED BLOOD LOSS: COMPLICATIONS: CONDITION: DISPOSITION: Levi Yu DO TJW/MODL #: [id number] documented in this encounter Miscellaneous Notes * Miscellaneous Scans - Document, Scanned - 08/23/2012 9:45 PM CDT * Miscellaneous Scans - Document, Scanned - 08/23/2012 8:15 AM CDT * Miscellaneous Scans - Document, Scanned - 08/23/2012 8:15 AM CDT * Miscellaneous Scans - Document, Scanned - 08/23/2012 8:15 AM CDT * Miscellaneous Scans - Document, Scanned - 08/23/2012 8:15 AM CDT documented in this encounter Plan of Treatment Not on file documented as of this encounter Procedures Procedure Name Priority Date/Time Associated Diagnosis Comments ARTHROSCOPY KNEE MENISCECTOMY MEDIAL 08/21/2012 5:28 PM CDT Tear of medial cartilage or meniscus of knee, current BASIC METABOLIC PANEL (CALCIUM TOTAL) JULIAN 08/21/2012 7:43 AM CDT Preoperative examination EKG 12-LEAD Pre-Op 08/21/2012 7:31 AM CDT Preoperative examination documented in this encounter Results * (ABNORMAL) BASIC METABOLIC PANEL (CALCIUM TOTAL) (08/21/2012 7:43 AM CDT) Glucose 110(H) 74 - 106 mg/dL 08/21/2012 8:07 AM CDT [facility] Sodium 140 136 - 145 mmol/L 08/21/2012 8:07 AM CDT [facility] Potassium 4.6 3.5 - 5.1 mmol/L 08/21/2012 8:07 AM CDT [facility] Chloride 102 98 - 107 mmol/L 08/21/2012 8:07 AM CDT [facility] CO2 30 22 - 31 mmol/L 08/21/2012 8:07 AM CDT [facility] Calcium 9.1 8.5 - 10.1 mg/dL 08/21/2012 8:07 AM CDT [facility] Anion Gap 8 5 - 15 mmol/L 08/21/2012 8:07 AM CDT [facility] BUN 17 7 - 21 mg/dL 08/21/2012 8:07 AM CDT [facility] Creatinine 0.79 0.50 - 1.30 mg/dL 08/21/2012 8:07 AM CDT [facility] eGFR by MDRD >60 >60 ml/min/1.7 3m2 08/21/2012 8:07 AM CDT [facility] eGFR by MDRD >60 >60 ml/min/1.7 3m2 08/21/2012 8:07 AM CDT [facility] Blood specimen (specimen) BLOOD SPECIMEN / Unknown 08/21/2012 7:43 AM CDT 08/21/2012 7:53 AM CDT Doroteo Davison MD LAB - CHEMISTRY ANYA VILLEGAS [facility] [address] [place] [address] * EKG 12-LEAD (08/21/2012 7:31 AM CDT) Ventricular Rate 61 BPM [facility] Atrial Rate 61 BPM [facility] P-R Interval 156 ms [facility] QRS Duration ms 86 ms [facility] Q-T Interval ms 412 ms [facility] QTC Calculation (Bezet) 414 ms [facility] Calculated P [place] 23 degrees [facility] Calculated R [place] 44 degrees [facility] Calculated T [place] 63 degrees [facility] Interpretation EKG Normal sinus rhythm Normal ECG When compared with ECG of 12-JAN-2006 12:09, No significant change was found Confirmed by CÉSAR EMANUEL ([id number]) on 08/21/2012 1:33:01 PM [facility] 08/21/2012 7:31 AM CDT 08/21/2012 1:33 PM CDT Narrative [facility] - 08/21/2012 1:34 PM CDT Procedure Note Document, Scanned - 08/21/2012 1:27 PM CDT Transcriptions Document, Scanned - 08/21/2012 1:34 PM CDT Doroteo Davison MD ECG ORDERABLES [facility] documented in this encounter Visit Diagnoses Diagnosis Preoperative examination Preoperative examination, unspecified Preoperative examination Preoperative examination, unspecified documented in this encounter Administered Medications Inactive Administered Medications - up to 3 most recent administrations Medication Order MAR Action Action Date Dose Rate Site famotidine (PEPCID) tablet 20 mg 20 mg, Oral, PRE-OP ONCE, 1 dose, Pre-op $ Given 08/21/2012 7:31 AM CDT 20 mg lactated ringers infusion at 20 mL/hr, Intravenous, PRE-OP CONTINUOUS, Starting on Sun08/21/12 at 0730, Until Sun08/21/12 at 1207, Pre-op $ New Bag/Syringe 08/21/2012 7:31 AM CDT 20 mL/hr lidocaine buffered 1 % injection Infiltration, PRE-OP MULTIPLE, 3 doses, Starting on Sun08/21/12 at 0730, Until Sun08/21/12 at 1207, May be used (0.2 ml locally to anesthetize prior to insertion if patient has NKA to Lidocaine)., Pre-op $ Given 08/21/2012 7:31 AM CDT 0.5 mL ondansetron (disintegrating) (ZOFRAN ODT) tablet 4 mg 4 mg, Oral, PRE-OP ONCE, 1 dose, Pre-op $ Given 08/21/2012 7:31 AM CDT 4 mg oxycodone-acetaminophen (PERCOCET) 5-325 MG tablet 1 Tab 1 tablet, Oral, ONCE, 1 dose, On Sun08/21/12 at 1100, Maximum allowable Acetaminophen amount = 4 Grams (4000 mg) / 24 hours., Post-op $ Given 08/21/2012 10:40 AM CDT 1 tablet documented in this encounter Active and Recently Administered Medications Times are shown in CDT. Scheduled Medication Order 08/19/2012 08/20/2012 08/21/2012 famotidine (PEPCID) tablet 20 mg (COMPLETED) 20 mg, Oral, PRE-OP ONCE, 1 dose, Pre-op 0731 ($ Given - Prov ider: Manuela De Los Santos RN) lidocaine buffered 1 % injection (CANCELED) Infiltration, PRE-OP MULTIPLE, 3 doses, Starting on Sun08/21/12 at 0730, Until Sun08/21/12 at 1207, May be used (0.2 ml locally to anesthetize prior to insertion if patient has NKA to Lidocaine)., Pre-op 0731 ($ Given - Prov ider: Manuela De Los Santos RN) ondansetron (disintegrating) (ZOFRAN ODT) tablet 4 mg (COMPLETED) 4 mg, Oral, PRE-OP ONCE, 1 dose, Pre-op 0731 ($ Given - Prov ider: Manuela De Los Santos RN) oxycodone-acetaminophen (PERCOCET) 5-325 MG tablet 1 Tab (COMPLETED) 1 tablet, Oral, ONCE, 1 dose, On Sun08/21/12 at 1100, Maximum allowable Acetaminophen amount = 4 Grams (4000 mg) / 24 hours., Post-op 1040 ($ Given - Prov ider: Bette Reyes RN) Continuous Medication Order 08/19/2012 08/20/2012 08/21/2012 lactated ringers infusion (CANCELED) at 20 mL/hr, Intravenous, PRE-OP CONTINUOUS, Starting on Sun08/21/12 at 0730, Until Sun08/21/12 at 1207, Pre-op 0731 ($ New Bag/Syri nge - Provider: Manuela De Los Santos RN)0940 (Anesthesia Volume Adjustment - Provider: Corrine Neal CRNA) PRN Medication Order 08/19/2012 08/20/2012 08/21/2012 bupivacaine 0.25% - epinephrine 1:200,000 (PF) injection (CANCELED) PRN, Starting on Sun08/21/12 at 0910, Until Sun08/21/12 at 0938, Intra-op 0910 ($ Given - Prov ider: Levi Yu DO) lactated ringers irrigation solution (CANCELED) PRN, Starting on Sun08/21/12 at 0910, Until Sun08/21/12 at 0938, Intra-op 0910 ($ Given - Prov ider: Levi Yu DO) documented in this encounter Care Teams Informatics Consultant Relationship Specialty Start Date End Date Chantel Nassar MD PCP - General Family Medicine 08/13/12 07/22/18 Levi Yu DO Orthopedic Surgery 08/13/12 documented as of this encounter
--- OUTSIDE RECORDS SUMMARY | 2024-02-17 23:09 | XMS_ITS | Encounter Summary ---
Author Organization [facility] Address [address] [facility] [place] [address] Care Team Providers Care Semiconductor Bonder Name Role Phone Chantel Nassar MD Primary Care Provider [phone] Levi Yu DO Unavailable Reason for Visit * Reason Comments Lower Extremity Problem OPNI (RV) right knee catching/had scope Encounter Details Date Type Department Care Team (Late st Contact Info) Description 08/13/2012 12:45 PM CDT Office Visit [facility] Orthopedics [address] [facility] [address] [place] [address] [place] [address] [address] Tear of medial cartilage or meniscus of knee, current (Primary Dx); Knee pain; Osteoarthrosis, unspecified whether generalized or localized, lower leg Social History Tobacco Use Types Packs/Day Years Used Date Smoking Tobacco: Never Alcohol Use Standard Drinks/Week Comments Yes 0 (1 standard drink = 0.6 oz pur e alcohol) Sex and Gender Information Value Date Recorded Sex Assigned at Not on file Gender Identity Not on file Sexual Orientation Not on file documented as of this encounter Last Filed Vital Signs Vital Sign Reading Time Taken Comments Blood Pressure - - Pulse - - Temperature - - Respiratory Rate - - Oxygen Saturation - - Inhaled Oxygen Concentration - - Weight 156.5 kg (345 lb) 08/13/2012 12:25 PM CDT Height 188 cm (6' 2 ) 08/13/2012 12:25 PM CDT Body Mass Index 44.3 08/13/2012 12:25 PM CDT documented in this encounter Patient Instructions * Patient Instructions* Tammy Tenorio - 08/13/2012 12:53 PM CDT Patient given surgery instruction letter and arthroscopy brochure. documented in this encounter Progress Notes * Coy Jimenez - 08/14/2012 8:27 AM CDT [id number] due to pt being established * Tammy Tenorio - 08/13/2012 12:53 PM CDT Right knee arthroscopy scheduled for 08-21-12 * Levi Yu DO - 08/13/2012 12:52 PM CDT Knee pain documented in this encounter H&P Notes * Levi Yu DO - 08/13/2012 11:43 PM CDT DATE OF SERVICE: 08/13/2012 LOCATION: [facility] [address] EXAMINATION: Continues to have locking, catching, giving way of his right knee with no response to rest, nonsteroidal anti-inflammatories. 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 Remaining portion of his joint is well maintained. No subluxation or dislocation. No signs of tumor or infection. IMPRESSION: Torn medial meniscus of the right knee. TREATMENT: Procedure and risks of right knee arthroscopy explained to him, this will be performed on the with followup care as indicated. Levi Yu D.O. Electronically Signed 08/14/2012 09:31:12 TJW/MedQ #: [id number] documented in this encounter Procedure Notes * Maria C Florez - 08/13/2012 12:37 PM CDTAssociated Order(s): XR KNEE 1 OR 2 VW RIGHT Please see progress notes for result. documented in this encounter Miscellaneous Notes * Addendum Note - Coy Jimenez - 08/14/2012 8:27 AM CDTAddended by: COY JIMENEZ on: 08/14/2012 08:27 AM Modules accepted: Level of Service documented in this encounter Plan of Treatment Not on file documented as of this encounter Procedures Procedure Name Priority Date/Time Associated Diagnosis Comments XR KNEE RIGHT 2VW OR LESS Routine 08/13/2012 12:37 PM CDT Knee pain documented in this encounter Results * XR KNEE 1 OR 2 VW RIGHT (08/13/2012 12:37 PM CDT) Anatomical Region Laterality Modality Lower Extremity Radiographic Elo ging Narrative 08/13/2012 12:38 PM CDT Maria C Florez ? 08/13/2012 12:38 PM Please see progress notes for result. Procedure Note Maria C Florez - 08/13/2012 12:37 PM CDT Please see progress notes for result. Levi Yu DO DIAGNOSTIC IMAGING O RDERABLES documented in this encounter Visit Diagnoses Diagnosis Tear of medial cartilage or meniscus of knee, current- Primary Knee pain Pain in joint, lower leg Osteoarthrosis, unspecified whether generalized or localized, lower leg documented in this encounter Care Teams Semiconductor Bonder Relationship Specialty Start Date End Date Chantel Nassar MD PCP - General Family Medicine 08/13/12 07/22/18 Levi Yu DO Orthopedic Surgery 08/13/12 documented as of this encounter
--- OUTSIDE RECORDS SUMMARY | 2024-02-17 23:09 | XMS_ITS | Encounter Summary ---
Author Organization [facility] Address [address] [facility] [place] [address] Care Team Providers Care Material Disposition Inspector Name Role Phone Chantel Nassar MD Primary Care Provider [phone] Levi Yu DO Unavailable Reason for Visit * Reason Comments Lower Extremity Problem RV right knee sc ope 08-21-12. Doing good. Encounter Details Date Type Department Care Team (Late st Contact Info) Description 10/02/2012 12:40 PM CDT Office Visit [facility] Orthopedics [address] [facility] [address] [place] [address] Levi Yu, [address] [address] History of arthroscopy of right knee on [...] Progress Notes * Demi Hughes RN - 10/02/2012 12:28 PM CDT RV right knee scope 08-21-12 documented in this encounter H&P Notes * Levi Yu DO - 10/03/2012 7:02 AM CDT DATE OF SERVICE: 10/02/2012 LOCATION: [facility] [address] EXAMINATION: Has good position of tenosynovitis in his knee. No neurologic or tendon deficit. Full nonrestrictive range of motion of his knee. TREATMENT: Released for unlimited activity. Return to the office with problems in 12 months. Levi Yu D.O. Electronically Signed 10/09/2012 13:38:11 TJW/MedQ #: [id number] documented in this encounter Plan of Treatment Not on file documented as of this encounter Visit Diagnoses Diagnosis History of arthroscopy of right knee on 08-21-12- Primary Other postprocedural status documented in this encounter Care Teams Material Disposition Inspector Relationship Specialty Start Date End Date Chantel Nassar MD PCP - General Family Medicine 08/13/12 07/22/18 Levi Yu DO Orthopedic Surgery 08/13/12 documented as of this encounter
--- OUTSIDE RECORDS SUMMARY | 2024-02-17 23:09 | XMS_ITS | Encounter Summary ---
Author Organization [facility] Address [address] [facility] [place] [address] Care Team Providers Care Automotive Worker Name Role Phone Chantel Nassar MD Primary Care Provider [phone] Levi Yu DO Unavailable Reason for Visit * Reason Comments Lower Extremity Problem OPNI right knee popping/knee scope 08-21-12/has fallen several times Encounter Details Date Type Department Care Team (Late st Contact Info) Description 12/03/2012 3:10 PM CDT Office Visit [facility] [address] [facility] [address] [place] [address] [place] [address] [address] History of arthroscopy of right [...] Progress Notes * Levi Yu DO - 12/03/2012 3:31 PM CDT Right knee pain documented in this encounter H&P Notes * Levi Yu DO - 12/04/2012 4:08 AM CDT DATE OF SERVICE: 12/03/2012 LOCATION: [facility] [address] HISTORY: The patient has fallen on several occasions, has increased amount of symptoms in his knee with locking, catching, giving way of knee joint. EXAMINATION: No neurologic or tendon deficit. He is ambulating quite well. X-RAYS: X-ray showed a good bone density. No subluxation or dislocation. No signs of tumor or infection. TREATMENT: He was given Mobic 15 mg one daily. Return to the office in 1 month. Levi Yu D.O. Electronically Signed 12/04/2012 12:26:02 TJW/MedQ #: [id number] documented in this encounter Procedure Notes * Maria C Florez - 12/03/2012 3:18 PM CDTAssociated Order(s): XR KNEE 1 OR 2 VW RIGHT Please see progress notes for result. documented in this encounter Plan of Treatment Not on file documented as of this encounter Procedures Procedure Name Priority Date/Time Associated Diagnosis Comments XR KNEE RIGHT 2VW OR LESS Routine 12/03/2012 3:17 PM CDT History of arthroscopy of right knee on 08-21-12 documented in this encounter Results * XR KNEE 1 OR 2 VW RIGHT (12/03/2012 3:17 PM CDT) Anatomical Region Laterality Modality Lower [...] status documented in this encounter Care Teams Automotive Worker Relationship Specialty Start Date End Date Chantel Nassar MD PCP - General Family Medicine 08/13/12 07/22/18 Levi Yu DO Orthopedic Surgery 08/13/12 documented as of this encounter
--- OUTSIDE RECORDS SUMMARY | 2024-02-17 23:09 | XMS_ITS | Encounter Summary ---
Author Organization 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 [address] [place] [id number] Levi Yu, [id number] [address] Tear of biceps tendon (Primary Dx) [...] - - Weight 158.8 kg (350 lb) 10/03/2017 2:01 PM CDT Height 188 cm (6' 2 ) 10/03/2017 2:01 PM CDT Body Mass Index 44.94 10/03/2017 2:01 PM CDT documented in this encounter Patient Instructions * Patient Instructions* Demi Hughes RN - 10/03/2017 2:01 PM CDT Please call the office with any further concerns or problems. 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 EXAMINATION: No ecchymosis. There is mild increased amount of strength since that time. He has numbness and tinging. Range of motion of his shoulder with good strength. Tenderness about the biceps tendon with deformity in his biceps tendon. No neurologic or tendon deficit. Pulses are equal and bounding. Reflexes are intact and equal. Adequate hand stock parts inspector. IMPRESSION: He has a torn long head of his biceps tendon. TREATMENT: He was given Indocin SR 1 b.i.d. and to return to office in 2 weeks. Colleen Sandoval/Giancarlo #: [id number] documented in this encounter Plan of Treatment Not on file documented as of this encounter Visit Diagnoses Diagnosis Tear of biceps tendon- Primary documented in this encounter Care Teams President And Chief Operating Officer Relationship Specialty Start Date End Date Chantel Nassar MD PCP - General Family Medicine 08/13/12 07/22/18 Levi Yu DO Orthopedic Surgery 08/13/12 documented as of this encounter
--- OUTSIDE RECORDS SUMMARY | 2024-02-17 23:09 | XMS_ITS | Encounter Summary ---
Author Organization [facility] Address [address] [facility] [place] [address] Care Team Providers Care Economics Consultant Name Role Phone Unavailable Primary Care Provider Unavailabl e Reason for Visit * Reason Onset Date Comments MEDICATION REFILL 02/06/2011 Encounter Details Date Type Department Care Team (Late st Contact Info) Description 02/06/2011 Refill [facility] [address] [place] [address] Levi Yu, [id number] [address] MEDICATION REFILL Social History Tobacco [...]
--- OUTSIDE RECORDS SUMMARY | 2024-02-17 23:09 | XMS_ITS | Encounter Summary ---
Author Organization [facility] Address [address] [facility] [place] [address] Care Team Providers Care Mud Worker Name Role Phone Chantel Nassar MD Primary Care Provider [phone] Levi Yu DO Unavailable Reason for Visit * Auth/Cert (Routine) - Closed Specialty Diagnoses / Procedures Referred By Antelmo paulino Referred To Contact Diagnoses Tear of medial cartilage or meniscus of knee, current Procedures [place] KNEE SCOPE,MED/[place] [address] [address] [place] [address] [address] Referral ID Status Reason Start Date Expiration Date Visits Re quested Visits Authorized [id number] Closed 08/21/2012 02/17/2013 1 1 Encounter Details Date Type Department Care Team (Late st Contact Info) Description 08/21/2012 9:28 AM CDT - 08/21/2012 10:08 AM CDT Surgery [facility] - Perioperative Surgery [address] [place] [address] [place] [address] [address] [place] [address] ARTHROSCOPY KNEE MENISCECTOMY MEDIAL Surgery Details Date/Time Status Location OR Service Patient Class Case Class Case Type Trauma Case? 08/21/2012 9:28 AM Posted [facility] OR OR 08 Orthopedics Surgery Day Care Elective > 5 days Panel 1 Procedure LRB Anes Op Region Wound Class Comments ARTHROSCOPY KNEE MENISCECTOMY MEDIAL Right General Knee Clean RIGHT KNEE ARTHROSCOPY / PARTIAL LATERAL MENISECTOMY/ CHONDOPLASTY LATERAL FEMORAL CHONDYLE Surgeon Surgeon Role Service Panel Levi Yu, DO Primary Orthopedics 1 documented in this encounter Social History Tobacco [...] encounter Discharge Instructions * Discharge Instructions* Bette Reyse RN - 08/21/2012 10:24 AM CDT If [...] Yu DO - 08/15/2012 9:41 AM CDT [facility] PRE-OPERATIVE HISTORY AND PHYSICAL PATIENT: : DILLON MEJIA MR#: [id number] ADMIT DATE: 08/21/2012 CSN: [id number] SURGERY DATE: 08/21/2012 ROOM: PHYSICIAN: Levi Yu [...] the patient. This will be performed at [facility] on 08/21/2012. Levi Yu DO TJW/MODL #: [id number] documented in this encounter Procedure Notes * Document, Scanned - 08/21/2012 1:34 PM CDTAssociated Order(s): EKG 12-LEAD * Document, Scanned - 08/21/2012 1:27 PM CDTAssociated Order(s): EKG 12-LEAD documented in this encounter OR Notes * Operative - Levi Yu DO - 08/21/2012 1:11 PM CDT [facility] OPERATIVE REPORT PATIENT: : DILLON MEJIA MR#: [id number] ADMIT DATE: 08/21/2012 CSN: [id number] DATE OF SURGERY: 08/21/2012 : 1950 PHYSICIAN: Levi Yu DO ROOM: [facility] PREOPERATIVE DIAGNOSIS: Torn right medial meniscus. POSTOPERATIVE DIAGNOSIS: Torn lateral meniscus, osteochondritis dissecans lateral femoral condyle. PROCEDURES PERFORMED: Diagnostic arthroscopy, partial lateral meniscectomy, chondroplasty of the lateral femoral condyle with microfracture. SURGEON: Levi Yu DO CORNER BEAD OPERATOR: Mago Nolan P.A.-C. INDICATIONS FOR PROCEDURE: INFORMED [...] femoral condyle. The skilled assistance of the PA-C, Nicki Nolan, was necessary for the effective and successful completion of this case. The physician lead assistant manager was essential for the proper positioning, manipulation of instruments, proper exposure, manipulation of tissue and wound closure. ESTIMATED BLOOD LOSS: COMPLICATIONS: CONDITION: DISPOSITION: Levi Yu DO TJW/MODL #: [id number] documented in this encounter Miscellaneous Notes * [...] PANEL (CALCIUM TOTAL) (08/21/2012 7:43 AM CDT) [facility] Glucose 110(H) 74 - 106 mg/dL 08/21/2012 8:07 AM CDT [facility] Sodium 140 136 - 145 mmol/L 08/21/2012 8:07 AM CDT [facility] Potassium 4.6 3.5 - 5.1 mmol/L 08/21/2012 8:07 AM CDT [facility] Chloride 102 98 - 107 mmol/L 08/21/2012 8:07 AM CDT [facility] CO2 30 22 - 31 mmol/L 08/21/2012 8:07 AM CDT [facility] Calcium 9.1 8.5 - 10.1 mg/dL 08/21/2012 8:07 AM CDT [facility] Anion Gap 8 5 - 15 mmol/L 08/21/2012 8:07 AM CDT [facility] BUN 17 7 - 21 mg/dL 08/21/2012 8:07 AM CDT [facility] Creatinine 0.79 0.50 - 1.30 mg/dL 08/21/2012 8:07 AM CDT [facility] eGFR by MDRD >60 >60 ml/min/1.7 3m2 08/21/2012 8:07 AM CDT [facility] eGFR by MDRD >60 >60 ml/min/1.7 3m2 08/21/2012 8:07 AM CDT [facility] Blood specimen (specimen) BLOOD SPECIMEN / Unknown 08/21/2012 7:43 AM CDT 08/21/2012 7:53 AM CDT Doroteo Davison MD LAB - CHEMISTRY ANYA VILLEGAS [facility] Organization Address City/State/ZIP Co de Phone Number [facility] [address] [place] [address] * EKG 12-LEAD (08/21/2012 7:31 AM CDT) Ventricular Rate 61 BPM [facility] Atrial Rate 61 BPM [facility] P-R Interval 156 ms [facility] QRS Duration ms 86 ms [facility] Q-T Interval ms 412 ms [facility] QTC Calculation (Bezet) 414 ms [facility] Calculated P [place] 23 degrees [facility] Calculated R [place] 44 degrees [facility] Calculated T [place] 63 degrees [facility] Interpretation EKG Normal sinus rhythm Normal ECG When compared with ECG of 12-JAN-2006 12:09, No significant change was found Confirmed by CÉSAR EMANUEL ([id number]) on 08/21/2012 1:33:01 PM [facility] 08/21/2012 7:31 AM CDT 08/21/2012 1:33 PM CDT Narrative [facility] - 08/21/2012 1:34 PM CDT Procedure Note Document, Scanned - 08/21/2012 1:27 PM CDT Transcriptions Document, Scanned - 08/21/2012 1:34 PM CDT Doroteo Davison MD ECG ORDERABLES DP MUSE documented in this encounter Visit Diagnoses Diagnosis Preoperative examination Preoperative examination, unspecified Preoperative examination Preoperative examination, unspecified Tear of medial cartilage or meniscus of knee, current documented in this encounter Administered Medications Inactive Administered Medications - up to 3 most recent administrations Medication Order MAR Action Action Date Dose Rate Site bupivacaine 0.25% - epinephrine 1:200,000 (PF) injection PRN, Starting on Sun08/21/12 at 0910, Until Sun08/21/12 at 0938, Intra-op $ Given 08/21/2012 9:10 AM CDT 10 mL famotidine (PEPCID) tablet 20 mg 20 mg, Oral, PRE-OP ONCE, 1 dose, Pre-op $ Given 08/21/2012 7:31 AM CDT 20 mg lactated ringers infusion at 20 mL/hr, Intravenous, PRE-OP CONTINUOUS, Starting on Sun08/21/12 at 0730, Until Sun08/21/12 at 1207, Pre-op $ New Bag/Syringe 08/21/2012 7:31 AM CDT 20 mL/hr lactated ringers irrigation solution PRN, Starting on Sun08/21/12 at 0910, Until Sun08/21/12 at 0938, Intra-op $ Given 08/21/2012 9:10 AM CDT 3,000 mL lidocaine buffered 1 % injection Infiltration, PRE-OP [...] mg, Oral, PRE-OP ONCE, 1 dose, Pre-op 07 ($ Given - Prov ider: Manuela De Los Santos, THERESA) lidocaine buffered 1 % injection (CANCELED) Infiltration, PRE-OP MULTIPLE, 3 doses, Starting on Sun08/21/12 at 0730, Until Sun08/21/12 at 1207, May be used (0.2 ml locally to anesthetize prior to insertion if patient has NKA to Lidocaine)., Pre-op 07 ($ Given - Prov ider: Manuela De Los Santos, THERESA) ondansetron (disintegrating) (ZOFRAN ODT) tablet 4 mg (COMPLETED) 4 mg, Oral, PRE-OP ONCE, 1 dose, Pre-op 0731 ($ Given - Prov ider: Manuela De Los Santos, THERESA) oxycodone-acetaminophen (PERCOCET) 5-325 MG tablet 1 Tab [...] Bag/Syri nge - Provider: Manuela De Los Santos, THERESA)[phone] (Anesthesia Volume Adjustment - Provider: Corrine Neal [...] DO) documented in this encounter Care Teams Mud Worker Relationship Specialty Start Date End Date Chantel Nassar MD PCP - General Family Medicine 08/13/12 07/22/18 Levi Yu DO Orthopedic Surgery 08/13/12 documented as of this encounter
--- OUTSIDE RECORDS SUMMARY | 2024-02-17 23:09 | XMS_ITS | Encounter Summary ---
Author Organization [facility] Address [address] [place] [address] Care Team Providers Care Systems Security Consultant Name Role Phone Chantel Nassar MD Primary Care Provider [phone] Levi Yu DO Unavailable Reason for Visit * Reason Onset Date Comments Question 08/22/2012 Encounter Details Date Type Department Care Team (Late st Contact Info) Description 08/22/[address] [facility] [id number] [place] [address] [place] [address] [address] Question Social History Tobacco Use [...] Telephone Encounter - Demi Hughes RN - 08/22/2012 9:23 AM CDT Told patient to get OTC sleep aids. Percocet makes him hyper in the evening time. * Telephone Encounter - Chantel Mcintosh - 08/22/2012 8:48 AM CDT PATIENT CALLED TODAY AND HAD SURGERY ON ON HIS RIGHT KNEE. HE HAS BEEN TAKING PERCOCET 5.325 MG AND IS UNABLE TO SLEEP. THE PERCOCET IS NOT ALLOWING HIM TO SLEEP AND WANTED TO KNOW IF DR YU WOULD PRESCRIBE SOMETHING TO HELP HIM SLEEP. HE DOES NOT WANT THE PERCOCET CHANGED BECAUSE IT IS HELPING WITH THE PAIN. PLEASE CALL AT [phone]. documented in this encounter Plan of Treatment Not on file documented as of this encounter Visit Diagnoses Not on filedocumented in this encounter Care Teams Systems Security Consultant Relationship Specialty Start Date End Date Chantel Nassar MD PCP - General Family Medicine 08/13/12 07/22/18 Levi Yu DO Orthopedic Surgery 08/13/12 documented as of this encounter
--- OUTSIDE RECORDS SUMMARY | 2024-02-17 23:09 | XMS_ITS | Encounter Summary ---
Author Organization [facility] Address [address] [facility] [place] [address] Care Team Providers Care Supervisor Inventory Merchandising Name Role Phone Chantel Nassar MD Primary Care Provider [phone] Levi Yu DO Unavailable Reason for Visit * Reason Comments Lower Extremity Problem RV right knee Encounter Details Date Type Department Care Team (Latest Contact Info) Description 01/06/2013 1:20 PM SENIOR GOVERNMENT PROGRAM ANALYST Office Visit [facility] [id number] [place] [address] [place] [address] [address] Other synovitis and tenosynovitis (Primary Dx); Knee pain Social History Tobacco Use Types Packs/Day [...] as of this encounter Progress Notes * Coy Jimenez - 01/07/2013 1:32 PM CST Changed [id number] to [id number] OR GOVERNMENT PROGRAM ANALYST * Demi Hughes RN - 01/06/2013 1:33 PM CST RV right knee OR GOVERNMENT PROGRAM ANALYST documented in this encounter H&P Notes * Levi Yu DO - 01/07/2013 3:06 AM CST DATE OF SERVICE: 01/06/2013 LOCATION: [facility] [address] EXAMINATION: He has a tenosynovitis in his knee. No neurologic or tendon deficit. He is ambulating quite well. TREATMENT: Released for unlimited activity. Return to office in 12 months. Levi Yu D.O. Electronically Signed 01/07/2013 10:59:44 TJW/MedQ #: [id number] documented in this encounter Miscellaneous Notes * Addendum Note - Coy Jimenez - 01/07/2013 1:32 PM CSTAddended by: COY JIMEENZ on: 01/07/2013 01:32 PM Modules accepted: Level of Service OR GOVERNMENT PROGRAM ANALYST documented in this encounter Plan of Treatment Not on file documented as of this encounter Visit Diagnoses Diagnosis Other synovitis and tenosynovitis- Primary Knee pain Pain in joint, lower leg documented in this encounter Care Teams Supervisor Inventory Merchandising Relationship Specialty Start Date End Date Chantel Nassar MD PCP - General Family Medicine 08/13/12 07/22/18 Levi Yu DO Orthopedic Surgery 08/13/12 documented as of this encounter
--- OUTSIDE RECORDS SUMMARY | 2024-02-17 23:09 | XMS_ITS | Encounter Summary ---
Author Organization [facility] Address [address] [place] [address] Care Team Providers Care Run Lead Name Role Phone Chantel Nassar MD Primary Care Provider [phone] Levi Yu DO Unavailable Reason for Visit * Auth/Cert (Routine) - Closed Specialty Diagnoses / Procedures Referred By Antelmo paulino Referred To Contact Diagnoses Tear of medial cartilage or meniscus of knee, current Procedures AL KNEE SCOPE,MED/LAT MENISECTOMY Levi Yu, [address] [facility] [address] [address] Referral ID Status Reason Start Date Expiration Date Visits Re quested Visits Authorized [id number] Closed 08/21/2012 02/17/2013 1 1 Encounter Details Date Type Department Care Team (Late st Contact Info) Description 08/21/2012 9:02 AM CDT Anesthesia Event [facility] [address] [place] [address] Doroteo Davison MD [address] [place] [address] Denis Bhandari MD [address] [place] [address] Anesthesia Record Procedure Summary Procedure Name Responsible Anesthesiologist Anesthesia Start Time Anesthesia Stop Time ARTHROSCOPY KNEE MENISCECTOMY MEDIAL (Right: Knee) Doroteo Davison MD 08/21/12 0908/21/12 0942 Events Date Time Event Comment 08/21/2012825 0902 An Start 0902 An Start Data 0902 An Start Data 0910 An Induction 0911 LMA 0920 An Tourn Inflated Right uppe r leg at 350 mm Hg 0930 AN LMA REMOVE 0936 an stop data 0936 ANPTO2 0942 An Stop Meds Name Total midazolam (VERSED) 1 mg/mL injection 2 m g fentaNYL (SUBLIMAZE) 50 mcg/mL injection 125 mcg lidocaine 1% (PF) injection (50 mg/5mL) 100 mg propofol 10 mg/mL injection 200 mg ondansetron (ZOFRAN) 2 mg/mL injection 4 mg ketorolac (TORADOL) 30 mg/mL injection 3 0 mg dexamethasone (DECADRON) 4 mg/ml injecti on 4 mg acetaminophen (OFIRMEV) injection 1,000 mg lactated ringers infusion 900 mL * Agents Name Insp. N2O Exp. Sevoflurane O2 Insp. Sevoflurane * Blood No blood administrations on file. Lines, Drains, and Airways Type Details Placement Removal RETIRED Procedural Site 08/21/12; Right; Knee; Not Applicable; 08/21/12; 1707 08/21/12 0000 by Jihan Bautista RN 08/21/12 1707 by Generic, Auto Release Peripheral IV Date: 08/21/12; Time : 735; Orientation: Left; Placed By: geraldine ; Tolerance: Well 08/21/12 0736 by Manuela De Los Santos RN 08/21/12 1033 by Geraldine Reyes, RN LMA 08/21/12; 0911; aliyah neal forklift picker; Standard IV; easy with oral airway mask; LMA; 5.0; Bilateral breath sounds, Chest Auscultation, CO2 Monitor; 08/21/12; 0930; Not present on admission, removal date unknown; ney neal crna 08/21/12 0911 by Ney Neal APRN-CRNA 08/21/12 0930 by Val, Ney E, DIRECTOR GIFT-BUTADIENE CONVERTOR OPERATOR documented in this encounter Social History Tobacco [...] as of this encounter Progress Notes * Ney Neal CRNA - 08/21/2012 9:41 AM CDT ANESTHESIA POSTPROCEDURE EVALUATION Dillon Mejia is a 62 y.o. male Temp: 36.4 ??C Pulse: 67 Resp: 16 BP: 130/65 mmHg SpO2: 100 % Pain Rating Score #: 0 A postop evaluation was performed on this patient with the following assessment: no apparent anesthesia complications Mental status: sufficiently recovered from acute administration of anesthesia to participate in theevaluation. Level of consciousness: awake No numbness, tingling or visual disturbances present. General appearance: well-appearing Respiratory function: natural airway. Cardiac: stable Pain: comfortable/acceptable PONV: None Postop hydration: adequate. Final anesthesia type: general LMA Patient may be released from anesthesia care. documented in this encounter Consult Notes * Denis Bhandari MD - 08/21/2012 7:50 AM CDT Pre-anesthesia Evaluation Procedure(s) (LRB): ARTHROSCOPY KNEE MENISCECTOMY MEDIAL (Right) Vital Signs: Temp: [36.4 ??C] Pulse: [65] Resp: [16] BP: (133)/(73) SpO2: [95 %] BMI: Estimated Body mass index is 45.58 kg/(m^2) as calculated from the following: Height as of an earlier encounter on 08/21/12: 6' 2 (1.88 m). Weight as of an earlier encounter on 08/21/12: 355 lb(161.027 kg). History: Past Medical History Diagnosis Date ??? HTN (hypertension) ??? Macular degeneration (senile) of retina, unspecified Macular Degeneration Past Surgical History Procedure Date ??? Knee arthroplasty 2005 ??? Lumbar spine fusion reports that he quit smoking about 25 years ago. His smoking use included Cigarettes. He has never used smokeless tobacco. He reports that he drinks about 1.5 ounces of alcohol per week. He reports that he does not use illicit drugs. Allergies: has no known allergies. Medications: Prescriptions prior to admission Medication Sig Dispense Refill ??? enalapril (VASOTEC) 20 MG tablet Take 20 mg by mouth 2 times daily. ??? amLODIPine (NORVASC) 5 MG tablet Take 5 mg by mouth once daily after dinner. ??? hydrocodone-acetaminophen (NORCO) 10-325 MG tablet Take 1 Tab by mouth every 4 hours as needed. ??? meloxicam (MOBIC) 15 MG tablet Take 1 Tab by mouth once daily. 90 Tab 4 No current facility-administered medications for this visit. No current outpatient prescriptions on file. Facility-Administered Medications Ordered in Other Visits: lactated ringers infusion, , Intravenous, pre-OP continuous, Doroteo Davison MD, Last Rate: 20 mL/hr at 08/21/127[address]; lidocaine buffered 1 % injection, , Infiltration, pre-OP multiple, Doroteo Davison MD, 0.5 mL at 08/21/12730; famotidine (PEPCID) tablet 20 mg, 20 mg, Oral, pre-OP once, Doroteo Davison MD, 20 mg at 08/21/12730 ondansetron (disintegrating) (ZOFRAN ODT) tablet 4 mg, 4 mg, Oral, pre-OP once, Doroteo Davison MD, 4 mg at 08/21/12730 Physical Exam: NPO status: since midnight Airway: III Dental exam findings: normal/ok Pulmonary exam: breath sounds CTA Heart sounds: S1 S2 Anesthesia complications No malignant hyperthermia Reviewed labs Plan for Anesthesia: ASA Score: 2. Anesthesia plan: general Planned method of induction: intravenous Planned postop destination: PACU Anesthesia plan, risks and benefits discussed with patient Anesthesia consent: obtained Plan accepted yes Discussed anesthesia plan with: anesthesiologist. documented in this encounter Plan of Treatment Not on file documented as of this encounter Visit Diagnoses Not on filedocumented in this encounter Administered Medications Inactive Administered Medications - up to 3 most recent administrations Medication Order MAR Action Action Date Dose Rate Site acetaminophen (OFIRMEV) injection PRN, Starting on Sun08/21/12 at 0916, Until Sun08/21/12 at 0942, Maximum allowable Acetaminophen amount = 4 Grams (4000 mg) / 24 hours., Anesthesia Intra-op $ Given 08/21/2012 9:16 AM CDT 1,000 mg dexamethasone (DECADRON) injection PRN, Nausea/Vomiting, Starting on Sun08/21/12 at 0915, Until Sun08/21/12 at 0942, Anesthesia Intra-op $ Given 08/21/2012 9:15 AM CDT 4 mg fentaNYL (SUBLIMAZE) injection PRN, Starting on Sun08/21/12 at 0905, Until Sun08/21/12 at 0942, Anesthesia Intra-op $ Given 08/21/2012 9:25 AM CDT 25 mcg $ Given 08/21/2012 9:15 AM CDT 50 mcg $ Given 08/21/2012 9:05 AM CDT 50 mcg ketorolac (TORADOL) injection PRN, Starting on Sun08/21/12 at 0915, Until Sun08/21/12 at 0942, . WASTE DISPOSAL INSTRUCTIONS: Black Bin Disposal required., Anesthesia Intra-op $ Given 08/21/2012 9:15 AM CDT 30 mg lidocaine (XYLOCAINE MPF) 1 % injection PRN, Starting on Sun08/21/12 at 0905, Until Sun08/21/12 at 0942, Anesthesia Intra-op $ Given 08/21/2012 9:05 AM CDT 100 mg midazolam (VERSED) injection PRN, Starting on Sun08/21/12 at 0900, Until Sun08/21/12 at 0942, Anesthesia Intra-op $ Given 08/21/2012 9:00 AM CDT 2 m g ondansetron (ZOFRAN) injection PRN, Nausea/Vomiting, Starting on Sun08/21/12 at 0915, Until Sun08/21/12 at 0942, Anesthesia Intra-op $ Given 08/21/2012 9:15 AM CDT 4 mg propofol (DIPRIVAN) injection PRN, Starting on Sun08/21/12 at 0910, Until Sun08/21/12 at 0942, Anesthesia Intra-op $ Given 08/21/2012 9:10 AM CDT 200 mg documented in this encounter Care Teams Run Lead Relationship Specialty Start Date End Date Chantel Nassar MD PCP - General Family Medicine 08/13/12 07/22/18 Levi Yu DO Orthopedic Surgery 08/13/12 documented as of this encounter
--- OUTSIDE RECORDS SUMMARY | 2024-02-17 23:10 | XMS_ITS | Encounter Summary ---
Author Organization [facility] Address 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 Procedures ARTHROPLASTY SECOND TOE RIGHT FOOT WITH HARDWARE Jeremy Rodriguez DPM [address] [facility] [address] [place] [address] Phone: tel: fax: Referral ID Status Reason Start Date Expiration Date Visits Re quested Visits Authorized [id number] 1 1 Encounter Details Date Type Department Care Team (Late st Contact Info) Description 11/17/2022 9:46 AM CDT Anesthesia Event [facility] [place] [address] Benja Barnard MD [address] [facility] [id number] [address] [phone] (Work) Lucina Rosales FNP [address] [place] [address] Anesthesia Record Procedure Summary Procedure Name Responsible Anesthesiologist Anesthesia Start Time Anesthesia Stop Time ARTHROPLASTY SECOND TOE RIGHT FOOT WITH HARDWARE (Right: Toe) Benja Barnard MD 11/17/22 0946 11/17/22 1102 Events Date Time Event Comment 11/17/2022 0757 0757 AN Anesthesia Prepped 0810 AN COMMAND AND CONTROL SYSTEMS INTEGRATOR Prepped 0946 An Start Patient ID and consent checked and patient reassessed. 0946 An Start Data 0950 Face Mask Applied 0950 An Induction The patient was reevaluated immediately before moderate or deep sedation use and before anesthesia induction. 0950 an jairo now 0952 Anesthesia Ready 1005 An LMA 1049 An Emergence 1050 LMA Removed 1050 Face Mask Applied 1056 an stop data 1102 Post Anesthetic Care Handoff I completed my handoff to the receiving nurse during which we: 1. Identified the patient 2. Identified the responsible provider 3. Reviewed the pertinent medical history 4. Discussed the surgical course 5. Reviewed intra-op anesthesia management and issues during anesthesia 6. Set expectations for post-procedure period 7. Allowed opportunity for questions and acknowledgement of understanding. 1102 An Stop Meds Name Total clindamycin (CLEOCIN) IVPB 900 mg 900 mg ondansetron (ZOFRAN) injection 4 mg lidocaine (PF) (XYLOCAINE) 2% injection 80 mg propofol (DIPRIVAN) 200 mg/20 mL injecti on 210 mg propofol (DIPRIVAN) 200 mg/20 mL injecti on 169.51 mg fentaNYL (SUBLIMAZE) 100 mcg/2 mL inject ion 50 mcg midazolam (VERSED) 1 mg/mL injection 1 m g lactated ringers infusion 500 mL * Agents Name O2 Air Inspired Sevoflurane Sevoflurane Ancillary O2 * Blood No blood administrations on file. Lines, Drains, and Airways Type Details Placement Removal Peripheral IV Placement Date: 10/28 04/20; Placement Time: 0815; Placed Outside of This Facility?: No; Size: 20 G; Orientation: Left; Location: Hand; Site Prep: Chlorhexidine; Local Anesthetic: None; Inserted By: Srai Stapleton RN; Insertion attempts: 1; Ultrasound-guided Placement?: No; Patient Tolerance: Tolerated well; Removal Date: 11/17/22; Removal Time: 1230; Removal Reason: Patient Discharged 11/17/22 0815 by Sari Stapleton RN 11/17/22 1230 by Odalis Chaparro RN Supraglottic Airway Placement Date: 10/28 04/20; Placement Time: 1005; Mask Ventilate: In between insertion attempts, Prior to intubation, Easy; Airway Device: LMA; LMA Size: 5; Placed By: SARWAT; Style: Other; Insertion Attempts:1; Placement Verified By: Capnography, Chest Rise; Extubation Assessment: Tolerated well, Patient spontaneously breathing, Atraumatic, Deep breathes w/equal chest movements; Removal Date: 11/17/22; Removal Time: 1050; Removal Person: COMMAND AND CONTROL SYSTEMS INTEGRATOR; Removal Reason: End of Case 11/17/22 1005 by May Triplett CRNA 11/17/22 1050 by May Triplett CRNA Surgical/Incision 11/17/22; 1034; Surg ical Wound; Foot; Right; DRESSING: SUTURE, XEROFORM, 4X4, KERLIX, COBAN; 11/17/22; 1230; Other(Comment) (Patient discharged.) 11/17/22 1034 by Jessica Moore RN 11/17/22 1230 by Odalis Chaparro RN documented in this encounter Social History Tobacco Use Types Packs/Day Years Used Date Smoking Tobacco: Former Cigarettes 1 15 972 - 1986 Smokeless Tobacco: Never Alcohol Use Standard Drinks/Week Comments Not Currently 0 (1 standard drink = 0.6 oz pur e alcohol) Sex and Gender Information Value Date Recorded Sex Assigned at Not on file Legal Sex Male 11:43 AM CDT Gender Identity Not on file Sexual Orientation Not on file documented as of this encounter OR Notes * Anesthesia Postprocedure Evaluation - Benja Barnard MD - 11/17/2022 11:46 AM CDT Anesthesia Post-op Note Dillon Mejia Procedure(s): ARTHROPLASTY SECOND TOE RIGHT FOOT WITH HARDWARE (Right: Toe) Anesthesia type: general Vitals: 11/17/22 1135 BP: (!) 148/72 Vitals: 11/17/22 1135 Pulse: (!) 52 Vitals: 11/17/22 1135 Resp: 16 Vitals: 11/17/22 1135 Temp: 36.3 ??C Vitals: 11/17/22 113 SpO2: 98% Patient Location: Phase II/Outpatient Level of Consciousness: awake, alert and oriented Pain Management: adequate analgesia Airway Patency: patent Respiratory Status: spontaneous ventilation, unassisted, room air and acceptable Cardiovascular Status: hemodynamically stable Post-Op Nausea: none Postoperative Hydration: euvolemic No notable events documented. * Anesthesia Postprocedure Evaluation - Benja Barnard MD - 11/17/2022 11:40 AM CDT Anesthesia Post-op Note Dillon Mejia Procedure(s): ARTHROPLASTY SECOND TOE RIGHT FOOT WITH HARDWARE (Right: Toe) Anesthesia type: general Vitals: 11/17/22 1135 BP: (!) 148/72 Vitals: 11/17/22 1135 Pulse: (!) 52 Vitals: 11/17/22 1135 Resp: 16 Vitals: 11/17/22 1135 Temp: 36.3 ??C Vitals: 11/17/22 1135 SpO2: 98% Anesthesia Post Evaluation No notable events documented. * Anesthesia Preprocedure Evaluation - Benja Barnard MD - 11/16/2022 7:31 AM CDT Anesthesia ROS/MED History Reviewed: Patient summary , Family history anesthesia, Anesthesia history , Medications , Labs Pre-Anesthetic State: alert, awake and responds appropriately Pulmonary neg pulmonary ROS Cardiovascular (+) hypertension, hyperlipidemia Neuro/Psych Comments: Macular degeneration Substance Use no history of substance abuse GI/Hepatic/Renal (-) GERD Endo/Other (+) obese, (Morbid), arthritis NPO Status: Physical Evaluation Airway Mallampati: II TM Distance: >3 FB Neck ROM: normal Dental No notable dental history Pulmonary Breath sounds clear to auscultation Cardiovascular Rhythm: regular Rate: normal (-) murmur STOP-Bang Assessment: Do you snore loudly?: 0 Do you often feel tired or fatigued after your sleep?: 0 Has anyone ever observed you stop breathing in your sleep?: 0 Do you have or are you being treated for high blood pressure?: 1 Recent BMI (Calculated): 41.1 Is BMI greater than 35 kg/m2?: 1=Yes Age older than 50 years old?: 1=Yes Is your neck circumference greater than 17 inches (Male) or 16 inches (Female)?: 1 Gender - Male: 1=Yes STOP-Bang Total Score: 5 Anesthesia Plan ASA 3 Intravenous Induction Anesthesia type: general Plan for Airway: nasal cannula/simple face mask Plan for Post-op Pain Plan: as per surgeon Discussed potential risks of TIVA/General Anesthesia including but not limited to corneal abrasion,visual impairment or visual loss, mouth injury, dental damage, sore throat, hoarseness, esophageal injury, awareness under anesthesia, nerve injury due to positioning, aspiration, pneumonia, stroke, cardiac event, adverse drug reactions and . Tiva anesthetic planned and discussed. Possible GA with ETT as needed/indicated. Pepcid po ordered Informed Consent Anesthetic plan and risks discussed with patient of whom consent was obtained. . documented in this encounter Plan of Treatment Not on file documented as of this encounter Visit Diagnoses Not on filedocumented in this encounter Administered Medications Inactive Administered Medications - up to 3 most recent administrations Medication Order MAR Action Action Date Dose Rate Site clindamycin (CLEOCIN) IVPB 900 mg 900 mg, Intravenous, at 100 mL/hr, paper rewinder to O.R., 1 dose, First dose on Sun11/17/22 at 0745, Pre-OpIndications:Hammertoe Given 11/17/2022 9:51 AM CDT 900 mg fentaNYL (SUBLIMAZE) injection Intravenous, PRN, Starting on Sun11/17/22 at 0957, Until Sun11/17/22 at 1102, Anesthesia Intra-Op Given 11/17/2022 9:59 AM CDT 25 mcg Given 11/17/2022 9:57 AM CDT 25 mcg lactated ringers infusion at 10 mL/hr, Intravenous, Continuous, Starting on Sun11/17/22 at 0815, Until Sun11/17/22 at 1436, Infuse at TKO rate, Pre-Op Continued by Anesthesia 11/17/2022 9:46 AM CDT 10 mL/hr New Bag 11/17/2022 8:19 AM CDT 10 mL/hr lidocaine (PF) (XYLOCAINE) 2 % injection Intravenous, PRN, Starting on Sun11/17/22 at 0950, Until Sun11/17/22 at 1102, Anesthesia Intra-Op Given 11/17/2022 9:50 AM CDT 80 mg midazolam (VERSED) injection Intravenous, PRN, Starting on Sun11/17/22 at 1004, Until Sun11/17/22 at 1102, Anesthesia Intra-Op Given 11/17/2022 10:04 AM CDT 1 mg ondansetron (ZOFRAN) injection Intravenous, PRN, Starting on Sun11/17/22 at 0946, Until Sun11/17/22 at 1102, Anesthesia Intra-Op Given 11/17/2022 9:46 AM CDT 4 mg propofol (DIPRIVAN) IV bolus Intravenous, PRN, Starting on Sun11/17/22 at 0950, Until Sun11/17/22 at 1102, Anesthesia Intra-Op Given 11/17/2022 10:04 AM CDT 120 mg Given 11/17/2022 9:57 AM CDT 30 mg Given 11/17/2022 9:50 AM CDT 60 mg propofol (DIPRIVAN) IV bolus Intravenous, Continuous PRN, Starting on Sun11/17/22 at 0950, Until Sun11/17/22 at 1102, Anesthesia Intra-Op Rate/Dose Change 11/17/2022 9:59 AM CDT 100 mcg/kg/min 88.44 mL/hr Rate/Dose Change 11/17/2022 9:55 AM CDT 75 mcg/kg/min 66.3 3 mL/hr New Bag 11/17/2022 9:50 AM CDT 50 mcg/kg/min 44.22 mL/h r documented in this encounter Care Teams Physics Faculty Member Relationship Specialty Start Date End Date Francy Amaya NP [address] [place] [address] PCP - General Nurse Practitioner Family 11/10/22 documented as of this encounter
--- OUTSIDE RECORDS SUMMARY | 2024-02-17 23:10 | XMS_ITS | Clinical Summary ---
Author Organization [facility] Address [facility] [facility] [place] [address] [place] [address] Care Team Providers Care Pickle Sorter Name Role Phone Francy Amaya MARCIO Primary Care Provider [phone] Medications enalapril (VASOTEC) 20 MG tablet Take 1 tablet (20 mg total) by mouth 2 (two) times daily. Active metFORMIN ER (GLUCOPHAGE-XR) 500 MG 24 hr tablet Take 1 tablet (500 mg total) by mouth daily with breakfast. 11/01/2022 Active naproxen (NAPROSYN) 500 MG tablet Take 1 tablet (500 mg total) by mouth 2 (two) times daily as needed (pain). 11/01/2022 Active Multiple Vitamins-Minera ls (PRESERVISION AREDS) capsule Take 1 capsule by mouth daily. Active niacin 250 MG tablet Take 2 tablets (500 mg total) by mouth nightly at bedtime. Active Dupilumab 300 MG/2ML Solution Pen-injector Inject 300 mg into the skin Bimonthly. Active hydroCHLOROthia zide (MICROZIDE) 12.5 MG tablet Take 1 tablet (12.5 mg total) by mouth every morning. Active clindamycin (CLEOCIN) 150 MG capsule Take 2 capsules (300 mg total) by mouth 3 (three) times daily. 11/11/2022 Active Immunizations Name Administration Dates Next Due PFIZER COVID-19 (ORIGINAL FO RMULATION, PURPLE CAP) mRNA, LNP-S, PF, 30 MCG/0.3 ML DOSE 12/14/2020,05/14/2020,04/23/2020 Social History Tobacco Use Types Packs/Day Years Used Date Smoking Tobacco: Former Cigarettes 1 15 1 972 - 1987 Smokeless Tobacco: Never Tobacco Cessation:Counseling Given: Not Answered Alcohol Use Standard Drinks/Week Comments Not Currently 0 (1 standard drink = 0.6 oz pur e alcohol) Sex and Gender Information Value Date Recorded Sex Assigned at Not on file Legal Sex Male 11:43 AM CDT Gender Identity Not on file Sexual Orientation Not on file Last Filed Vital Signs Vital Sign Reading Time Taken Comments Blood Pressure 135/71 11/17/2022 12:30 PM CDT Pulse 51 11/17/2022 12:30 PM CDT Temperature 36.2 ??C (97.2 ??F) 11/17/2022 1 2:30 PM CDT Respiratory Rate 16 11/17/2022 12:3 0 PM CDT Oxygen Saturation 98% 11/17/2022 12: 30 PM CDT Inhaled Oxygen Concentration - - Weight 147.4 kg (324 lb 15.3 oz) 11/17/2022 7:40 AM CDT Height 188 cm (6' 2 ) 11/17/2022 7:40 AM CDT Body Mass Index 41.72 11/17/2022 7:40 AM CDT Plan of Treatment Health Maintenance Due Date Last Done Comments Colorectal Cancer Screening Colonoscopy (10 Years) 1952 Hepatitis C 1970 DTaP, Tdap and Td Vaccines (1 - Tdap) 08/02/1971 Zoster Vaccines (1 of 2) 2002 RSV Immunization or 60+ Years (1 - 1-dose 60+ series) 2012 Annual Medicare Wellness Visit 2017 Pneumococcal Vaccine: 65+ Years (1 of 1 - PCV) 2017 COVID-19 Vaccine ( season) 2023 12/29/2021, 10/10/2021, 12/14/2020, Additional history exists Influenza Adult (#1) 2023 Meningococcal Vaccine Aged Out No meir lilia eligible based on patient's age to complete this topic RSV Immunizations Under 20 Months Aged Out No longer eligible based on patient's age to complete this topic Medical Devices Implanted Type Area Inventory Control Manager Device Identifier Shelf Expiration Date Model / Serial / Lot Medium Toe Tac Fixation System Implanted:Qty: 1 on 11/17/2022 by Jeremy Rodriguez DPM at [facility] Right: Toe [employer] [id number] 08/22/2025 -[id number] / / [id number] Insurance MEDICARE [facility] Care Teams Pickle Sorter Relationship Specialty Start Date End Date Francy Amaya NP [address] [facility] [place] [address] PCP - General Nurse Practitioner Family 11/10/22
--- OUTSIDE RECORDS SUMMARY | 2024-02-17 23:10 | XMS_ITS | Encounter Summary ---
Author Organization [facility] Address [facility] [facility] [place], [place] [address] [place] [address] Care Team Providers Care Casting House Worker Name Role Phone Francy Amaya NP Primary Care Provider [phone] Encounter Details Date Type Department Care Team (Latest Contact Info) Description 11/17/2022 Travel Social History Tobacco Use Types Packs/Day Years Used Date Smoking Tobacco: Former Cigarettes 1 15 1 972 - 1986 Smokeless Tobacco: Never Alcohol [...] on filedocumented in this encounter Care Teams Casting House Worker Relationship Specialty Start Date End Date Francy Amaya NP [address] [place] [address] PCP - General Nurse Practitioner Family 11/10/22 documented as of this encounter
--- OUTSIDE RECORDS SUMMARY | 2024-02-17 23:10 | XMS_ITS | Encounter Summary ---
Author Organization [facility] Address [facility]. [place], [place] [address] [place] [id number] Care Team Providers Care Cdl Service Technician Name Role Phone Monique Francy MARCIO Primary Care Provider [phone] Reason for Visit * Auth/Cert (Routine) Specialty Diagnoses / Procedures Referred By Antelmo paulino Referred To Contact Diagnoses HAMMERTOE RIGHT FOOT M20.41 Procedures ARTHROPLASTY SECOND TOE RIGHT FOOT WITH HARDWARE Reid Roman DPM [address] [address] Phone: tel: fax: Referral ID Status Reason Start Date Expiration Date Visits Re quested Visits Authorized [id number] 1 1 Encounter Details Date Type Department Care Team (Late st Contact Info) Description 11/17/2022 9:52 AM CDT - 11/17/2022 11:37 AM CDT Surgery [facility] [place] [address] Reid Roman DPM [address] [address] ARTHROPLASTY SECOND TOE RIGHT FOOT WITH HARDWARE Surgery Details Date/Time Status Location OR Service Patient Class Case Class Case Type Trauma Case? 11/17/2022 9:52 AM Posted [facility] OR OR 1 Podiatry Short Stay/Outpat ient Surgery E - Elective No Panel 1 Procedure LRB Anes Op Region Wound Class Comments ARTHROPLASTY SECOND TOE RIGH T FOOT WITH HARDWARE Right General Toe Clean Surgeon Surgeon Role Service Panel Reid Roman DPM Primary Podiatry 1 Case Notes SCHED BY PHONE KIRSTEN 11/06 @ [facility] [facility] PHONE ASSESS Special Needs ALE TOE TAC documented in this encounter Social History Tobacco Use Types Packs/Day Years Used Date Smoking Tobacco: Former Cigarettes 1 1986 Smokeless Tobacco: Never Tobacco Cessation:Counseling Given: Not [...] Sign Reading Time Taken Comments Blood Pressure 148/72 11/17/2022 11:35 AM CDT Pulse 52 11/17/2022 11:35 AM CDT Temperature 36.3 ??C (97.3 ??F) 11/17/2022 1 1:35 AM CDT Respiratory Rate 16 11/17/2022 11:3 5 AM CDT Oxygen Saturation 98% 11/17/2022 11: 35 AM CDT Inhaled Oxygen Concentration - - Weight 147.4 kg (324 lb 15.3 oz) 11/17/2022 7:40 AM CDT Height 188 cm (6' 2 ) 11/17/2022 7:40 AM CDT Body Mass Index 41.72 11/17/2022 7:40 AM CDT documented in this encounter Discharge Instructions * Discharge Instructions* Anuja Mesa RN - 11/17/2022 11:01 AM CDT If you have chest pain, shortness of breath, calf pain, excessive bleeding or drainage, if you cannot hold down anything to eat or drink, or if you cannot urinate, please call 911 or go to the nearest emergency room. If you have fever, pain not controlled by your medication, signs of infection such as redness or discharge or swelling at the site, or any other questions or concerns, please call your surgeon. Because you had anesthesia, we suggest these things: -Avoid greasy, fried or spicy foods for today -Take medication with food -Take an over the counter stool softener if needed for constipation while taking pain medication -Have a responsible adult stay with you the rest of today and overnight -No alcohol, driving, making major decision or operating machinery for 24 hours or while taking pain medication * Attachments The following attachments cannot be sent through Care Everywhere. * Hammer Toe Correction Discharge Instructions ([place]jiboutian) * Hydrocodone and Acetaminophen, ADULT ([place]jiboutian) * General Anesthesia Discharge Instructions ([place]jiboutian) documented in this encounter Medications at Time of Discharge clindamycin (CLEOCIN) 150 MG capsule Take 2 capsules (300 mg total) by mouth 3 (three) times daily. 11/11/2022 Dupilumab 300 MG/2ML Solution Pen-injector Inject 300 mg into the skin Bimonthly. enalapril (VASOTEC) 20 MG tablet Take 1 tablet (20 mg total) by mouth 2 (two) times daily. metFORMIN ER (GLUCOPHAGE-XR) 500 MG 24 hr tablet Take 1 tablet (500 mg total) by mouth daily with breakfast. 11/01/2022 Multiple Vitamins-Minerals (PRESERVISION AREDS) capsule Take 1 capsule by mouth daily. naproxen (NAPROSYN) 500 MG tablet Take 1 tablet (500 mg total) by mouth 2 (two) times daily as needed (pain). 11/01/2022 niacin 250 MG tablet Take 2 tablets (500 mg total) by mouth nightly at bedtime. hydroCHLOROthiazi de (MICROZIDE) 12.5 MG tablet Take 1 tablet (12.5 mg total) by mouth every morning. documented as of this encounter H&P Notes * Reid Roman DPM - 11/17/2022 9:32 AM CDT Dillon Mejia 72-year-old male Date of Service: 11/17/2022 CHIEF COMPLAINT: Hammertoe 2nd toe right foot with wound HPI: Patient has a chronic wound on the tip of his right 2nd toe that is prone to infection. It is due to a rigid hammertoe that puts too much pressure on the toe. He has been on oral and topical antiboitics, padding, surgical shoe to keep pressure off of it, but it has not closed. PMH: Past Medical History: Diagnosis Date Arthritis HLD (hyperlipidemia) Hypertension Morbid obesity (CMS/HCC) Prediabetes Unspecified macular degeneration PSH: Past Surgical History: Procedure Laterality Date BACK SURGERY 2006 - lumbar fusion COLONOSCOPY,DIAGNOSTIC JOINT REPLACEMENT Left 2019 KNEE SURGERY knee arthroscopy x2 ALL: Not on File MEDS: Current: clindamycin 900 mg Intravenous Machine Or Machinery Mechanic to OR Current Facility-Administered Medications: clindamycin (CLEOCIN) IVPB 900 mg, 900 mg, Intravenous, Machine Or Machinery Mechanic to OR, Reid Roman DPM lactated ringers infusion, , Intravenous, Continuous, Benja Barnard MD, Last Rate: 10 mL/hr at 11/17/228[address], New Bag at 11/17/22818 Social History Socioeconomic History Marital status: Tobacco Use Smoking status: Former Packs/day: 1.00 Years: 15.00 Pack years: 15.00 Types: Cigarettes Quit date: 1986 Years since quittin.7 Smokeless tobacco: Never Substance and Sexual Activity Alcohol use: Not Currently Drug use: Never No family history on file. REVIEW OF SYSTEMS: [12 system review is negative aside from that mentioned in the HPI and PMH/PSH.] PHYSICAL EXAM: Blood pressure (!) 150/76, pulse (!) 58, temperature 97.7 ??F (36.5 ??C), temperature source Temporal, resp. rate 16, height 6' 2 (1.88 m), weight (!) 147.4 kg (324 lb 15.3 oz), SpO2 95 %. Body massindex is 41.72 kg/m??. GEN: [Well developed in no acute distress] SKIN: Partial thickness ulceration distal tip of the right 2nd digit. No purulence, no active drainage, no streaking. HEENT: [Eyes and Ears WNL, Neck Supple] CHEST: [Unlabored breathing, no accessory muscle use] HEART: Palpable pedal pulses +1/4, PT, DP pulses] EXT: Rigid deformity of the 2nd digit. Flexion contracture of the distal interphalangeal joint and dorsal contracture of the proximal interphalangeal joint, right 2nd digit. NEURO: Decreased sensorium to forefoot bilateral LYMPHATICS: [No palpable lymphadenopathy] BREAST: [Deferred] RECTAL: [Deferred] LABS: [I reviewed the recent laboratories and pertinent values were noted.] Recent Labs Lab 11/17/22 0812 NA 142 K 4.1 CL 110* CO2 27.9 AGAP 4.1* BUN 19* CR 0.88 BUNCREATININ 21.6 GLU 126* CA 8.8 No results for input(s): APTT, INR, PTT in the last 168 hours. IMAGING: [I reviewed the digital images of the patient's imaging studies.] IMPRESSION: Hammer Digit Deformity, 2nd digit right foot. PLAN: Hammer Digit Correction with hardware, 2nd digit, right foot REID ROMAN DPM 11/17/2022 documented in this encounter Nursing Notes * Sari Stapleton RN - 11/17/2022 7:40 AM CDT Hibiclens showers at home x 2, nose to toes protocol completed. CHG wipes used on arrival to OPS, etyhl alcohol swabs x 2 placed in bilateral nares per RN. Pt tolerated well. documented in this encounter OR Notes * Op Note - Reid Roman DPM - 11/17/2022 12:00 AM CDT Patient Name: DILLON MEJIA Date of : 1950 Account: [id number] Facility: [facility] Location: [facility] Date of Service: 11/17/2022 Operative Note SURGEON: Reid Roman DPM. PREOPERATIVE DIAGNOSIS: Hammer digit deformity, second digit, right foot. POSTOPERATIVE DIAGNOSIS: Hammer digit deformity, second digit, right foot. PROCEDURE PERFORMED: Hammer digit correction with hardware, second digit, right foot. PATHOLOGY: None. ANESTHESIA: General. HEMOSTASIS: Pneumatic ankle tourniquet 250 mmHg, right lower extremity. ESTIMATED BLOOD LOSS: Minimal, under 5 mL MATERIALS: A medium ToeTac, a 0.045 K-wire, 4-0 Vicryl, 4-0 nylon. INJECTABLES: 30 mL of 1:1 mixture of 0.5% Marcaine plain and 1% Lidocaine plain. COMPLICATIONS: None. INDICATIONS FOR PROCEDURE: Chronic hammertoe leading to ulceration distal tip, second digit, right foot. PROCEDURE IN DETAIL: The patient was brought to the operating room and placed on the operating table in supine position. A well-padded pneumatic ankle tourniquet was then placed above the patient's right ankle. IV sedation was administered, but the patient was unable to remain still. So he was converted to general. Following general anesthetic, local anesthetic was achieved by means of a forefootblock consisting of 30 mL of a 1:1 mixture of 0.5% Marcaine plain and 1% Lidocaine plain. The foot was then scrubbed, prepped and draped in the usual aseptic manner. An Esmarch bandage was used to exsanguinate the right foot and the pneumatic ankle tourniquet was then inflated. Attention was then directed to second digit of the right foot, which was noted to have a rigid hammer digit deformity and with a partial thickness ulceration on the distal tip of the second digit. A 3 cm dorsal linear incision was made over the second digit. The incision was deepened utilizing sharp and blunt dissection with great care taken to protect and retract all vital neurovascular structures. All bleeders were ligated and cauterized as necessary. Dissection was then carried down to the proximal interphalangeal joint where a transverse tenotomy and capsulotomy was performed. The periosteal and capsular structures were reflected, thus exposing the joint. Next, utilizing a combination of power saw, power bur and reamers from the ToeTa, the articular surface of the head of the proximal phalanx and base of the middle phalanx was resected down to bleeding bone. The wound was then flushed with copious amounts of sterile normal saline impregnated with Vancomycin. Next, utilizing standard AO principles and technique, the proximal interphalangeal joint was fixated with a size medium To eTac and 0.045 K-wire. Great care was taken so that the K-wire did not come into contact with the ulceration. After placement of the hardware and K-wire, it was noted that the digit was rectus and that the ulceration was no longer in contact with the weightbearing surface. Wound was flushed again. Deep structures were coapted and reapproximated utilizing 4-0 Vicryl. Skin was coapted and reapproxim ated utilizing 4-0 nylon. Surgical site was then dressed with Betadine ointment, Xeroform, gauze, Romelia, and Coban. Pneumaticankle tourniquet was deflated and a prompt capillary refill response was noted to all digits of theright lower extremity. The patient tolerated the above procedure and anesthesia well. The patient was transported to the recovery room with vital signs stable and vascular status intact. Following a period of postoperativemonitoring, the patient will be discharged home with following written and oral instructions: The patient is instructed to decrease activity, to ice and elevate the right foot when at rest and to keep the dressing clean and dry. He was dispensed a surgical shoe and advised to wear this at all timeswhen bearing weight. He was given a prescription for postoperative pain management consisting of Hyd rocodone/Acetaminophen 5/325 mg 1-2 tablets taken every 4 to 6 hours as needed for pain, #30. He has a followup appointment in 1 week's time or sooner if problems arise. Signature/Date: REID ROMAN #[id number] /SARAH * OR PreOp - ESTELA Knowles - 11/10/2022 2:54 PM CDT Chart reviewed. Per phone interview, patient denies extreme SOB/CP with 2 FOS or recent changes in activity tolerance in past 6 months. Per phone interview, patient denies having a skid adzer or previous cardiac testing.Previous EKG found in Care Everywhere and testing copied. ASA level III, will need H&P for surgery High risk CECE Patient on enalapril for h/o HTN and scheduled for procedure under MAC. States baseline BP runs 130/86. Per Anesthesia recommendations, please have patient continue for surgery. EKG 03/21/20 Sinus bradycardia Anteroseptal infarct , age undetermined Abnormal ECG No previous ECGs available Rate 54 EKG 10/21/18 Sinus bradycardia with Premature atrial complexes Low voltage QRS Borderline ECG When compared with ECG of 21-AUG-2012 07:31, Premature atrial complexes are now Present Rate 58 * OR PreOp - Venita Tong RN - 11/10/2022 10:51 AM CDT Can you climb 2 flights of stairs without CP or extreme SOB? yes Are you physically able to do the same things today that you could 6 months ago? yes What is your average blood pressure? 130/86 Any recent heart testing? (EKG, stress test, Echo?) no Do you see a skid adzer? Who is it? No Covid vaccinated and has had covid. Patient contacted for pre-op evaluation phone call. Medical history and medications reviewed. Pre-op instructions were discussed. Instructed him to hold vitamin 1 week prior to surgery and hold enalapril and metformin the morning of surgery. Bring enalapril dose with you. Ok to take niacin the night before as usual. Patient voiced understanding and questions were answered. H&P requested from Francy Amaya NP's office and received today and uploaded in media tab. documented in this encounter Plan of Treatment Not on file documented as of this encounter Procedures Procedure Name Priority Date/Time Associated Diagnosis Comments POCT GLUCOSE - ARMIJO DOCKED DEVICE Routine 11/17/2022 11:23 AM CDT ARTHROPLASTY HAMMER TOE 11/17/2022 9:46 AM CDT HAMMERTOE RIGHT FOOT M20.41 Case Notes SCHED BY PHONE KIRSTEN 11/06 @ [address] [facility] PHONE ASSESS Special Needs ALE TOE TAC POCT GLUCOSE - ARMIJO DOCKED DEVICE Routine 11/17/2022 8:12 AM CDT BASIC METABOLIC PANEL STAT 11/17/2022 8:12 AM CDT Preop examination documented in this encounter Results * (ABNORMAL) POCT glucose (11/17/2022 11:23 AM CDT) GLUCOSE POC 125(H) 70 - 99 mg/dL 11/17/2022 11:25 AM CDT [facility] 11/17/2022 11:2 3 AM CDT Reid Thomasook DPM POCT ORDERABLES - DEVICE Final R esult Performing Organization Address City/[facility]/ZIP Co de Phone Number [facility] [address] [place] [address], [place] [phone] * POCT glucose (11/17/2022 8:12 AM CDT) GLUCOSE POC 99 70 - 99 mg/dL 11/20/2022 6:26 AM CDT [facility] 11/17/2022 8:12 AM CDT Reid Thomasook DPM POCT ORDERABLES - DEVICE Final R esult Performing Organization Address City/[facility]/ZIP Co de Phone Number [facility] [address] [place] [address], [place] [phone] * (ABNORMAL) BASIC METABOLIC PANEL (11/17/2022 8:12 AM CDT) GLUCOSE 126(H) 70 - 99 MG/DL 11/17/2022 8:43 AM CDT [facility] BUN 19(H) 7 - 18 MG/DL 11/17/2022 8:43 AM CDT [facility] CREATININE S/P/B 0.88 0.7 - 1.3 MG/DL 11/17/2022 8:43 AM CDT [facility] SODIUM S/P/B 142 136 - 145 MMOL/L 11/17/2022 8:43 AM CDT [facility] POTASSIUM S/P/B 4.1 3.5 - 5.1 MMOL/L 11/17/2022 8:43 AM CDT [facility] CHLORIDE S/P/B 110(H) 100 - 108 MMOL/L 11/17/2022 8:43 AM CDT [facility] CO2 27.9 21 - 32 MMOL/L 11/17/2022 8:43 AM CDT [facility] CALCIUM S/P/B 8.8 8.5 - 10.1 MG/DL 11/17/2022 8:43 AM CDT [facility] ANION GAP 4.1(L) 5 - 15 MMOL/L 11/17/2022 8:43 AM CDT [facility] BUN CREATININE RATIO 21.6 6 - 26 11/17/2022 8:43 AM CDT [facility] GFR ESTIMATE >90 >90 ML/MIN/1.7 3 M2 11/17/2022 8:43 AM CDT [facility] Comment: NOTE: eGFR is not calculated for patients <18 years of age. This is an estimated GFR calculation using the new CKD EPI creatinine equation without race and so does not require a correction factor for race. This estimated GFR should not be used for calculating drug doses. 11/17/2022 8:12 AM CDT Lucina Rosales [facility] Final R esult [facility] [address] [place] [address], [place] [phone] documented in this encounter Visit Diagnoses Not on filedocumented in this encounter Administered Medications Inactive Administered Medications - up to 3 most recent administrations Medication Order MAR Action Action Date Dose Rate Site BUpivacaine (PF) (MARCAINE) 15 mL, lidocaine (XYLOCAINE) 1 % 15 mL solution As needed, Starting on Sun11/17/22 at 1006, Until Sun11/17/22 at 1058, Intra-Op Given 11/17/2022 10:06 AM CDT 30 mLs Operative Site famotidine (PEPCID) tablet 20 mg 20 mg, Oral, Once, 1 dose, On Sun11/17/22 at 0830 Given 11/17/2022 8:04 AM CDT 20 mg lactated ringers infusion at 10 mL/hr, Intravenous, Continuous, Starting on Sun11/17/22 at 0815, Until Sun11/17/22 at 1436, Infuse at TKO rate, Pre-Op Continued by Anesthesia 11/17/2022 9:46 AM CDT 10 mL/hr New Bag 11/17/2022 8:19 AM CDT 10 mL/hr vancomycin (VANCOCIN) 1,000 mg in sodium chloride 0.9 % 1,000 mL irrigation solution As needed, Starting on Sun11/17/22 at 1040, Until Sun11/17/22 at 1105, Intra-Op Given 11/17/2022 10:40 AM CDT 1,000 mLs Operative Site documented in this encounter Active and Recently Administered Medications Times are shown in CDT. Scheduled Medication Order 11/15/2022 11/16/2022 11/17/2022 clindamycin (CLEOCIN) IVPB 900 mg (COMPLETED) 900 mg, Intravenous, at 100 mL/hr, glassware verifier to O.R., 1 dose, First dose on Sun11/17/22 at 0745, Pre-Op 0951 (Given - Provid er: May Triplett CRNA) famotidine (PEPCID) tablet 20 mg (COMPLETED) 20 mg, Oral, Once, 1 dose, On Sun11/17/22 at 0830 0804 (Given - Provid er: Sari Stapleton RN) Continuous Medication Order 11/15/2022 11/16/2022 11/17/2022 lactated ringers infusion at 10 mL/hr, Intravenous, Continuous, Starting on Sun11/17/22 at 0815, Until Sun11/17/22 at 1436, Infuse at TKO rate, Pre-Op 0819 (New Bag - Prov ider: Sari Stapleton RN)0946 (Continued by Anesthesia - Provider: May Triplett CRNA)1056 (Anesthesia Volume Adjustment - Provider: May Triplett CRNA)1120 (Infusion Stop Time - Provider: Nery Garcia RN) PRN Medication Order 11/15/2022 11/16/2022 11/17/2022 BUpivacaine (PF) (MARCAINE) 15 mL, lidocaine (XYLOCAINE) 1 % 15 mL solution (CANCELED) As needed, Starting on Sun11/17/22 at 1006, Until Sun11/17/22 at 1058, Intra-Op 1006 (Given - Provid er: Reid Roman DPM) vancomycin (VANCOCIN) 1,000 mg in sodium chloride 0.9 % 1,000 mL irrigation solution (CANCELED) As needed, Starting on Sun11/17/22 at 1040, Until Sun11/17/22 at 1105, Intra-Op 1040 (Given - Provid er: Reid Roman DPM) documented in this encounter Care Teams Cdl Service Technician Relationship Specialty Start Date End Date Francy Amaya NP [address], [place] [phone] PCP - General Nurse Practitioner Family 11/10/22 documented as of this encounter
--- OUTSIDE RECORDS SUMMARY | 2024-02-17 23:10 | XMS_ITS | Encounter Summary ---
Author Organization [facility] Address [facility]6 [facility]. [place], [place] [address] [place] [address] Care Team Providers Care Websphere Consultant Name Role Phone Francy Amaya MARCIO Primary Care Provider [phone] Reason for Visit * Auth/Cert (Routine) Specialty Diagnoses / Procedures Referred By Antelmo paulino Referred To Contact Diagnoses HAMMERTOE RIGHT FOOT M20.41 Procedures ARTHROPLASTY SECOND TOE RIGHT FOOT WITH HARDWARE Reid Roman DPM [address] [address] Phone: tel: fax: Referral ID Status Reason Start Date Expiration Date Visits Re quested Visits Authorized [id number] 1 1 Encounter Details Date Type Department Care Team (Latest Contact Info) Description 11/17/2022 7:11 AM CDT - 11/17/2022 12:35 PM CDT Hospital Encounter [facility] [place] [address] Reid Roman DPM [address] [address] Discharge Disposition: Home or Self Care (Routine Discharge) Social History Tobacco Use Types Packs/Day Years [...] Everywhere. * Hammer Toe Correction Discharge Instructions (Bermudian) * Hydrocodone and Acetaminophen, ADULT (Bermudian) * General Anesthesia Discharge Instructions (Bermudian) documented in this encounter Medications at Time [...] File MEDS: Current: clindamycin 900 mg Intravenous Communication Studies Professor to OR Current Facility-Administered Medications: clindamycin (CLEOCIN) IVPB 900 mg, 900 mg, Intravenous, Communication Studies Professor to OR, Reid Roman DPM lactated ringers infusion, , Intravenous, Continuous, Benja Barnard MD, Last Rate: 10 mL/hr at 11/17/22818, New Bag at 09/22/23 0819 Social History Socioeconomic History Marital status: Tobacco [...] DILLON MEJIA Date of : 1950 Account: [id number] Facility: [facility] Location: [facility] Date of Service: 11/17/2022 Operative [...] sooner if problems arise. Signature/Date: REID ROMAN #[id number] /SARAH * OR PreOp - ESTELA Knowles - 11/10/2022 2:54 PM CDT Chart reviewed. Per phone interview, patient denies extreme SOB/CP with 2 FOS or recent changes in activity tolerance in past 6 months. Per phone interview, patient denies having a photocopying equipment repairer or previous cardiac testing.Previous EKG found in [...] test, Echo?) no Do you see a photocopying equipment repairer? Who is it? No Covid vaccinated and [...] Notes SCHED BY PHONE KIRSTEN 11/06 @ [address] [facility] PHONE ASSESS Special Needs ALE TOE TAC POCT GLUCOSE - ARMIJO DOCKED DEVICE Routine 11/17/2022 8:12 AM CDT BASIC METABOLIC PANEL STAT 11/17/2022 8:12 AM CDT Preop examination documented in this encounter Results * (ABNORMAL) POCT glucose (11/17/2022 11:23 AM CDT) GLUCOSE POC 125(H) 70 - 99 mg/dL 11/17/2022 11:25 AM CDT [facility] 11/17/2022 11:2 3 AM CDT Reid Roman DPM POCT ORDERABLES - DEVICE Final R esult [facility] [address] [place] [address], [place] [phone] * POCT glucose (11/17/2022 8:12 AM CDT) GLUCOSE POC 99 70 - 99 mg/dL 11/20/2022 6:26 AM CDT [facility] 11/17/2022 8:12 AM CDT Reid Roman DPM POCT ORDERABLES - DEVICE Final R esult [facility] [address] [place] [address], [place] [phone] * (ABNORMAL) BASIC METABOLIC PANEL (11/17/2022 8:12 AM CDT) GLUCOSE 126(H) 70 - 99 MG/DL 11/17/2022 8:43 AM CDT [facility] BUN 19(H) 7 - 18 MG/DL 11/17/2022 8:43 AM CDT [facility] CREATININE S/P/B 0.88 0.7 - 1.3 MG/DL 11/17/2022 8:43 AM CDT [facility] SODIUM S/P/B 142 136 - 145 MMOL/L 11/17/2022 8:43 AM CDT [facility] POTASSIUM S/P/B 4.1 3.5 - 5.1 MMOL/L 11/17/2022 8:43 AM CDT [facility] CHLORIDE S/P/B 110(H) 100 - 108 MMOL/L 11/17/2022 8:43 AM CDT [facility] CO2 27.9 21 - 32 MMOL/L 11/17/2022 8:43 AM CDT [facility] CALCIUM S/P/B 8.8 8.5 - 10.1 MG/DL 11/17/2022 8:43 AM CDT [facility] ANION GAP 4.1(L) 5 - 15 MMOL/L 11/17/2022 8:43 AM CDT [facility] BUN CREATININE RATIO 21.6 6 - 26 11/17/2022 8:43 AM CDT [facility] GFR ESTIMATE >90 >90 ML/MIN/1.7 3 M2 11/17/2022 8:43 AM CDT [facility] Comment: NOTE: eGFR is not calculated for patients <18 years of age. This is an estimated GFR calculation using the new CKD EPI creatinine equation without race and so does not require a correction factor for race. This estimated GFR should not be used for calculating drug doses. 11/17/2022 8:12 AM CDT Lucina Rosales [facility] Final R esult [facility] [address] [place] [address], [place] [phone] documented in this encounter Visit Diagnoses Diagnosis Hammertoe- Primary Other hammer toe (acquired) Preop examination Preoperative examination, unspecified documented in this [...] Bag 11/17/2022 8:19 AM CDT 10 mL/hr documented in this encounter Active and Recently Administered Medications Times are shown in CDT. Scheduled Medication Order 11/15/2022 11/16/2022 11/17/2022 clindamycin (CLEOCIN) IVPB 900 mg (COMPLETED) 900 mg, Intravenous, at 100 mL/hr, call box wirer to O.R., 1 dose, First dose on [...] DPM) documented in this encounter Care Teams Websphere Consultant Relationship Specialty Start Date End Date Francy Amaya NP [address] [place] [address] PCP - General Nurse Practitioner Family 11/10/22 documented as of this encounter
--- OUTSIDE RECORDS SUMMARY | 2024-02-17 23:10 | XMS_ITS | Encounter Summary ---
Author Organization [facility] Address [facility]6 [facility] [place], [place] [address] [place] [address] Care Team Providers Care Machine Repair Person Name Role Phone Francy Amaya NP Primary Care Provider [phone] Encounter Details Date Type Department Care Team (Latest Contact Info) Description 11/10/2022 Travel Social History Tobacco Use Types Packs/Day [...] on filedocumented in this encounter Care Teams Machine Repair Person Relationship Specialty Start Date End Date Francy Amaya NP [address] [place] [address] PCP - General Nurse Practitioner Family 11/10/22 documented as of this encounter
--- OUTSIDE RECORDS SUMMARY | 2024-02-17 23:12 | XMS_ITS | Clinical Summary ---
Author Organization [facility] [address] Address [address] [place] [address] Care Team Providers Care Compliance Quality Performance Analyst Name Role Phone Unavailable Primary Care Provider Unavailabl e Allergies No known active allergies Medications Medication Sig Dispensed Refills Start Date End Date Status dupilumab (DUPIXENT) 300 mg/2 mL Pen Injector Inject 300 mg by subcutaneous injection every 2 weeks. Active metFORMIN (GLUCOPHAGE XR) 500 mg Extended Release 24 hour tablet Take 500 mg by mouth daily. Active niacin (NIACOR) 250 mg tablet Take 250 mg by mouth daily. Active vits A,C,E/zinc/copper (VISION-DYLAN PRESERVE ORAL) Take by mouth. Active enalapril (VASOTEC) 20 mg tablet Take 20 mg by mouth 2 times daily. Active hydroxyurea (HYDREA) 500 mg capsule Take 1 Capsule (500 mg) by mouth 2 times daily. 60 Capsule 2 01/30/2024 Active allopurinoL (ZYLOPRIM) 300 mg tablet Take 1 Tablet (300 mg) by mouth daily. 60 Tablet 1 01/30/2024 Active Active Problems No known active problems Encounters Date Type Department Care Team Description 02/12/2024 Orders Only [facility] Oncology and Hematology - Miguel [address] [place] [address] Santos Pickett MD 02/11/2024 9:30 AM BAND TIER Office Visit [facility] Oncology and Hematology - [place] [address] [place] [address] Santos Pickett MD Essential thrombocytosis (Primary Dx) 02/07/2024 Orders Only [facility] Oncology and Hematology - [address] [place] [address] Santos Pickett MD Essential thrombocytosis (Primary Dx) 01/30/2024 11:30 AM BAND TIER Office Visit [facility] Oncology and Hematology - Miguel [address] [place] [address] Santos Pickett MD Essential thrombocytosis (Primary Dx) 01/18/2024 Orders Only [facility] Oncology and Hematology - Miguel [address] [place] [address] Santos Pickett MD 01/17/2024 Orders Only [facility] Oncology and Hematology - Miguel [address] [place] [address] Santos Pickett MD 01/16/2024 Orders Only [facility] Oncology and Hematology - Miguel [address] [place] [address] Santos Pickett MD 01/15/2024 External Device Data STL ABSTRACTION Provider, Abstract 01/10/2024 Orders Only [facility] Oncology and Hematology - Miguel [address] [place] [address] Santos Pickett MD 01/09/2024 1:30 PM BAND TIER Office Visit [facility] Oncology and Hematology - [place] [address] [place] [address] Santos Pickett MD Essential thrombocytosis (Primary Dx); Leukocytosis, unspecified type; Chronic anemia 01/09/2024 Orders Only [facility] Oncology and Hematology - Miguel [address] [place] [phone] Carlyn Mcdaniel from Last 3 Months Family History Medical History Relation Name Comments No Known Problems Brother COPD Father Atrial fibrillation Mother Heart Attack Mother No Known Problems Sister Relation Name Status Comments Brother Alive Father Mother Sister Alive Social History Tobacco Use Types Packs/Day Years Used Date Smoking Tobacco: Former Cigarettes Q uit: 1987 Smokeless Tobacco: Never Tobacco Cessation:Counseling Given: Not Answered Alcohol Use Standard Drinks/Week Comments Yes 0 (1 standard drink = 0.6 oz pur e alcohol) Occasionally Sex and Gender Information Value Date Recorded Sex Assigned at Not on file Gender Identity Not on file Sexual Orientation Not on file Last Filed Vital Signs Vital Sign Reading Time Taken Comments Blood Pressure 136/73 02/11/2024 9:17 AM BAND TIER Pulse 59 02/11/2024 9:17 AM BAND TIER Temperature 36.3 ??C (97.3 ??F) 02/11/2024 9:17 AM CS T Respiratory Rate 15 02/11/2024 9:17 AM BAND TIER Oxygen Saturation 92% 02/11/2024 9:17 AM BAND TIER Inhaled Oxygen Concentration - - Weight 143.2 kg (315 lb 9.6 oz) 02/11/2024 9:17 AM BAND TIER Height 188 cm (6' 2 ) 01/09/2024 1:39 PM BAND TIER Body Mass Index 40.52 01/09/2024 1:39 PM BAND TIER Plan of Treatment Upcoming Encounters Date Type Department Care Team (Late st Contact Info) Description 03/11/2024 8:45 AM BAND TIER Office Visit [facility] Oncology and Hematology - Sweet [address] [facility] [address] [place] [address] Santos Pickett MD [address] [facility] [address] [place] [address] Health Maintenance Due Date Last Done Comments DTAP/TDAP/TD VACCINES (1 - Tdap) 08/02/1971 COLORECTAL SCREENING 1997 Colorectal Cancer Screening 1997 FIT-DNA Q 3 years 1997 FIT/FOBT Q 1 year 1997 Flex Sig/CT Colonography Q 5 years 1997 ZOSTER VACCINE (1 of 2) 2002 RSV VACCINE (60+ or ) (1 - Risk 60-74 years 1-dose series) 2012 Abdominal Aortic Aneurysm (A AA) Screening 2017 PNEUMOCOCCAL VACCINE 65+ YEA RS (1 of 1 - PCV) 2017 INFLUENZA VACCINE (#1) 2023 COVID-19 Vaccine ( season) 2023 12/14/2020, 05/14/2020, 04/23/2020 Procedures Procedure Name Priority Date/Time Associated Diagnosis Comments BASIC METABOLIC PANEL Routine 02/11/2024 11:08 AM BAND TIER CBC WITH DIFFERENTIAL Routine 02/11/2024 11:04 AM BAND TIER JAK2 EXON 12 MUTATION ANALYSIS Routine 01/16/2024 2:49 PM BAND TIER BCR/ABL P190 Routine 01/15/2024 4:21 PM BAND TIER ERYTHROPOIETIN LEVEL Routine 01/15/2024 3:54 PM BAND TIER PERIPHERAL BLOOD SMEAR EVAL Routine 01/10/2024 12:08 PM BAND TIER CBC WITH DIFFERENTIAL Routine 01/09/2024 12:47 PM BAND TIER from Last 3 Months Results * BASIC METABOLIC PANEL (02/11/2024 11:08 AM BAND TIER) Blood Santos Pickett MD CHEMISTRY ORDERABLES * CBC WITH DIFFERENTIAL (02/11/2024 11:04 AM BAND TIER) Only the most recent of2 resultswithin the time period is included. Blood Santos Pickett MD HEMATOLOGY ORDERABLE S * JAK2 EXON 12 MUTATION ANALYSIS (01/16/2024 2:49 PM BAND TIER) Blood Santos Pickett MD HEMATOLOGY ORDERABLE S COM * BCR/ABL P190 (01/15/2024 4:21 PM BAND TIER) Santos Pickett MD BODY FLUIDS AND STOO LS * ERYTHROPOIETIN LEVEL (01/15/2024 3:54 PM BAND TIER) Blood Santos Pickett MD CHEMISTRY ORDERABLES * PERIPHERAL BLOOD SMEAR EVAL (01/10/2024 12:08 PM BAND TIER) Blood Santos Pickett MD HEMATOLOGY ORDERABLE S from Last 3 Months
--- OUTSIDE RECORDS SUMMARY | 2024-02-17 23:12 | XMS_ITS | Patient Health Record ---
Author Organization [facility] Address [address] [place], [place] [address] Care Team Providers Care Horse Exerciser Name Role Phone REID ROMAN Unavailable [phone] RaiFrancy Unavailable Unavailable Allergies No Known Allergies Reason For Referral No Information Medications Medication SIG (Take, Route, Fr equency, Duration) Notes Start Date End Date Status methylPREDNISolone 4 MG as directed Orally 023 Active Encounters Encounter Location Date Provider Diagnosis [facility] [place] [address] [address] [place] [address] [phone] 06/11/2023 REID SNOOK 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 ; Intermittent claudication of both lower extremities due to atherosclerosis I70.213 and Pain in right foot M79.671 [facility] [place] [address] [address] [place] [id number] 07/16/2023 REID SNOOK Tinea unguium B35.1 ; Pain in right foot M79.671 ; Pain in left foot M79.672 ; Atherosclerosis of [place] arteries of extremities with intermittent claudication, bilateral legs I70.213 and Acquired keratosis [keratoderma] palmaris et plantaris L85.1 [facility] Tiff Tracey [address] [place] [id number] 10/15/2023 REID SNOOK Tinea unguium B35.1 ; Acquired keratosis [keratoderma] palmaris et plantaris L85.1 ; Atherosclerosis of [place] arteries of extremities with intermittent claudication, bilateral legs I70.213 ; Pain in right foot M79.671 and Pain in left foot M79.672 [facility] [address] [place], [place] [id number] 12/17/2023 REID ROMAN Tinea unguium B35.1 ; Pain in right foot M79.671 ; Pain in left foot M79.672 ; Atherosclerosis of [place] arteries of extremities with intermittent claudication, bilateral legs I70.213 and Acquired keratosis [keratoderma] palmaris et plantaris L85.1 Assessments Encounter Date Diagnosis (ICD Code) Assessment Notes Treatment Notes Treatment Clinical Notes Section Notes 06/11/2023 Non-pressure chronic ulcer of other part of right foot limited to breakdown of skin (ICD-10 - L97.511) Ulcer Resolved: The nonviable tissue from the uler site was debrided down to normal appearing tissue. Advised patient to monitor this area for recurrence. Patient may discontinue local wound care. Emollient: Recommend that the patient use an emollient such as [id number] r Eucerin cream, Vanicream, or other lotion to the affected area. 06/11/2023 Intermittent claudication of both lower extremities due to atherosclerosis (ICD-10 - I70.213) 07/16/2023 Tinea unguium (ICD-10 - B35.1) Nails 1-5 Bilateral were debrided extensively with nail nippers and emery board, reducing length and girth to pink healthy tissue with any subungual debris and necrotic tissue removed 07/16/2023 Pain in right foot (ICD-10 - M79.671) 10/15/2023 Tinea unguium (ICD-10 - B35.1) Nails 1-5 Bilateral were debrided extensively with nail nippers and emery board, reducing length and girth to pink healthy tissue with any subungual debris and necrotic tissue removed 12/17/2023 Tinea unguium (ICD-10 - B35.1) Nails 1-5 Bilateral were debrided extensively with nail nippers and emery board, reducing length and girth to pink healthy tissue with any subungual debris and necrotic tissue removed 12/17/2023 Pain in right foot (ICD-10 - M79.671) 12/17/2023 Pain in left foot (ICD-10 - M79.672) 10/15/2023 Acquired keratosis [keratoderma] palmaris et plantaris (ICD-10 - L85.1) A total of 3 corns or calluses, as described in the note above, were cut and pared utilizing a #15 blade 07/16/2023 Pain in left foot (ICD-10 - M79.672) 06/11/2023 Pain in right foot (ICD-10 - M79.671) 07/16/2023 Atherosclerosis of [place] arteries of extremities with intermittent claudication, bilateral legs (ICD-10 - I70.213) 10/15/2023 Atherosclerosis of [place] arteries of extremities with intermittent claudication, bilateral legs (ICD-10 - I70.213) 12/17/2023 Atherosclerosis of [place] arteries of extremities with intermittent claudication, bilateral legs (ICD-10 - I70.213) 12/17/2023 Acquired keratosis [keratoderma] palmaris et plantaris (ICD-10 - L85.1) A total of 2 corns or calluses, as described in the note above, were cut and pared utilizing a #15 blade 10/15/2023 Pain in right foot (ICD-10 - M79.671) 07/16/2023 Acquired keratosis [keratoderma] palmaris et plantaris (ICD-10 - L85.1) A total of 2 corns or calluses, as described in the note above, were cut and pared utilizing a #15 blade 10/15/2023 Pain in left foot (ICD-10 - M79.672) Plan Of Treatment Pending Test Test Name Order Date Uric Acid, Serum 10/16/2022 Uric Acid, Serum 12/06/2022 CBC With Differential/Platelet 3 CBC With Differential/Platelet 3 Sedimentation Rate-Westergren 01/03/2023 Anaerobic Culture 10/16/2022 Aerobe ID + Suscept 10/16/2022 Next Appt Details Provider Name:REID ROMAN, 08:10:00 AM, [address], [address], [phone], Insurance Providers Payer Name Payer Address Payer Phone Subscriber Number Group Number Insured Name Patient Relationship to Insured Coverage Start Date Coverage End Date Medicare Part [place] [address] [place] [address] [id number] ETSS DOWNEY Self - patient is the insured [facility] [address] [address] [place], [place] [id number] TESS DOWNEY Self - patient is the insured [facility] [address] [place], [place] [phone] [id number] TESS DOWNEY Self - patient is the insured
--- OUTSIDE RECORDS SUMMARY | 2024-02-17 23:12 | XMS_ITS ---
Author Organization [facility] Address [address] [place], [place] [id number] Care Team Providers Care Clinical Pharmacy Manager Name Role Phone TAJOSSELINE McgregorIC Unavailable [phone] Francy Rai Unavailable Unavailable Allergies No Known Allergies REASON FOR VISIT Patient presents for at-risk foot care . The patient has painful toenails and calluses that are causing difficulty with ambulation and shoegear. The onset is gradual Medications Medication SIG (Take, Route, Frequency, Duration) Notes Start Date End Date Status Rosuvastatin Calcium 20 MG Oral Tablet rosuvastatin calcium 20 MG Oral TabletOriginal Medicationrosuvastatin calcium 20 MG Oral Tablet *Reorder from [employer] for eRx and Interaction Alerts* 1 024 Active methylPREDNISolone 4 MG as directed Orally 3 Active Encounters Encounter Location Date Provider Diagnosis [facility] [address] [place], [place] [id number] 10/15/2023 REID ROMAN Tinea unguium B35.1 ; Acquired keratosis [keratoderma] palmaris et plantaris L85.1 ; 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, bilateral legs I70.213 ; Pain in right foot M79.671 and Pain in left foot M79.672 Assessments Encounter Date Diagnosis (ICD Code) Assessment Notes Treatment Notes Treatment Clinical Notes Section Notes 10/15/2023 Tinea unguium (ICD-10 - B35.1) Nails 1-5 Bilateral were debrided extensively with nail nippers and emery board, reducing length and girth to pink healthy tissue with any subungual debris and necrotic tissue removed 10/15/2023 Acquired keratosis [keratoderma] palmaris et plantaris (ICD-10 - L85.1) A total of 3 corns or calluses, as described in the note above, were cut and pared utilizing a #15 blade 10/15/2023 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, bilateral legs (ICD-10 - I70.213) 10/15/2023 Pain in right foot (ICD-10 - M79.671) 10/15/2023 Pain in left foot (ICD-10 - M79.672) Plan Of Treatment Treatment Notes Assessment Notes Tinea unguium Nails 1-5 Bilateral were debrided extensively with nail nippers and emery board, reducing length and girth to pink healthy tissue with any subungual debris and necrotic tissue removed Acquired keratosis [keratode rma] palmaris et plantaris A total of 3 corns or calluses, as described in the note above, were cut and pared utilizing a #15 blade Next Appt Details Follow Up: 10 - 12 weeks, Re ason: At-Risk Foot care, sooner if problems develop. Provider Name:REID ROMAN, 08:10:00 AM, [address], [address], [id number], Progress Notes * TESS DOWNEYDOB: [birth year] (73 yo M)Acc No.[id number]:10/15/2023 Patient:?TESS DOWNEY Provider:?Reid Roman DPM :1950???Age:73 Y???Sex:Male Storm e:10/15/2023 Address:[address] [place], [place] [id number] Subjective: * Chief Complaints: * ???1. Patient presents for a t-risk foot care . The patient has painful toenails and calluses that are causing difficulty with ambulation and shoegear. The onset is gradual. * HPI: ???HPI:?General care?Patient presents to the office for at risk foot care. Patient states that their nails are thickened, elongated and painful. Patient states that it is aggravated by shoe gear. Onset is gradual. Patient denies being diabetic., Patient denies taking blood thinners., Date last seen by Dr. Rai was April 2023., Initials LB.? * ROS:?General / Constitutional:?Patient denies?chills, fever, weakness, night sweats.?Musculoskeletal:?Patient denies?childhood foot problems, weakness.?Peripheral Vascular:?Patient denies?ulceration of feet, cold extremities.?Skin:?Patient denies?ulcerations, discoloration.?Neurologic:?Patient denies?balance difficulty, confusion, difficulty speaking, dizziness.? * Medical History:? * Family History:?Father: PRN - Father: :: Cancer,,known absent .?Mother: PRN - Mother: :: Heart Disease < 55 yrs,,known absent .?Brother: SIB - Brother: .?Sister: SIB - Sister: .? * Social History:?Migrated Social History:?Migrated Social History: History of tobacco use : , Smoking Status : Former tobacco user. * Medications:?Taking Rosuvast atin Calcium 20 MG Oral Tablet , stop date 01/23/2024, Notes to Pharmacist: rosuvastatin calcium 20 MG Oral TabletOriginal Medicationrosuvastatin calcium 20 MG Oral Tablet *Reorder from [employer] for eRx and Interaction Alerts*, Taking methylPREDNISolone 4 MG Tablet Therapy Pack as directed Orally * Allergies:?N.K.D.A. Objective: * Examination: ???Constitutional: ?Constitutional?The patient is awake, alert, well developed, well groomed and well nourished..?Dermatologic: ?Skin findings:?Skin is thin, atrophic and lacking pedal hair.?Hypertrophic / hyperkeratotic lesion:?plantar aspect of the left and right 1st metatarsal head, distal tip of the right 3rd digit.?Vascular: ?Dorsalis pedis pulse:?0/4, bilateral.?Posterior tibial pulse:?1/4, bilaterally.?Capillary refill:?less than 3 seconds.?Edema:?No edema, bilateral.?Neurologic: ?Gross sensation?Gross sensation is intact to light touch..?Musculoskeletal: ?Muscle Strength?Muscle strength is 5/5 in regards to dorsiflexion, plantarflexion, inversion, and eversion in bilateral lower extremities..? Assessment: * Assessment: 1.?Tinea unguium - B35.1?2.? 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 Plan: * Treatment: 2.?Acquired keratosis [kerat oderma] palmaris et plantaris? Notes: A total of 3 corns or calluses, as described in the note above, were cut and pared utilizing a #15 blade?? * Follow Up:?10 - 12 weeks (Re ason: At-Risk Foot care, sooner if problems develop.) * Billing Information: * Visit Code:? * Procedure Codes:? * Sign off status: Completed true * Provider:?Reid Roman DPM Date:?10/15/19 24 Generated for Arsenio dominguez/Kanwal/Karissa on:?02/17/2024 11:12 PM NEWS GATHERING TECHNICIAN History and Physical Notes * HPI (History of Present Illness) Category Sub-Category Detail Notes Category Not es HPI General care Patient presents to the office for at risk foot care. Patient states that their nails are thickened, elongated and painful. Patient states that it is aggravated by shoe gear. Onset is gradual. Patient denies being diabetic., Patient denies taking blood thinners., Date last seen by Dr. Rai was April 2023., Initials LB Examination Category Sub-Category Detail Notes Category Not es Dermatologic Skin findings: Skin is thin, at rophic and lacking pedal hair Hypertrophic / hyperkeratotic lesion: pl dianelys aspect of the left and right 1st metatarsal head, distal tip of the right 3rd digit Neurologic Gross sensation Gross sensation is intact to light touch. Vascular Dorsalis pedis pulse: 0/4, bilateral Edema: No edema, bilateral Capillary refill: less than 3 seconds Posterior tibial pulse: 1/4, bilaterally Musculoskeletal Muscle Strength Muscle strength is 5/5 in regards to dorsiflexion, plantarflexion, inversion, and eversion in bilateral lower extremities. Constitutional Constitutional The patient is a wake, alert, well developed, well groomed and well nourished.
--- OUTSIDE RECORDS SUMMARY | 2024-02-17 23:12 | XMS_ITS | CONTINUITY OF CARE DOCUMENT ---
Author Name laura sanchez Address Unknown Organization [facility] Address [address] [place] [address] Phone [phone] Care Team Providers Care Anatomical Embalmer Name Role Phone Parrish Browning MD Unavailable [phone] Gretchen Allan MD Unavailable [phone] Gretchen Allan MD Unavailable PROBLEMS Condition Status Date Provider Notes Carotid artery disease;PLAQUING active Parrish Browning MD Hyperlipidemia;with high crp active Parrish Browning MD FAMILY HISTORY OF HEART DISEASE active Parrish Browning MD mother mi Exposure to SARS-associated coronavirus;neg igg active Parrish Browning MD Dizziness active Parrish Browning MD ? Sleep apnea active Parrish Browning MD Abnormal EKG active Parrish Browning MD Screening active Parrish Browning MD Tobacco use, quit active Parrish Browning MD t oo remote to screen Obesity active Parrish Browning MD HTN essential;NEG DUPLEX active Parrish mendoza MD ENCOUNTERS Date Type Provider Location Encounter Diag nosis - In-person encounter Office Visit Parrish Browning MD [facility] HTN essential;NEG DUPLEXObesityTobacco use, quitScreeningAbnormal EKG? Sleep apneaDizzinessExposure to SARS-associated coronavirus;neg iggFAMILY HISTORY OF HEART DISEASE VITAL SIGNS Date Observation Value Provider Body Mass Index (Ratio) 43.39 kg/m2 Juliana Browning MD blood pressure, resting Yes Franco dubois [facility] blood pressure, diastolic 78 mm[Hg] Phuong márquez [facility] blood pressure, systolic 142 mm[Hg] Rivka knox [facility] oxygen saturation, oximetry 98 % [facility] pulse rate 57 /min [facility] respiratory rate E&M 16 /min Larait jose luis [facility] weight E&M 338 [lb_av] [facility] height E&M 74 [in_i] [facility] ALLERGIES No Known Drug Allergies RESULTS Date Observation Value Provider Reference Range Interpretation Location C-reactive protein, serum 1.23 mg/dL [employer] Units converted. See lab report for original value. High thyroid stimulating hormone, serum 2.75 u[IU]/mL [facility] 0.40-4.50 Normal free thyroxine index 1.8 [facility] 1.4-3.8 Normal thyroxine, serum, total 6.6 ug/dL [facility] 4.9-10.5 Normal triiodothyronine resin uptake 28 % [facility] 22-35 Normal cholesterol, non-HDL, total 146 MG/DL (CALC) [facility] <130 High cholesterol/HDL ratio, serum, percent 5.6 (calc) [facility] <5.0 High LDL cholesterol, serum 121 MG/DL (CALC) [facility] High triglyceride, serum, fasting 134 mg/dL [facility] <150 Normal HDL cholesterol, serum 32 mg/dL [facility] > OR = 40 Low cholesterol, serum 178 mg/dL [facility] <200 Normal HISTORY OF MEDICATION USE Medication Status Instructions Dates Provider Indications Com ments CRESTOR 20 MG ORAL TABLET active ONE TAB. DAILY Parrish Browning MD ASPIRIN 81 81 MG ORAL TABLET DELAYED RELEASE active One Tab By Mouth Daily Parrish Browning MD HYDROCHLOROTHIAZIDE 25 MG ORAL TABLET active ONE TAB DAILY Parrish Browning MD CURCUMIN 95 CAPSULE active one cap once daily [facility] S[facility] OCUVITE ADULT FORMULA ORAL CAPSULE active one tab once daily [facility]astity Sergo GNP NIACIN 250 MG ORAL TABLET active one tab once [facility] AMOXIC[facility] 500 MG ORAL CAPSULE active as needed [facility] ENALAPRIL MALEATE 20 MG ORAL TABLET active TAKE 1 TABLET BY MOUTH TWICE DAILY [facility] #180, 90 days supply, Prescribed by GRETCHEN ALLAN, Filled 02/22/2020 AMLODIPINE BESYLATE 5 MG ORAL TABLET active TAKE 1 TABLET BY MOUTH DAILY [facility] #90, 90 days supply, Prescribed by GRETCHEN ALLAN, Filled 02/22/2020 SOCIAL HISTORY Date Observation Value Provider social history E&M S moking History: Jericho olson is a former smoker. Parrish Browning MD social history reviewed E&M revi ewed - no changes required Parrish Browning MD quit smoking, stage quit Parrish wilburn MD number of years as a smoker [address] [facility] status Former sm[facility] FAMILY HISTORY Family Member Condition Father Family History of Hy pertension: Mother Family History of Co ronary Artery Disease: INSURANCE PROVIDERS Payer name Policy type / Coverage type [place] Medicare [id number] [facility] HYLA Mobile [id number] ADVANCE DIRECTIVES Name Date DISCUSSED - NO DECISION MADE TREATMENT PLAN Date Name Performer Cardiology Parrish Browning MD Cardiology Parrish Browning MD Cardiology:? old mi Parrish loyd MD Cardiology:does not want surgey d oes not want diet pll Parrish Browning MD Cardiology Parrish Browning MD Cardiology:sx Parrish Browning MD Cardiology:nml bnp adn tsh and n eg brain ct adn trop Parrish Browning MD Date Name COVID19 High Affinit y Antibodies (LC) TSH, free T4, total T3 C-REACTIVE PROTEIN LIPID PANEL Carotid Duplex Bilat eral Monitor - Telemetry (Mobile Cardiac) CT, Coronary Calcium Score Stress Regadenoson Renal Artery Duplex Complete Echo HISTORY OF PROCEDURES Procedure Date Procedure Name Provider Procedure Notes S tatus Mobile Cardiac Telem etry - Tech Parrish Browning MD completed Mobile Cardiac Telem etry - Prof Parrish Browning MD completed EKG Parrish Browning MD complete d
--- OUTSIDE RECORDS SUMMARY | 2024-02-17 23:12 | XMS_ITS ---
Author Organization [facility] Address [address] [place], [place] [id number] Care Team Providers Care Sticker Operator Name Role Phone TAMeche REID Unavailable [phone] Francy Rai Unavailable Unavailable REASON FOR VISIT Patient presents for at-risk foot care . The patient has painful toenails and calluses that are causing difficulty with ambulation and shoegear. The onset is gradual Medications Medication SIG (Take, Route, Frequency, Duration) Notes Start Date End Date Status Rosuvastatin Calcium 20 MG Oral Tablet rosuvastatin calcium 20 MG Oral TabletOriginal Medicationrosuvastatin calcium 20 MG Oral Tablet *Reorder from [employer] for eRx and Interaction Alerts* 1 024 Active methylPREDNISolone 4 MG as directed Orally 3 Active Encounters Encounter Location Date Provider Diagnosis [facility] [address] [place], [place] [id number] 07/16/2023 REID ROMAN Tinea unguium B35.1 ; Pain in right foot M79.671 ; Pain in left foot M79.672 ; Atherosclerosis of [place] arteries of extremities with intermittent claudication, bilateral legs I70.213 and Acquired keratosis [keratoderma] palmaris et plantaris L85.1 Assessments Encounter Date Diagnosis (ICD Code) Assessment Notes Treatment Notes Treatment Clinical Notes Section Notes 07/16/2023 Tinea unguium (ICD-10 - B35.1) Nails 1-5 Bilateral were debrided extensively with nail nippers and emery board, reducing length and girth to pink healthy tissue with any subungual debris and necrotic tissue removed 07/16/2023 Pain in right foot (ICD-10 - M79.671) 07/16/2023 Pain in left foot (ICD-10 - M79.672) 07/16/2023 Atherosclerosis of quile[place] arteries of extremities with intermittent claudication, bilateral legs (ICD-10 - I70.213) 07/16/2023 Acquired keratosis [keratoderma] palmaris et plantaris (ICD-10 - L85.1) A total of 2 corns or calluses, as described in the note above, were cut and pared utilizing a #15 blade Plan Of Treatment Treatment Notes Assessment Notes Tinea unguium Nails 1-5 Bilateral were debrided extensively with nail nippers and emery board, reducing length and girth to pink healthy tissue with any subungual debris and necrotic tissue removed Acquired keratosis [keratode rma] palmaris et plantaris A total of 2 corns or calluses, as described in the note above, were cut and pared utilizing a #15 blade Next Appt Details Follow Up: 10 - 12 weeks, Re ason: At-Risk Foot care, sooner if problems develop. Provider Name:REID ROMAN, 08:10:00 AM, [address], [address], [id number], Progress Notes * TESS DOWNEYDOB: [birth year] (72 yo M)Acc No.[id number]:07/16/2023 Patient:?TESS DOWNEY Provider:?Reid Roman DPM :1950???Age:72 Y???Sex:Male Storm e:07/16/2023 Address:[address] [place], [place] [id number] Subjective: * Chief Complaints: * ???1. Patient [...] blood thinners., Date last seen by Dr. Allan was 04/2023. , Initials mls.? * Medical History:? * Family History:?Father: PRN [...] calcium 20 MG Oral Tablet *Reorder from [employer] for eRx and Interaction Alerts*, Taking methylPREDNISolone 4 MG Tablet Therapy Pack as directed Orally Objective: * Examination: ???Constitutional: ?Constitutional?The patient is awake, alert, well developed, well groomed and well nourished..?Dermatologic: ?Skin findings:?Skin is thin, atrophic and lacking pedal hair.?Hypertrophic / hyperkeratotic lesion:?plantar aspect of the left and right 1st metatarsal head.?Vascular: ?Dorsalis pedis pulse:?0/4, bilateral.?Posterior tibial pulse:?1/4, bilaterally.?Capillary refill:?less than 3 seconds.?Edema:?No edema, bilateral.?Neurologic: ?Gross sensation?Gross sensation is intact to light touch..?Musculoskeletal: ?Muscle Strength?Muscle strength is 5/5 in regards to dorsiflexion, plantarflexion, inversion, and eversion in bilateral lower extremities..? Assessment: * Assessment: 1.?Tinea unguium - B35.1 (Pr imary)?2.?Pain in right foot - M79.671?3.?Pain in left foot - M79.672?4.?Atherosclerosis of quile[place] arteries of extremities with intermittent claudication, bilateral legs - I70.213?5.?Acquired keratosis [keratoderma] palmaris et plantaris - L85.1? Plan: * Treatment: 2.?Acquired keratosis [kerat oderma] palmaris et plantaris? Notes: A total of 2 corns or calluses, as described in the note above, were cut and pared utilizing a #15 blade?? * Procedure Codes:?16497 TRIM SKIN LESIONS, 2 TO 4, Modifiers: Q8 , 19613 DEBRIDE NAIL, 6 OR MORE, Modifiers: 59 , Q8 * Follow Up:?10 - 12 weeks (Re ason: At-Risk Foot care, sooner if problems develop.) * Billing Information: * Visit Code:? * Procedure Codes:? 53135 TRIM SKIN LESIONS, 2 TO 4. Modifiers: Q8 09774 DEBRIDE NAIL, 6 OR MORE. Modifiers: 59, Q8 * Sign off status: Completed true * Provider:Tamara Romna DPM Date:?07/16/19 24 Generated for Arsenio dominguez/Kanwal/Karissa on:?02/17/2024 11:12 PM REFRIGERATION HOUSEMAN History and Physical Notes * HPI (History [...] blood thinners., Date last seen by Dr. Allan was 04/2023. , Initials mls Examination Category Sub-Category Detail Notes Category Not es Dermatologic Skin findings: Skin is thin, at rophic and lacking pedal hair Hypertrophic / hyperkeratotic lesion: pl dianelys aspect of the left and right 1st metatarsal head Neurologic Gross sensation Gross sensation is intact [...]
--- OUTSIDE RECORDS SUMMARY | 2024-02-17 23:12 | XMS_ITS | Encounter Summary ---
Author Organization [facility] YOKASTA Meyer [facility] Address [address] [place] [address] Care Team Providers Care Cutter Wet Machine Name Role Phone Unavailable Primary Care Provider Unavailabl e Reason for Visit * Reason Comments Follow Up Encounter Details Date Type Department Care Team (Late st Contact Info) Description 02/11/2024 9:30 AM MACHINE BOBBIN WINDER Office Visit [facility] Oncology and Hematology - [place] [address] [facility] [address] [place] [address] Santos Pickett MD [address] [place] [address] Essential thrombocytosis (Primary Dx) Social History Tobacco Use Types [...] Comments Blood Pressure 136/73 02/11/2024 9:17 AM MACHINE BOBBIN WINDER Pulse 59 02/11/2024 9:17 AM MACHINE BOBBIN WINDER Temperature 36.3 ??C (97.3 ??F) 02/11/2024 9:17 AM CS T Respiratory Rate 15 02/11/2024 9:17 AM MACHINE BOBBIN WINDER Oxygen Saturation 92% 02/11/2024 9:17 AM MACHINE BOBBIN WINDER Inhaled Oxygen Concentration - - Weight 143.2 kg (315 lb 9.6 oz) 02/11/2024 9:17 AM MACHINE BOBBIN WINDER Height - - Body Mass Index 40.52 01/09/2024 1:39 PM MACHINE BOBBIN WINDER documented in this encounter Progress Notes * Santos Pickett MD - 02/11/2024 9:54 AM CST HEMATOLOGY / ONCOLOGY PROGRESS NOTE Patient Identification: Name: Dillon Mejia Age: 73 y.o. Sex: male : 1950 DIAGNOSIS Essential thrombocythemia with JAK2 mutation positive CURRENT TREATMENT Hydroxyurea 500 mg twice a day started January 30, 2024 Allopurinol 300 mg daily Baby aspirin TREATMENT HISTORY SUBJECTIVE Patient came to the office for follow-up visit. He has been taking hydroxyurea and tolerating it well. Denies any nausea vomiting. No diarrhea and constipation. No other new complaints. Review of system Constitutional: Patient did not mention fevers, sweats, denies any tiredness and fatigue, weight and appetite stable HEENT: Patient did not mention sinus congestion, hearing or vision problems Respiratory: Patient did not mention cough, dyspnea, wheeze Cardiovascular: Patient did not mention chest pain, exertional chest pressure/discomfort, nausea, syncope, shortness of breath GI: Patient did not mention constipation, diarrhea, dsyphagia, reflux symptoms, vomiting, melena : Patient did not mention dysuria, frequency, incontinence, urgency Integumentary system: no lymphadenopathy, sweats, flushing Musculoskeletal: Patient not mention: myalgia, arthralgia Neurological: Patient did not mention blurry or disturbed vision, numbness/weakness, dizziness Skin: No lumps, bumps or rashes. 12 point review of system was reviewed Objective: Vital signs in last 24 hours: As per nursing note Exam: General appearance: alert, cooperative, no distress, appears stated age Head: normocephalic, without obvious abnormality, atraumatic Eyes: conjunctivae/corneas clear, EOM's intact Ears: normal external ear canals AU Nose: Nares normal. Septum midline. Mucosa normal. No drainage or sinus tenderness Throat: Lips, mucosa, and tongue normal. Teeth and gums normal Neck: supple, symmetrical, trachea midline. Lungs: clear to auscultation bilaterally Heart: regular rate and rhythm, S1, S2 normal, no murmur, click, rub or gallop Abdomen: soft, non-tender. Bowel sounds normal. No masses, No organomegaly Extremities: extremities normal, atraumatic, no cyanosis or edema Skin: Skin color, texture, turgor normal. No rashes or lesions Lymph nodes: No lymphadenopathy Neuro: No obvious focal deficit Exam as above PATH LABS Labs from showed WBC 14.6 hemoglobin 15.1 platelet 109 million total bilirubin 1.0 creatinine 0.8 erythropoietin 9.3 JAK2 mutation positive BCR-ABL translocation not detected Labs from February 10 showed WBC 10.1 hemoglobin 15.3 platelet 825,000 creatinine 1.9 Assessment: Plan: There are no problems to display for this patient. Essential thrombocythemia. JAK2 mutation positive. Erythropoietin level normal. Hydroxyurea 500 mg twice daily started January 30, 2024. Labs showed improvement in the platelet count. He has been tolerating treatment well. He will continue the current dose along with baby aspirin. Follow-up in 3 weeks. Tumor lysis prevention. Patient will continue allopurinol 300 mg daily along with adequate hydration. Leukocytosis. BCR-ABL translocation negative. Stable. Type 2 diabetes. Continue metformin. 02/11/2024 Santos Pickett MD INE BOBBIN WINDER documented in this encounter Plan of Treatment Upcoming Encounters Date Type Department Care Team (Late st Contact Info) Description 03/11/2024 8:45 AM MACHINE BOBBIN WINDER Office Visit [facility] Oncology and Hematology - [place] [address] [facility] [address] [place] [address] Santos Pickett MD [address] [facility] [address] [place] [address] Scheduled Orders Name Type Priority Associated Diagnoses Orde r Schedule CBC WITHOUT DIFFERENTIAL Lab Stat Essential thrombocytosis Expected: 03/03/2024, Expires: 02/10/2025 BASIC METABOLIC PANEL Lab Stat Essential thrombocytosis Expected: 03/03/2024, Expires: 02/10/2025 documented as of this encounter Visit Diagnoses Diagnosis Essential thrombocytosis- Primary Essential thrombocythemia documented in this encounter
--- OUTSIDE RECORDS SUMMARY | 2024-02-17 23:12 | XMS_ITS ---
Author Organization [facility] Address [address] [place], [place] [address] Care Team Providers Care Phlebotomist Prn Name Role Phone TAMeche REID Unavailable [phone] Francy Rai Unavailable Unavailable Allergies No Known [...] calcium 20 MG Oral Tablet *Reorder from [employer] for eRx and Interaction Alerts* 1 024 Active methylPREDNISolone 4 MG as directed Orally 3 Active Encounters Encounter Location Date Provider Diagnosis [facility] [address] [place], [place] [id number] 12/17/2023 REID ROMAN Tinea unguium B35.1 ; Pain in right foot M79.671 ; Pain in left foot M79.672 ; Atherosclerosis of salam[place] arteries of extremities with intermittent claudication, bilateral legs I70.213 and Acquired keratosis [keratoderma] palmaris et plantaris L85.1 Assessments Encounter Date Diagnosis (ICD Code) Assessment Notes Treatment Notes Treatment Clinical Notes Section Notes 12/17/2023 Tinea unguium (ICD-10 - B35.1) Nails 1-5 Bilateral were debrided extensively with nail nippers and emery board, reducing length and girth to pink healthy tissue with any subungual debris and necrotic tissue removed 12/17/2023 Pain in right foot (ICD-10 - M79.671) 12/17/2023 Pain in left foot (ICD-10 - M79.672) 12/17/2023 Atherosclerosis of salamatof arteries of extremities with intermittent claudication, bilateral [...] Name:REID ROMAN, 08:10:00 AM, [address], [address], [id number], Progress Notes * TESS DOWNEYDOB: [birth year] (73 yo M)Acc No.[id number]:12/17/2023 Patient:?TESS DOWNEY Provider:?Reid Roman DPM :1950???Age:73 Y???Sex:Male Storm e:12/17/2023 Address:[address] [place], [place] [id number] Subjective: * Chief Complaints: * ???1. Patient [...] Date last seen by Dr. Rai was October 2023., Initials LB.? * Medical History:? * Family History:?Father: PRN [...] calcium 20 MG Oral Tablet *Reorder from [employer] for eRx and Interaction Alerts*, Taking methylPREDNISolone 4 MG Tablet Therapy Pack as directed Orally , Medication List reviewed and reconciled with the patient * Allergies:?N.K.D.A. Objective: * Vitals:? * Examination: ???Physical Examination: ?General appearance:?Alert, pleasant, well-nourished and in no acute distress.?Dermatologic: ?Skin findings:?Skin is thin, atrophic and lacking pedal hair.?Hypertrophic / hyperkeratotic lesion:?distal aspect of the right hallux, distal tip of the right 2nd toe.?Nail pathology:?Nails 1, 2, 3, 4, and 5 bilateral are elongated, thick, discolored, and dystrophic with subungual debris. They are painful to palpation.?Vascular: ?Dorsalis pedis pulse:?1/4?bilateral.?Posterior tibial pulse:?0/4 bilateral.?Capillary refill:?greater than 3 seconds.?Edema:?No edema bilateral.?Neurologic: ?Gross sensation?Grossly intact to light touch. There is negative Tinel's sign.?Musculoskeletal: ?Muscle Strength?Muscle strength is 5/5 in regards to dorsiflexion, plantarflexion, inversion, and eversion in bilateral lower extremities.? Assessment: * Assessment: 1.?Tinea unguium - B35.1 (Pr imary)???2.?Pain in right foot - M79.671???3.?Pain in left foot - M79.672???4.?Atherosclerosis of salamatof arteries of extremities with intermittent claudication, bilateral legs - I70.213???5. Acquired keratosis [keratoderma] palmaris et plantaris - L85.1??? Plan: * Treatment: 2.?Acquired keratosis [kerat oderma] palmaris et plantaris? Notes: A total of 2 corns or calluses, as described in the note above, were cut and pared utilizing a #15 blade?? * Procedure Codes:?41266 TRIM SKIN LESIONS, 2 TO 4, Modifiers: Q8 , 76135 DEBRIDE NAIL, 6 OR MORE, Modifiers: 59 , Q8 * Follow Up:?10 - 12 weeks (Re ason: At-Risk Foot care, sooner if problems develop.) * Billing Information: * Visit Code:? * Procedure Codes:? 00167 TRIM SKIN LESIONS, 2 TO 4. Modifiers: Q8 52051 DEBRIDE NAIL, 6 OR MORE. Modifiers: 59, Q8 * Sign off status: Completed true * Provider:?Reid Roman DPM Date:?12/17/19 24 Generated for Arsenio dominguez/Kanwal/Karissa on:?02/17/2024 11:11 PM STONEWORKING BELT SANDER History and Physical Notes * HPI (History [...] Date last seen by Dr. Rai was October 2023., Initials LB Examination Category Sub-Category Detail Notes Category Not es Dermatologic Skin findings: Skin is thin, at rophic and lacking pedal hair Nail pathology: Nails 1, 2, 3, 4, an d 5 bilateral are elongated, thick, discolored, and dystrophic with subungual debris. They are painful to palpation Hypertrophic / hyperkeratotic lesion: di stal aspect of the right hallux, distal tip of the right 2nd toe Neurologic Gross sensation Grossly intact t o light touch. There is negative Tinel's sign Vascular Dorsalis pedis pulse: 1/4 bilateral Edema: No edema bilateral Capillary refill: greater than 3 secon ds Posterior tibial pulse: 0/4 bilateral Physical Examination General appearance: Alert, pleasant, well-nourished and in no acute distress Musculoskeletal Muscle Strength Muscle strength is 5/5 in regards to dorsiflexion, plantarflexion, inversion, and eversion in bilateral lower extremities
--- OUTSIDE RECORDS SUMMARY | 2024-02-17 23:13 | XMS_ITS | Encounter Summary ---
Author Organization [facility]3] YOKASTA Meyer [facility] Address [address] [place] [address] Care Team Providers Care Service Officer Name Role Phone Unavailable Primary Care Provider Unavailabl e Encounter Details Date Type Department Care Team (Late st Contact Info) Description 01/09/2024 Orders Only [facility] Oncology and Hematology - Miguel [address] [place] [address] Carlyn Mcdaniel Social History Tobacco Use Types Packs/Day Years Used Date Smoking Tobacco: Former Cigarettes Q uit: 1986 Smokeless Tobacco: Never Alcohol Use Standard Drinks/Week Comments Yes 0 (1 standard drink = 0.6 oz pur e alcohol) Occasionally Sex and Gender Information Value Date Recorded Sex Assigned at Not on file Gender Identity Not on file Sexual Orientation Not on file documented as of this encounter Progress Notes * Carlyn Mcdaniel - 01/09/2024 3:30 PM CST Patient wanted this added was not added during appointment DENT SERVICE COORDINATOR documented in this encounter Plan of Treatment Upcoming Encounters Date Type Department Care Team (Late st Contact Info) Description 03/11/2024 8:45 AM RESIDENT SERVICE COORDINATOR Office Visit [facility] Oncology and Hematology - [place] [address] [place] [address] Santos Pickett MD [address] [facility] [address] [place] [address] documented as of this encounter Visit Diagnoses Not on filedocumented in this encounter
--- OUTSIDE RECORDS SUMMARY | 2024-02-17 23:13 | XMS_ITS | Encounter Summary ---
Author Organization [facility] YOKASTA Meyer [facility] Address [address] [place] [address] Care Team Providers Care Mosaic Layer Name Role Phone Unavailable Primary Care Provider Unavailabl e Encounter Details Date Type Department Care Team (Late st Contact Info) Description 01/18/2024 Orders Only [facility] Oncology [facility] [address] [place] [address] Santos Pickett MD [address] [facility] [employer] [address] [place] [phone] Social History Tobacco Use Types Packs/Day Years Used Date Smoking Tobacco: Former Cigarettes Q uit: 1987 Smokeless Tobacco: Never Alcohol Use Standard Drinks/Week Comments Yes 0 (1 standard drink = 0.6 oz pur e alcohol) Occasionally Sex and Gender Information Value Date Recorded Sex Assigned at Not on file Gender Identity Not on file Sexual Orientation Not on file documented as of this encounter Plan of Treatment Upcoming Encounters Date Type Department Care Team (Late st Contact Info) Description 03/11/2024 8:45 AM MILL ORDER SCHEDULER Office Visit [facility] Oncology [facility] Hematology [facility] [address] [place] [address] Santos Pickett MD [address] [place] [address] documented as of this encounter Procedures Procedure Name Priority Date/Time Associated Diagnosis Comments JAK2 EXON 12 MUTATION ANALYSIS Routine 01/16/2024 2:49 PM MILL ORDER SCHEDULER documented in this encounter Results * JAK2 EXON 12 MUTATION ANALYSIS (01/16/2024 2:49 PM MILL ORDER SCHEDULER) Blood Santos Pickett MD HEMATOLOGY ORDERABLE S COM documented in this encounter Visit Diagnoses Not on filedocumented in this encounter
--- OUTSIDE RECORDS SUMMARY | 2024-02-17 23:13 | XMS_ITS | Encounter Summary ---
Author Organization [facility] YOKASTA Meyer [facility] Address [address] [place] [address] Care Team Providers Care Fleet Operations Manager Name Role Phone Unavailable Primary Care Provider Unavailabl e Encounter Details Date Type Department Care Team (Late st Contact Info) Description 01/17/2024 Orders Only [facility] Oncology [facility] Hematology [facility] [address] [place] [phone] Santos Pickett MD [address] [facility] [employer] [address] [place] [phone] Social History Tobacco Use Types Packs/Day [...] st Contact Info) Description 03/11/2024 8:45 AM OPERATIONS/DISPATCH Office Visit [facility] Oncology and Hematology [facility] [address] [place] [address] Santos Pickett MD [address] [employer] [address] [place] [address] documented as of this encounter Procedures Procedure Name Priority Date/Time Associated Diagnosis Comments ERYTHROPOIETIN LEVEL Routine 01/15/2024 3:54 PM OPERATIONS/DISPATCH documented in this encounter Results * ERYTHROPOIETIN LEVEL (01/15/2024 3:54 PM OPERATIONS/DISPATCH) Blood Santos Pickett MD CHEMISTRY ORDERABLES documented in this encounter Visit Diagnoses Not on filedocumented in this encounter
--- OUTSIDE RECORDS SUMMARY | 2024-02-17 23:13 | XMS_ITS | Encounter Summary ---
Author Organization [facility] YOKASTA Meyer [facility] Address [address] [place] [address] Care Team Providers Care Insurance Risk Surveyor Name Role Phone Unavailable Primary Care Provider Unavailabl e Encounter Details Date Type Department Care Team (Late st Contact Info) Description 01/10/2024 Orders Only [facility] Oncology [facility] Hematology [facility] [address] [place] [phone] Santos Pickett MD [address] [facility] [employer] [address] [place] [phone] Social History Tobacco Use Types Packs/Day [...] st Contact Info) Description 03/11/2024 8:45 AM AIR BRUSH ARTIST Office Visit [facility] Oncology [facility] Hematology [facility] [address] [place] [address] Santos Pickett MD [address] [facility] [address] [place] [address] documented as of this encounter Procedures Procedure Name Priority Date/Time Associated Diagnosis Comments CBC WITH DIFFERENTIAL Routine 01/09/2024 12:47 PM AIR BRUSH ARTIST documented in this encounter Results * CBC WITH DIFFERENTIAL (01/09/2024 12:47 PM AIR BRUSH ARTIST) Blood Santos Pickett MD HEMATOLOGY ORDERABLE S documented in this encounter Visit Diagnoses Not on filedocumented in this encounter
--- OUTSIDE RECORDS SUMMARY | 2024-02-17 23:13 | XMS_ITS | Encounter Summary ---
Author Organization [facility] YOKASTA Meyer [facility] Address [address] [place] [address] Care Team Providers Care Financial Operations Analyst Name Role Phone Unavailable Primary Care Provider Unavailabl e Encounter Details Date Type Department Care Team (Late st Contact Info) Description 02/07/2024 Orders Only [facility] Oncology [facility] [address] [place] [address] Santos Pickett MD [address] [place], [place] [address] [employer] [address] [place] [phone] Essential thrombocytosis (Primary Dx) Social History [...] st Contact Info) Description 03/11/2024 8:45 AM MANAGER HOSPITAL Office Visit [facility] Oncology and Hematology [facility] [address] [place] [address] Santos Pickett MD [address] [employer] [address] [place] [phone] Scheduled Orders Name Type Priority Associated Diagnoses Orde r Schedule CBC WITH DIFFERENTIAL Lab Routine Essential thrombocytosis Expected: 02/07/2024, Expires: 02/06/2025 BASIC METABOLIC PANEL Lab Routine Essential thrombocytosis Expected: 02/07/2024, Expires: 02/06/2025 documented as of this encounter Visit Diagnoses Diagnosis Essential thrombocytosis- Primary Essential thrombocythemia documented in this encounter
--- OUTSIDE RECORDS SUMMARY | 2024-02-17 23:13 | XMS_ITS | Encounter Summary ---
Author Organization [facility] YOKASTA Meyer [facility] Address [address] [place] [address] Care Team Providers Care Catering Attendant Name Role Phone Unavailable Primary Care Provider Unavailabl e Reason for Referral * Laboratory Services (Routine) - Closed Specialty Diagnoses / Procedures Referred By Antelmo paulino Referred To Contact Diagnoses Leukocytosis, unspecified type Procedures BCR/ABL1, MONITORING QUANTITATIVE Santos Pickett MD [address] [address] [address] Referral ID Status Reason Start Date Expiration Date Visits Re quested Visits Authorized [id number] Closed 01/09/2024 02/08/2025 1 1 FACTURING ADVISOR * Laboratory Services (Routine) - Closed Specialty Diagnoses / Procedures Referred By Antelmo paulino Referred To Contact Diagnoses Essential thrombocytosis Procedures JAK2 MUTATION Santos Pickett MD [facility] [address] [address] Referral ID Status Reason Start Date Expiration Date Visits Re quested Visits Authorized [id number] Closed 01/09/2024 02/08/2025 1 1 FACTURING ADVISOR Reason for Visit * Reason Comments Establish Care Encounter Details Date Type Department Care Team (Late st Contact Info) Description 01/09/2024 1:30 PM MANUFACTURING ADVISOR Office Visit [facility] Oncology and Hematology - Miguel [address] [place] [address] [address] [place] [address] Santos Pickett MD [facility] [address] [place] [phone] Essential thrombocytosis (Primary Dx); Leukocytosis, unspecified type; Chronic anemia Social History Tobacco Use Types Packs/Day Years Used Date Smoking Tobacco: Former Cigarettes Q uit: 1986 Smokeless Tobacco: Never Tobacco Cessation:Counseling Given: [...] Sign Reading Time Taken Comments Blood Pressure 128/71 01/09/2024 1:39 PM MANUFACTURING ADVISOR Pulse 61 01/09/2024 1:39 PM MANUFACTURING ADVISOR Temperature 36.6 ??C (97.8 ??F) 01/09/2024 1:39 PM CS T Respiratory Rate 16 01/09/2024 1:39 PM MANUFACTURING ADVISOR Oxygen Saturation 94% 01/09/2024 1:39 PM MANUFACTURING ADVISOR Inhaled Oxygen Concentration - - Weight 142.6 kg (314 lb 6.4 oz) 01/09/2024 1:39 PM MANUFACTURING ADVISOR Height 188 cm (6' 2 ) 01/09/2024 1:39 PM MANUFACTURING ADVISOR Body Mass Index 40.37 01/09/2024 1:39 PM MANUFACTURING ADVISOR documented in this encounter Progress Notes * Santos Pickett MD - 01/09/2024 2:59 PM CST Hematology-oncology consult Note Requesting Physician Francy Amaya APRN Primary Care Physician No primary care provider on file. Problem list There is no problem list on file for this patient. Previous TREATMENT ? Measurable Disease ? Reason for Visit Dillon Mejia is a 73 y.o. male who was referred for consultation for thrombocytosis and leukocytosis. History of present illness This is a pleasant 73-year-old obese male with history of diabetes and asthma along with hammertoe involving the right foot referred to me for thrombocytosis and leukocytosis noticed initially in October 2022 when platelet count was 602,000 and white blood cells were 11.8. Patient finished course of antibiotic for the right foot hammertoe and October 2022 as well. He denies any night sweats fevers and chills. He has lost 15 pound weight loss in 6 months. He has some right knee pain. He has a history of lumbar fusion done in 2006. He has no previous history of thromboembolic events including stroke and heart attacks. He has no other new complaints. Past Medical History Past Medical History: Diagnosis Date Hyperlipidemia Hypertension Joint pain Tinnitus Surgical History Past Surgical History: Procedure Laterality Date HX HAMMER TOE REPAIR Right 2022 HX HIP REPLACEMENT Left 2018 HX KNEE ARTHROSCOPY Right HX LUMBAR FUSION 2006 Medications Current Outpatient Medications Medication Sig Dispense Refill vits A,C,E/zinc/copper (VISION-DYLAN PRESERVE ORAL) Take by mouth. dupilumab (DUPIXENT) 300 mg/2 mL Pen Injector Inject 300 mg by subcutaneous injection every 2 weeks. metFORMIN (GLUCOPHAGE XR) 500 mg Extended Release 24 hour tablet Take 500 mg by mouth daily. niacin (NIACOR) 250 mg tablet Take 250 mg by mouth daily. No current facility-administered medications for this visit. Allergies Not on File Immunizations: Immunization History Administered Date(s) Administered (Dayak)(12 YR UP) COVID-19 VACCINE - EMERGENCY USE AUTHORIZATION, MRNA, [id number](PF) 30 MCG/0.3 MLIM SUSP 04/23/2020, 05/14/2020, 12/14/2020 Family History Family History Problem Relation Name Age of Onset COPD Father Atrial fibrillation Mother Heart Attack Mother No Known Problems Brother No Known Problems Sister Social History Social History Tobacco Use Smoking status: Former Current packs/day: 0.00 Types: Cigarettes Quit date: 1986 Years since quittin.8 Smokeless tobacco: Never Substance Use Topics Alcohol use: Yes Comment: Occasionally Review of Systems Constitutional: Patient did not mention fever; no night sweats; no anorexia; no weight loss; no fatique NEENT: Patient did not mention headache; no change in vision; no change in hearing; no sore throat;no dysphagia Respiratory: Patient did not mention shortness of breath; no pleuritic chest pain; no cough; no hemoptysis Cardiac: Patient did not mention cardiac-like chest pain; no palpitations; no orthopnea; no PND; noDOE GI: Patient did not mention abdominal pain; no nausea; no vomiting; no diarrhea; no hematochezia; no melena : Patient did not mention dysuria; no frequency; no hesitancy; no hematuria MINCEMEAT MAKER: Musculosketetal: Patient did not mention bone pain; complain of right knee arthralgia; no joint swelling; no myalgia; Skin: Patient did not mention pruritis; no rash; no petechiae; no ecchymoses Endocrine: Patient did not mention polydipsia; no polyuria; no unusual weight gain Neuro: Patient did not mention headache; no change in vision; no sensory changes; no muscle weakness; no confusion; no seizures Psych: Patient did not mention anxiety; no depression; Physical Exam Vitals: As per nursing note Constitutional: Well developed, well nourished, no acute distress, non-toxic appearance Teeth and gum. No signs of infection or swelling. Eyes: PERRL, conjunctiva normal HEENT: Atraumatic, external ears normal, nose normal, oropharynx moist, no pharyngeal exudates. no sinus tenderness Neck- normal range of motion, no tenderness, supple Respiratory: No respiratory distress, normal breath sounds, no rales, no wheezing Cardiovascular: Normal rate, normal rhythm, no murmurs, no gallops, no rubs GI: Soft, nondistended, normal bowel sounds, nontender, no splenomegaly, no hepatomegaly, no mass, no rebound, no guarding : No costovertebral angle tenderness Musculoskeletal: No edema, no tenderness, no deformities. Back- no tenderness Integument: Well hydrated, no rash, Digits and nails inspection normal Lymphatic: No lymphadenopathy noted Neurologic: Alert & oriented x 3, CN 2-12 normal, normal motor function, normal sensory function, no focal deficits noted Psychiatric: Speech and behavior appropriate ? labs No results found for this or any previous visit (from the past 24 hour(s)). Labs from November 2023 showed WBC 11.6 platelet 928,000 hemoglobin 16.2 hematocrit 50 Pathology ? Imaging & Other Studies Performance Status? Assessment / Plan: ? Thrombocytosis and leukocytosis. Patient is a pleasant 73-year-old obese male with history of asthma diabetes and hammertoe. He has been dealing with a right knee arthralgia. He denies any night sweats fever chills. He has lost 15 pound weight in last 6 months. I have reviewed the labs that showed elevated platelet count started in October 2022 when he was treated with hammertoe infection with antibiotics. He has no history of thromboembolic events including stroke and heart attack.I have reviewed the differential diagnosis and discussed the possibility of bone marrow disorder like essential thrombocythemia and chronic myeloproliferative disorder like CML. There is also possibility of reactive process. We will order the workup including CBC with differential, CMP, C-reactive protein, ferritin, flow cytometric analysis for leukemia, BCR-ABL translocation analysis by PCR and JAK2 mutation testing along. I have recommended to start taking baby aspirin. I will discuss the finding with patient and 3 weeks and discuss use of hydroxyurea. I have answered all the questions to patient satisfaction. Type 2 diabetes. He is on metformin. Thank you very much for allowing me to participate in Dillon Mejia's evaluation and management. Please feel free to contact if I can be of any further assistance in your patient???s care requiring hematology or oncology evaluation. Sincerely, ? ? Santos Pickett M.D. cell TOBACCO COUNSELING He is not a tobacco/nicotine user. Santos Pickett MD ,01/09/2024 2:59 PM ? Total time spent 60 minutes, two third of the total time spent counseling patient [id number]. CC:?Francy Amaya APRN FACTURING ADVISOR documented in this encounter Plan of Treatment Upcoming Encounters Date Type Department Care Team (Late st Contact Info) Description 03/11/2024 8:45 AM MANUFACTURING ADVISOR Office Visit [facility] Oncology and Hematology [facility] [address] [facility] [address] [place] [address] Santos Pickett MD [address] [facility] [address] [place] [address] Scheduled Orders Name Type Priority Associated Diagnoses Orde r Schedule CBC WITH DIFFERENTIAL Lab Stat Essential thrombocytosis Expected: 01/09/2024, Expires: 01/08/2025 COMPREHENSIVE METABOLIC PANEL Lab Stat Essential thrombocytosis Expected: 01/09/2024, Expires: 01/08/2025 JAK2 MUTATION Lab Routine Essential thrombocytosis Expected: 01/09/2024, Expires: 01/08/2025 ERYTHROPOIETIN LEVEL Lab Routine Essential thrombocytosis Expected: 01/09/2024, Expires: 01/08/2025 BCR/ABL1, MONITORING QUANTITATIVE Lab Routine Leukocytosis, unspecified type Expected: 01/09/2024, Expires: 01/08/2025 FLOW CYTOMETRY PANEL Lab Routine Leukocytosis, unspecified type Expected: 01/09/2024, Expires: 01/08/2025 C-REACTIVE PROTEIN Lab Routine Leukocytosis, unspecified type Expected: 01/09/2024, Expires: 01/08/2025 FERRITIN Lab Routine Chronic anemia Expected: 01/09/2024, Expires: 01/08/2025 documented as of this encounter Visit Diagnoses Diagnosis Essential thrombocytosis- Primary Essential thrombocythemia Leukocytosis, unspecified type Chronic anemia Anemia, unspecified documented in this encounter
--- OUTSIDE RECORDS SUMMARY | 2024-02-17 23:13 | XMS_ITS | Encounter Summary ---
Author Organization [facility] Address [address] [place] [address] Care Team Providers Care Ruffler Name Role Phone Unavailable Primary Care Provider Unavailabl e Encounter Details Date Type Department Care Team (Late st Contact Info) Description 01/15/2024 External Device Data STL ABSTRACTION Provider, Abstract NO ADDRESS ON FILE Social History Tobacco Use Types Packs/Day Years [...] st Contact Info) Description 03/11/2024 8:45 AM MOBILE ENGINEER Office Visit [facility] Oncology and Hematology - [place] [address] [facility] [address] [place] [address] Santos Pickett MD [address] [facility] [address] [place] [address] documented as of this encounter Visit Diagnoses Not on filedocumented in this encounter
--- OUTSIDE RECORDS SUMMARY | 2024-02-17 23:13 | XMS_ITS | Encounter Summary ---
Author Organization [facility] YOKASTA Meyer [facility] Address [address] [place] [address] Care Team Providers Care Tool Distributor Name Role Phone Unavailable Primary Care Provider Unavailabl e Reason for Visit * Reason Comments Follow Up Encounter Details Date Type Department Care Team (Late st Contact Info) Description 01/30/2024 11:30 AM CRAFT ARTIST Office Visit [facility] Oncology and Hematology - [place] [address] [facility] [address] [place] [address] Santos Pickett MD [address] [facility] [address] [place] [address] Essential thrombocytosis (Primary Dx) Social [...] Sign Reading Time Taken Comments Blood Pressure 137/75 01/30/2024 11:21 AM CRAFT ARTIST Pulse 60 01/30/2024 11:21 AM CRAFT ARTIST Temperature 36.4 ??C (97.5 ??F) 01/30/2024 11:[address] Respiratory Rate 16 01/30/2024 11:21 AM CRAFT ARTIST Oxygen Saturation 97% 01/30/2024 11:21 AM CRAFT ARTIST Inhaled Oxygen Concentration - - Weight 139.7 kg (308 lb) 01/30/2024 11:21 AM CRAFT ARTIST Height - - Body Mass Index 39.54 01/09/2024 1:39 PM CRAFT ARTIST documented in this encounter Progress Notes * Santos Pickett MD - 01/30/2024 1:11 PM CST HEMATOLOGY / ONCOLOGY PROGRESS NOTE Patient Identification: Name: Dillon Mejia Age: 73 y.o. Sex: male : 1950 DIAGNOSIS Essential thrombocythemia with JAK2 mutation positive CURRENT TREATMENT Baby aspirin TREATMENT HISTORY SUBJECTIVE Patient came to the office for follow-up visit. He denies any bleeding and bruising. No chest pain and shortness of breath. No other new complaints. Review of system Constitutional: Patient did not mention fevers, sweats, fatigue, malaise, weight loss HEENT: Patient did not mention sinus congestion, [...] dizziness Skin: No lumps, bumps or rashes. Objective: Vital signs in last 24 hours: [...] No lymphadenopathy Neuro: No obvious focal deficit PATH LABS Labs from N13 showed WBC 14.6 hemoglobin 15.1 platelet 109 million total bilirubin 1.0 creatinine 0.8 erythropoietin 9.3 JAK2 mutation positive BCR-ABL translocation not detected @IMAGEIMP@ Assessment: Plan: There are no problems to display for this patient. Essential thrombocythemia. JAK2 mutation positive. Erythropoietin level normal. We will start hydroxyurea 500 mg twice a day. He will continue baby aspirin. I have discussed the side effects in detail. Repeat CBC in 2 weeks. Tumor lysis prevention. Will start allopurinol 300 mg once a day. I have recommended increased fluid intake. Leukocytosis. BCR-ABL translocation negative. Could be secondary to myeloproliferative disorder. Type 2 diabetes. Continue metformin. ? TOBACCO COUNSELING He is not a tobacco/nicotine user. 01/30/2024 Santos Pickett MD T ARTIST documented in this encounter Plan of Treatment Upcoming Encounters Date Type Department Care Team (Late st Contact Info) Description 03/11/2024 8:45 AM CRAFT ARTIST Office Visit [facility] Oncology and Hematology - [place] [address] [facility] [address] [place] [address] Santos Pickett MD [address] [facility] [address] [place] [address] documented as of this encounter Visit Diagnoses Diagnosis Essential thrombocytosis- Primary Essential thrombocythemia documented in this encounter
--- OUTSIDE RECORDS SUMMARY | 2024-02-17 23:13 | XMS_ITS | Encounter Summary ---
Author Organization [facility] YOKASTA Meyer [facility] Address [address] [place] [address] Care Team Providers Care Ear Machine Operator Name Role Phone Unavailable Primary Care Provider Unavailabl e Encounter Details Date Type Department Care Team (Late st Contact Info) Description 01/16/2024 Orders Only [facility] Oncology [facility] Hematology [facility] [address] [place] [phone] Santos Pickett MD [address] [facility] [place] [address] [place] [address] Social History Tobacco Use Types Packs/Day [...] st Contact Info) Description 03/11/2024 8:45 AM DEVIL DOG Office Visit [facility] Oncology and Hematology [facility] [address] [place] [address] Santos Pickett MD [address] [facility] [address] [place] [address] documented as of this encounter Procedures Procedure Name Priority Date/Time Associated Diagnosis Comments BCR/ABL P190 Routine 01/15/2024 4:21 PM DEVIL DOG PERIPHERAL BLOOD SMEAR EVAL Routine 01/10/2024 12:08 PM DEVIL DOG documented in this encounter Results * BCR/ABL P190 (01/15/2024 4:21 PM DEVIL DOG) Santos Pickett MD BODY FLUIDS AND STOO LS * PERIPHERAL BLOOD SMEAR EVAL (01/10/2024 12:08 PM DEVIL DOG) Blood Santos Pickett MD HEMATOLOGY ORDERABLE S documented in this encounter Visit Diagnoses Not on filedocumented in this encounter
== END 2024-02-11 09:02 | disposition home or self-care (01) ==
LOC: ANHLAB 09:02
PROVIDERS: PCP Nurse Practitioner Family; Visit Provider Internal Medicine Hematology & Oncology
DX: D47.3 Essential (hemorrhagic) thrombocythemia (principal)
CPT/HCPCS: 36415; 80047; 85025

== ENCOUNTER 2024-03-11 08:12 | Outpatient (CLI) | payer MEDICARE, SELFPAY ==
[2024-03-11 08:28] LABS: Hematocrit 49.6 % (42.0-52.0); Hemoglobin 16.6 g/dL (14.0-18.0); Mean Corpuscular HGB Conc 33.5 g/dl (32-36); Mean Corpuscular Hemoglobin 30.3 pg (26-34); Mean Corpuscular Volume 90.5 fl (80-100); Mean Platelet Volume 8.5 fl (7.4-10.4); Platelet Count Result 637 k/mm3 (150-375); Red Blood Count 5.48 M/mm3 (4.6-6.20); Red Cell Distribution Width 19.5 % (11.5-14.5); White Blood Count 8.9 K/mm3 (4.5-10.0)
[2024-03-11 08:35] LABS: Blood Urea Nitrogen 14 mg/dL (8-26); Carbon Dioxide 28 mmol/L (22-30); Chloride 100 mmol/L (98-109); Estimated Glomerular Filt Rate 26; Glucose 121 mg/dL (70-105); Ionized Calcium (POC) 1.18 mmol/L (1.11-1.31); Potassium 4.7 mmol/L (3.5-4.9); Sodium 138 mmol/L (138-146)
== END 2024-03-11 08:13 | disposition home or self-care (01) ==
LOC: ANHLAB 08:16
PROVIDERS: PCP Nurse Practitioner Family; Visit Provider Internal Medicine Hematology & Oncology
DX: D47.3 Essential (hemorrhagic) thrombocythemia (principal)
CPT/HCPCS: 36415; 80047; 85027

== ENCOUNTER 2024-04-14 10:47 | Outpatient (CLI) | payer MEDICARE, SELFPAY ==
[2024-04-14 11:18] LABS: Hematocrit 46.4 % (42.0-52.0); Hemoglobin 15.7 g/dL (14.0-18.0); Mean Corpuscular HGB Conc 33.8 g/dl (32-36); Mean Corpuscular Hemoglobin 31.5 pg (26-34); Mean Platelet Volume 8.7 fl (7.4-10.4); Platelet Count Result 644 k/mm3 (150-375); Red Blood Count 4.99 M/mm3 (4.6-6.20); Red Cell Distribution Width 20.7 % (11.5-14.5); White Blood Count 12.1 K/mm3 (4.5-10.0)
[2024-04-14 11:19] LABS: Blood Urea Nitrogen 17 mg/dL (8-26); Carbon Dioxide 25 mmol/L (22-30); Chloride 103 mmol/L (98-109); Estimated Glomerular Filt Rate 28; Glucose 125 mg/dL (70-105); Ionized Calcium (POC) 1.16 mmol/L (1.11-1.31); Potassium 4.6 mmol/L (3.5-4.9); Sodium 138 mmol/L (138-146)
--- OUTSIDE RECORDS SUMMARY | 2024-04-14 13:51 | XMS_ITS ---
Author Organization [facility] Address [address] [place], [place] [address] Care Team Providers Care Gear Inspector Name Role Phone TAMeche REID Unavailable [phone] Francy Rai Unavailable Unavailable Allergies No Known [...] calcium 20 MG Oral Tablet *Reorder from Dpivision for eRx and Interaction Alerts* 1 024 Active methylPREDNISolone 4 MG as directed Orally 3 Active Encounters Encounter Location Date Provider Diagnosis [facility] [address] [place], [place] [id number] 12/17/2023 REID ROMAN Tinea unguium B35.1 ; Pain in right foot M79.671 ; Pain in left foot M79.672 ; Atherosclerosis of [place] arteries of extremities with intermittent claudication, bilateral [...] foot (ICD-10 - M79.672) 12/17/2023 Atherosclerosis of [place] arteries of extremities with intermittent claudication, bilateral [...] Name:REID ROMAN, 08:10:00 AM, [address], [address], [phone], Progress Notes * TESS DOWNEYDOB: [birth year] (73 yo M)Acc No.[id number]:12/17/2023 Patient: TESS SCHWARTZ Provider: Mary Roman DPM :1950 A ge:73 Y S ex:Male Date:12/17/2023 Address:[address] [place], [place] [id number] Subjective: * Chief Complaints: * 1 . Patient presents for at-risk foot care . The patient has painful toenails and calluses that are causing difficulty with ambulation and shoegear. The onset is gradual. * HPI: H PI: General care P atient presents to the office for at risk foot care. Patient states that their nails are thickened, elongated and painful. Patient states that it is aggravated by shoe gear. Onset is gradual. Patient denies being diabetic., Patient denies taking blood thinners., Date last seen by Dr. Rai was October 2023., Initials LB. * Medical History: * Family History: F ather: PRN - Father: :: Cancer,,known absent . M other: PRN - Mother: :: Heart Disease < 55 yrs,,known absent . B rother: SIB - Brother: . S ister: SIB - Sister: . * Social History: M igrated Social History: M igrated Social History: History of tobacco use : , Smoking Status : Former tobacco user. * Medications: T aking Rosuvastatin Calcium 20 MG Oral Tablet , stop date 01/23/2024, Notes to Pharmacist: rosuvastatin calcium 20 MG Oral TabletOriginal Medicationrosuvastatin calcium 20 MG Oral Tablet *Reorder from Dpivision for eRx and Interaction Alerts*, Taking methylPREDNISolone 4 MG Tablet Therapy Pack as directed Orally , Medication List reviewed and reconciled with the patient * Allergies: N .K.D.A. Objective: * Vitals: * Examination: P hysical Examination: General appearance: A lert, pleasant, well-nourished and in no acute distress. D ermatologic: Skin findings: S kin is thin, atrophic and lacking pedal hair. Hypertrophic / hyperkeratotic lesion: d istal aspect of the right hallux, distal tip of the right 2nd toe. Nail pathology: N ails 1, 2, 3, 4, and 5 bilateral are elongated, thick, discolored, and dystrophic with subungual debris. They are painful to palpation. ? V ascular: Dorsalis pedis pulse: 1 /4 b ilateral. Posterior tibial pulse: 0 /4 bilateral. Capillary refill: g reater than 3 seconds. Edema: N o edema bilateral. N eurologic: Gross sensation G rossly intact to light touch. There is negative Tinel's sign. M usculoskeletal: Muscle Strength M uscle strength is 5/5 in regards to dorsiflexion, plantarflexion, inversion, and eversion in bilateral lower extremities. ? Assessment: * Assessment: 1. T inea unguium - B35.1 (Primary) 2 . P ain in right foot - M79.671 ? 3 . P ain in left foot - M79.672 4 . A therosclerosis of [place] arteries of extremities with intermittent claudication, bilateral legs - I70.213 5 . Acquired keratosis [keratoderma] palmaris et plantaris - L85.1 Plan: * Treatment: 2. A cquired keratosis [keratoderma] palmaris et plantaris Notes: A total of 2 corns or calluses, as described in the note above, were cut and pared utilizing a #15 blade * Procedure Codes: 1 1056 TRIM SKIN LESIONS, 2 TO 4, Modifiers: Q8 , 03329 DEBRIDE NAIL, 6 OR MORE, Modifiers: 59 , Q8 * Follow Up: 1 0 - 12 weeks (Reason: At-Risk Foot care, sooner if problems develop.) * Billing Information: * Visit Code: * Procedure Codes: 28158 TRIM SKIN LESIONS, 2 TO 4. Modifiers: Q8 31903 DEBRIDE NAIL, 6 OR MORE. Modifiers: 59, Q8 * Sign off status: Completed true * Provider: Mary Roman DPM Date: Generated for Arsenio dominguez/Kanwal/Karissa on: 0 04/14/2024 01:51 PM PAYROLL BENEFITS ADMINISTRATOR History and Physical Notes * HPI (History [...]
--- OUTSIDE RECORDS SUMMARY | 2024-04-14 13:51 | XMS_ITS | Clinical Summary ---
Author Organization [facility] Address [address] [facility] [place] [address] Care Team Providers Care Interior Specialist Name Role Phone Levi Yu DO Unavailable Christian Allan MD Primary Care Provider Markell Dominguez MD Unavailable Unavailable Source Comments [facility],non-owned Affiliates and Associated Physician Practices is amultiple site organization consisting of ambulatory clinics and hospital sitesin [place], [place], [place] and [place]. This disclosure is being madepursuant to the Care Everywhere program and may not contain all information available regarding this patient. Last updated 17.[facility] Allergies No known active allergies Medications * [...] 56 06/04/2020 8:08 AM CDT Temperature 36.9 C (98.5 F) 03/21/2020 3:25 PM SURGICAL PRODUCT SALES CONSULTANT Respiratory Rate 18 03/21/2020 6:31 PM SURGICAL PRODUCT SALES CONSULTANT Oxygen Saturation 95% 03/21/2020 8:01 PM SURGICAL PRODUCT SALES CONSULTANT Inhaled Oxygen Concentration - - Weight 151.4 [...] - COLON CA SCREENING 1950 MEDICARE AWV 12 MONTHS 1950 HEPATITIS C SCREENING 07/28/1970 DTAP/TDAP/TD VACCINES (1 - Tdap) 08/02/1971 PNEUMOCOCCAL VACCINE 50+ (1 of 1 - PCV) 2002 ZOSTER VACCINE (1 of 2) 2002 Respiratory Syncytial Virus (RSV) Vaccine Pt: or over 60 yrs (1 - Risk 60-74 years 1-dose series) 2012 AAA SCREENING 2017 COVID-19 VACCINE (2023- season) 2023 12/29/2021, 10/10/2021, 12/14/2020, Additional history exists INFLUENZA VACCINE (#1) 2023 12/29/2021 DEPRESSION SCREENING 02/27/2024 HEPATITIS B VACCINE Aged Out No longe r eligible based on patient's age to complete this topic HIB VACCINE Aged Out No longer eligi ble based on patient's age to complete this topic HPV VACCINE Aged Out No longer eligi ble based on patient's age to complete this topic MENINGOCOCCAL (Group B) VACCINE Aged Out No longer eligible based on patient's age to complete this topic MENINGOCOCCAL VACCINE Aged Out No meir lilia eligible based on patient's age to complete this topic Medical Devices Implanted Type Area Sole Seamer Device Identifier Shelf Expiration Date Model / Serial / Lot Acetabular Liner +3 Max-Rom 40mm Head Size 25 Liner Size Implanted:Qty: 1 on 11/12/2018 by Frederick Solis IV, MD at [facility] Left: Hip [employer] 10/25/2020 [id number] / / [id number] Shell Actb 58mm Hip Lmt Hl Rnglc+ Implanted:Qty: 1 on 11/12/2018 by Frederick Solis IV, MD at [facility] Left: Hip [employer] 07/30/2028 [id number] / / [id number] Alloclassic Sl Stem Offset 5, Taper 12/14 Implanted:Qty: 1 on 11/12/2018 by Frederick Solis IV, MD at [facility] Left: Hip 06/26/2023 [id number] 0 / / [id number] Ceramic Femoral Head 40/+7 Xl Implanted:Qty: 1 on 11/12/2018 by Frederick Solis IV, MD at [facility] Left: Hip [employer] 03/28/2024 [id number] 0 -04 / / [id number] Explanted Type Area Sole Seamer Device Identifier Shelf Expiration Date Model / Serial / Lot Pin Fx 22.9cm 4mm Stnm Thrd Ss 1 End Explanted:Qty: 2 on 11/12/2018 at [facility] Left: Hip [employer] [id number] / / Advance Directives * Full Code (Latest Code Status on File) Date Activated Date Inactivated Comments 11/12/2018 10:25 AM 11/16/2018 3:52 PM Care Teams Interior Specialist Relationship Specialty Start Date End Date Christian Allan MD [address] [place] [address] PCP - General Internal Medicine 03/21/20 Levi Yu DO Orthopedic Surgery 08/13/12 Markell Dominguez MD [address] [place] [address] Blanket Washer Cardiovascular Disease 06/04/20
--- OUTSIDE RECORDS SUMMARY | 2024-04-14 13:51 | XMS_ITS | Patient Health Record ---
Author Organization [facility] Address [address] [place], [place] [address] Care Team Providers Care Ham Pumper Name Role Phone REID ROMAN Unavailable [phone] RaiFrancy Unavailable Unavailable Allergies No Known Allergies Reason For Referral No Information Medications Medication SIG (Take, Route, Fr equency, Duration) Notes Start Date End Date Status methylPREDNISolone 4 MG as directed Orally 023 Active Encounters Encounter Location Date Provider Diagnosis [facility] [place] [address] [place] [id number] 06/11/2023 REID SNOOK 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 ; Intermittent claudication of both lower extremities due to atherosclerosis I70.213 and Pain in right foot M79.671 [facility] [place] [address] [place] [id number] 07/16/2023 REID SNOOK Tinea unguium B35.1 ; Pain in right foot M79.671 ; Pain in left foot M79.672 ; Atherosclerosis of [place] arteries of extremities with intermittent claudication, bilateral legs I70.213 and Acquired keratosis [keratoderma] palmaris et plantaris L85.1 [facility] [place] [address] [place] [id number] 10/15/2023 REID SNOOK Tinea unguium B35.1 ; Acquired keratosis [keratoderma] palmaris et plantaris L85.1 ; Atherosclerosis of [place] arteries of extremities with intermittent claudication, bilateral legs I70.213 ; Pain in right foot M79.671 and Pain in left foot M79.672 [facility] [place] [address] [place] [id number] 12/17/2023 REID SNOOK Tinea unguium B35.1 ; Pain in right foot M79.671 ; Pain in left foot M79.672 ; Atherosclerosis of [place] arteries of extremities with intermittent claudication, bilateral legs I70.213 and Acquired keratosis [keratoderma] palmaris et plantaris L85.1 [facility] [place] [address] [place] [id number] 03/10/2024 REID SNOOK Tinea unguium B35.1 ; Pain in right foot M79.671 ; Pain in left foot M79.672 ; Atherosclerosis of [place] arteries of extremities with intermittent claudication, bilateral [...] the patient use an emollient such as lgan-aqs-nnaptf r Eucerin cream, Vanicream, or other lotion [...] Pain in right foot (ICD-10 - M79.671) 03/10/2024 Tinea unguium (ICD-10 - B35.1) Nails 1-5 Bilateral were debrided extensively with nail nippers and emery board, reducing length and girth to pink healthy tissue with any subungual debris and necrotic tissue removed 03/10/2024 Pain in right foot (ICD-10 - M79.671) 03/10/2024 Pain in left foot (ICD-10 - M79.672) 12/17/2023 Pain in left foot (ICD-10 - M79.672) 10/15/2023 Acquired keratosis [keratoderma] palmaris et plantaris (ICD-10 - L85.1) A total of 3 corns or calluses, as described in the note above, were cut and pared utilizing a #15 blade 07/16/2023 Pain in left foot (ICD-10 - M79.672) 06/11/2023 Pain in right foot (ICD-10 - M79.671) 07/16/2023 Atherosclerosis of [place] arteries of extremities with intermittent claudication, bilateral legs (ICD-10 - I70.213) 10/15/2023 Atherosclerosis of [place] arteries of extremities with intermittent claudication, bilateral legs (ICD-10 - I70.213) 12/17/2023 Atherosclerosis of [place] arteries of extremities with intermittent claudication, bilateral legs (ICD-10 - I70.213) 03/10/2024 Atherosclerosis of [place] arteries of extremities with intermittent claudication, bilateral legs (ICD-10 - I70.213) 03/10/2024 Acquired keratosis [keratoderma] palmaris et plantaris (ICD-10 - L85.1) A total of 1 corns or calluses, as described in the note above, were cut and pared utilizing a #15 blade 12/17/2023 Acquired keratosis [keratoderma] palmaris et plantaris [...] Suscept 10/16/2022 Next Appt Details Provider Name:REID JESSIE, 08:10:00 AM, [address], [place], [place], [id number], Insurance Providers Payer Name Payer Address Payer Phone Subscriber Number Group Number Insured Name Patient Relationship to Insured Coverage Start Date Coverage End Date Medicare Part B [place] [address] [place] [address] [id number] TESS DOWNEY Self - patient is the insured [facility] [address] [address] [place], [place] [id number] TESS DOWNEY Self - patient is the insured [facility] [address] [place], [place] [phone] [id number] TESS DOWNEY Self - patient is the insured
--- OUTSIDE RECORDS SUMMARY | 2024-04-14 13:51 | XMS_ITS | Patient Health Summary ---
Author Organization [facility] toucanBox Address [address] [place] [address] Care Team Providers Care Estimator Name Role Phone Levi Yu DO Unavailable Christian Allan MD Primary Care Provider [phone] Markell Dominguez MD Unavailable Unavailable Note from [facility],non-owned Affiliates and Associated Physician Practices is amultiple site organization consisting of ambulatory clinics and hospital sitesin [place], [place], [place] and [place]. This disclosure is being madepursuant to the Care Everywhere program and may not contain all information available regarding this patient. Last updated 17.[facility] Allergies No known active allergies Medications * [...] 36.9 C (98.5 F) 03/21/2020 3:25 PM TOOL SHAPER SET UP OPERATOR Respiratory Rate 18 03/21/2020 6:31 PM TOOL SHAPER SET UP OPERATOR Oxygen Saturation 95% 03/21/2020 8:01 PM TOOL SHAPER SET UP OPERATOR Inhaled Oxygen Concentration - - Weight 151.4 kg (333 lb 12.5 oz) 06/04/2020 8:08 AM CDT Height 188 cm (6' 2 ) 06/04/2020 8:08 AM CDT Body Mass Index 42.85 06/04/2020 8:08 AM CDT Medical Devices Implanted Type Area Product Management Manager Device Identifier Shelf Expiration Date Model / Serial / Lot Acetabular Liner +3 Max-Rom 40mm Head Size 25 Liner Size Implanted:Qty: 1 on 11/12/2018 by Frederick Solis IV, MD at [facility] Left: Hip [employer] 10/25/2020 [id number] / / [id number] Shell Actb 58mm Hip Lmt Hl Rnglc+ Implanted:Qty: 1 on 11/12/2018 by Frederick Solis IV, MD at [facility] Left: Hip [employer] 07/30/2028 [id number] / / [id number] Alloclassic Sl Stem Offset 5, Taper 02/08 Implanted:Qty: 1 on 11/12/2018 by Frederick Solis IV, MD at [facility] Left: Hip 06/26/2023 [id number] / / [id number] Ceramic Femoral Head 40/+7 Xl Implanted:Qty: 1 on 11/12/2018 by Frederick Solis IV, MD at [facility] Left: Hip [employer] 03/28/2024 [id number] 0 -04 / / [id number] Explanted Type Area Product Management Manager Device Identifier Shelf Expiration Date Model / Serial / Lot Pin Fx 22.9cm 4mm Stnm Thrd Ss 1 End Explanted:Qty: 2 on 11/12/2018 at [facility] Left: Hip [employer] [id number] / / Procedures * ERYTHROCYTE SEDIMENTATION RATE(Performed [...] hip pain * NEURAXIAL BLOCK(Performed 11/12/2018) * WA TOTAL HIP REPLACEMENT(Performed 11/12/2018) * CULTURE MSSA/MRSA(Performed [...] C-Reactive Protein 8 0 - 10 mg/L [facility] INSURANCE BILL Blood BLOOD SPECIMEN / Unknown 10/09/2022 11:15 AM CDT 10/09/2022 Narrative Resulting Agency Comment Lab Testing performed at: [facility] [phone] Frederick Solis IV, MD LAB - CHEMISTRY ANYA V[place]LEGAS Performing Organization Address City/[facility]/ZIP Co de Phone Number [facility] INSURANCE BILL [address] [place] [address] * ERYTHROCYTE SEDIMENTATION RATE (10/09/2022 11:15 AM CDT) Only the most recent of2 resultswithin the time period is included. Erythrocyte Sedimentation Rate Westergren 7 0 - 30 mm/hr [facility] INSURANCE BILL Blood BLOOD SPECIMEN / Unknown 10/09/2022 11:15 AM CDT 10/09/2022 Narrative Resulting Agency Comment Lab Testing performed at: [place] [address] [facility] [phone] Frederick Solis IV, MD LAB - HEMATOLOGY ORD ERABLES [facility] INSURANCE BILL [address] [place] [address] * MRI HIP LEFT WO CONTRAST (10/09/2022 10:54 AM CDT) Only the most recent of2 resultswithin the time period is included. Anatomical Region Laterality Modality Lower Extremity Magnetic Resonan ce 10/09/2022 12:5 0 PM CDT Narrative 10/09/2022 1:02 PM CDT PROCEDURE: MRI HIP LEFT WO CONTRAST DATE/TIME [...] LEFT 2VW OR MORE (03/20/2022 1:20 PM TOOL SHAPER SET UP OPERATOR) Only the most recent of6 resultswithin the time period is included. Anatomical Region Laterality Modality Pelvis, Lower Extremity Computed Radiography Narrative 03/20/2022 1:20 PM TOOL SHAPER SET UP OPERATOR Christen Rock RT(R) 04/03/2022 9:36 AM See progress notes for results Frederick Solis IV, MD DIAGNOSTIC IMAGING O RDERABLES * CT HEAD WO CONTRAST (03/21/2020 7:39 PM TOOL SHAPER SET UP OPERATOR) Anatomical Region Laterality Modality Head Computed Tomogra phy 03/21/2020 7:44 PM TOOL SHAPER SET UP OPERATOR Impressions 03/21/2020 7:45 PM TOOL SHAPER SET UP OPERATOR Unremarkable unenhanced CT scan of the brain. *Reading Radiologist: Antionette Tolliver on 03/21/2020 at 7:45 PM Narrative 03/21/2020 7:45 PM TOOL SHAPER SET UP OPERATOR CT Head Noncontrast Indication: Dizziness, TIA Technique: [...] ORDERABLES * TROPONIN I (03/21/2020 5:05 PM TOOL SHAPER SET UP OPERATOR) Only the most recent of2 resultswithin the time period is included. Troponin I 0.011 <0.038 ng/mL 03/21/2020 6:07 PM TOOL SHAPER SET UP OPERATOR [facility] Blood BLOOD SPECIMEN / Unknown Venipuncture / Unknown 03/21/2020 5:05 PM TOOL SHAPER SET UP OPERATOR 03/21/2020 5:41 PM TOOL SHAPER SET UP OPERATOR Prema Stoll PA-C LAB - CHEMISTRY ORD ERABLES [facility] [address] [place] [address] * XR CHEST 1VW PORTABLE (03/21/2020 2:40 PM TOOL SHAPER SET UP OPERATOR) Anatomical Region Laterality Modality Chest Radiographic Elo ging 03/21/2020 3:25 PM TOOL SHAPER SET UP OPERATOR Impressions 03/21/2020 3:26 PM TOOL SHAPER SET UP OPERATOR No acute disease. *Reading Radiologist: Brennon Garcias on 03/21/2020 at 3:26 PM Narrative 03/21/2020 3:26 PM TOOL SHAPER SET UP OPERATOR Portable Chest AP History: Dizziness and giddiness. [...] TSH REFLEX FREE T4 (03/21/2020 2:09 PM TOOL SHAPER SET UP OPERATOR) Pathologist [facility] [place] TSH 1.920 0.350 - 4.940 uIU/mL 03/21/2020 3:03 PM TOOL SHAPER SET UP OPERATOR [facility] Blood BLOOD SPECIMEN / Unknown Venipuncture / Unknown 03/21/2020 2:09 PM TOOL SHAPER SET UP OPERATOR 03/21/2020 2:20 PM TOOL SHAPER SET UP OPERATOR Prema Stoll PA-C LAB - CHEMISTRY ORD ERABLES [facility] [address] [place] [address] * (ABNORMAL) CBC W AUTO DIFFERENTIAL (03/21/2020 2:09 PM TOOL SHAPER SET UP OPERATOR) WBC 11.5(H) 4.4 - 10.7 x10E9/L 03/21/2020 2:27 PM [facility] WBC Corrected 03/21/2020 2:27 PM [facility] RBC 4.99 3.80 - 5.40 x10E12/L 03/21/2020 2:27 PM [facility] Hemoglobin 16.0 12.0 - 17.6 gm/dL 03/21/2020 2:27 PM [facility] Hematocrit 47.6 35.2 - 51.7 % 03/21/2020 2:27 PM [facility] MCV 95.4 80.7 - 98.3 fl 03/21/2020 2:27 PM [facility] MCH 32.1 26.7 - 34.0 pg 03/21/2020 2:27 PM [facility] MCHC 33.6 30.8 - 35.9 gm/dL 03/21/2020 2:27 PM [facility] Platelet Count 281 153 - 416 x10E9/L 03/21/2020 2:27 PM [facility] RDW-CV 13.6 12.1 - 14.9 % 03/21/2020 2:27 PM [facility] MPV 9.4 9.4 - 12.9 fl 03/21/2020 2:27 PM [facility] Neutrophils % 70.9 44.0 - 73.0 % 03/21/2020 2:27 PM [facility] Lymphocytes % 15.1(L) 20.0 - 43.0 % 03/21/2020 2:27 PM [facility] Monocytes % 11.2 5.0 - 13.0 % 03/21/2020 2:27 PM TOOL SHAPER SET UP OPERATOR [facility] Eosinophils % 1.2 0.0 - 6.0 % 03/21/2020 2:27 PM TOOL SHAPER SET UP OPERATOR [facility] Basophils % 0.5 0.0 - 2.0 % 03/21/2020 2:27 PM [facility] Immature Granulocytes 1.1(H) 0 - 1 % 03/21/2020 2:27 PM [facility] Neutrophil Absolute 8.14(H) 2.01 - 7.14 x10E9/L 03/21/2020 2:27 PM TOOL SHAPER SET UP OPERATOR [facility] Lymphocytes Absolute 1.73 1.07 - 3.94 x10E9/L 03/21/2020 2:27 PM [facility] Monocytes Absolute 1.29(H) 0.26 - 1.07 x10E9/L 03/21/2020 2:27 PM [facility] Eosinophils Absolute 0.14 0 - 0.47 x10E9/L 03/21/2020 2:27 PM TOOL SHAPER SET UP OPERATOR [facility] Basophils Absolute 0.06 0 - 0.08 x10E9/L 03/21/2020 2:27 PM [facility] Immature Granulocytes Absolute 0.13(H) 0.00 - 0.06 x10E9/L 03/21/2020 2:27 PM [facility] nRBC Auto 0 /100 WBC 03/21/2020 2:27 PM [facility] Blood BLOOD SPECIMEN / Unknown Venipuncture / Unknown 03/21/2020 2:09 PM TOOL SHAPER SET UP OPERATOR 03/21/2020 2:20 PM TOOL SHAPER SET UP OPERATOR Prema Stoll PA-C LAB - HEMATOLOGY OR DERABLES [facility] [address] [place] [address] * B-TYPE NATRIURETIC PEPTIDE (03/21/2020 2:09 PM TOOL SHAPER SET UP OPERATOR) BNP 15 <=100 pg/mL 03/21/2020 2:48 PM TOOL SHAPER SET UP OPERATOR [facility] Blood BLOOD SPECIMEN / Unknown Venipuncture / Unknown 03/21/2020 2:09 PM TOOL SHAPER SET UP OPERATOR 03/21/2020 2:20 PM TOOL SHAPER SET UP OPERATOR Prema Stoll PA-C LAB - CHEMISTRY ORD ERABLES [facility] [address] [place] [address] * COMPREHENSIVE METABOLIC PANEL (03/21/2020 2:09 PM TOOL SHAPER SET UP OPERATOR) [facility] Glucose 99 70 - 105 mg/dL 03/21/2020 2:41 PM TOOL SHAPER SET UP OPERATOR [facility] Sodium 139 136 - 145 mmol/L 03/21/2020 2:41 PM [facility] Potassium 4.2 3.5 - 5.1 mmol/L 03/21/2020 2:41 PM [facility] Chloride 103 98 - 107 mmol/L 03/21/2020 2:41 PM [facility] CO2 25 23 - 31 mmol/L 03/21/2020 2:41 PM [facility] Calcium 9.3 8.4 - 10.4 mg/dL 03/21/2020 2:41 PM [facility] Anion Gap 11 8 - 18 mmol/L 03/21/2020 2:41 PM [facility] Comment:Attention clinician: Reference Range change. BUN 12 8.4 - 25.7 mg/dL 03/21/2020 2:41 PM [facility] Creatinine 0.79 0.72 - 1.25 mg/dL 03/21/2020 2:41 PM [facility] Alkaline Phosphatase 94 40 - 150 U/L 03/21/2020 2:41 PM [facility] Comment:Attention clinician: Reference Range change. ALT 31 0 - 61 U/L 03/21/2020 2:41 PM [facility] AST 24 5 - 34 U/L 03/21/2020 2:41 PM [facility] Protein Total 7.7 6.4 - 8.3 gm/dL 03/21/2020 2:41 PM [facility] Albumin 4.2 3.2 - 4.6 gm/dL 03/21/2020 2:41 PM [facility] Bilirubin Total 0.8 0.2 - 1.2 mg/dL 03/21/2020 2:41 PM TOOL SHAPER SET UP OPERATOR [facility] Comment:Attention clinician: Reference Range change. eGFR by MDRD >60 >60 mL/min/1.7 3m2 03/21/2020 2:41 PM TOOL SHAPER SET UP OPERATOR [facility] eGFR by MDRD >60 >60 mL/min/1.7 3m2 03/21/2020 2:41 PM TOOL SHAPER SET UP OPERATOR [facility] Blood BLOOD SPECIMEN / Unknown Venipuncture / Unknown 03/21/2020 2:09 PM TOOL SHAPER SET UP OPERATOR 03/21/2020 2:20 PM TOOL SHAPER SET UP OPERATOR Prema Stoll PA-C LAB - CHEMISTRY ORD ERABLES Performing Organization Address City/[facility]/ZIP Co de Phone Number [facility] [address] [place] [address] * EKG 12-LEAD (03/21/2020 2:01 PM TOOL SHAPER SET UP OPERATOR) Only the most recent of3 resultswithin the time period is included. Ventricular Rate 54 BPM [facility] Atrial Rate 54 BPM [facility] P-R Interval 150 ms [facility] QRS Duration ms 74 ms [facility] Q-T Interval ms 382 ms [facility] QTC Calculation (Bezet) 362 ms [facility] Calculated P [place] 101 degrees [facility] Calculated R [place] 10 degrees [facility] Calculated T [place] 66 degrees [facility] Interpretation EKG Sinus bradycardia Anteroseptal infarct , age undetermined Abnormal ECG No previous ECGs available Confirmed by MARCE BADILLO, CHANTELLE ([id number]) on 03/22/2020 8:04:34 PM [facility] 03/21/2020 2:01 PM TOOL SHAPER SET UP OPERATOR 03/22/2020 8:04 PM TOOL SHAPER SET UP OPERATOR Prema Stoll PA-C ECG ORDERABLES Performing Organization Address City/[facility] Co de Phone Number [facility] * (ABNORMAL) HGB HCT PANEL (11/14/2018 2:59 AM CDT) Only the most recent of2 resultswithin the time period is included. Hemoglobin 11.5(L) 12.0 - 17.6 gm/dL 11/14/2018 3:15 AM CDT [facility] Hematocrit 35.2 35.2 - 51.7 % 11/14/2018 3:15 AM CDT [facility] Blood BLOOD SPECIMEN / Unknown Venipuncture / Unknown 11/14/2018 2:59 AM CDT 11/14/2018 3:10 AM CDT Frederick Solis IV, MD LAB - HEMATOLOGY ORD ERABLES [facility] [address] [place] [address] * FL RALPH SURGERY (11/12/2018 10:00 AM CDT) Anatomical Region Laterality Modality Radiographic Elo ging 11/12/2018 1:15 PM CDT Narrative 11/12/2018 1:05 PM CDT FLUOROSCOPY: Less than 1 hour of fluoroscopy [...] Block (11/12/2018 9:12 AM CDT) Narrative Clarke Ash, TELLO-LABORATORY ENGINEER - 11/12/2018 9:12 AM CDT Clarke Ash APRN-LABORATORY ENGINEER 11/12/2018 9:13 AM Neuraxial Block Note Pre-Procedure: Procedure Name: Neuraxial [...] midline Skin was localized? Nursing documentation on BANNER Skin localized with: Lidocaine 1% and 1 mL Spinal Block: Needle Type: beveled Needle Gauge: 22 Needle Length: 90 mm Placement Site: L3-4 Number of Attempts: 1 CSF: free flow, aspiration before injection Local anesthetics used? Nursing documentation on the BANNER Spinal Local Anesthetic: Bupivacaine: 0.75% in dextrose 2 mL Degree of difficulty: none Procedure Tolerance: performed while the patient was sedated Sensory Level: T8 Motor Blockade: Yes Position post procedure: supine Vital Signs: Vital sings monitored and stable throughout. See anesthesia record for details. Staff: Anesthesia Provider: Clarke Ash APRN-LABORATORY ENGINEER - performed the procedure Doroteo Davison MD GENERAL ANESTHESIA O DOMINGO * CULTURE MSSA/MRSA (10/21/2018 4:16 PM CDT) Culture Negative for Staphylococcus aureus (MRSA/MSSA) SIRIA 10/23/2018 9:36 AM CDT [facility] MICROBIOLOGY Microbiology SPECIMEN FROM NASAL FOSSAE / Unknown Collection / Unknown 10/21/2018 4:16 PM CDT 10/21/2018 4:15 PM CDT Trini Pugh APRN-DIRECTOR NEWS LAB - MICR OBIOLOGY ORDERABLES [facility] MICROBIOLOGY [address] [place], [place] [address] [phone] * XR PELVIS 1 OR 2VW (10/14/2018 3:36 PM CDT) Anatomical Region Laterality Modality Pelvis Computed Radiogr aphy Narrative 10/14/2018 3:36 PM CDT Christen Rock, RT(R) 10/18/2018 2:42 PM See progress notes for results Frederick Solis IV, MD DIAGNOSTIC IMAGING O RDERABLES * PAIN MANAGEMENT PROCEDURE TIME (08/27/2018 9:29 AM CDT) Only the most recent of2 resultswithin the time period is included. Anatomical Region Laterality Modality X-Ray Angiograph y Narrative 08/27/2018 9:30 AM Santos Crooks MD 08/27/2018 9:30 AM Transforaminal Left L4 Selective Nerve Root Injection Dillon Mejia [id number] 08/27/2018 No Known Allergies Procedure: Transforaminal Left [...] a routine sterile fashion using chloroprep. 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 Patient survey given. Procedure codes: 01460 Santos Coley MD Santos Coley MD DIAGNOSTIC IMAGING O RDERABLES * MRI LUMBAR SPINE WWO CONTRAST (06/21/2018) Anatomical Region Laterality Modality Spine Magnetic Resonan ce Levi Crespos DO MR ORDERABLES * XR LUMBAR SPINE 2 OR 3VW (06/05/2018 12:56 PM CDT) Anatomical Region Laterality Modality Spine Computed Radiogr aphy Narrative 06/07/2018 10:40 AM CDT Christen Rock RT(R) 06/07/2018 10:40 AM See progress notes for results Levi Crespos DO DIAGNOSTIC IMAGING O RDERABLES * XR KNEE 1 OR 2 VW RIGHT (12/03/2012 3:17 PM CDT) Only the most recent of2 resultswithin the time period is included. Anatomical Region Laterality Modality Lower Extremity Radiographic Elo ging Narrative 12/03/2012 3:18 PM CDT Maria C Florez 12/03/2012 3:18 PM Please see progress notes for result. Procedure Note Maria C Florez - 12/03/2012 3:18 PM CDT Please see progress notes for result. Levi Yu DO DIAGNOSTIC IMAGING O RDERABLES * (ABNORMAL) BASIC METABOLIC PANEL (CALCIUM TOTAL) (08/21/2012 7:43 AM CDT) Glucose 110(H) 74 - 106 mg/dL 08/21/2012 8:07 AM CDT [facility] Sodium 140 136 - 145 mmol/L 08/21/2012 8:07 AM CDT [facility] Potassium 4.6 3.5 - 5.1 mmol/L 08/21/2012 8:07 AM CDT [facility] Chloride 102 98 - 107 mmol/L 08/21/2012 8:07 AM CDT [facility] CO2 30 22 - 31 mmol/L 08/21/2012 8:07 AM CDT [facility] Calcium 9.1 8.5 - 10.1 mg/dL 08/21/2012 8:07 AM CDT [facility] Anion Gap 8 5 - 15 mmol/L 08/21/2012 8:07 AM CDT [facility] BUN 17 7 - 21 mg/dL 08/21/2012 8:07 AM CDT [facility] Creatinine 0.79 0.50 - 1.30 mg/dL 08/21/2012 8:07 AM CDT [facility] eGFR by MDRD >60 >60 ml/min/1.7 3m2 08/21/2012 8:07 AM CDT [facility] eGFR by MDRD >60 >60 ml/min/1.7 3m2 08/21/2012 8:07 AM CDT [facility] Blood specimen (specimen) BLOOD SPECIMEN / Unknown 08/21/2012 7:43 AM CDT 08/21/2012 7:53 AM CDT Doroteo Davison MD LAB - CHEMISTRY ANYA V[place]GAS Performing Organization Address City/[facility] Co de Phone Number [facility] [address] [place] [address] * RHEUMATOID FACTOR BLOOD QUANTITATIVE (08/04/2010 1:32 PM CDT) Rheumatoid Factor 5.5 <60.0 IU/ml [facility] BLOOD SPECIMEN / Unknown 08/04/2010 1:32 PM CDT 08/04/2010 1:32 PM CDT Narrative Resulting Agency Comment Performed By [address] [address] Levi Yu DO LAB - CHEMISTRY ANYA V[place]LEGAS Performing Organization Address City/[facility]/ZIP Co de Phone Number [facility] [address] [place] [address] * KAROLINE BLOOD SCREEN W/REFLEX TITER (08/04/2010 1:32 PM CDT) KAROLINE Negative Negative [facility] BLOOD SPECIMEN / Unknown 08/04/2010 1:32 PM CDT 08/04/2010 1:32 PM CDT Narrative Resulting Agency Comment Performed By [address] [place] [address] Levi Yu DO LAB - CHEMISTRY ORDMary VILLEGAS Performing Organization Address [facility] Co de Phone Number [facility] [address] [place] [address] * HLA-B27 ANTIGEN (08/04/2010 1:32 PM CDT) HLA-B27 Negative Negative [facility] Comment Ref Lab [facility] Comment: Comments and Normal Ranges for Component HLA B27 TEST INFORMATION/ HLA-B27 HLA-B27 is a serologically defined allele of the human HLA-B locus. The presence of the HLA-B27 antigen is strongly associated with ankylosing spondylitis and related disorders. The performance characteristics of this test were determined by [employer]. BLOOD SPECIMEN / Unknown 08/04/2010 1:32 PM CDT 08/04/2010 1:32 PM CDT Narrative Resulting Agency Comment Performed By [address] [address] Levi J Gigi DO LAB - CHEMISTRY [place]A [place] Performing Organization Address [facility] Co de Phone Number [facility] [address] [place] [address] Care Teams Estimator Relationship Specialty Start Date End Date Christian Allan MD [address] [place] [address] PCP - General Internal Medicine 03/21/20 Levi Yu DO Orthopedic Surgery 08/13/12 Markell Dominguez MD [address] [place] [address] Post Closer Cardiovascular Disease 06/04/20
--- OUTSIDE RECORDS SUMMARY | 2024-04-14 13:51 | XMS_ITS | Clinical Summary ---
Author Organization [facility] Kurt mckee [facility] Address [address] [place] [place] [address] Care Team Providers Care Roller Picker Name Role Phone Unavailable Primary Care Provider Unavailabl e Allergies No known active allergies Medications dupilumab (DUPIXENT) 300 mg/2 mL Pen Injector Inject 300 mg by subcutaneous injection every 2 weeks. Active metFORMIN (GLUCOPHAGE XR) 500 mg Extended Release 24 hour tablet Take 500 mg by mouth daily. Active niacin (NIACOR) 250 mg tablet Take 250 mg by mouth daily. Active vits A,C,E/zinc/juan c er (VISION-DYLAN PRESERVE ORAL) Take by mouth. Active enalapril (VASOTEC) 20 mg tablet Take 20 mg by mouth 2 times daily. Active allopurinoL (ZYLOPRIM) 300 mg tablet Take 1 Tablet (300 mg) by mouth daily. 60 Tablet 1 5 Active hydroxyurea (HYDREA) 500 mg capsule Take 1 Capsule (500 mg) by mouth 2 times daily. 60 Capsule 2 5 Active Active Problems No known active problems Encounters Date Type Department Care Team Description 04/14/2024 11:00 AM SECRETARY SPECIALIST Office Visit [facility] Oncology and Hematology - Miguel [address] [place] [phone] Santos Pickett MD Essential thrombocytosis (CMS/HCC) (Primary Dx) 03/25/2024 External Device Data STL ABSTRACTION Provider, Abstract 03/19/2024 External Device Data STL ABSTRACTION Provider, Abstract 03/19/2024 External Device Data STL ABSTRACTION Provider, Abstract 03/12/2024 External Device Data STL ABSTRACTION Provider, Abstract 03/11/2024 4:30 PM SECRETARY SPECIALIST Telephone Check Up [facility] Oncology and Hematology - [place] [address] [place] [phone] Santos Pickett MD Essential thrombocytosis (CMS/HCC) (Primary Dx) 03/11/2024 Orders Only [facility] Oncology and Hematology - [place] [address] [place] [phone] Santos Pickett MD 03/02/2024 Refill [facility] Oncology and Hematology - [place] [address] Willian Betancourt MD 02/18/2024 Telephone [facility] Oncology and Hematology - [place] [address] Willian Betancourt MD Advice Only 02/12/2024 Orders Only [facility] Oncology and Hematology - [place] [address] Santos Pickett MD 02/11/2024 9:30 AM SECRETARY SPECIALIST Office Visit [facility] Oncology and Hematology - [place] [address] Santos Pickett MD Essential thrombocytosis (CMS/HCC) (Primary Dx) 02/07/2024 Orders Only [facility] Oncology and Hematology - [place] [address] [place] [phone] Santos Pickett MD Essential thrombocytosis (CMS/HCC) (Primary Dx) 01/30/2024 11:30 AM SECRETARY SPECIALIST Office Visit [facility] Oncology and Hematology - [place] [address] [place] [phone] Santos Pickett MD Essential thrombocytosis (CMS/HCC) (Primary Dx) 01/18/2024 Orders Only [facility] Oncology and Hematology - Miguel [address] [place] [phone] Santos Pickett MD 01/17/2024 Orders Only [facility] Oncology and Hematology - [place] [address] [place] [address] Santos Pickett MD 01/16/2024 Orders Only [facility]cology and Hematology - [place] [address] [place] [address] Santos Pickett MD 01/15/2024 External Device Data STL ABSTRACTION Provider, Abstract from Last 3 Months Family History Medical [...] at Not on file Legal Sex Male 10:49 AM CDT Gender Identity Not on file Sexual Orientation Not on file Last Filed Vital Signs Vital Sign Reading Time Taken Comments Blood Pressure 146/79 04/14/2024 11:21 AM SECRETARY SPECIALIST Pulse 68 04/14/2024 11:18 AM SECRETARY SPECIALIST Temperature 35.8 C (96.4 F) 04/14/2024 11:18 AM SECRETARY SPECIALIST Respiratory Rate 15 04/14/2024 11:1 8 AM SECRETARY SPECIALIST Oxygen Saturation 95% 04/14/2024 11: 18 AM SECRETARY SPECIALIST Inhaled Oxygen Concentration - - Weight 140.3 kg (309 lb 3.2 oz) 025 11:18 AM SECRETARY SPECIALIST Height 188 cm (6' 2 ) 01/09/2024 1:39 PM SECRETARY SPECIALIST Body Mass Index 39.7 01/09/2024 1:39 PM SECRETARY SPECIALIST Plan of Treatment Upcoming Encounters Date Type Department Care Team (Late st Contact Info) Description 05/26/2024 11:00 AM CDT Office Visit [facility] Oncology and Hematology - [place] [address] [place] [address] Santos Pickett MD [address] [place] [address] Health Maintenance Due Date Last Done Comments DTAP/TDAP/TD VACCINES (1 - Tdap) 08/02/1971 Traditional Medicare (ACO) A nnual Wellness Visit 08/02/1971 COLORECTAL SCREENING 1997 Colorectal Cancer Screening 1997 FIT-DNA Q 3 years 1997 FIT/FOBT Q 1 year 1997 Flex Sig/CT Colonography Q 5 years 1997 PNEUMOCOCCAL VACCINE 65+ YEA RS (1 of 1 - PCV) 2002 ZOSTER VACCINE (1 of 2) 2002 RSV VACCINE (60+ or ) (1 - Risk 60-74 years 1-dose series) 2012 Abdominal Aortic Aneurysm (A AA) Screening 2017 INFLUENZA VACCINE (#1) 2023 COVID-19 Vaccine ( season) 2023 12/14/2020, 05/14/2020, 04/23/2020 Procedures Procedure Name Priority Date/Time Associated Diagnosis Comments BASIC METABOLIC PANEL Routine 03/11/2024 3:01 PM SECRETARY SPECIALIST CBC WITH DIFFERENTIAL Routine 03/11/2024 2:39 PM SECRETARY SPECIALIST BASIC METABOLIC PANEL Routine 02/11/2024 11:08 AM SECRETARY SPECIALIST CBC WITH DIFFERENTIAL Routine 02/11/2024 11:04 AM SECRETARY SPECIALIST JAK2 EXON 12 MUTATION ANALYSIS Routine 01/16/2024 2:49 PM SECRETARY SPECIALIST BCR/ABL P190 Routine 01/15/2024 4:21 PM SECRETARY SPECIALIST ERYTHROPOIETIN LEVEL Routine 01/15/2024 3:54 PM SECRETARY SPECIALIST from Last 3 Months Results * BASIC METABOLIC PANEL (03/11/2024 3:01 PM SECRETARY SPECIALIST) Only the most recent of2 resultswithin the time period is included. Blood Santos Pickett MD CHEMISTRY ORDERABLES Final Resu lt * CBC WITH DIFFERENTIAL (03/11/2024 2:39 PM SECRETARY SPECIALIST) Only the most recent of2 resultswithin the time period is included. Blood us Santos Pickett MD HEMATOLOGY ORDERABLES Final Res ult * JAK2 EXON 12 MUTATION ANALYSIS (01/16/2024 2:49 PM SECRETARY SPECIALIST) Blood us Santos Pickett MD HEMATOLOGY ORDERABLES COM Final Result * BCR/ABL P190 (01/15/2024 4:21 PM SECRETARY SPECIALIST) Santos Pickett MD BODY FLUIDS AND STOOLS Final Re sult * ERYTHROPOIETIN LEVEL (01/15/2024 3:54 PM SECRETARY SPECIALIST) Blood us Santos Pickett MD CHEMISTRY ORDERABLES Final Resu lt from Last 3 Months Insurance MEDICARE PART A AND B [facility] [id number]
--- OUTSIDE RECORDS SUMMARY | 2024-04-14 13:51 | XMS_ITS ---
Author Organization [facility] Address [address] [place], [place] [address] Care Team Providers Care Telegraph Office Manager Name Role Phone REID ROMAN Unavailable [phone] Rai, Tina Unavailable Unavailable Allergies No Known Allergies REASON FOR VISIT Patient presents for at-risk foot care . The patient has painful toenails and calluses that are causing difficulty with ambulation and shoegear. The onset is gradual Medications Medication SIG (Take, Route, Fr equency, Duration) Notes Start Date End Date Status methylPREDNISolone 4 MG as directed Orally 023 Active Encounters Encounter Location Date Provider Diagnosis [facility] [address] [place], [place] [id number] 03/10/2024 REIDDAVID MITCHELLELLENMeche Tinea unguium B35.1 ; Pain in right foot M79.671 ; Pain in left foot M79.672 ; Atherosclerosis of pala arteries of extremities with intermittent claudication, bilateral legs I70.213 and Acquired keratosis [keratoderma] palmaris et plantaris L85.1 Assessments Encounter Date Diagnosis (ICD Code) Assessment Notes Treatment Notes Treatment Clinical Notes Section Notes 03/10/2024 Tinea unguium (ICD-10 - B35.1) Nails 1-5 Bilateral were debrided extensively with nail nippers and emery board, reducing length and girth to pink healthy tissue with any subungual debris and necrotic tissue removed 03/10/2024 Pain in right foot (ICD-10 - M79.671) 03/10/2024 Pain in left foot (ICD-10 - M79.672) 03/10/2024 Atherosclerosis of pala arteries of extremities with intermittent claudication, bilateral [...] rma] palmaris et plantaris A total of 1 corns or calluses, as described in the note above, were cut and pared utilizing a #15 blade Next Appt Details Follow Up: 10 - 12 weeks, Re ason: At-Risk Foot care, sooner if problems develop. Provider Name:REID ROMAN, 08:10:00 AM, [address], [address], [id number], Progress Notes * TESS DOWNEYDOB: [birth year] (73 yo M)Acc No.[id number]:03/10/2024 Patient: TESS SCHWARTZ Provider: Mary Roman DPM :1950 A ge:73 Y S ex:Male Date:03/10/2024 Address:[address] [place], [place] [id number] Subjective: * Chief Complaints: * Jericho olson presents for at-risk foot care . The patient has painful toenails and calluses that are causing difficulty with ambulation and shoegear. The onset is gradual * HPI: H PI: General care Jericho olson presents to the office for at risk foot care. Patient states that their nails are thickened, elongated and painful. Patient states that it is aggravated by shoe gear. Onset is gradual. Patient denies being diabetic., Patient denies taking prescription blood thinners but does take a daily aspirin., Date last seen by Dr. Rai was November 2023., Initials LB. * Medical History: * Surgical History: * Hospitalization/Major Diagno stic Procedure: * Family History: F ather: PRN - Father: :: Cancer,,known absent . M other: PRN - Mother: :: Heart Disease < 55 yrs,,known absent . B rother: SIB - Brother: . S ister: SIB - Sister: . * Social History: M igrated Social History: M igrated Social History: History of tobacco use : , Smoking Status : Former tobacco user. * Medications: T akingmethylPREDNISolone 4 MG Tablet Therapy Pack as directed Orally Medication List reviewed and reconciled with the patientTaking methylPREDNISolone 4 MG Tablet Therapy Pack as directed Orally Medication List reviewed and reconciled with the patient * Allergies: N .K.D.A.no[Allergies Verified] Objective: * Vitals: * Examination: P hysical Examination: General appearance: A lert, pleasant, well-nourished and in no acute distress. D ermatologic: Skin findings: S kin is thin, atrophic and lacking pedal hair. Hypertrophic / hyperkeratotic lesion: d istal aspect of the right hallux. Nail pathology: N ails 1, 2, 3, [...] - M79.672 4 . A therosclerosis of pala arteries of extremities with intermittent claudication, bilateral legs - I70.213 5 . Acquired keratosis [keratoderma] palmaris et plantaris - L85.1 Plan: * Treatment: 2. A cquired keratosis [keratoderma] palmaris et plantaris Notes: A total of 1 corns or calluses, as described in the note above, were cut and pared utilizing a #15 blade * Procedure Codes: 1 1055 TRIM SKIN LESION, Modifiers: Q8 95621 DEBRIDE NAIL, 6 OR MORE, Modifiers: 59 , Q8 * Follow Up: 1 0 - 12 weeks (Reason: At-Risk Foot care, sooner if problems develop.) * Billing Information: * Visit Code: * Procedure Codes: 93692 TRIM SKIN LESION. Modifiers: Q8 38139 DEBRIDE NAIL, 6 OR MORE. Modifiers: 59, Q8 * AL LABORATORY ASSISTANT Sign off status: Completed true * Provider: Mary Roman DPM Date: 0 03/10/2024 Generated for Arsenio dominguez/Kanwal/Felipeitting on: 0 04/14/2024 11:14 AM DENTAL LABORATORY ASSISTANT History and Physical Notes * HPI (History of Present Illness) Category Sub-Category Detail Notes Category Not es HPI General care Patient presents to the office for at risk foot care. Patient states that their nails are thickened, elongated and painful. Patient states that it is aggravated by shoe gear. Onset is gradual. Patient denies being diabetic., Patient denies taking prescription blood thinners but does take a daily aspirin., Date last seen by Dr. Rai was November 2023., Initials LB Examination Category Sub-Category Detail Notes Category Not es Dermatologic Skin findings: Skin is thin, at rophic and lacking pedal hair Nail pathology: Nails 1, 2, 3, 4, an d 5 bilateral are elongated, thick, discolored, and dystrophic with subungual debris. They are painful to palpation Hypertrophic / hyperkeratotic lesion: di stal aspect of the right hallux Neurologic Gross sensation Grossly intact t o [...]
--- OUTSIDE RECORDS SUMMARY | 2024-04-14 13:51 | XMS_ITS | Encounter Summary ---
Author Organization [facility] YOKASTA Meyer [facility] Address [address] [place] [address] Care Team Providers Care Offset Pressman Name Role Phone Unavailable Primary Care Provider Unavailabl e Reason for Visit * Reason Comments Follow Up Encounter Details Date Type Department Care Team (Late st Contact Info) Description 04/14/2024 11:00 AM BEAM SEALER Office Visit [facility] Oncology and Hematology - Miguel [address] [facility] [address] [place] [address] Santos Pickett MD [address] [facility] [address] [place] [address] Essential thrombocytosis (CMS/HCC) (Primary Dx) Social History Tobacco Use Types [...] Comments Blood Pressure 146/79 04/14/2024 11:21 AM BEAM SEALER Pulse 68 04/14/2024 11:18 AM BEAM SEALER Temperature 35.8 C (96.4 F) 04/14/2024 11:18 AM BEAM SEALER Respiratory Rate 15 04/14/2024 11:1 8 AM BEAM SEALER Oxygen Saturation 95% 04/14/2024 11: 18 AM BEAM SEALER Inhaled Oxygen Concentration - - Weight 140.3 kg (309 lb 3.2 oz) 025 11:18 AM BEAM SEALER Height - - Body Mass Index 39.7 01/09/2024 1:39 PM BEAM SEALER documented in this encounter Progress Notes * Santos Pickett MD - 04/14/2024 12:32 PM CST HEMATOLOGY / ONCOLOGY PROGRESS NOTE Patient Identification: Name: Dillon Mejia Age: 73 y.o. Sex: male : 1950 DIAGNOSIS Essential thrombocythemia with JAK2 mutation positive CURRENT TREATMENT Hydroxyurea 500 mg twice a day started January 30, 2024 Allopurinol 300 mg daily Baby aspirin TREATMENT HISTORY SUBJECTIVE Patient came to the office for follow-up visit. He is taking hydroxyurea and tolerating it well. Denies any nausea vomiting. No diarrhea and constipation. No rash. No other new complaints. Review of system Constitutional: Patient did not mention fevers, sweats, weight and appetite stable, denies any tiredness and fatigue HEENT: Patient did not mention sinus congestion, [...] 10.1 hemoglobin 15.3 platelet 825,000 creatinine 1.9 Labs from March 11 showed platelet 637,000 hemoglobin 16.6 creatinine 2.5 Labs from April 14 showed WBC 12.1 hemoglobin 15.7 platelet 644,000 creatinine 2.3 Assessment: Plan: There are no active problems to display for this patient. Essential thrombocythemia. JAK2 mutation positive. Erythropoietin level normal. Hydroxyurea 500 mg twice daily started January 30, 2024. Labs noted and showed stable platelet count. I will continue the current dose of hydroxyurea 500 mgtwice a day along with baby aspirin. Repeat labs in 6 months. Tumor lysis prevention prevention. He will continue allopurinol with adequate hydration. Leukocytosis BCR-ABL translocation negative. WBC stable. Follow-up in 6 weeks. 04/14/2024 Santos Pickett MD SEALER documented in this encounter Plan of Treatment Upcoming Encounters Date Type Department Care Team (Late st Contact Info) Description 05/26/2024 11:00 AM CDT Office Visit [facility] Oncology and Hematology - [place] [address] [facility] [address] [place] [address] Santos Pickett MD [address] [facility] [address] [place] [address] Scheduled Orders Name Type Priority Associated Diagnoses Orde r Schedule BASIC METABOLIC PANEL Lab Stat Essential thrombocytosis (CMS/HCC) Expected: 05/22/2024, Expires: 04/14/2025 CBC WITHOUT DIFFERENTIAL Lab Stat Essential thrombocytosis (CMS/HCC) Expected: 05/22/2024, Expires: 04/14/2025 documented as of this encounter Visit Diagnoses Diagnosis Essential thrombocytosis (CMS/HCC)- Primary Essential thrombocythemia documented in this encounter
--- OUTSIDE RECORDS SUMMARY | 2024-04-14 13:51 | XMS_ITS | Referral Summary ---
Author Organization [email or web address] Address [address] [facility] [place] [address] Care Team Providers Care Binding Machine Operator Name Role Phone Levi Yu DO Unavailable Christian Allan MD Primary Care Provider [phone] Markell Dominguez MD Unavailable Unavailable Source Comments [email or web address],non-owned Affiliates and Associated Physician Practices is amultiple site organization consisting of ambulatory clinics and hospital sitesin [place], [place], [place] and [place]. This disclosure is being madepursuant to the Care Everywhere program and may not contain all information available regarding this patient. Last updated [email or web address] Allergies No known active allergies Medications * [...] 36.9 C (98.5 F) 03/21/2020 3:25 PM ANALYSIS INTERN Respiratory Rate 18 03/21/2020 6:31 PM ANALYSIS INTERN Oxygen Saturation 95% 03/21/2020 8:01 PM ANALYSIS INTERN Inhaled Oxygen Concentration - - Weight 151.4 [...] on file Medical Devices Implanted Type Area All Terrain Vehicle Racer Device Identifier Shelf Expiration Date Model / Serial / Lot Acetabular Liner +3 Max-Rom 40mm Head Size 25 Liner Size Implanted:Qty: 1 on 11/12/2018 by Frederick Solis IV, MD at [facility] Left: Hip [employer] 10/25/2020 [id number] / / [id number] Shell Actb 58mm Hip Lmt Hl Rnglc+ Implanted:Qty: 1 on 11/12/2018 by Frederick Solis IV, MD at [facility] Left: Hip [employer] 07/30/2028 [id number] / / [id number] Alloclassic Sl Stem Offset 5, Taper 12/14 Implanted:Qty: 1 on 11/12/2018 by Frederick Solis IV, MD at [facility] Left: Hip 06/26/2023 [id number] 0 / / [id number] Ceramic Femoral Head 40/+7 Xl Implanted:Qty: 1 on 11/12/2018 by Frederick Solis IV, MD at [facility] Left: Hip [employer] 03/28/2024 [id number] 0 -04 / / [id number] Explanted Type Area All Terrain Vehicle Racer Device Identifier Shelf Expiration Date Model / Serial / Lot Pin Fx 22.9cm 4mm Stnm Thrd Ss 1 End Explanted:Qty: 2 on 11/12/2018 at [facility] Left: Hip [employer] [id number] / / Advance Directives * Full Code (Latest Code Status on File) Date Activated Date Inactivated Comments 11/12/2018 10:25 AM 11/16/2018 3:52 PM Care Teams Binding Machine Operator Relationship Specialty Start Date End Date Christian Allan MD [address] [place] [address] PCP - General Internal Medicine 03/21/20 Levi Yu DO Orthopedic Surgery 08/13/12 Markell Dominguez MD [address] [place] [address] Customs Consultant Cardiovascular Disease 06/04/20
--- OUTSIDE RECORDS SUMMARY | 2024-04-14 13:51 | XMS_ITS | Clinical Summary ---
Author Organization [facility] Address [address] [place] [address] Care Team Providers Care Shot Polisher And Inspector Name Role Phone Francy Amaya MARCIO Primary Care Provider [phone] Medications enalapril (VASOTEC) 20 MG tablet Take [...] 51 11/17/2022 12:30 PM CDT Temperature 36.2 C (97.2 F) 11/17/2022 12:30 PM CDT Respiratory Rate 16 11/17/2022 12:3 [...] RSV Immunization or 60+ Years (1 - Risk 60-74 years 1-dose series) 2012 Annual Medicare Wellness Visit 2017 Pneumococcal Vaccine: 65+ Years (1 of 1 - PCV) 2017 COVID-19 Vaccine ( season) 2023 12/29/2021, 10/10/2021, 12/14/2020, Additional history exists Influenza Adult (#1) 2023 Meningococcal B Vaccine Aged Out No l onger eligible based on patient's age to complete this topic Meningococcal Vaccine Aged Out No meir lilia eligible based on patient's age to complete this topic RSV Immunizations Under 20 Months Aged Out No longer eligible based on patient's age to complete this topic Medical Devices Implanted Type Area Roadability Machine Operator Device Identifier Shelf Expiration Date Model / Serial / Lot Medium Toe Tac Fixation System Implanted:Qty: 1 on 11/17/2022 by Jeremy Rodriguez DPM at [facility] Right: Toe [employer] [id number] 08/22/2025 [id number] / / [id number] Insurance MEDICARE [facility] Care Teams Shot Polisher And Inspector Relationship Specialty Start Date End Date Francy Amaya NP [address] [place] [address] PCP - General Nurse Practitioner Family 11/10/22
--- OUTSIDE RECORDS SUMMARY | 2024-04-14 13:51 | XMS_ITS ---
Author Organization [facility] Address [address] [place], [place] [address] Care Team Providers Care Records Supervisor Name Role Phone TAJOSSELINE McgregorIC Unavailable [phone] Francy Rai Unavailable Unavailable Allergies No Known [...] calcium 20 MG Oral Tablet *Reorder from [facility] for eRx and Interaction Alerts* 1 024 Active methylPREDNISolone 4 MG as directed Orally 3 Active Encounters Encounter Location Date Provider Diagnosis [facility] [place] [address] [place], [place] [id number] 10/15/2023 REID ROMAN Tinea unguium B35.1 ; Acquired keratosis [keratoderma] palmaris et plantaris L85.1 ; Atherosclerosis of [place] arteries of extremities with intermittent claudication, bilateral [...] utilizing a #15 blade 10/15/2023 Atherosclerosis of [place] arteries of extremities with intermittent claudication, bilateral [...] ROMAN, 08:10:00 AM, [address], [address], [id number], Progress Notes * TESS DOWNEYDOB: [birth year] (73 yo M)Acc No.[id number]:10/15/2023 Patient: TESS SCHWARTZ Provider: Mary Roman DPM :1950 A ge:73 Y S ex:Male Date:10/15/2023 Address:[address] [place], [place] [id number] Subjective: * Chief Complaints: * 1 . [...] by Dr. Rai was April 2023., Initials LB. * ROS: G eneral / Constitutional: Patient denies c hills, fever, weakness, night sweats. M usculoskeletal: Patient denies c hildhood foot problems, weakness. ? P eripheral Vascular: Patient denies u lceration of feet, cold extremities. ? S kin: Patient denies u lcerations, discoloration. ? N eurologic: Patient denies b alance difficulty, confusion, difficulty speaking, dizziness. * Medical History: * Family History: F [...] calcium 20 MG Oral Tablet *Reorder from [facility] for eRx and Interaction Alerts*, Taking methylPREDNISolone 4 MG Tablet Therapy Pack as directed Orally * Allergies: N .K.D.A. Objective: * Examination: C onstitutional: Constitutional T he patient is awake, alert, well developed, well groomed and well nourished.. D ermatologic: Skin findings: S kin is thin, atrophic and lacking pedal hair. Hypertrophic / hyperkeratotic lesion: p lantar aspect of the left and right 1st metatarsal head, distal tip of the right 3rd digit. V ascular: Dorsalis pedis pulse: 0 /4, bilateral. Posterior tibial pulse: 1 /4, bilaterally. Capillary refill: l ess than 3 seconds. Edema: N o edema, bilateral. N eurologic: Gross sensation G ross sensation is intact to light touch..? M usculoskeletal: Muscle Strength M uscle strength is 5/5 in regards to dorsiflexion, plantarflexion, inversion, and eversion in bilateral lower extremities.. ? Assessment: * Assessment: 1. T inea unguium - B35.1 2 . A cquired keratosis [keratoderma] palmaris et plantaris - L85.1 3 . A therosclerosis of [place] arteries of extremities with intermittent claudication, bilateral legs - I70.213 4 . P ain in right foot - M79.671 5 . P ain in left foot - M79.672 Plan: * Treatment: 2. A cquired keratosis [keratoderma] palmaris et plantaris Notes: A total of 3 corns or calluses, as described in the note above, were cut and pared utilizing a #15 blade * Follow Up: 1 0 - 12 weeks (Reason: At-Risk Foot care, sooner if problems develop.) * Billing Information: * Visit Code: * Procedure Codes: * Sign off status: Completed true * Provider: Mary Roman DPM Date: 0 10/15/2023 Generated for Arsenio dominguez/Kanwal/Karissa on: 0 04/14/2024 01:51 PM BAR MACHINE OPERATOR PRODUCTION History and Physical Notes * HPI (History [...]
== END 2024-04-14 10:48 | disposition home or self-care (01) ==
LOC: ANHLAB 10:48
PROVIDERS: PCP Nurse Practitioner Family; Visit Provider Internal Medicine Hematology & Oncology
DX: D47.3 Essential (hemorrhagic) thrombocythemia (principal)
CPT/HCPCS: 36415; 80047; 85027

== ENCOUNTER 2024-05-26 10:40 | Outpatient (CLI) | payer MEDICARE, SELFPAY ==
[2024-05-26 10:54] LABS: Hematocrit 45.8 % (42.0-52.0); Hemoglobin 15.3 g/dL (14.0-18.0); Mean Corpuscular HGB Conc 33.4 g/dl (32-36); Mean Corpuscular Hemoglobin 32.8 pg (26-34); Mean Corpuscular Volume 98.3 fl (80-100); Mean Platelet Volume 8.9 fl (7.4-10.4); Platelet Count Result 726 k/mm3 (150-375); Red Blood Count 4.66 M/mm3 (4.6-6.20); Red Cell Distribution Width 19.6 % (11.5-14.5); White Blood Count 12.4 K/mm3 (4.5-10.0)
[2024-05-26 10:58] LABS: Blood Urea Nitrogen 17 mg/dL (8-26); Carbon Dioxide 26 mmol/L (22-30); Chloride 102 mmol/L (98-109); Estimated Glomerular Filt Rate 43; Glucose 118 mg/dL (70-105); Ionized Calcium (POC) 1.19 mmol/L (1.11-1.31); Potassium 4.5 mmol/L (3.5-4.9); Sodium 139 mmol/L (138-146)
--- OUTSIDE RECORDS SUMMARY | 2024-05-26 12:00 | XMS_ITS ---
Author Organization [facility] Address [address] [place], [place] [address] Care Team Providers Care Dish Cloth Inspector Name Role Phone REID ROMAN Unavailable [phone] RaiFrancy Unavailable Unavailable Allergies No Known Allergies REASON [...] Location Date Provider Diagnosis [facility] [place] [address] [place], [place] [id number] 03/10/2024 REIDDAVID MITCHELLELLENMeche Tinea unguium B35.1 ; Pain in right foot M79.671 ; Pain in left foot M79.672 ; Atherosclerosis of [place] arteries of extremities with intermittent claudication, bilateral [...] foot (ICD-10 - M79.672) 03/10/2024 Atherosclerosis of [place] arteries of extremities with intermittent claudication, bilateral [...] Name:REID ROMAN, 08:10:00 AM, [address], [address], [id number], Progress Notes * TESS DOWNEYDOB: [birth year] (73 yo M)Acc No.[id number]:03/10/2024 Patient: TESS SCHWARTZ Provider: Mary Roman DPM :1950 A ge:73 Y S ex:Male Date:03/10/2024 Address:[address] [place], [place] [address] Subjective: * Chief Complaints: * Jericho olson [...] - M79.672 4 . A therosclerosis of [place] arteries of extremities with intermittent claudication, bilateral legs - I70.213 5 . Acquired keratosis [keratoderma] palmaris et plantaris - L85.1 Plan: * Treatment: 2. A cquired keratosis [keratoderma] palmaris et plantaris Notes: A total of 1 corns or calluses, as described in the note above, were cut and pared utilizing a #15 blade * Procedure Codes: 1 1055 TRIM SKIN LESION, Modifiers: Q8 65814 DEBRIDE NAIL, 6 OR MORE, Modifiers: 59 , Q8 * Follow Up: 1 0 - 12 weeks (Reason: At-Risk Foot care, sooner if problems develop.) * Billing Information: * Visit Code: * Procedure Codes: 51463 TRIM SKIN LESION. Modifiers: Q8 43948 DEBRIDE NAIL, 6 OR MORE. Modifiers: 59, Q8 * RNET MARKETING STRATEGIST Sign off status: Completed true * Provider: Mary Roman DPM Date: 0 03/10/2024 Generated for Arsenio dominguez/Kanwal/Felipeitting on: 0 05/26/2024 10:56 AM CDT History and Physical Notes * HPI (History [...]
--- OUTSIDE RECORDS SUMMARY | 2024-05-26 12:00 | XMS_ITS | Clinical Summary ---
Author Organization [facility] Address [address] [place] [address] Care Team Providers Care Soft Work Wrapper Layer And Examiner Name Role Phone Francy Amaya MARCIO Primary Care Provider [phone] Medications enalapril (VASOTEC) 20 MG tablet Take [...] 2023 12/29/2021, 10/10/2021, 12/14/2020, Additional history exists Meningococcal B Vaccine Aged Out No l onger eligible based on patient's age to complete this topic Meningococcal Vaccine Aged Out No meir lilia eligible based on patient's age to complete this topic RSV Immunizations Under 20 Months Aged Out No longer eligible based on patient's age to complete this topic Medical Devices Implanted Type Area Library Services Coordinator Device Identifier Shelf Expiration Date Model / Serial / Lot Medium Toe Tac Fixation System Implanted:Qty: 1 on 11/17/2022 by Jeremy Rodriguez DPM at [facility] Right: Toe [employer] [id number] 08/22/2025 -[id number] / / [id number] Insurance MEDICARE [facility] Care Teams Soft Work Wrapper Layer And Examiner Relationship Specialty Start Date End Date Francy Amaya NP [address] [place] [address] PCP - General Nurse Practitioner Family 11/10/22
--- OUTSIDE RECORDS SUMMARY | 2024-05-26 12:00 | XMS_ITS | Clinical Summary ---
Author Organization [facility] Address [address] [place] [address] Care Team Providers Care Habitat Biologist Name Role Phone Unavailable Primary Care Provider Unavailabl e Allergies No known active allergies Medications dupilumab (DUPIXENT) 300 mg/2 mL Pen Injector Inject 300 mg by subcutaneous injection every 2 weeks. Active metFORMIN (GLUCOPHAGE XR) 500 mg Extended Release 24 hour tablet Take 500 mg by mouth daily. Active niacin (NIACOR) 250 mg tablet Take 250 mg by mouth daily. Active vits A,C,E/zinc/co pper (VISION-DYLAN PRESERVE ORAL) Take by mouth. Activ e enalapril (VASOTEC) 20 mg tablet Take 20 mg by mouth 2 times daily. Active allopurinoL (ZYLOPRIM) 300 mg tablet Take 1 Tablet (300 mg) by mouth daily. 90 Tablet 1 05/27/19 25 Active hydroxyurea (HYDREA) 500 mg capsule Take two caps in morning and one in evening 90 Capsule 3 05/27/19 25 Active allopurinoL (ZYLOPRIM) 300 mg tablet Take 1 Tablet (300 mg) by mouth daily. 60 Tablet 1 03/02/19 25 025 Discontinued hydroxyurea (HYDREA) 500 mg capsule Take 1 Capsule (500 mg) by mouth 2 times daily. 60 Capsule 2 03/02/19 25 025 Discontinued(R eorder) allopurinoL (ZYLOPRIM) 300 mg tablet TAKE 1 TABLET(300 MG) BY MOUTH DAILY 90 Tablet 1 05/27/19 25 025 Discontinued(R eorder) Active Problems No known active problems Encounters Date Type Department Care Team Description 05/26/2024 11:00 AM CDT Office Visit [facility] Oncology and Hematology - [place] [address] [place] [address] Santos Pickett MD Essential thrombocytosis (CMS/HCC) (Primary Dx) 05/25/2024 Refill [facility] Oncology and Hematology [facility] [address] [place] [address] Santos Pickett MD 05/14/2024 External Device Data STL ABSTRACTION Provider, Abstract 05/05/2024 External Device Data STL ABSTRACTION Provider, Abstract 04/22/2024 External Device Data STL ABSTRACTION Provider, Abstract 04/14/2024 11:00 AM FILLING MACHINE TENDER Office Visit [facility] Oncology and Hematology [facility] [address] [place] [address] Santos Pickett MD Essential thrombocytosis (CMS/HCC) (Primary Dx) 03/25/2024 External Device Data STL ABSTRACTION Provider, Abstract 03/19/2024 External Device Data STL ABSTRACTION Provider, Abstract 03/19/2024 External Device Data STL ABSTRACTION Provider, Abstract 03/12/2024 External Device Data STL ABSTRACTION Provider, Abstract 03/11/2024 4:30 PM FILLING MACHINE TENDER Telephone Check Up [facility] Oncology [facility] Hematology [facility] [address] [place] [address] Santos Pickett MD Essential thrombocytosis (CMS/HCC) (Primary Dx) 03/11/2024 Orders Only [facility] Oncology and Hematology [facility] [address] [place] [address] Santos Pickett MD 03/02/2024 Refill [facility] Oncology and Hematology [facility] [address] [place] [address] Willian Betancourt MD from Last 3 Months Family History Medical [...] Sign Reading Time Taken Comments Blood Pressure 127/69 05/26/2024 11:02 AM CDT Pulse 59 05/26/2024 11:02 AM CDT Temperature 35.8 C (96.4 F) 05/26/2024 11:02 AM CDT Respiratory Rate 15 05/26/2024 11:0 2 AM CDT Oxygen Saturation 96% 05/26/2024 11: 02 AM CDT Inhaled Oxygen Concentration - - Weight 139.4 kg (307 lb 6.4 oz) 025 11:02 AM CDT Height 188 cm (6' 2 ) 01/09/2024 1:39 PM FILLING MACHINE TENDER Body Mass Index 39.47 01/09/2024 1:39 PM FILLING MACHINE TENDER Plan of Treatment Upcoming Encounters Date Type Department Care Team (Late st Contact Info) Description 07/07/2024 11:00 AM CDT Office Visit [facility] On[facility] and Hematology - [place] [address] [facility] [address] [place] [address] Santos Pickett MD [address] [facility] [address] [place] [address] Health Maintenance Due Date Last Done Comments DTAP/TDAP/TD VACCINES (1 - Tdap) 08/02/1971 Traditional Medicare (ACO) A nnual Wellness Visit 08/02/1971 COLORECTAL SCREENING 1997 Colorectal Cancer Screening 1997 FIT-DNA Q 3 years 1997 FIT/FOBT Q 1 year 1997 Flex Sig/CT Colonography Q 5 years 1997 PNEUMOCOCCAL VACCINE 50+ YEA RS (1 of 1 - PCV) 2002 ZOSTER VACCINE (1 of 2) 2002 Abdominal Aortic Aneurysm (A AA) Screening 2017 INFLUENZA VACCINE (#1) 2023 COVID-19 Vaccine ( season) 2023 12/14/2020, 05/14/2020, 04/23/2020 RSV VACCINE (60+ or ) (1 - 1-dose 75+ series) 08/02/2027 Procedures Procedure Name Priority Date/Time Associated Diagnosis Comments BASIC METABOLIC PANEL Routine 03/11/2024 3:01 PM FILLING MACHINE TENDER CBC WITH DIFFERENTIAL Routine 03/11/2024 2:39 PM FILLING MACHINE TENDER from Last 3 Months Results * BASIC METABOLIC PANEL (03/11/2024 3:01 PM FILLING MACHINE TENDER) Blood us Santos Pickett MD CHEMISTRY ORDERABLES Final Resu lt * CBC WITH DIFFERENTIAL (03/11/2024 2:39 PM FILLING MACHINE TENDER) Blood us Santos Pickett MD HEMATOLOGY ORDERABLES Final Res ult from Last 3 Months Insurance MEDICARE PART A AND B [facility] [id number]
--- OUTSIDE RECORDS SUMMARY | 2024-05-26 12:00 | XMS_ITS | Encounter Summary ---
Author Organization [facility] [employer] [facility] Address [address] [place] [address] Care Team Providers Care Washcoat Wiper Name Role Phone Unavailable Primary Care Provider Unavailabl e Reason for Visit * Reason Comments Med Refill Encounter Details Date Type Department Care Team (Late st Contact Info) Description 05/25/2024 Refill [facility] Oncology and Hematology [facility] [address] [place] [address] Santos Pickett MD [address] [place] [address] [place] [address] Social History Tobacco Use Types Packs/Day [...] Description 07/07/2024 11:00 AM CDT Office Visit [facility] Oncology and Hematology [place] [address] [place] [address] [place] [address] [place] [address] [place] [address] documented as of this encounter Visit Diagnoses Not on filedocumented in this encounter
--- OUTSIDE RECORDS SUMMARY | 2024-05-26 12:00 | XMS_ITS ---
Author Organization [facility] Address [address] [place], [place] [address] Care Team Providers Care Resistor Winder Name Role Phone TAMeche REID Unavailable [phone] Francy Rai Unavailable Unavailable Allergies No Known Allergies REASON FOR VISIT Patient presents for at-risk foot care . The patient has painful toenails and calluses that are causing difficulty with ambulation and shoegear. The onset is gradual Medications Medication SIG (Take, Route, Frequency, Duration) Notes Start Date End Date Status methylPREDNISolone 4 MG as directed Orally 3 Active Rosuvastatin Calcium 20 MG Oral Tablet rosuvastatin calcium 20 MG Oral TabletOriginal Medicationrosuvastatin calcium 20 MG Oral Tablet *Reorder from [facility] for eRx and Interaction Alerts* 1 024 Active Vital Signs Weight 340 lbs 12/17/2023 Weight-kg 154.22 kg 12/17/2023 Height 74 in 12/17/2023 Height-cm 187.96 cm 12/17/2023 BMI 43.65 kg/m2 12/17/2023 Encounters Encounter Location Date Provider Diagnosis [facility] [place] [address] [place], [place] [id number] 12/17/2023 REID ROMAN Tinea unguium B35.1 ; Pain in right foot M79.671 ; Pain in left foot M79.672 ; Atherosclerosis of [place] arteries of extremities with intermittent claudication, bilateral [...] foot (ICD-10 - M79.672) 12/17/2023 Atherosclerosis of [place] arteries of extremities with intermittent claudication, bilateral [...] Name:REID ROMAN, 08:10:00 AM, [address], [address], [id number], Progress Notes * TESS DOWNEYDOB: [birth year] (73 yo M)Acc No.[id number]:12/17/2023 Patient: TESS SCHWARTZ Provider: Mary Roman DPM :1950 A ge:73 Y S ex:Male Date:12/17/2023 Address:[address] [place], [place] [address] Subjective: * Chief Complaints: * 1 . Patient presents for at-risk foot care . The patient has painful toenails and calluses that are causing difficulty with ambulation and shoegear. The onset is gradual. * HPI: H PI: General care P whitney presents to the office for at risk [...] calcium 20 MG Oral Tablet *Reorder from [facility] for eRx and Interaction Alerts*, Taking methylPREDNISolone 4 MG Tablet Therapy Pack as directed Orally , Medication List reviewed and reconciled with the patient * Allergies: N .K.D.A. Objective: * Vitals: W t:340lbs, Wt-k.22 kg, Ht: 74 in, Ht-cm: 187.96 cm, BMI:43.65Index, Body Surface Area: 2.83. * Examination: P hysical Examination: General appearance: [...] - M79.672 4 . A therosclerosis of [place] arteries of extremities with intermittent claudication, bilateral [...] LESIONS, 2 TO 4, Modifiers: Q8 , 45217 DEBRIDE NAIL, 6 OR MORE, Modifiers: 59 , Q8 * Follow Up: 1 0 - 12 weeks (Reason: At-Risk Foot care, sooner if problems develop.) * Billing Information: * Visit Code: * Procedure Codes: 95375 TRIM SKIN LESIONS, 2 TO 4. Modifiers: Q8 29163 DEBRIDE NAIL, 6 OR MORE. Modifiers: 59, Q8 * Electronic signature of REID ROMAN DPM on 05/26/2024 at 12:00 PM CDT Sign off status: Pending * Provider: Mary Roman DPM Date: 1 Generated for Arsenio dominguez/Kanwal/Karissa on: 0 05/26/2024 12:00 PM CDT History and Physical Notes * HPI [...]
--- OUTSIDE RECORDS SUMMARY | 2024-05-26 12:00 | XMS_ITS | Encounter Summary ---
Author Organization [facility] YOKASTA Meyer [facility] Address [address] [place] [address] Care Team Providers Care Power Shovel Operator Helper Name Role Phone Unavailable Primary Care Provider Unavailabl e Reason for Visit * Reason Comments Follow Up Encounter Details Date Type Department Care Team (Late st Contact Info) Description 05/26/2024 11:00 AM CDT Office Visit [facility] [place] Oncology and Hematology - [place] [address] [facility] [address] [place] [address] Santos Pickett MD [address] [facility] [address] [place] [address] Essential thrombocytosis (CMS/HCC) (Primary Dx) [...] 6.4 oz) 025 11:02 AM CDT Height - - Body Mass Index 39.47 01/09/2024 1:39 PM GEOLOGY TEACHER documented in this encounter Progress Notes * Santos Pickett MD - 05/26/2024 11:28 AM CDT HEMATOLOGY / ONCOLOGY PROGRESS NOTE Patient Identification: Name: Dillon Mejia Age: 73 y.o. Sex: male : 1950 DIAGNOSIS Essential thrombocythemia with JAK2 mutation positive CURRENT TREATMENT Hydroxyurea 500 mg twice a day started January 30, 2024 Allopurinol 300 mg daily Baby aspirin TREATMENT HISTORY SUBJECTIVE Patient came to the office for follow-up visit. He has been taking hydroxyurea twice a day and tolerating it well. Denies any nausea vomiting. No diarrhea and constipation. He has been complaining ofsome back arthralgia. No other new complaints. Review of system [...] sweats, flushing Musculoskeletal: Patient not mention: myalgia, complain of back arthralgia Neurological: Patient did not mention blurry [...] 12.1 hemoglobin 15.7 platelet 644,000 creatinine 2.3 Labs from May 25 showed WBC 12.4 hemoglobin 15.3 platelet 726,000 creatinine 1.6 Assessment: Plan: There are no active problems to display for this patient. Essential thrombocythemia. JAK2 mutation positive. Erythropoietin level normal. Hydroxyurea 500 mg twice daily started January 30, 2024. Labs noted. Platelet count has gone up. We will increase hydroxyurea to 500 mg 2 capsules in the morning and 1 in the evening. He will continue baby aspirin. Follow-up with repeat labs in 6 weeks. Tumor lysis prevention. He will continue allopurinol with adequate hydration. Leukocytosis with BCR-ABL translocation negative. WBC stable. Follow-up in 6 weeks. 05/26/2024 Santos Pickett MD documented in this encounter Plan of Treatment Upcoming Encounters Date Type Department Care Team (Late st Contact Info) Description 07/07/2024 11:00 AM CDT Office Visit [facility] [place] Oncology and Hematology - [place] [address] [facility] [address] [place] [address] Santos Pickett MD [address] [facility] [address] [place] [address] Scheduled Orders Name Type Priority Associated Diagnoses Orde r Schedule BASIC METABOLIC PANEL Lab Stat Essential thrombocytosis (CMS/HCC) Expected: 07/03/2024, Expires: 05/26/2025 CBC WITH DIFFERENTIAL Lab Stat Essential thrombocytosis (CMS/HCC) Expected: 07/03/2024, Expires: 05/26/2025 documented as of this encounter Visit Diagnoses Diagnosis Essential thrombocytosis (CMS/HCC)- Primary Essential thrombocythemia documented in this encounter
--- OUTSIDE RECORDS SUMMARY | 2024-05-26 12:00 | XMS_ITS ---
Author Organization [facility] Address [address] [place], [place] [address] Care Team Providers Care Insurance Billing Specialist Name Role Phone REID ROMAN Unavailable [phone] Francy Rai Unavailable Unavailable REASON FOR VISIT [...] Location Date Provider Diagnosis [facility] [place] [address] [place], [place] [id number] 05/12/2024 REIDDAVID MITCHELLELLENMeche Tinea unguium B35.1 ; Pain in right foot M79.671 ; Pain in left foot M79.672 ; Atherosclerosis of [place] arteries of extremities with intermittent claudication, bilateral legs I70.213 and Acquired keratosis [keratoderma] palmaris et plantaris L85.1 Assessments Encounter Date Diagnosis (ICD Code) Assessment Notes Treatment Notes Treatment Clinical Notes Section Notes 05/12/2024 Tinea unguium (ICD-10 - B35.1) Nails 1-5 Bilateral were debrided extensively with nail nippers and emery board, reducing length and girth to pink healthy tissue with any subungual debris and necrotic tissue removed 05/12/2024 Pain in right foot (ICD-10 - M79.671) 05/12/2024 Pain in left foot (ICD-10 - M79.672) 05/12/2024 Atherosclerosis of [place] arteries of extremities with intermittent claudication, bilateral legs (ICD-10 - I70.213) 05/12/2024 Acquired keratosis [keratoderma] palmaris et plantaris (ICD-10 [...] Name:REID ROMAN, 08:10:00 AM, [address], [address], [id number], Progress Notes * TESS DOWNEYDOB: [birth year] (73 yo M)Acc No.[id number]:05/12/2024 Patient: Angie GHOSH TESS Linn Provider: Mary Roman DPM :1950 A ge:73 Y S ex:Male Date:05/12/2024 Address:[address] [place], [place] [address] Subjective: * Chief Complaints: * 1 . [...] Date last seen by Dr. Rai was 11/2023., Initials [facility]. * Medical History: * Medications: T aking methylPREDNISolone 4 MG Tablet Therapy Pack as directed Orally , Medication List reviewed and reconciled with the patient Objective: * Vitals: * Examination: P hysical [...] - M79.672 4 . A therosclerosis of [place] arteries of extremities with intermittent claudication, bilateral legs - I70.213 5 . Acquired keratosis [keratoderma] palmaris et plantaris - L85.1 Plan: * Treatment: 2. A cquired keratosis [keratoderma] palmaris et plantaris Notes: A total of 1 corns or calluses, as described in the note above, were cut and pared utilizing a #15 blade * Procedure Codes: 1 1055 TRIM SKIN LESION, Modifiers: Q8 , 78727 DEBRIDE NAIL, 6 OR MORE, Modifiers: 59 , Q8 * Follow Up: 1 0 - 12 weeks (Reason: At-Risk Foot care, sooner if problems develop.) * Billing Information: * Visit Code: * Procedure Codes: 11864 TRIM SKIN LESION. Modifiers: Q8 69395 DEBRIDE NAIL, 6 OR MORE. Modifiers: 59, Q8 * Electronic signature of REID ROMAN DPM on 05/26/2024 at 10:56 AM CDT Sign off status: Pending * Provider: Mary Roman DPM Date: 0 05/12/2024 Generated for Arsenio dominguez/Kanwal/Karissa on: 0 05/26/2024 10:56 AM CDT History [...] Date last seen by Dr. Rai was 11/2023., Initials [facility] Examination Category Sub-Category Detail Notes Category Not [...]
--- OUTSIDE RECORDS SUMMARY | 2024-05-26 12:00 | XMS_ITS | CONTINUITY OF CARE DOCUMENT ---
Author Name laura sanchez Address Unknown Organization [facility] Address [address] [place] [address] Phone [phone] Care Team Providers Care Web Content Producer Name Role Phone Parrish Browning MD Unavailable Gretchen Allan MD Unavailable [phone] Gretchen Allan MD Unavailable PROBLEMS Condition Status Date Provider Notes Carotid artery disease;PLAQUING active Parrish Browning MD Hyperlipidemia;with high crp active Parrish Browning MD HTN essential;NEG DUPLEX active Parrish mendoza MD Obesity active Parrish Browning MD Tobacco use, quit active Parrish Browning MD t oo remote to screen Screening active Parrish Browning MD Abnormal EKG active Parrish Browning MD ? Sleep apnea active Parrish Browning MD Dizziness active Parrish Browning MD Exposure to SARS-associated coronavirus;neg igg active Parrish Browning MD FAMILY HISTORY OF HEART DISEASE active Parrish Browning MD mother mi ENCOUNTERS Date Type Provider Location Encounter Diag nosis - In-person encounter Office Visit Parrish Browning MD [facility] HTN essential;NEG DUPLEXObesityTobacco use, quitScreeningAbnormal EKG? Sleep apneaDizzinessExposure to SARS-associated coronavirus;neg iggFAMILY HISTORY OF HEART DISEASE VITAL SIGNS Date Observation Value Provider Body Mass Index (Ratio) 43.39 kg/m2 Juliana Browning MD blood pressure, resting Yes Franco dubois [facility] blood pressure, diastolic 78 mm[Hg] Phuong márquez [facility] blood pressure, systolic 142 mm[Hg] Rivka knox [facility] oxygen saturation, oximetry 98 % [facility] pulse rate 57 /min [facility] respiratory rate E&M 16 /min Larait jose luis [facility] weight E&M 338 [lb_av] [facility] height E&M 74 [in_i] [facility] ALLERGIES No Known Drug Allergies RESULTS [...] ORAL TABLET active one tab [facility]OX[facility] 500 MG ORAL CAPSULE active as needed [facility] ENALAPRIL MALEATE 20 MG ORAL TABLET active [...] of years as a smoker 20 a [facility] Former smoker [facility] ue FAMILY HISTORY Family Member Condition Father Family History of Hy pertension: Mother Family History of Co ronary Artery Disease: INSURANCE PROVIDERS Payer name Policy type / Coverage type [place] red green party ID [place] MEDICARE PART B Medicare [id number] [facility] [employer] [id number] ADVANCE DIRECTIVES Name Date DISCUSSED - NO [...]
--- OUTSIDE RECORDS SUMMARY | 2024-05-26 12:00 | XMS_ITS | Clinical Summary ---
Author Organization [facility] Address [address] [place] [address] Care Team Providers Care Carpet Measurer Name Role Phone Levi Yu DO Unavailable Christian Allan MD Primary Care Provider [phone] Markell Dominguez MD Unavailable Unavailable Source Comments [facility],non-owned Affiliates and Associated Physician Practices is amultiple site organization consisting of ambulatory clinics and hospital sitesin [place], [place] and [place]. This disclosure is being madepursuant to the Care Everywhere program and may not contain all information available regarding this patient. Last updated 17.[facility] Allergies No known active allergies Medications * [...] 36.9 C (98.5 F) 03/21/2020 3:25 PM BODY FINISHER Respiratory Rate 18 03/21/2020 6:31 PM BODY FINISHER Oxygen Saturation 95% 03/21/2020 8:01 PM BODY FINISHER Inhaled Oxygen Concentration - - Weight 151.4 [...] series) 2012 AAA SCREENING 2017 COVID-19 VACCINE ( - 2023- season) 2023 12/29/2021, 10/10/2021, 12/14/2020, Additional history [...] complete this topic MENINGOCOCCAL (Group B) VACCINE SHARED DECISION-MAKING Aged Out No longer eligible based on patient's age to complete this topic MENINGOCOCCAL GROUPS A/C/Y/W VACCINE Aged Out No longer eligible based on patient's age to complete this topic Medical Devices Implanted Type Area Coding Analyst Device Identifier Shelf Expiration Date Model / Serial / Lot Acetabular Liner +3 Max-Rom 40mm Head Size 25 Liner Size Implanted:Qty: 1 on 11/12/2018 by Frederick Solis IV, MD at [facility] Left: Hip [employer] 10/25/2020 [id number] / / [id number] Shell Actb 58mm Hip Lmt Hl Rnglc+ Implanted:Qty: 1 on 11/12/2018 by Frederick Solis IV, MD at [facility] Left: Hip [employer] 07/30/2028 [id number] / / [id number] Alloclassic Sl Stem Offset 5, Taper 12/14 Implanted:Qty: 1 on 11/12/2018 by Frederick Solis IV, MD at [facility] Left: Hip 06/26/2023 [id number] / / [id number] Ceramic Femoral Head 40/+7 Xl Implanted:Qty: 1 on 11/12/2018 by Frederick Solis IV, MD at [facility] Left: Hip [employer] 03/28/2024 [id number] 0 -04 / / [id number] Explanted Type Area Coding Analyst Device Identifier Shelf Expiration Date Model / Serial / Lot Pin Fx 22.9cm 4mm Stnm Thrd Ss 1 End Explanted:Qty: 2 on 11/12/2018 at [facility] Left: Hip [employer] [id number] / / Advance Directives * Full Code (Latest Code Status on File) Date Activated Date Inactivated Comments 11/12/2018 10:25 AM 11/16/2018 3:52 PM Care Teams Carpet Measurer Relationship Specialty Start Date End Date Christian Allan MD [address] [place] [id number] PCP - General Internal Medicine 03/21/20 Levi Yu DO Orthopedic Surgery 08/13/12 Markell Dominguez MD [address] [place] [id number] Director Funeral Cardiovascular Disease 06/04/20
== END 2024-05-26 10:41 | disposition home or self-care (01) ==
LOC: ANHLAB 10:41
PROVIDERS: PCP Nurse Practitioner Family; Visit Provider Internal Medicine Hematology & Oncology
DX: D47.3 Essential (hemorrhagic) thrombocythemia (principal)
CPT/HCPCS: 36415; 80047; 85027

== ENCOUNTER 2024-07-07 10:30 | Outpatient (CLI) | payer MEDICARE, SELFPAY ==
--- OUTSIDE RECORDS SUMMARY | 2024-07-07 10:38 | XMS_ITS | Patient Health Record ---
Author Organization [facility] Address [address], [place] [address] Care Team Providers Care Sheriff Name Role Phone REID ROMAN Unavailable [phone] Francy Rai Unavailable Unavailable Allergies No Known Allergies Reason For Referral No Information Medications Medication SIG (Take, Route, Fr equency, Duration) Notes Start Date End Date Status methylPREDNISolone 4 MG as directed Orally 023 Active Vital Signs Height-cm 187.96 cm 12/17/2023 Weight-kg 154.22 kg 12/17/2023 Height 74 in 12/17/2023 Weight 340 lbs 12/17/2023 BMI 43.65 kg/m2 12/17/2023 Encounters Encounter Location Date Provider Diagnosis [facility] [address] [place] [id number] 07/16/2023 REID ROMAN Tinea unguium B35.1 ; Pain in right foot M79.671 ; Pain in left foot M79.672 ; Atherosclerosis of [place] arteries of extremities with intermittent claudication, bilateral legs I70.213 and Acquired keratosis [keratoderma] palmaris et plantaris L85.1 [facility] [address] [place], [place] [id number] 10/15/2023 REID ROMAN Tinea unguium B35.1 ; Acquired keratosis [keratoderma] palmaris et plantaris L85.1 ; Atherosclerosis of [place] arteries of extremities with intermittent claudication, bilateral legs I70.213 ; Pain in right foot M79.671 and Pain in left foot M79.672 [facility] [address] [place] [id number] 12/17/2023 REID SNOOK Tinea unguium B35.1 ; Pain in right foot M79.671 ; Pain in left foot M79.672 ; Atherosclerosis of [place] arteries of extremities with intermittent claudication, bilateral legs I70.213 and Acquired keratosis [keratoderma] palmaris et plantaris L85.1 [facility] [place] [address] [place] [id number] 05/12/2024 REID SNOOK Tinea unguium B35.1 ; Pain in right foot M79.671 ; Pain in left foot M79.672 ; Atherosclerosis of [place] arteries of extremities with intermittent claudication, bilateral legs I70.213 and Acquired keratosis [keratoderma] palmaris et plantaris L85.1 [facility] [address] [place] [id number] 03/10/2024 REID SNOOK Tinea unguium B35.1 ; Pain in right foot M79.671 ; Pain in left foot M79.672 ; Atherosclerosis of [place] arteries of extremities with intermittent claudication, bilateral [...] in right foot (ICD-10 - M79.671) 05/12/2024 Tinea unguium (ICD-10 - B35.1) Nails 1-5 Bilateral were debrided extensively with nail nippers and emery board, reducing length and girth to pink healthy tissue with any subungual debris and necrotic tissue removed 05/12/2024 Pain in right foot (ICD-10 - M79.671) 05/12/2024 Pain in left foot (ICD-10 - M79.672) 03/10/2024 Pain in left foot (ICD-10 - M79.672) 12/17/2023 Pain in left foot (ICD-10 - M79.672) 10/15/2023 Acquired keratosis [keratoderma] palmaris et plantaris (ICD-10 - L85.1) A total of 3 corns or calluses, as described in the note above, were cut and pared utilizing a #15 blade 07/16/2023 Pain in left foot (ICD-10 - M79.672) 07/16/2023 Atherosclerosis of [place] arteries of extremities with intermittent claudication, bilateral legs (ICD-10 - I70.213) 10/15/2023 Atherosclerosis of [place] arteries of extremities with intermittent claudication, bilateral legs (ICD-10 - I70.213) 12/17/2023 Atherosclerosis of [place] arteries of extremities with intermittent claudication, bilateral legs (ICD-10 - I70.213) 03/10/2024 Atherosclerosis of [place] arteries of extremities with intermittent claudication, bilateral legs (ICD-10 - I70.213) 05/12/2024 Atherosclerosis of [place] arteries of extremities with intermittent claudication, bilateral legs (ICD-10 - I70.213) 05/12/2024 Acquired keratosis [keratoderma] palmaris et plantaris (ICD-10 - L85.1) A total of 1 corns or calluses, as described in the note above, were cut and pared utilizing a #15 blade 03/10/2024 Acquired keratosis [keratoderma] palmaris et plantaris [...] Appt Details Provider Name:REID ROMAN, 08:10:00 AM, [address], [place], [place], [id number], Insurance Providers Payer Name Payer Address Payer Phone Subscriber Number Group Number Insured Name Patient Relationship to Insured Coverage Start Date Coverage End Date Medicare Part B [place] [address] [place] [address] [id number] TESS DOWNEY Self - patient is the insured [facility] [address] [address] [place], [place] [id number] TESS DOWNEY Self - patient is the insured [facility] [address] [place], [place] [id number] TESS DOWNEY Self - patient is the insured
--- OUTSIDE RECORDS SUMMARY | 2024-07-07 10:38 | XMS_ITS | CONTINUITY OF CARE DOCUMENT ---
Author Name laura sanchez Address Unknown Organization [facility] Address [address] [place] [address] Phone [phone] Care Team Providers Care Garbage Collector Driver Name Role Phone Parrish Browning MD Unavailable [phone] Gretchen Allan MD Unavailable [phone] Gretchen Allan MD Unavailable PROBLEMS Condition [...] In-person encounter Office Visit Parrish Browning MD [facility] HTN essential;NEG DUPLEXObesityTobacco use, quitScreeningAbnormal EKG? Sleep apneaDizzinessExposure to SARS-associated coronavirus;neg iggFAMILY HISTORY OF HEART DISEASE VITAL SIGNS Date Observation Value Provider Body Mass Index (Ratio) 43.39 kg/m2 Juliana Browning MD blood pressure, resting Yes Franco dubois [facility] blood pressure, diastolic 78 mm[Hg] Phuong márquez [facility] blood pressure, systolic 142 mm[Hg] Rivka knox [facility] oxygen saturation, oximetry 98 % [facility] pulse rate 57 /min [facility] respiratory rate E&M 16 /min Larait jose luis [facility] weight E&M 338 [lb_av] [facility] height E&M 74 [in_i] [facility] ALLERGIES No Known Drug Allergies RESULTS [...] ORAL TABLET active one tab once daily [facility] AMOX[facility] 500 MG ORAL CAPSULE active as needed [facility] ENALAPRIL MALEATE 20 MG ORAL TABLET active [...] of years as a smoker 20 a [facility] Former smoker [facility] ue FAMILY HISTORY Family Member Condition Father Family History of Hy pertension: Mother Family History of Co ronary Artery Disease: INSURANCE PROVIDERS Payer name Policy type / Coverage type [place] red libertarian [place] MED[place] PART B Medicare [id number] [facility] [employer] [id number] ADVANCE DIRECTIVES Name Date DISCUSSED - NO [...]
--- OUTSIDE RECORDS SUMMARY | 2024-07-07 10:38 | XMS_ITS | Clinical Summary ---
Author Organization [facility] Kurt mckee Jose Davidyaa Address [address] [facility] [place] [address] Care Team Providers Care Client Server Developer Name Role Phone Unavailable Primary Care Provider [...] mg) by mouth daily. 90 Tablet 1 5 Active hydroxyurea (HYDREA) 500 mg capsule Take two caps in morning and one in evening 90 Capsule 3 5 Active Active Problems No known active problems Encounters Date Type Department Care Team Description 06/10/2024 External Device Data STL ABSTRACTION Provider, Abstract 06/03/2024 External Device Data STL ABSTRACTION Provider, Abstract 05/27/2024 Orders Only [facility] Oncology and Hematology - [place] [address] [place] [address] Santos Pickett MD 05/26/2024 11:00 AM CDT Office Visit [facility] Oncology and Hematology - [place] [address] [place] [address] Santos Pickett MD Essential thrombocytosis (CMS/HCC) (Primary Dx) 05/25/2024 Refill [facility] Oncology and Hematology [place] [address] [place] [address] Santos Pickett MD 05/14/2024 External Device Data STL ABSTRACTION Provider, Abstract 05/05/2024 External Device Data STL ABSTRACTION Provider, Abstract 04/22/2024 External Device Data STL ABSTRACTION Provider, Abstract 04/14/2024 11:00 AM SCISSORS GRINDER Office Visit [facility] Oncology and Hematology [place] [address] [place] [address] Santos Pickett MD Essential thrombocytosis (CMS/HCC) (Primary Dx) from Last 3 Months Family History Medical [...] cm (6' 2 ) 01/09/2024 1:39 PM SCISSORS GRINDER Body Mass Index 39.47 01/09/2024 1:39 PM SCISSORS GRINDER Plan of Treatment Upcoming Encounters Date Type Department Care Team (Late st Contact Info) Description 07/07/2024 11:00 AM CDT Office Visit [facility] Oncology and Hematology - [place] [address] [facility] [place] [address] [place] [address] Santos Pickett MD [address] [facility] [address] [place] [address] Health Maintenance Due Date Last [...] Priority Date/Time Associated Diagnosis Comments CBC WITH AUTODIFFERENTIAL Routine 2024 11:34 AM CDT from Last 3 Months Results * CBC WITH AUTODIFFERENTIAL (05/26/2024 11:34 AM CDT) Blood Santos Pickett MD HEMATOLOGY ORDERABLES Final Res ult from Last 3 Months Insurance MEDICARE PART A AND B [facility] [id number] [id number]
--- OUTSIDE RECORDS SUMMARY | 2024-07-07 10:39 | XMS_ITS ---
Author Organization [facility] Address [address] [place], [place] [phone] Care Team Providers Care Grants And Contracts Assistant Name Role Phone TAJOSSELINE McgregorIC Unavailable [phone] Francy Rai Unavailable Unavailable Allergies No Known [...] calcium 20 MG Oral Tablet *Reorder from Digital [employer]oy for eRx and Interaction Alerts* 1 024 Active Vital Signs Height 74 in 12/17/2023 Weight 340 lbs 12/17/2023 BMI 43.65 kg/m2 12/17/2023 Height-cm 187.96 cm 12/17/2023 Weight-kg 154.22 kg 12/17/2023 Encounters Encounter Location Date Provider Diagnosis [facility] [address] [place], [place] [phone] 12/17/2023 REID ROMAN Tinea unguium B35.1 ; Pain in right foot M79.671 ; Pain in left foot M79.672 ; Atherosclerosis of [place] arteries of extremities with intermittent claudication, bilateral [...] foot (ICD-10 - M79.672) 12/17/2023 Atherosclerosis of [place] arteries of extremities with intermittent claudication, bilateral [...] Name:REID ROMAN, 08:10:00 AM, [address], [address], [id number], Progress Notes * TESS DOWNEYDOB: [birth year] (73 yo M)Acc No.[id number]:12/17/2023 Patient: TESS SCHWARTZ Provider: Mary Roman DPM :1950 A ge:73 Y S ex:Male Date:12/17/2023 Address:[address] [place], [place] [address] Subjective: * Chief Complaints: * 1 . [...] calcium 20 MG Oral Tablet *Reorder from [employer] for eRx and Interaction Alerts*, Taking methylPREDNISolone [...] - M79.672 4 . A therosclerosis of [place] arteries of extremities with intermittent claudication, bilateral [...] LESIONS, 2 TO 4, Modifiers: Q8 , 15647 DEBRIDE NAIL, 6 OR MORE, Modifiers: 59 , Q8 * Follow Up: 1 0 - 12 weeks (Reason: At-Risk Foot care, sooner if problems develop.) * Billing Information: * Visit Code: * Procedure Codes: 71932 TRIM SKIN LESIONS, 2 TO 4. Modifiers: Q8 17404 DEBRIDE NAIL, 6 OR MORE. Modifiers: 59, Q8 * Electronic signature of REID ROMAN DPM on 07/07/2024 at 10:38 AM CDT Sign off status: Pending * Provider: Mary Roman DPM Date: 1 Generated for Arsenio dominguez/Kanwal/Karissa on: 0 07/07/2024 10:38 AM CDT History and Physical Notes * [...]
--- OUTSIDE RECORDS SUMMARY | 2024-07-07 10:39 | XMS_ITS ---
Author Organization [facility] Address [address] [place], [place] [address] Care Team Providers Care Transportation Engineering Technician Name Role Phone REID ROMAN Unavailable [phone] Francy Rai Unavailable Unavailable REASON FOR VISIT [...] Date Provider Diagnosis [facility] [place] [address] [place], [place] [id number] 05/12/2024 REIDDAVID MITCHELLELLENMeche Tinea unguium B35.1 ; Pain in right foot M79.671 ; Pain in left foot M79.672 ; Atherosclerosis of [place] arteries of extremities with intermittent claudication, bilateral [...] foot (ICD-10 - M79.672) 05/12/2024 Atherosclerosis of [place] arteries of extremities with intermittent claudication, bilateral [...] Name:REID ROMAN, 08:10:00 AM, [address], [address], [id number], Progress Notes * TESS DOWNEYDOB: [birth year] (73 yo M)Acc No.[id number]:05/12/2024 Patient: Angie GHOSH TESS Linn Provider: Mary Roman DPM :1950 A ge:73 Y S ex:Male Date:05/12/2024 Address:[address] [place], [place] [address] Subjective: * Chief Complaints: * 1 . [...] seen by Dr. Rai was 11/2023., Initials [facility]. * Medical History: * Medications: T [...] - M79.672 4 . A therosclerosis of [place] arteries of extremities with intermittent claudication, bilateral [...] 1055 TRIM SKIN LESION, Modifiers: Q8 , 28703 DEBRIDE NAIL, 6 OR MORE, Modifiers: 59 , Q8 * Follow Up: 1 0 - 12 weeks (Reason: At-Risk Foot care, sooner if problems develop.) * Billing Information: * Visit Code: * Procedure Codes: 95784 TRIM SKIN LESION. Modifiers: Q8 02492 DEBRIDE NAIL, 6 OR MORE. Modifiers: 59, Q8 * Electronic signature of REID ROMAN DPM on 07/07/2024 at 10:38 AM CDT Sign off status: Pending * Provider: Mary Roman DPM Date: 0 05/12/2024 Generated for Arsenio dominguez/Kanwal/Karissa on: 0 07/07/2024 [...]
--- OUTSIDE RECORDS SUMMARY | 2024-07-07 10:39 | XMS_ITS | Clinical Summary ---
Author Organization [facility] Address [address] [place] [address] Care Team Providers Care Sharepoint Consultant Name Role Phone Francy Amaya MARCIO Primary Care Provider [phone] Medications enalapril (VASOTEC) 20 MG tablet Take [...] 3 (three) times daily. 11/11/2022 Active Immunizations Immunization Administration Dates Next Due PFIZER COVID-19 (ORIGINAL [...] and Td Vaccines (1 - Tdap) 08/02/1971 Pneumococcal Vaccine: 50+ Years (1 of 1 - PCV) 2002 Zoster Vaccines (1 of 2) 2002 RSV Immunization or 60+ Years (1 - Risk 60-74 years 1-dose series) 2012 Annual Medicare Wellness Visit 2017 COVID-19 Vaccine ( season) 2023 12/29/2021, [...] this topic Medical Devices Implanted Type Area Radiologic Technologist Chief Device Identifier Shelf Expiration Date Model / Serial / Lot Medium Toe Tac Fixation System Implanted:Qty: 1 on 11/17/2022 by Jeremy Rodriguez DPM at [facility] Right: Toe [employer]ER [id number] 08/22/2025 -[id number] / / [id number] Insurance MEDICARE [facility] Care Teams Sharepoint Consultant Relationship Specialty Start Date End Date Francy Amaya NP [address] [place] [address] PCP - General Nurse Practitioner Family 11/10/22
--- OUTSIDE RECORDS SUMMARY | 2024-07-07 10:39 | XMS_ITS ---
Author Organization [facility] Address [address] [place], [place] [address] Care Team Providers Care Television Production Clerk Name Role Phone REID ROMAN Unavailable [phone] Francy Rai Unavailable Unavailable Allergies No Known [...] Location Date Provider Diagnosis [facility] [place] [address] [place], [place] [id number] 03/10/2024 REIDDAVID MITCHELLELLENMeche Tinea unguium B35.1 ; Pain in right foot M79.671 ; Pain in left foot M79.672 ; Atherosclerosis of [place] arteries of extremities with intermittent claudication, bilateral [...] foot (ICD-10 - M79.672) 03/10/2024 Atherosclerosis of [place] arteries of extremities with intermittent claudication, bilateral [...] Name:REID ROMAN, 08:10:00 AM, [address], [address], [id number], Progress Notes * TESS DOWNEYDOB: [birth year] (73 yo M)Acc No.[id number]:03/10/2024 Patient: TESS SCHWARTZ Provider: Mary Roman DPM :1950 A ge:73 Y S ex:Male Date:03/10/2024 Address:[address] [place], [place] [id number] Subjective: * Chief Complaints: * Jericho olson [...] - M79.672 4 . A therosclerosis of [place] arteries of extremities with intermittent claudication, bilateral legs - I70.213 5 . Acquired keratosis [keratoderma] palmaris et plantaris - L85.1 Plan: * Treatment: 2. A cquired keratosis [keratoderma] palmaris et plantaris Notes: A total of 1 corns or calluses, as described in the note above, were cut and pared utilizing a #15 blade * Procedure Codes: 1 1055 TRIM SKIN LESION, Modifiers: Q8 27441 DEBRIDE NAIL, 6 OR MORE, Modifiers: 59 , Q8 * Follow Up: 1 0 - 12 weeks (Reason: At-Risk Foot care, sooner if problems develop.) * Billing Information: * Visit Code: * Procedure Codes: 35497 TRIM SKIN LESION. Modifiers: Q8 03664 DEBRIDE NAIL, 6 OR MORE. Modifiers: 59, Q8 * R MULE OPERATOR Sign off status: Completed true * Provider: Mary Roman DPM Date: 0 03/10/2024 Generated for Arsenio dominguez/Kanwal/Felipeitting on: 0 07/07/2024 10:38 AM CDT History [...]
[2024-07-07 10:45] LABS: Basophils Absolute Auto 0.1 K/mm3 (0.0-0.1); Basophils Percent Auto 1.3 % (0.2-1.2); Eosinophils Absolute Auto 0.1 K/mm3 (0-0.3); Eosinophils Percent Auto 1.6 % (0-4.4); Hematocrit 44.5 % (42.0-52.0); Hemoglobin 15.3 g/dL (14.0-18.0); Immature Granulocyte Absolute 0.05 K/mm3 (0.00-0.031); Immature Granulocyte Percent A 0.7 % (0-0.5); Lymphocytes Absolute Auto 1.56 K/mm3 (0.9-3.2); Lymphocytes Percent Auto 20.4 % (18.3-44.2); Mean Corpuscular HGB Conc 34.4 g/dl (32-36); Mean Corpuscular Hemoglobin 35.5 pg (26-34); Mean Corpuscular Volume 103.2 fl (80-100); Mean Platelet Volume 8.8 fl (7.4-10.4); Monocytes Absolute Auto 0.9 K/mm3 (0.1-0.6); Monocytes Percent Auto 11.2 % (2.6-8.5); Neutrophils Percent Auto 64.8 % (45.5-73.1); Platelet Count Result 404 k/mm3 (150-375); Red Blood Count 4.31 M/mm3 (4.6-6.20); Red Cell Distribution Width 17.8 % (11.5-14.5); White Blood Count 7.7 K/mm3 (4.5-10.0)
[2024-07-07 10:49] LABS: Blood Urea Nitrogen 23 mg/dL (8-26); Carbon Dioxide 25 mmol/L (22-30); Chloride 100 mmol/L (98-109); Estimated Glomerular Filt Rate 19; Glucose 131 mg/dL (70-105); Potassium 4.7 mmol/L (3.5-4.9); Sodium 138 mmol/L (138-146)
== END 2024-07-07 10:31 | disposition home or self-care (01) ==
LOC: ANHLAB 10:31
PROVIDERS: PCP Nurse Practitioner Family; Visit Provider Internal Medicine Hematology & Oncology
DX: D47.3 Essential (hemorrhagic) thrombocythemia (principal)
CPT/HCPCS: 36415; 80047; 85025

== ENCOUNTER 2024-08-18 10:41 | Outpatient (CLI) | payer MEDICARE, SELFPAY ==
[2024-08-18 11:06] LABS: Basophils Absolute Auto 0.1 K/mm3 (0.0-0.1); Basophils Percent Auto 1.5 % (0.2-1.2); Eosinophils Absolute Auto 0.2 K/mm3 (0-0.3); Eosinophils Percent Auto 1.7 % (0-4.4); Hematocrit 42.9 % (42.0-52.0); Hemoglobin 14.6 g/dL (14.0-18.0); Immature Granulocyte Absolute 0.19 K/mm3 (0.00-0.031); Immature Granulocyte Percent A 2.2 % (0-0.5); Lymphocytes Absolute Auto 1.47 K/mm3 (0.9-3.2); Lymphocytes Percent Auto 16.7 % (18.3-44.2); Mean Corpuscular Volume 105.9 fl (80-100); Mean Platelet Volume 8.8 fl (7.4-10.4); Monocytes Absolute Auto 1.1 K/mm3 (0.1-0.6); Neutrophils Absolute Auto 5.8 K/mm3 (1.3-6.7); Neutrophils Percent Auto 65.9 % (45.5-73.1); Platelet Count Result 587 k/mm3 (150-375); Red Blood Count 4.05 M/mm3 (4.6-6.20); Red Cell Distribution Width 17.2 % (11.5-14.5); White Blood Count 8.8 K/mm3 (4.5-10.0)
[2024-08-18 11:12] LABS: Blood Urea Nitrogen 16 mg/dL (8-26); Carbon Dioxide 25 mmol/L (22-30); Chloride 102 mmol/L (98-109); Estimated Glomerular Filt Rate 43; Glucose 121 mg/dL (70-105); Ionized Calcium (POC) 1.16 mmol/L (1.11-1.31); Potassium 4.3 mmol/L (3.5-4.9); Sodium 139 mmol/L (138-146)
== END 2024-08-18 10:42 | disposition home or self-care (01) ==
LOC: ANHLAB 10:42
PROVIDERS: PCP Nurse Practitioner Family; Visit Provider Internal Medicine Hematology & Oncology
DX: D47.3 Essential (hemorrhagic) thrombocythemia (principal)
CPT/HCPCS: 36415; 80047; 85025

== ENCOUNTER 2024-09-29 10:30 | Outpatient (CLI) | payer MEDICARE, SELFPAY ==
[2024-09-29 10:48] LABS: Hematocrit 42.5 % (42.0-52.0); Hemoglobin 14.5 g/dL (14.0-18.0); Immature Granulocyte Percent A 2.1 % (0-0.5); Lymphocytes Absolute Auto 1.42 K/mm3 (0.9-3.2); Mean Corpuscular HGB Conc 34.1 g/dl (32-36); Mean Corpuscular Hemoglobin 36.3 pg (26-34); Mean Corpuscular Volume 106.5 fl (80-100); Nucleated Red Blood Cells Absolute Auto 0.000 K/mm3 (0.0-0.012); Nucleated Red Blood Cells Perc 0.0 % (0.0-0.2); Platelet Count Result 690 k/mm3 (150-375); Red Blood Count 3.99 M/mm3 (4.6-6.20); White Blood Count 10.6 K/mm3 (4.5-10.0)
[2024-09-29 10:52] LABS: Blood Urea Nitrogen 26 mg/dL (8-26); Carbon Dioxide 25 mmol/L (22-30); Chloride 101 mmol/L (98-109); Estimated Glomerular Filt Rate 31; Glucose 117 mg/dL (70-105); Ionized Calcium (POC) 1.20 mmol/L (1.11-1.31); Potassium 4.5 mmol/L (3.5-4.9); Sodium 137 mmol/L (138-146)
--- OUTSIDE RECORDS SUMMARY | 2024-09-29 10:57 | XMS_ITS | Encounter Summary ---
Author Organization [facility] Address [address] [place] [address] Care Team Providers Care Front Office Associate Name Role Phone Unavailable Primary Care Provider Unavailabl e Encounter Details Date Type Department Care Team (Late st Contact Info) Description 09/29/2024 11:00 AM CDT Office Visit [facility] Oncology and Hematology - [place] [address] [facility] [address] [place] [address] Santos Pickett MD [address] [facility] [address] [place] [address] Arrived Social History Tobacco Use Types Packs/Day Years [...] Sign Reading Time Taken Comments Blood Pressure 139/74 09/29/2024 10:43 AM CDT Pulse 65 09/29/2024 10:43 AM CDT Temperature 36.2 C (97.1 F) 09/29/2024 10:43 AM CDT Respiratory Rate 16 09/29/2024 10:4 3 AM CDT Oxygen Saturation 97% 09/29/2024 10: 43 AM CDT Inhaled Oxygen Concentration - - Weight 139.6 kg (307 lb 12.8 oz) 2024 10:43 AM CDT Height - - Body Mass Index 39.52 01/09/2024 1:39 PM RESIDENTIAL REAL ESTATE SALES MANAGER documented in this encounter Plan of Treatment Not on file documented as of this encounter Visit Diagnoses Not on filedocumented in this encounter
--- OUTSIDE RECORDS SUMMARY | 2024-09-29 10:57 | XMS_ITS | Clinical Summary ---
Author Organization [facility] Address [address] [place] [address] Care Team Providers Care Hydraulic Rockbreaker Operator Name Role Phone Francy Amaya MARCIO Primary Care Provider [phone] Medications enalapril (VASOTEC) 20 MG tablet Take [...] 1 972 - 1986 Smokeless Tobacco: Never Tobacco Cessation:Counseling Given: [...] 7:40 AM CDT Height 188 cm (6' 2) 11/17/2022 7:40 AM CDT Body Mass Index [...] this topic Medical Devices Implanted Type Area Auto Glass Worker Device Identifier Shelf Expiration Date Model / Serial / Lot Medium Toe Tac Fixation System Implanted:Qty: 1 on 11/17/2022 by Jeremy Rodriguez DPM at [facility] Right: Toe [employer]ER [id number] 08/22/2025 -[id number] / / [id number] Insurance MEDICARE [facility] Care Teams Hydraulic Rockbreaker Operator Relationship Specialty Start Date End Date Francy Amaya NP [address] [place] [address] PCP - General Nurse Practitioner Family 11/10/22
--- OUTSIDE RECORDS SUMMARY | 2024-09-29 10:57 | XMS_ITS | Patient Health Record ---
Author Organization [facility] Address [address] [place], [place] [address] Care Team Providers Care Business Center Attendant Name Role Phone REID ROMAN Unavailable [phone] Francy Rai Unavailable Unavailable Allergies No Known Allergies Reason For Referral No Information Medications Medication SIG (Take, Route, Fr equency, Duration) Notes Start Date End Date Status methylPREDNISolone 4 MG as directed Orally 023 Active Aspirin 81 MG 1 tablet Orally Once a day Active Immunizations Vaccine Route Administration Date Status Comme nts Pfizer-Biontech Covid-19 Vac cine 1st dose Unknown 04/23/2020 Administered Pfizer-Biontech Covid-19 Vac cine 1st dose Unknown 05/14/2020 Administered Pfizer-Biontech Covid-19 Vac cine 1st dose Unknown 12/14/2020 Administered Vital Signs Height-cm 187.96 cm 09/29/2024 Weight-kg 154.22 kg 09/29/2024 Height 74 in 09/29/2024 Weight 340 lbs 09/29/2024 BMI 43.65 kg/m2 09/29/2024 Encounters Encounter Location Date Provider Diagnosis [facility] [address] [place], [place] [id number] 10/15/2023 ERID ROMAN Tinea unguium B35.1 ; Acquired keratosis [keratoderma] palmaris et plantaris L85.1 ; Atherosclerosis of [place] arteries of extremities with intermittent claudication, bilateral legs I70.213 ; Pain in right foot M79.671 and Pain in left foot M79.672 [facility] [address] [place] [id number] 09/29/2024 REID SNOOK Tinea unguium B35.1 ; Acquired keratosis [keratoderma] palmaris et plantaris L85.1 ; Atherosclerosis of [place] arteries of extremities with intermittent claudication, bilateral legs I70.213 ; Pain in right foot M79.671 and Pain in left foot M79.672 [facility] [address] [place] [id number] 12/17/2023 REID SNOOK Tinea unguium B35.1 ; Pain in right foot M79.671 ; Pain in left foot M79.672 ; Atherosclerosis of [place] arteries of extremities with intermittent claudication, bilateral legs I70.213 and Acquired keratosis [keratoderma] palmaris et plantaris L85.1 [facility] [address] [place] [id number] 03/10/2024 REID SNOOK Tinea unguium B35.1 ; Pain in right foot M79.671 ; Pain in left foot M79.672 ; Atherosclerosis of [place] arteries of extremities with intermittent claudication, bilateral legs I70.213 and Acquired keratosis [keratoderma] palmaris et plantaris L85.1 [facility] [place] [address] [place] [id number] 05/12/2024 REID SNOOK Tinea unguium B35.1 ; Pain in right foot M79.671 ; Pain in left foot M79.672 ; Atherosclerosis of [place] arteries of extremities with intermittent claudication, bilateral legs I70.213 and Acquired keratosis [keratoderma] palmaris et plantaris L85.1 [facility] [address] [place] [id number] 07/28/2024 REID SNOOK Tinea unguium B35.1 ; Pain in right foot M79.671 ; Pain in left foot M79.672 ; Atherosclerosis of [place] arteries of extremities with intermittent claudication, bilateral [...] Pain in right foot (ICD-10 - M79.671) 07/28/2024 Tinea unguium (ICD-10 - B35.1) Nails 1-5 Bilateral were debrided extensively with nail nippers and emery board, reducing length and girth to pink healthy tissue with any subungual debris and necrotic tissue removed 07/28/2024 Pain in right foot (ICD-10 - M79.671) 09/29/2024 Tinea unguium (ICD-10 - B35.1) Nails 1-5 Bilateral were debrided extensively with nail nippers and emery board, reducing length and girth to pink healthy tissue with any subungual debris and necrotic tissue removed 07/28/2024 Pain in left foot (ICD-10 - M79.672) 05/12/2024 Pain in left foot (ICD-10 - M79.672) 09/29/2024 Acquired keratosis [keratoderma] palmaris et plantaris (ICD-10 - L85.1) A total of 2 corns or calluses, as described in the note above, were cut and pared utilizing a #15 blade 03/10/2024 Pain in left foot (ICD-10 - M79.672) 12/17/2023 Pain in left foot (ICD-10 - M79.672) 10/15/2023 Acquired keratosis [keratoderma] palmaris et plantaris (ICD-10 - L85.1) A total of 3 corns or calluses, as described in the note above, were cut and pared utilizing a #15 blade 10/15/2023 Atherosclerosis of [place] arteries of extremities with intermittent claudication, bilateral legs (ICD-10 - I70.213) 12/17/2023 Atherosclerosis of [place] arteries of extremities with intermittent claudication, bilateral legs (ICD-10 - I70.213) 03/10/2024 Atherosclerosis of [place] arteries of extremities with intermittent claudication, bilateral legs (ICD-10 - I70.213) 05/12/2024 Atherosclerosis of [place] arteries of extremities with intermittent claudication, bilateral legs (ICD-10 - I70.213) 07/28/2024 Atherosclerosis of [place] arteries of extremities with intermittent claudication, bilateral legs (ICD-10 - I70.213) 09/29/2024 Atherosclerosis of [place] arteries of extremities with intermittent claudication, bilateral legs (ICD-10 - I70.213) 07/28/2024 Acquired keratosis [keratoderma] palmaris et plantaris (ICD-10 - L85.1) A total of 1 corns or calluses, as described in the note above, were cut and pared utilizing a #15 blade 09/29/2024 Pain in right foot (ICD-10 - M79.671) 05/12/2024 Acquired keratosis [keratoderma] palmaris et plantaris [...] in left foot (ICD-10 - M79.672) 09/29/2024 Pain in left foot (ICD-10 - M79.672) 07/28/2024 Other The patient had a friend who had a bone infection that was undiagnosed and this is concerning to the patient. The patient has some blood abnormalities and sees an Oncologist for. He spoke about bone infection and the Oncologist told the patient to discuss this with podiatry. Order: ESR / Sed rate. If it is over 100; concern for bone infection. Plan Of Treatment Pending Test Test Name Order Date Uric Acid, Serum 10/16/2022 Uric Acid, Serum 12/06/2022 CBC With Differential/Platelet 3 CBC With Differential/Platelet 3 Sedimentation Rate-Westergren 01/03/2023 Anaerobic Culture 10/16/2022 Aerobe ID + Suscept 10/16/2022 Next Appt Details Provider Name:REID ROMAN, 08:00:00 AM, [address] [place], [place], [id number], Insurance Providers Payer Name Payer Address Payer Phone Subscriber Number Group Number Insured Name Patient Relationship to Insured Coverage Start Date Coverage End Date Medicare Part B [place] [address] [place] [address] [id number] TESS DOWNEY Self - patient is the insured [facility] [address] [address] [place], [place] [id number] [phone] [id number] ETSS DOWNEY Self - patient is the insured [facility] B [address] [place], [place] [phone] [id number] TESS DOWNEY Self - patient is the insured
--- OUTSIDE RECORDS SUMMARY | 2024-09-29 10:57 | XMS_ITS | Clinical Summary ---
Author Organization [facility] Address [address] [place] [address] Care Team Providers Care Printmaker Name Role Phone Unavailable Primary Care Provider [...] Encounters Date Type Department Care Team Description 09/29/2024 11:00 AM CDT Office Visit [facility] Oncology and Hematology - [place] [address] [place] [address] Santos Pickett MD Arrived 08/18/2024 11:00 AM CDT Office Visit [facility] Oncology and Hematology [facility] [address] [place] [address] Santos Pickett MD Essential thrombocytosis (CMS/HCC) (Primary Dx) 08/18/2024 Orders Only [facility] Oncology and Hematology [facility] [address] [place] [address] Santos Pickett MD 08/12/2024 External Device Data STL ABSTRACTION Provider, Abstract 07/22/2024 External Device Data STL ABSTRACTION Provider, Abstract 07/17/2024 External Device Data STL ABSTRACTION Provider, Abstract 07/16/2024 External Device Data STL ABSTRACTION Provider, Abstract 07/15/2024 External Device Data STL ABSTRACTION Provider, Abstract 07/08/2024 Orders Only [facility] Oncology and Hematology [facility] [address] [place] [address] Santos Pickett MD 07/07/2024 11:00 AM CDT Office Visit [facility] Oncology and Hematology [facility] [address] [place] [address] Santos Pickett MD Essential thrombocytosis (CMS/HCC) (Primary [...] 12.8 oz) 2024 10:43 AM CDT Height 188 cm (6' 2) 01/09/2024 1:39 PM FINANCE MGR Body Mass Index 39.52 01/09/2024 1:39 PM FINANCE MGR Plan of Treatment Upcoming Encounters Date Type Department Care Team (Late st Contact Info) Description 09/29/2024 11:00 AM CDT Office Visit [facility] Oncology and Hematology - [place] [address] [facility] [address] [place] [address] Santos Pickett MD [address] [facility] [address] [place] [address] Arrived Health Maintenance Due Date Last Done Comments [...] Abdominal Aortic Aneurysm (A AA) Screening 2017 COVID-19 Vaccine ( season) 2023 12/14/2020, 05/14/2020, 04/23/2020 INFLUENZA VACCINE (#1) 2024 RSV VACCINE (60+ or ) (1 - 1-dose 75+ series) 08/02/2027 Procedures Procedure Name Priority Date/Time Associated Diagnosis Comments CBC WITH DIFFERENTIAL Routine 08/18/2024 4:02 PM CDT BASIC METABOLIC PANEL Routine 08/18/2024 3:58 PM CDT CBC WITH AUTODIFFERENTIAL Routine 2024 1:51 PM CDT BASIC METABOLIC PANEL Routine 07/07/2024 1:49 PM CDT from Last 3 Months Results * CBC WITH DIFFERENTIAL (08/18/2024 4:02 PM CDT) Blood us Santos Pickett MD HEMATOLOGY ORDERABLES Final Res ult * BASIC METABOLIC PANEL (08/18/2024 3:58 PM CDT) Only the most recent of2 resultswithin the time period is included. Blood Santos Pickett MD CHEMISTRY ORDERABLES Final Resu lt * CBC WITH AUTODIFFERENTIAL (07/07/2024 1:51 PM CDT) Blood Santos Pickett MD HEMATOLOGY ORDERABLES Final Res ult from Last 3 Months Insurance MEDICARE PART A AND B [facility] [id number] [place] [id number]
--- OUTSIDE RECORDS SUMMARY | 2024-09-29 10:57 | XMS_ITS | Clinical Summary ---
Author Organization [facility] Address [address] [facility] [place] [address] Care Team Providers Care Sheet Pile Hammer Operator Name Role Phone Levi Yu DO Unavailable Christian Allan MD Primary Care Provider [phone] Markell Dominguez MD Unavailable Unavailable Source Comments [facility],non-owned Affiliates and Associated Physician Practices is amultiple site organization consisting of ambulatory clinics and hospital sitesin [place], [place], [place] and [place]. This disclosure is being madepursuant to the Care Everywhere program and may not contain all information available regarding this patient. Last updated 17.[facility] Allergies No known active allergies Medications * Be aware that medications may not be up to date on this document. Alwaysverify current medications with the patient. enalapril (VASOTEC) 20 MG tablet Take 20 mg by mouth 2 times daily. Active amLODIPine (NORVASC) 5 MG tablet Take 5 mg by mouth once daily after dinner. Active niacin, Immediate Release, 250 MG tablet Take 250 mg by mouth at bedtime Active Multiple Vitamins-Minerals (OCUVITE PO) Take by mouth once daily Active Misc. Devices (ROLLATOR ULTRA-LIGHT) MISCIndications:Le ft hip pain,Primary osteoarthritis of left hip Use 1 Units continuous 1 Each 10/15/19 19 Active Additional Information Patient not taking.Reported on 06/04/2020 HYDROcodone-acetam inophen (NORCO) 10-325 MG tablet Take 0.5-1 tablets by mouth every 6 hours as needed for Pain 28 tablet 12/24/19 19 Active Additional Information Patient not taking.Reported on 06/04/2020 ASPIRIN LOW DOSE 81 MG tablet Take 81 mg by mouth once daily 03/26/19 21 Active hydrOXYzine hcl (ATARAX) 25 MG tablet TAKE 1 TABLET BY MOUTH EVERY NIGHT AT BEDTIME NEEDED FOR ITCHING 05/01/19 21 Active rosuvastatin (CRESTOR) 20 MG tablet 04/02/19 21 Active Multiple Vitamins-Minerals (RA VISION-DYLAN PRESERVE PO) Active TURMERIC CURCUMIN PO Active omega 3 (FISH OIL) 1200 MG capsule Take 1,200 mg by mouth once daily Active hydroCHLOROthiazid e (HYDRODIURIL) 25 MG tablet Take 25 mg by mouth once daily Active metFORMIN ER 24hr (Glucophage XR) 500 MG tablet 11/02/19 23 Active naproxen (Naprosyn) 500 MG tablet 11/02/19 23 Active Active Problems Problem Noted Date Diagnosed [...] at Not on file Legal Sex Male 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 [employer] Gender Identity Not on file Sexual Orientation Not on file Last Filed Vital Signs Vital Sign Reading Time Taken Comments Blood Pressure 156/75 06/04/2020 8:08 AM CDT Pulse 56 06/04/2020 8:08 AM CDT Temperature 36.9 C (98.5 F) 03/21/2020 3:25 PM SUPERVISOR [employer] Respiratory Rate 18 03/21/2020 6:31 PM SUPERVISOR [employer] Oxygen Saturation 95% 03/21/2020 8:01 PM SUPERVISOR [employer] Inhaled Oxygen Concentration - - Weight 151.4 kg (333 lb 12.5 oz) 06/04/2020 8:08 AM CDT Height 188 cm (6' 2) 06/04/2020 8:08 AM CDT Body Mass Index [...] 2012 AAA SCREENING 2017 COVID-19 VACCINE ( season) 2023 12/29/2021, 10/10/2021, 12/14/2020, Additional history exists DEPRESSION SCREENING 02/27/2024 INFLUENZA VACCINE (#1) 2024 12/29/2021 HEPATITIS B VACCINE Aged Out No [...] this topic Medical Devices Implanted Type Area Call Specialist Device Identifier Shelf Expiration Date Model / Serial / Lot Acetabular Liner +3 Max-Rom 40mm Head Size 25 Liner Size Implanted:Qty: 1 on 11/12/2018 by Frederick Solis IV, MD at [facility] Left: Hip [employer] 10/25/2020 [id number] / / [id number] Shell Actb 58mm Hip Lmt Hl Rnglc+ Implanted:Qty: 1 on 11/12/2018 by Frederick Solis IV, MD at [facility] Left: Hip [employer] 07/30/2028 [id number] / / [id number] Alloclassic Sl Stem Offset 5, Taper 12/14 Implanted:Qty: 1 on 11/12/2018 by Frederick Solis IV, MD at [facility] Left: Hip 06/26/2023 [id number] / / [id number] Ceramic Femoral Head 40/+7 Xl Implanted:Qty: 1 on 11/12/2018 by Frederick Solis IV, MD at [facility] Left: Hip [employer] 03/28/2024 [id number] 0 -04 / / [id number] Explanted Type Area Call Specialist Device Identifier Shelf Expiration Date Model / Serial / Lot Pin Fx 22.9cm 4mm Stnm Thrd Ss 1 End Explanted:Qty: 2 on 11/12/2018 at [facility] Left: Hip [employer] [id number] / / Insurance MEDICARE [facility] Advance Directives * Full Code (Latest Code Status on File) Date Activated Date Inactivated Comments 11/12/2018 10:25 AM 11/16/2018 3:52 PM Care Teams Sheet Pile Hammer Operator Relationship Specialty Start Date End Date Christian Allan MD [address] [place] [address] PCP - General Internal Medicine 03/21/20 Levi Yu DO Orthopedic Surgery 08/13/12 Markell Dominguez MD [address] [place] [address] Hat Blocking Operator Cardiovascular Disease 06/04/20
== END 2024-09-29 10:31 | disposition home or self-care (01) ==
PROVIDERS: PCP Nurse Practitioner Family; Visit Provider Internal Medicine Hematology & Oncology
DX: D47.3 Essential (hemorrhagic) thrombocythemia (principal)
CPT/HCPCS: 36415; 80047; 85025

== ENCOUNTER 2024-11-18 10:31 | Outpatient (CLI) | payer MEDICARE, SELFPAY ==
--- OUTSIDE RECORDS SUMMARY | 2024-09-29 03:00 | XMS_ITS ---
Author Organization [facility] Address [address] [place], [place] [address] Care Team Providers Care Shot Tube Machine Tender Name Role Phone JESSIE REID Unavailable [phone] Francy Rai Unavailable Unavailable REASON FOR VISIT Patient presents for at-risk foot care . The patient has painful toenails and calluses that are causing difficulty with ambulation and shoegear. The onset is gradual Medications Medication SIG (Take, Route, Fr equency, Duration) Notes Start Date End Date Status methylPREDNISolone 4 MG as directed Orally 023 Active Aspirin 81 MG 1 tablet Orally Once a day Active Vital Signs Height 74 in 09/29/2024 Weight 340 lbs 09/29/2024 BMI 43.65 kg/m2 09/29/2024 Height-cm 187.96 cm 09/29/2024 Weight-kg 154.22 kg 09/29/2024 Encounters Encounter Location Date Provider Diagnosis [facility] [address] [place], [place] [id number] 09/29/2024 REID ROMAN Tinea unguium B35.1 ; Pain in right foot M79.671 ; Pain in left foot M79.672 ; Atherosclerosis of little shell tribe arteries of extremities with intermittent claudication, bilateral legs I70.213 and Acquired keratosis [keratoderma] palmaris et plantaris L85.1 Assessments Encounter Date Diagnosis (ICD Code) Assessment Notes Treatment Notes Treatment Clinical Notes Section Notes 09/29/2024 Tinea unguium (ICD-10 - B35.1) Nails 1-5 Bilateral were debrided extensively with nail nippers and emery board, reducing length and girth to pink healthy tissue with any subungual debris and necrotic tissue removed 09/29/2024 Pain in right foot (ICD-10 - M79.671) 09/29/2024 Pain in left foot (ICD-10 - M79.672) 09/29/2024 Atherosclerosis of little shell tribe arteries of extremities with intermittent claudication, bilateral legs (ICD-10 - I70.213) 09/29/2024 Acquired keratosis [keratoderma] palmaris et plantaris (ICD-10 [...] sooner if problems develop. Provider Name:REID ROMAN, 08:00:00 AM, [address], [address], [id number], Progress Notes * TESS DOWNEYDOB: [birth year] (74 yo M)Acc No.[id number]:09/29/2024 Patient: Angie GHOSHTESS Provider: Mary Roman DPM :1950 A ge:74 Y S ex:Male Date:09/29/2024 [facility] [facility] Subjective: * Chief Complaints: * 1 . [...] Date last seen by Dr. Rai was 04/2024., Initials mca. * Medical History: * Family History: F [...] Former tobacco user. * Medications: T aking Aspirin 81 MG Tablet Chewable 1 tablet Orally Once a day , Taking methylPREDNISolone 4 MG Tablet Therapy Pack as directed Orally , Medication List reviewed and reconciled with the patient Objective: * Vitals: W t:340lbs, Wt-k.22 kg, Ht: 74 in, Ht-cm: 187.96 cm, BMI:43.65Index, Body Surface Area: 2.83. * Examination: P hysical Examination: General appearance: A lert, pleasant, well-nourished and in no acute distress. D ermatologic: Skin findings: S kin is thin, atrophic and lacking pedal hair. Hypertrophic / hyperkeratotic lesion: d istal aspect of the right hallux, right 2nd digit. Nail pathology: N ails 1, 2, 3, [...] extremities. ? Assessment: * Assessment: 1. T fredrick castellanos - B35.1 (Primary) 2 . P ain in right foot - M79.671 ? 3 . P ain in left foot - M79.672 4 . A therosclerosis of little shell tribe arteries of extremities with intermittent claudication, bilateral legs - I70.213 5 . Acquired keratosis [keratoderma] palmaris et plantaris - L85.1 Plan: * Treatment: 2. A cquired keratosis [keratoderma] palmaris et plantaris Notes: A total of 2 corns or calluses, as described in the note above, were cut and pared utilizing a #15 blade * Immunizations: Immunization record has been reviewed and updated. * Procedure Codes: 1 1056 TRIM SKIN LESIONS, 2 TO 4, Modifiers: Q8 , 87815 DEBRIDE NAIL, 6 OR MORE, Modifiers: 59 , Q8 * Preventive Medicine: Screenings: F all risk screening F all Risk Assessment: N o falls in the past year. * Follow Up: 1 0 - 12 weeks (Reason: At-Risk Foot care, sooner if problems develop.) * Billing Information: * Visit Code: * Procedure Codes: 68902 TRIM SKIN LESIONS, 2 TO 4. Modifiers: Q8 03712 DEBRIDE NAIL, 6 OR MORE. Modifiers: 59, Q8 * Electronic signature of REID ROMAN DPM on 11/18/2024 at 11:17 AM CDT Sign off status: Pending * Provider: Mary Roman DPM Date: 0 09/29/2024 Generated for Arsenio dominguez/Kanwal/Felipeitting on: 0 11/18/2024 11:17 AM CDT History and Physical Notes * [...] Date last seen by Dr. Rai was 04/2024., Initials mca Examination Category Sub-Category Detail Notes Category Not es Dermatologic Skin findings: Skin is thin, at rophic and lacking pedal hair Nail pathology: Nails 1, 2, 3, 4, an d 5 bilateral are elongated, thick, discolored, and dystrophic with subungual debris. They are painful to palpation Hypertrophic / hyperkeratotic lesion: di stal aspect of the right hallux, right 2nd digit Neurologic Gross sensation Grossly intact t o [...]
[2024-11-18 10:50] LABS: Hematocrit 40.6 % (42.0-52.0); Hemoglobin 13.8 g/dL (14.0-18.0); Immature Granulocyte Percent A 1.3 % (0-0.5); Lymphocytes Absolute Auto 1.02 K/mm3 (0.9-3.2); Mean Corpuscular HGB Conc 34.0 g/dl (32-36); Mean Corpuscular Hemoglobin 36.8 pg (26-34); Mean Corpuscular Volume 108.3 fl (80-100); Nucleated Red Blood Cells Absolute Auto 0.000 K/mm3 (0.0-0.012); Nucleated Red Blood Cells Perc 0.0 % (0.0-0.2); Platelet Count Result 386 k/mm3 (150-375); Red Blood Count 3.75 M/mm3 (4.6-6.20); White Blood Count 6.9 K/mm3 (4.5-10.0)
[2024-11-18 10:54] LABS: Blood Urea Nitrogen 21 mg/dL (8-26); Carbon Dioxide 27 mmol/L (22-30); Chloride 102 mmol/L (98-109); Estimated Glomerular Filt Rate 20; Glucose 124 mg/dL (70-105); Ionized Calcium (POC) 1.19 mmol/L (1.11-1.31); Potassium 4.7 mmol/L (3.5-4.9); Sodium 138 mmol/L (138-146)
--- OUTSIDE RECORDS SUMMARY | 2024-11-18 11:00 | XMS_ITS | Encounter Summary ---
Author Organization [facility] FAVI[facility]emo Lesson Betsy [facility] Address [address] [place] [address] Care Team Providers Care Electrician Supervisor Name Role Phone Unavailable Primary Care Provider Unavailabl e Encounter Details Date Type Department Care Team (Late st Contact Info) Description 11/18/2024 11:00 AM CDT Office Visit [facility] Oncology and Hematology - [place] [address] [facility] [address] [place] [address] Santos Pickett MD [address] [facility] [address] [place] [address] Arrived Social History Tobacco Use [...] Sign Reading Time Taken Comments Blood Pressure 162/78 11/18/2024 10:55 AM CDT Pulse 65 11/18/2024 10:52 AM CDT Temperature 36.2 C (97.2 F) 11/18/2024 10:52 AM CDT Respiratory Rate 16 11/18/2024 10:52 AM CDT Oxygen Saturation 93% 11/18/2024 10:52 AM CDT Inhaled Oxygen Concentration - - Weight 140.2 kg (309 lb) 11/18/2024 10:52 AM CDT Height - - Body Mass Index 39.67 01/09/2024 1:39 PM THROUGH OPERATOR documented in this encounter Plan of Treatment Not on file documented as of this encounter Visit Diagnoses Not on filedocumented in this encounter
--- OUTSIDE RECORDS SUMMARY | 2024-11-18 11:17 | XMS_ITS | Clinical Summary ---
Author Organization [facility] Address [address] [place] [address] Care Team Providers Care Community Specialist Name Role Phone Unavailable Primary Care Provider Unavailabl e Allergies No known active allergies Medications dupilumab (DUPIXENT) 300 mg/2 mL Pen Injector Inject 300 mg by subcutaneous injection every 2 weeks. Active metFORMIN (GLUCOPHAGE XR) 500 mg Extended Release 24 hour tablet Take 500 mg by mouth daily. Active niacin (NIACOR) 250 mg tablet Take 250 mg by mouth daily. Active vits A,C,E/zinc/copper tapper per (VISION-DYLAN PRESERVE ORAL) Take by mouth. Active enalapril (VASOTEC) 20 mg tablet Take 20 mg by mouth 2 times daily. Active hydroxyurea (HYDREA) 500 mg capsule TAKE 2 CAPSULES BY MOUTH EVERY MORNING AND 1 CAPSULE EVERY EVENING 90 Capsule 3 10/29/19 25 Active allopurinoL (ZYLOPRIM) 300 mg tablet TAKE 1 TABLET(300 MG) BY MOUTH DAILY 90 Tablet 1 11/04/19 25 Active allopurinoL (ZYLOPRIM) 300 mg tablet Take 1 Tablet (300 mg) by mouth daily. 90 Tablet 1 05/27/19 25 025 Discontinued hydroxyurea (HYDREA) 500 mg capsule Take two caps in morning and one in evening 90 Capsule 3 05/27/19 25 025 Discontinued Active Problems No known active problems Encounters Date Type Department Care Team Description 11/18/2024 11:00 AM CDT Office Visit [facility] - [place] [address] [place] [address] Santos Pickett MD Arrived 11/11/2024 External Device Data STL ABSTRACTION Provider, Abstract 11/04/2024 External Device Data STL ABSTRACTION Provider, Abstract 11/02/2024 Refill [facility] - [place] [address] [place] [address] Santos Pickett MD 10/28/2024 Refill [facility] - [place] [address] [place] [address] Santos Pickett MD 10/24/2024 Telephone [facility] - [place] [address] [place] [address] Santos Pickett MD Swelling in legs 10/14/2024 External Device Data STL ABSTRACTION Provider, Abstract 09/30/2024 External Device Data STL ABSTRACTION Provider, Abstract 09/29/2024 11:00 AM CDT Office Visit [facility] - [place] [address] [place] [id number] Santos Pickett MD Essential thrombocytosis (CMS/HCC) (Primary Dx) 09/29/2024 Orders Only [facility] - [place] [address] [place] [address] Santos Pickett MD 08/18/2024 11:00 AM CDT Office Visit [facility] - [place] [address] [place] [address] Santos Pickett MD Essential thrombocytosis (CMS/HCC) (Primary Dx) 08/18/2024 Orders Only [facility] - [place] [address] [place] [address] Santos Pickett MD from Last 3 Months Family History [...] (309 lb) 11/18/2024 10:52 AM CDT Height 188 cm (6' 2) 01/09/2024 1:39 PM BIRTH ATTENDANT Body Mass Index 39.67 01/09/2024 1:39 PM BIRTH ATTENDANT Plan of Treatment Health Maintenance Due Date [...] (A AA) Screening 2017 INFLUENZA VACCINE (#1) 2024 COVID-19 Vaccine ( season) 2024 12/14/2020, 05/14/2020, 04/23/2020 RSV VACCINE (60+ or ) (1 - 1-dose 75+ series) 08/02/2027 Procedures Procedure Name Priority Date/Time Associated Diagnosis Comments BASIC METABOLIC PANEL Routine 09/29/2024 12:46 PM CDT CBC WITH AUTODIFFERENTIAL Routine 2024 12:44 PM CDT CBC WITH DIFFERENTIAL Routine 08/18/2024 4:02 PM CDT BASIC METABOLIC PANEL Routine 08/18/2024 3:58 PM CDT from Last 3 Months Results * BASIC METABOLIC PANEL (09/29/2024 12:46 PM CDT) Only the most recent of2 resultswithin the time period is included. Blood us Santos Pickett MD CHEMISTRY ORDERABLES Final Resu lt * CBC WITH AUTODIFFERENTIAL (09/29/2024 12:44 PM CDT) Blood us Santos Pickett MD HEMATOLOGY ORDERABLES Final Res ult * CBC WITH DIFFERENTIAL (08/18/2024 4:02 PM CDT) Blood us Santos Pickett MD HEMATOLOGY ORDERABLES Final Res ult from Last 3 Months Insurance MEDICARE PART A AND B [facility] [id number]
--- OUTSIDE RECORDS SUMMARY | 2024-11-18 11:17 | XMS_ITS | Clinical Summary ---
Author Organization [facility] Address [address] [place] [address] Care Team Providers Care Command Post Craftsman Name Role Phone Francy Amaya MARCIO Primary Care Provider [phone] Medications enalapril (VASOTEC) 20 MG tablet Take [...] Wellness Visit 2017 COVID-19 Vaccine ( season) 2024 12/29/2021, 10/10/2021, 12/14/2020, Additional history exists Meningococcal B Vaccine Aged Out No l onger eligible based on patient's age to complete this topic Meningococcal Vaccine Aged Out No meir lilia eligible based on patient's age to complete this topic RSV Immunizations Under 20 Months Aged Out No longer eligible based on patient's age to complete this topic Medical Devices Implanted Type Area Radiographer Technologist Device Identifier Shelf Expiration Date Model / Serial / Lot Medium Toe Tac Fixation System Implanted:Qty: 1 on 11/17/2022 by Jeremy Rodriguez DPM at [facility] Right: Toe [employer] DIV ALE J[employer]IFER [id number] 08/22/2025 -08408 / / [id number] Insurance MEDICARE [facility] Care Teams Command Post Craftsman Relationship Specialty Start Date End Date Francy Amaya NP [address] [place] [address] PCP - General Nurse Practitioner Family 11/10/22
--- OUTSIDE RECORDS SUMMARY | 2024-11-18 11:17 | XMS_ITS | Patient Health Record ---
Author Organization [facility] Address [address] [place], [place] [address] Care Team Providers Care Core Carrier Name Role Phone REID ROMAN Unavailable [phone] Francy Rai Unavailable Unavailable Allergies No Known [...] Location Date Provider Diagnosis [facility] [address] [place], [place] [id number] 09/29/2024 REID ROMAN Tinea unguium B35.1 ; Pain in right foot M79.671 ; Pain in left foot M79.672 ; Atherosclerosis of [place] arteries of extremities with intermittent claudication, bilateral legs I70.213 and Acquired keratosis [keratoderma] palmaris et plantaris L85.1 [facility] [address] [place] [id number] 12/17/2023 REID SNOOK Tinea unguium B35.1 ; Pain in right foot M79.671 ; Pain in left foot M79.672 ; Atherosclerosis of [place] arteries of extremities with intermittent claudication, bilateral legs I70.213 and Acquired keratosis [keratoderma] palmaris et plantaris L85.1 [facility] [address] [place] [id number] 03/10/2024 REID SNOOK Tinea unguium B35.1 ; Pain in right foot M79.671 ; Pain in left foot M79.672 ; Atherosclerosis of [place] arteries of extremities with intermittent claudication, bilateral legs I70.213 and Acquired keratosis [keratoderma] palmaris et plantaris L85.1 [facility] [address] [place] [id number] 05/12/2024 REID SNOOK Tinea unguium B35.1 ; Pain in right foot M79.671 ; Pain in left foot M79.672 ; Atherosclerosis of [place] arteries of extremities with intermittent claudication, bilateral legs I70.213 and Acquired keratosis [keratoderma] palmaris et plantaris L85.1 [facility] [place] [address] [place] [id number] 07/28/2024 REID SNOOK Tinea unguium B35.1 ; Pain in right foot M79.671 ; Pain in left foot M79.672 ; Atherosclerosis of [place] arteries of extremities with intermittent claudication, bilateral [...] in left foot (ICD-10 - M79.672) 07/28/2024 Pain in left foot (ICD-10 - M79.672) 05/12/2024 Pain in left foot (ICD-10 - M79.672) 03/10/2024 Pain in left foot (ICD-10 - M79.672) 12/17/2023 Pain in left foot (ICD-10 - M79.672) 12/17/2023 Atherosclerosis of [place] arteries of extremities with intermittent claudication, bilateral legs (ICD-10 - I70.213) 03/10/2024 Atherosclerosis of [place] arteries of extremities with intermittent claudication, bilateral legs (ICD-10 - I70.213) 05/12/2024 Atherosclerosis of [place] arteries of extremities with intermittent claudication, bilateral legs (ICD-10 - I70.213) 07/28/2024 Atherosclerosis of [place] arteries of extremities with intermittent claudication, bilateral legs (ICD-10 - I70.213) 09/29/2024 Atherosclerosis of [place] arteries of extremities with intermittent claudication, bilateral legs (ICD-10 - I70.213) 09/29/2024 Acquired keratosis [keratoderma] palmaris et plantaris (ICD-10 - L85.1) A total of 2 corns or calluses, as described in the note above, were cut and pared utilizing a #15 blade 07/28/2024 Acquired keratosis [keratoderma] palmaris et plantaris (ICD-10 - L85.1) A total of 1 corns or calluses, as described in the note above, were cut and pared utilizing a #15 blade 05/12/2024 Acquired keratosis [keratoderma] palmaris et plantaris [...] cut and pared utilizing a #15 blade 07/28/2024 Other The patient had a friend [...] Appt Details Provider Name:REID ROMAN, 08:00:00 AM, [address], [place], [place], [id number], Insurance Providers Payer Name Payer Address Payer Phone Subscriber Number Group Number Insured Name Patient Relationship to Insured Coverage Start Date Coverage End Date Medicare Part B [place] [address] [place] [address] [id number] TESS DOWNEY Self - patient is the insured [facility] [address] [address] [place], [place] [id number] TESS DOWNEY Self - patient is the insured [facility] [address] [place], [place] [id number] TESS DOWNEY Self - patient is the insured
--- OUTSIDE RECORDS SUMMARY | 2024-11-18 11:17 | XMS_ITS | Clinical Summary ---
Author Organization [facility] Address [address] [place] [address] Care Team Providers Care Product Safety Technical Assistant Name Role Phone Levi Yu DO Unavailable Christian Allan MD Primary Care Provider [phone] Markell Dominguez MD Unavailable Unavailable Source Comments [facility],non-owned Affiliates and Associated Physician Practices is amultiple site organization consisting of ambulatory clinics and hospital sitesin [place], [place], [place] and [place]. This disclosure is being madepursuant to the Care Everywhere program and may not contain all information available regarding this patient. 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 Gender Identity Not on file Sexual Orientation Not on file Last Filed Vital Signs Vital Sign Reading Time Taken Comments Blood Pressure 156/75 06/04/2020 8:08 AM CDT Pulse 56 06/04/2020 8:08 AM CDT Temperature 36.9 C (98.5 F) 03/21/2020 3:25 PM CHIMNEY BUILDER Respiratory Rate 18 03/21/2020 6:31 PM CHIMNEY BUILDER Oxygen Saturation 95% 03/21/2020 8:01 PM CHIMNEY BUILDER Inhaled Oxygen Concentration - - Weight 151.4 [...] years 1-dose series) 2012 AAA SCREENING 2017 DEPRESSION SCREENING 02/27/2024 COVID-19 VACCINE ( season) 2024 12/29/2021, 10/10/2021, 12/14/2020, Additional history exists INFLUENZA VACCINE (#1) 2024 12/29/2021 HEPATITIS B [...] this topic Medical Devices Implanted Type Area Coater Carbon Paper Device Identifier Shelf Expiration Date Model / Serial / Lot Acetabular Liner +3 Max-Rom 40mm Head Size 25 Liner Size Implanted:Qty: 1 on 11/12/2018 by Frederick Solis IV, MD at [facility] Left: Hip [employer] 10/25/2020 [id number] / / [id number] Shell Actb 58mm Hip Lmt Hl Rnglc+ Implanted:Qty: 1 on 11/12/2018 by Frederick Solis IV, MD at [facility] Left: Hip [employer] 07/30/2028 [id number] / / [id number] Alloclassic Sl Stem Offset 5, Taper 12/14 Implanted:Qty: 1 on 11/12/2018 by Frederick Solis IV, MD at [facility] Left: Hip 06/26/2023 01.25768.05 0 / / [id number] Ceramic Femoral Head 40/+7 Xl Implanted:Qty: 1 on 11/12/2018 by Frederick Solis IV, MD at [facility] Left: Hip [employer] 03/28/2024 [id number] 0 -04 / / [id number] Explanted Type Area Coater Carbon Paper Device Identifier Shelf Expiration Date Model / Serial / Lot Pin Fx 22.9cm 4mm Stnm Thrd Ss 1 End Explanted:Qty: 2 on 11/12/2018 at [facility] Left: Hip [employer] [id number] / / Insurance MEDICARE [facility] Advance Directives * Full Code (Latest Code Status on File) Date Activated Date Inactivated Comments 11/12/2018 10:25 AM 11/16/2018 3:52 PM Care Teams Product Safety Technical Assistant Relationship Specialty Start Date End Date Christian Allan MD [address] [place] [address] PCP - General Internal Medicine 03/21/20 Levi Yu DO Orthopedic Surgery 08/13/12 Markell Dominguez MD [address] [place] [address] Director Of Pediatric Rehabilitation Cardiovascular Disease 06/04/20
== END 2024-11-18 10:32 | disposition home or self-care (01) ==
LOC: ANHLAB 10:32
PROVIDERS: PCP Nurse Practitioner Family; Visit Provider Internal Medicine Hematology & Oncology
DX: D47.3 Essential (hemorrhagic) thrombocythemia (principal)
CPT/HCPCS: 36415; 80047; 85025

== ENCOUNTER 2025-01-27 09:05 | Outpatient (CLI) | payer MEDICARE, SELFPAY ==
--- OUTSIDE RECORDS SUMMARY | 2025-01-27 09:28 | XMS_ITS | Clinical Summary ---
Author Organization [facility] Address [address] [place] [address] Care Team Providers Care Fashion Marketer Name Role Phone Unavailable Primary Care Provider [...] 1 CAPSULE EVERY EVENING 90 Capsule 3 5 Active allopurinoL (ZYLOPRIM) 300 mg tablet Take 1 Tablet (300 mg) by mouth daily. 90 Tablet 1 5 Active Active Problems No known active problems Encounters Date Type Department Care Team Description 12/02/2024 External Device Data STL ABSTRACTION Provider, Abstract 11/19/2024 Orders Only [facility] Oncology and Hematology - [place] [address] [place] [address] Santos Pickett MD 11/18/2024 11:00 AM CDT Office Visit [facility] Oncology and Hematology [place] [address] [place] [address] Santos Pickett MD Essential thrombocytosis (CMS/HCC) (Primary Dx) 11/11/2024 External Device Data STL ABSTRACTION Provider, Abstract 11/04/2024 External Device Data STL ABSTRACTION Provider, Abstract 11/02/2024 [facility] Oncology and Hematology [place] [address] [place] [address] Santos Pickett MD 10/28/2024 Refill [facility] Oncology and Hematology [place] [address] [place] [address] Santos Pickett MD from Last 3 Months Family History Medical History Relation Name Comments No Known Problems Brother COPD Father Atrial fibrillation Mother Heart Attack Mother No Known Problems Sister Relation Name Status Comments Brother Alive Father Mother Sister Alive Social History Tobacco Use Types Packs/Day Years Used Date Smoking Tobacco: Former Cigarettes 0 Q uit: 1986 Smokeless Tobacco: Never Tobacco [...] 188 cm (6' 2) 01/09/2024 1:39 PM BUSINESS SERVICES ASSOCIATE Body Mass Index 39.67 01/09/2024 1:39 PM BUSINESS SERVICES ASSOCIATE Plan of Treatment Upcoming Encounters Date Type Department Care Team (Late st Contact Info) Description 01/27/2025 10:00 AM BUSINESS SERVICES ASSOCIATE Office Visit [facility] Oncology and Hematology [place] [address] [place] [address] Santos Pickett MD [address] [facility] [address] [place] [address] Health Maintenance Due Date Last [...] Diagnosis Comments CBC WITH AUTODIFFERENTIAL Routine 2024 1:39 PM CDT from Last 3 Months Results * CBC WITH AUTODIFFERENTIAL (11/18/2024 1:39 PM CDT) Blood Santos Pickett MD HEMATOLOGY ORDERABLES Final Res ult from Last 3 Months Insurance MEDICARE PART A AND B [facility] [id number]
--- OUTSIDE RECORDS SUMMARY | 2025-01-27 09:28 | XMS_ITS | Clinical Summary ---
Author Organization [facility] Address [address] [place] [address] Care Team Providers Care Hydraulic Corrugating Machine Operator Name Role Phone Levi Yu DO Unavailable Christian Allan MD Primary Care Provider [phone] Markell Dominguez MD Unavailable Unavailable Source Comments [facility],non-owned Affiliates and Associated Physician Practices is amultiple site organization consisting of ambulatory clinics and hospital sitesin [place], [place], [place]. This disclosure is being madepursuant to the Care Everywhere program and may not contain all information available regarding this patient. 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 ANALYST Gender Identity Not on file Sexual Orientation Not on file Last Filed Vital Signs Vital Sign Reading Time Taken Comments Blood Pressure 156/75 06/04/2020 8:08 AM CDT Pulse 56 06/04/2020 8:08 AM CDT Temperature 36.9 C (98.5 F) 03/21/2020 3:25 PM HEALTHCARE APPLICATIONS ANALYST Respiratory Rate 18 03/21/2020 6:31 PM HEALTHCARE APPLICATIONS ANALYST Oxygen Saturation 95% 03/21/2020 8:01 PM HEALTHCARE APPLICATIONS ANALYST Inhaled Oxygen Concentration - - Weight 151.4 [...] 50+ (1 of 1 - PCV) 2002 Respiratory Syncytial Virus (RSV) Vaccine Pt: or over 60 yrs (1 - Risk 50-74 years 1-dose series) 2002 ZOSTER VACCINE (1 of 2) 2002 AAA SCREENING 2017 DEPRESSION SCREENING 02/27/2024 COVID-19 [...] this topic Medical Devices Implanted Type Area Low Voltage Technician Device Identifier Shelf Expiration Date Model / Serial / Lot Acetabular Liner +3 Max-Rom 40mm Head Size 25 Liner Size Implanted:Qty: 1 on 11/12/2018 by Frederick Solis IV, MD at [facility] Left: Hip [employer] 10/25/2020 [id number] / / [id number] Shell Actb 58mm Hip Lmt Hl Rnglc+ Implanted:Qty: 1 on 11/12/2018 by Frederick Solis IV, MD at [facility] Left: Hip [employer] 07/30/2028 [id number] / / [id number] Alloclassic Sl Stem Offset 5, Taper 12/14 Implanted:Qty: 1 on 11/12/2018 by Frederick Solis IV, MD at [facility] Left: Hip 06/26/2023 01.31843.05 0 / / [id number] Ceramic Femoral Head 40/+7 Xl Implanted:Qty: 1 on 11/12/2018 by Frederick Solis IV, MD at [facility] Left: Hip [employer] 03/28/2024 [id number] 0 -04 / / [id number] Explanted Type Area Low Voltage Technician Device Identifier Shelf Expiration Date Model / Serial / Lot Pin Fx 22.9cm 4mm Stnm Thrd Ss 1 End Explanted:Qty: 2 on 11/12/2018 at [facility] Left: Hip [employer] [id number] / / Insurance MEDICARE [facility] Advance Directives * Full Code (Latest Code Status on File) Date Activated Date Inactivated Comments 11/12/2018 10:25 AM 11/16/2018 3:52 PM Care Teams Hydraulic Corrugating Machine Operator Relationship Specialty Start Date End Date Christian Allan MD [address] [place] [address] PCP - General Internal Medicine 03/21/20 Levi Yu DO Orthopedic Surgery 08/13/12 Markell Dominguez MD [address] [place] [address] Movie Producer Cardiovascular Disease 06/04/20
--- OUTSIDE RECORDS SUMMARY | 2025-01-27 09:28 | XMS_ITS | Clinical Summary ---
Author Organization [facility] Address [address] [place] [address] Care Team Providers Care Commutator Undercutter Name Role Phone Francy Amaya MARCIO Primary Care Provider [phone] Medications enalapril (VASOTEC) 20 MG tablet Take [...] 2024 12/29/2021, 10/10/2021, 12/14/2020, Additional history exists Influenza Adult (#1) 2024 Hepatitis A Vaccines Aged Out No long er eligible based on patient's age to complete this topic Meningococcal B Vaccine Aged Out No l onger eligible based on patient's age to complete this topic Meningococcal Vaccine Aged Out No meir lilia eligible based on patient's age to complete this topic RSV Immunizations Under 20 Months Aged Out No longer eligible based on patient's age to complete this topic Medical Devices Implanted Type Area Nurse Quality Device Identifier Shelf Expiration Date Model / Serial / Lot Medium Toe Tac Fixation System Implanted:Qty: 1 on 11/17/2022 by Jeremy Rodriguez DPM at [facility] Right: Toe [employer] DIV ALE J[employer]IFER [id number] 08/22/2025 -57949 / / [id number] Insurance MEDICARE [facility] Care Teams Commutator Undercutter Relationship Specialty Start Date End Date Francy Amaya NP [address] [facility] [email or web address] [address] PCP - General Nurse Practitioner Family 11/10/22
[2025-01-27 09:47] LABS: Hematocrit 40.5 % (42.0-52.0); Hemoglobin 13.7 g/dL (14.0-18.0); Immature Granulocyte Percent A 2.7 % (0-0.5); Lymphocytes Absolute Auto 1.29 K/mm3 (0.9-3.2); Mean Corpuscular HGB Conc 33.8 g/dl (32-36); Mean Corpuscular Hemoglobin 37.3 pg (26-34); Mean Corpuscular Volume 110.4 fl (80-100); Nucleated Red Blood Cells Absolute Auto 0.000 K/mm3 (0.0-0.012); Nucleated Red Blood Cells Perc 0.0 % (0.0-0.2); Platelet Count Result 635 k/mm3 (150-375); Red Blood Count 3.67 M/mm3 (4.6-6.20); White Blood Count 10.6 K/mm3 (4.5-10.0)
[2025-01-27 09:51] LABS: Blood Urea Nitrogen 22 mg/dL (8-26); Carbon Dioxide 28 mmol/L (22-30); Chloride 102 mmol/L (98-109); Estimated Glomerular Filt Rate 24; Glucose 125 mg/dL (70-105); Ionized Calcium (POC) 1.21 mmol/L (1.11-1.31); Potassium 4.9 mmol/L (3.5-4.9); Sodium 136 mmol/L (138-146)
== END 2025-01-27 09:06 | disposition home or self-care (01) ==
LOC: ANHLAB 09:07
PROVIDERS: PCP Nurse Practitioner Family; Visit Provider Internal Medicine Hematology & Oncology
DX: D47.3 Essential (hemorrhagic) thrombocythemia (principal)
CPT/HCPCS: 36415; 80047; 85025